=== PATIENT | male | born 2000 | race African-American/Black ===

== ENCOUNTER 2021-11-03 08:28 | Emergency (ER) | payer OTHER, SELFPAY ==
[2021-11-03 08:40] VITALS: BP 120/73; PULSE 96; RESP 17; TEMP 37.2; O2SAT 98
[2021-11-03 08:46] VITALS: RESP 17; O2SAT 98
--- NOTE | 2021-11-03 09:23 | ED.GENADULT ---
HPI - General Adult General Chief complaint: Unspecified <BITA Rockwell Last Filed: 11/03/21 19:24> Stated complaint: pill stuck in throat <BITA Rockwell Last Filed: 11/03/21 19:24> Time Seen by Provider: 11/03/21 08:56 <BITA Rockwell Last Filed: 11/03/21 19:24> Source: patient <BITA Rockwell Last Filed: 11/03/21 19:24> Mode of arrival: ambulatory <BITA Rockwell Last Filed: 11/03/21 19:24> Limitations: no limitations <BITA Rockwell Last Filed: 11/03/21 19:24> History of Present Illness HPI narrative: Patient is a 21 y/o male who presents to the ED with c/o a pill in his throat. Patient reports he woke up with a headache today and tried to take an over the counter Ibuprofen around 6 am this morning. He feels the pill stuck in his throat. Patient has history of eosinophilic esophagitis and reports narrowing of his esophagus. He states he has had 2 previous episodes of pills or food being stuck in his throat that he has had to have emergency scopes for. Patient does not currently follow with a GI doctor. Patient states he is unable to keep down any water since then. No nausea. He does report some discomfort in his esophagus, but denies chest pain or difficulty breathing. <BITA Rockwell Last Filed: 11/03/21 19:24> Related Data Allergies/adverse reactions: Allergies Allergy/AdvReac Type Severity Reaction Status Date / Time nut - unspecified Allergy Unknown HIVES Verified 11/03/21 08:45 peas Allergy Unknown HIVES Verified 11/03/21 08:45 Dairy Allergy Unknown EXAC OF Uncoded 11/03/21 08:45 CROHNS SEAFOOD Allergy Unknown HIVES Uncoded 11/03/21 08:45 <BITA Rockwell Last Filed: 11/03/21 19:24> Review of Systems Review of Systems: ENT: Reports discomfort in esophagus, pill stuck in throat. Denies sore throat. CARDIOVASCULAR: Denies chest pain. RESPIRATORY: Denies dyspnea. GASTROINTESTINAL: Reports vomiting (unable to keep down water d/t pill in throat). Denies abdominal pain, nausea, or diarrhea. MUSCULOSKELETAL: Denies back pain. <Liss Calderon PA-C - Last Filed: 11/03/21 19:24> All systems reviewed & are unremarkable except as noted in HPI and below <Liss Calderon PA-C - Last Filed: 11/03/21 19:24> [facility] Past Medical History Medical History: Medical History (Updated 11/04/21 @ 00:00 by Capri Alcantara) Asthma Crohn's disease Eosinophilic esophagitis <Liss Calderon PA-C - Last Filed: 11/03/21 19:24> Surgical History Surgical History: Surgical History (Updated 11/03/21 @ 10:18 by Liss Calderon PA-C) History of esophagogastroduodenoscopy (EGD) <Liss Calderon PA-C - Last Filed: 11/03/21 19:24> Social History Social History: Social History (Updated 11/03/21 @ 10:18 by Liss Calderon PA-C) Smoking status: Never smoker <Liss Calderon PA-C - Last Filed: 11/03/21 19:24> Exam Narrative: GENERAL: Well appearing, well-nourished, non-toxic, in no acute distress. HEAD: Normocephalic, atraumatic. THROAT: Pharynx clear, no exudate. MMs moist. No drooling. No trismus. NECK: Supple. No adenopathy, no masses. RESPIRATORY: Airway patent, respirations nonlabored. Clear to auscultation bilaterally, no rales, rhonchi, wheezing. CARDIOVASCULAR: Regular rate and rhythm without murmurs, rubs, or gallops. Radial pulses 2+ and equal bilaterally. MUSCULOSKELETAL: Moves all extremities. Strength/ROM intact without gross deformities or TTP. SKIN: Warm, dry, normal color. No rashes. NEURO: A&O X3. Speech clear. Cranial nerves II-XII grossly intact. Steady gait. No ataxic movements. PSYCHIATRIC: Appropriate mood and affect. Normal interaction. <Liss Calderon PA-C - Last Filed: 11/03/21 19:24> Course THERMOSTAT MECHANIC/PA Physician Supervision For this patient encounter, I reviewed the THERMOSTAT MECHANIC or PA documentation, treatment plan, and medical decision making <Vinod Iglesias MD - Last File
[2021-11-03 10:01] VITALS: BP 119/78; PULSE 92; RESP 16; O2SAT 98
[2021-11-03] MEDS: KETOROLAC (*BKC) 60 MG/2 ML VIAL IM (10:29)
== END 2021-11-03 10:37 | disposition home or self-care (01) ==
PROVIDERS: Emergency Provider Emergency Medicine
DX: J10.1 Influenza due to other identified influenza virus with other respiratory manifestations (principal); K20.0 Eosinophilic esophagitis; J45.909 Unspecified asthma, uncomplicated; K50.90 Crohn's disease, unspecified, without complications
CPT/HCPCS: 87804; 96372; 99283; J1885

== ENCOUNTER 2022-03-03 09:05 | Emergency (ER) | payer OTHER, SELFPAY ==
--- NOTE | ~2022-03-03 | XR_ITS ---
EXAMINATION: XR foot LT min 3V DATE: 03/03/2022 09:33 INDICATION: Left foot pain TECHNIQUE: Dorsoplantar, lateral, and 2 oblique views of the left foot were obtained. COMPARISON: None. FINDINGS: There is no fracture, dislocation, or subluxation. The bones and joint spaces are normal. T here is mild medial soft tissue swelling adjacent to the first metatarsophalangeal joint. IMPRESSION: 1. No acute osseous abnormality. Reviewed, dictated and finalized at location B.
[2022-03-03 09:07] VITALS: BP 130/82; PULSE 89; RESP 16; TEMP 36.6; O2SAT 99
[2022-03-03 10:09] VITALS: BP 127/77; PULSE 82; RESP 18; TEMP 37; O2SAT 92
--- NOTE | 2022-03-03 10:19 | PC.NURSE ---
Pt said not able to swallow big tablets and is requesting liquid form. Pharmacy made aware.
[2022-03-03 10:20] LABS: Basophils Absolute Auto 0.1 K/mm3 (0.0-0.1); Basophils Percent Auto 0.9 % (0.2-1.2); Eosinophils Absolute Auto 0.8 K/mm3 (0-0.3); Eosinophils Percent Auto 7.6 % (0-4.4); Hemoglobin 14.4 g/dL (14.0-18.0); Immature Granulocyte Absolute 0.03 K/mm3 (0.00-0.031); Immature Granulocyte Percent A 0.3 % (0-0.5); Lymphocytes Absolute Auto 2.14 K/mm3 (0.9-3.2); Lymphocytes Percent Auto 19.9 % (18.3-44.2); Mean Corpuscular HGB Conc 34.3 g/dl (32-36); Mean Corpuscular Volume 90.3 fl (80-100); Mean Platelet Volume 9.3 fl (7.4-10.4); Monocytes Absolute Auto 1.2 K/mm3 (0.1-0.6); Monocytes Percent Auto 11.4 % (2.6-8.5); Neutrophils Absolute Auto 6.4 K/mm3 (1.3-6.7); Neutrophils Percent Auto 59.9 % (45.5-73.1); Platelet Count Result 256 k/mm3 (150-375); Red Blood Count 4.65 M/mm3 (4.6-6.20); Red Cell Distribution Width 12.4 % (11.5-14.5); White Blood Count 10.8 K/mm3 (4.5-10.0)
[2022-03-03] MEDS: IBUPROFEN SUSPENSION 200 MG/10 ML UDC 600 MG PO (10:25)
[2022-03-03 10:42] LABS: Anion Gap 9 mmol/L (8-16); Blood Urea Nitrogen 18 mg/dL (9-20); Calcium 9.3 mg/dL (8.4-10.2); Carbon Dioxide 30 mmol/L (22-30); Chloride 98 mmol/L (98-107); Estimated CRCL calculation 92 ml/min; Estimated Glomerular Filt Rate > 60; Glucose 95 mg/dL (65-110); Sodium 137 mmol/L (137-145); Uric Acid 7.2 mg/dL (3.5-8.5)
--- NOTE | 2022-03-03 10:58 | ED.GENADULT ---
HPI - General Adult General Chief complaint: Extremity Injury, Lower Stated complaint: left toe injury Time Seen by Provider: 03/03/22 09:56 Source: RN notes reviewed History of Present Illness HPI narrative: Patient presents emergency room from home for left toe pain. Patient states he initially injured the toe 2 weeks ago he states he got out to a bar that evening that his back distress has been began noticed toe pain pain was at the base of the toe he denies the exact mechanism of the injury states that time he had rest of the toe and began to feel better states that secondary to go back to school that yesterday first returning he had spent some time in a bounce house and noticed increased pain following that was swelling at the base of the toe he denies any numbness or tingling the extremities or any other symptoms Related Data Allergies Allergy/AdvReac Type Severity Reaction Status Date / Time nut - unspecified Allergy Unknown HIVES Verified 11/03/21 08:45 peas Allergy Unknown HIVES Verified 11/03/21 08:45 Dairy Allergy Unknown EXAC OF Uncoded 11/03/21 08:45 CROHNS SEAFOOD Allergy Unknown HIVES Uncoded 11/03/21 08:45 Review of Systems Review of Systems: Gen.: Denies fevers or chills Musculoskeletal: See HPI Neuro: Denies numbness, tingling, weakness Skin: Denies rash Endo: Denies DM PMFSH Past Medical History Medical History Asthma Crohn's disease Eosinophilic esophagitis Surgical History Surgical History (Updated 11/03/21 @ 10:18 by Liss Pacheco PA-C) History of esophagogastroduodenoscopy (EGD) Social History Social History Smoking status: Never smoker Exam Narrative: APPEARANCE: No acute distress, nontoxic, resting in bed Eyes: EOMI HEENT: Normocephalic, atraumatic, RESPIRATORY: No respiratory distress MUSCULOSKELETAl: Left foot with tenderness and mild swelling at the base of the first toe the remainder the foot is nontender dorsalis pedis pulse 2+ neurovascular intact NEURO: Awake and alert. Following commands, speech normal, no focal deficits SKIN:: Warm, dry. Normal Color no rash or lesions Course Course Emergency Course: Discussed with patient results of workup and diagnosis. Discussed need for follow-up with primary care, proper use of medication, and reasons to return to the emergency department. Patient understands and agrees to current treatment plan Vital Signs Vital signs: Vital Signs Temperature 97.9 F 03/03/22 09:07 Pulse Rate 89 03/03/22 09:07 Respiratory Rate 16 03/03/22 09:07 Blood Pressure 130/82 03/03/22 09:07 Pulse Oximetry 99 03/03/22 09:07 Oxygen Delivery Room Air 03/03/22 09:07 Temperature 98.6 F 03/03/22 10:09 Pulse Rate 82 03/03/22 10:09 Respiratory Rate 18 03/03/22 10:09 Blood Pressure 127/77 03/03/22 10:09 Pulse Oximetry 92 03/03/22 10:09 Oxygen Delivery Room Air 03/03/22 10:09 Medical Decision Making Vital Signs Vital Signs: Vital Signs Temperature 97.9 F 03/03/22 09:07 Pulse Rate 89 03/03/22 09:07 Respiratory Rate 16 03/03/22 09:07 Blood Pressure 130/82 03/03/22 09:07 Pulse Oximetry 99 03/03/22 09:07 Oxygen Delivery Room Air 03/03/22 09:07 Temperature 98.6 F 03/03/22 10:09 Pulse Rate 82 03/03/22 10:09 Respiratory Rate 18 03/03/22 10:09 Blood Pressure 127/77 03/03/22 10:09 Pulse Oximetry 92 03/03/22 10:09 Oxygen Delivery Room Air 03/03/22 10:09 Lab Data Result diagrams: 03/03/22 10:13 03/03/22 10:13 Labs: Lab Results 03/03/22 03/03/22 Range/Units 10:13 10:13 WBC 10.8 H (4.5-10.0) K/mm3 RBC 4.65 (4.6-6.20) M/mm3 Hgb 14.4 (14.0-18.0) g/dL Hct 42.0 (42.0-52.0) % MCV 90.3 (80-100) fl MCH 31.0 (26-34) pg MCHC 34.3 (32-36) g/dl RDW 12.4 (11.5-14.5) % Plt Count 256 (150-375)
[2022-03-03 11:22] VITALS: BP 124/72; PULSE 75; RESP 18; O2SAT 100
== END 2022-03-03 11:15 | disposition home or self-care (01) ==
PROVIDERS: Emergency Provider Emergency Medicine
DX: S93.502A Unspecified sprain of left great toe, initial encounter (principal); J45.909 Unspecified asthma, uncomplicated; K50.90 Crohn's disease, unspecified, without complications; X58.XXXA Exposure to other specified factors, initial encounter
CPT/HCPCS: 36415; 73630; 80048; 84550; 85025; 99283; A9270

== ENCOUNTER 2022-05-26 10:32 | Emergency (ER) | payer OTHER, SELFPAY ==
--- NOTE | ~2022-05-26 | XR_ITS ---
XR shoulder RT min 2V DATE: 05/26/2022 11:40 INDICATION: Pain and popping sound the right shoulder. No injury. TECHNIQUE: 4 views COMPARISON: None FINDINGS: No fracture, dislocation, periosteal reaction or bone destruction or abnormal soft tissue c alcification. Normal alignment at the acromioclavicular and glenohumeral joints. IMPRESSION: Negative Reviewed, dictated and finalized at location A. R DIGGER IMPRESSION: Negative
[2022-05-26 10:53] VITALS: BP 122/60; PULSE 72; RESP 20; TEMP 37.2; O2SAT 100
--- NOTE | 2022-05-26 11:17 | ED.GENADULT ---
HPI - General Adult General Chief complaint: Extremity Injury, Upper <BITA Mello Last Filed: 05/26/22 12:51> Stated complaint: shoulder injury <BITA Mello Last Filed: 05/26/22 12:51> Time Seen by Provider: 05/26/22 11:03 <BITA Mello Last Filed: 05/26/22 12:51> History of Present Illness HPI narrative: Patient is a healthy 22-year-old [id number] male here for evaluation of right shoulder pain over the past 2 months. Patient states that he initially injured the shoulder in a fall onto outstretched hands in March. He felt a pop in his shoulder, and since then has been experiencing pain with range of motion. He also notes intermittent clicking of his shoulder. Has not attempted any medication for pain. Denies any numbness or tingling, weakness in the arm. Presents today due to continued symptoms. <BITA Mello Last Filed: 05/26/22 12:51> Related Data Allergies/adverse reactions: Allergies Allergy/AdvReac Type Severity Reaction Status Date / Time nut - unspecified Allergy Unknown HIVES Verified 11/03/21 08:45 peas Allergy Unknown HIVES Verified 11/03/21 08:45 Dairy Allergy Unknown EXAC OF Uncoded 11/03/21 08:45 CROHNS SEAFOOD Allergy Unknown HIVES Uncoded 11/03/21 08:45 <BITA Mello Last Filed: 05/26/22 12:51> Review of Systems Review of Systems: Gen.: Denies fevers or chills Eyes: Denies eye pain or visual change ENT: Denies congestion Respiratory: Denies shortness of breath or cough CV: Denies chest pain or palpitations GI: Denies abdominal pain nausea, emesis or diarrhea denies burning, urgency, frequency or hematuria Musculoskeletal: Reports right shoulder pain. Neuro: Denies numbness, tingling, weakness or focal weakness Skin: Denies rash Except as documented, all other systems reviewed and negative <BITA Mello Last Filed: 05/26/22 12:51> PMFSH Past Medical History Medical History: Medical History Asthma Crohn's disease Eosinophilic esophagitis <Nerissa Wilson PA-C - Last Filed: 05/26/22 12:51> Surgical History Surgical History: Surgical History History of esophagogastroduodenoscopy (EGD) <Nerissa Wilson PA-C - Last Filed: 05/26/22 12:51> Social History Social History: Social History Smoking status: Never smoker <Nerissa Wilson PA-C - Last Filed: 05/26/22 12:51> Exam Narrative: APPEARANCE: Well appearing, no pain in distress, well-nourished. Head: Normocephalic and atraumatic. EYES: PERRLA/EOMI, conjunctivae clear NOSE: No nasal drainage EARS: External ear normal in appearance THROAT: Oropharynx is clear. Mucous membranes are moist. NECK: Supple. No adenopathy, no masses. RESPIRATORY: Airway patent, respirations nonlabored. Clear to auscultation bilaterally, no rales, rhonchi, wheezing. CARDIOVASCULAR: Regular rate and rhythm without murmurs, rubs, or gallops. ABDOMINAL: Normoactive bowel sounds. Soft, nontender, nondistended. No rebound tenderness or guarding. MUSCULOSKELETAL: No deformity noted to right shoulder. Bony tenderness to lateral aspect of right clavicle. No bony tenderness to humeral head or olecranon. Sensation intact over axilla. Full range of motion in right shoulder, notes pain with external rotation. Arm is warm and well-perfused. NEURO: Normal speech. No focal neurologic deficits. SKIN: Skin is warm and dry. No rashes. PSYCHIATRIC: Normal affect/mood. <Nerissa Wilson PA-C - Last Filed: 05/26/22 12:51> Course BATTERY PARTS ASSEMBLER/PA Physician Supervision For this encounter, I have reviewed the PA documentation, treatment plan and medical decision making: And I have had [id number] time with the patient. M
== END 2022-05-26 12:10 | disposition home or self-care (01) ==
PROVIDERS: Emergency Provider Emergency Medicine
DX: M25.511 Pain in right shoulder (principal); J45.909 Unspecified asthma, uncomplicated; K50.90 Crohn's disease, unspecified, without complications
CPT/HCPCS: 73030; 99283

== ENCOUNTER 2023-06-03 13:26 | Emergency (ER) | payer OTHER, SELFPAY ==
[2023-06-03 13:39] VITALS: BP 133/90; PULSE 80; RESP 18; TEMP 36.5; O2SAT 100
--- NOTE | 2023-06-03 14:54 | ED.GENADULT ---
HPI - General Adult General Chief complaint: Urogenital-Male Stated complaint: sti check Time Seen by Provider: 06/03/23 14:28 History of Present Illness HPI narrative: 23-year-old male presents to the emergency department for evaluation of pain and tingling at the tip of his penis. Patient reports days ago he did have sexual activity patient did wear 2 condoms. Patient did not have high concern for getting STD but states he did have some tingling in the tip of his penis last night. Patient denies any rashes denies any pain with urination denies any testicular pain. patient states he does have a prior history of chlamydia but states this feels differently. And time the Examination patient denies any complaints. Related Data Allergies Allergy/AdvReac Type Severity Reaction Status Date / Time nut - unspecified Allergy Unknown HIVES Verified 06/03/23 14:28 peas Allergy Unknown HIVES Verified 06/03/23 14:28 Dairy Allergy Unknown EXAC OF Uncoded 11/03/21 08:45 CROHNS SEAFOOD Allergy Unknown HIVES Uncoded 11/03/21 08:45 Review of Systems Review of Systems: All systems reviewed & are unremarkable except as noted in HPI and below PMFSH Past Medical History Medical History Asthma Crohn's disease Eosinophilic esophagitis Surgical History Surgical History History of esophagogastroduodenoscopy (EGD) Social History Social History Smoking status: Never smoker Exam Narrative: APPEARANCE: Well appearing, no pain, no distress, well-nourished. HEAD: normocephalic, atraumatic. EYES: PERRLA/EOMI, conjunctivae clear. NOSE: Normal no drainage EARS:TMS clear with good light reflex. THROAT: Pharynx clear, no exudate. NECK: Supple. No adenopathy, no masses. RESPIRATORY: Airway patent, respirations nonlabored. Clear to auscultation bilaterally, no rales, rhonchi, wheezing. CARDIOVASCULAR: Regular rate and rhythm without murmurs rubs or gallops. ABDOMINAL: Soft, nontender, nondistended, normal bowel sounds genitourinary: No tenderness to the penis no rashes no erythema no drainage MUSCULOSKELETAL: Moves all extremities. Strength/ROM intact, No edema, No calf tenderness. NEURO: Alert. Cranial nerves II through XII intact. Good gait. Good coordination SKIN: Warm, dry. Normal Color Course Course Emergency Course: 23-year-old male presents to ED for evaluation of tingling at the tip of his penis. Patient was asymptomatic in the ED. urine gonorrhea chlamydia and Trichomonas was ordered. Vital Signs Vital signs: Vital Signs Temperature 97.7 F 06/03/23 13:39 Pulse Rate 80 06/03/23 13:39 Respiratory Rate 18 06/03/23 13:39 Blood Pressure 133/90 06/03/23 13:39 Pulse Oximetry 100 06/03/23 13:39 Oxygen Delivery Room Air 06/03/23 13:39 Temperature 97.7 F 06/03/23 13:39 Pulse Rate 80 06/03/23 13:39 Respiratory Rate 18 06/03/23 13:39 Blood Pressure 133/90 06/03/23 13:39 Pulse Oximetry 100 06/03/23 13:39 Oxygen Delivery Room Air 06/03/23 13:39 Medical Decision Making Vital Signs Vital Signs: Vital Signs Temperature 97.7 F 06/03/23 13:39 Pulse Rate 80 06/03/23 13:39 Respiratory Rate 18 06/03/23 13:39 Blood Pressure 133/90 06/03/23 13:39 Pulse Oximetry 100 06/03/23 13:39 Oxygen Delivery Room Air 06/03/23 13:39 Temperature 97.7 F 06/03/23 13:39 Pulse Rate 80 06/03/23 13:39 Respiratory Rate 18 06/03/23 13:39 Blood Pressure 133/90 06/03/23 13:39 Pulse Oximetry 100 06/03/23 13:39 Oxygen Delivery Room Air 06/03/23 13:39 Lab Data Labs: Lab Results 06/03/23 Range/Units 14:51 Urine Color Yellow (Yellow) Urine Appearance Clear (Clear) Urine pH 5.5 (5.0-9.0) Ur Specific [place] 1.012 (1.001-1.035) Urine Protein Negative (Negat
[2023-06-03 15:06] LABS: Appearance Urine Clear (Clear); Bacteria Urine None Seen /hpf; Bilirubin Urine Negative (Negative); Blood Urine Trace (Negative); Color Urine Yellow (Yellow); Glucose Urine UA Negative (Negative); Ketones Urine Trace mg/dL (Negative); Leukocyte Esterase Ur Negative LEU/UL (Negative); Nitrate Urine Negative (Negative); Non Pathogenic Casts 0-2; Protein Urine Negative (Negative); RBC Urine 0-2 /hpf (0-2); Specific Grav Ur 1.012 (1.001-1.035); Squamous Epithelial Cell Urine None seen /hpf (Few); Urobilinogen Urine 0.2 mg/dL (<2.0); WBC Urine 0-5 /hpf; pH Urine 5.5 (5.0-9.0)
[2023-06-03 15:10] LABS: Add Urine Microscopic? YES
[2023-06-03 16:09] LABS: Trichomonas Vag PCR NOT DETECTED (NOT DETECTE)
[2023-06-03 16:31] LABS: Chlamydia trachomatis NOT DETECTED (NOT DETECTE); Neisseria gonorrhoeae PCR NOT DETECTED (NOT DETECTE)
== END 2023-06-03 15:15 | disposition home or self-care (01) ==
PROVIDERS: Emergency Provider Emergency Medicine
DX: N48.89 Other specified disorders of penis (principal); J45.909 Unspecified asthma, uncomplicated; K50.90 Crohn's disease, unspecified, without complications; K20.0 Eosinophilic esophagitis
CPT/HCPCS: 81001; 87491; 87591; 87661; 99283

== ENCOUNTER 2024-08-08 00:03 | Emergency (ER) | payer BC, OTHER, SELFPAY ==
--- OUTSIDE RECORDS SUMMARY | 2024-08-08 00:06 | XMS_ITS | Clinical Summary ---
Author Organization [facility] Address [address] [place] [address] Care Team Providers Care Education Supervisor Name Role Phone Carlos Gillette MD Primary Care Provider [phone] Bienvenido Sargent MD Unavailable Source Comments [facility],non-owned Affiliates and Associated Physician Practices is amultiple site organization consisting of ambulatory clinics and hospital sitesin [place], [place], [place] and [place]. This disclosure is being madepursuant to the Care Everywhere program and may not contain all information available regarding this patient. Last updated 18.[facility] Allergies Active Allergy Reactions Criticality Noted Date Comments Lactase GI Discomfort 07/19/2018 Eggs Urticaria Medium 03/27/2011 Without SOB Fish Urticaria Medium 01/29/2010 Without SOB Food 01/30/2012 peas Peanut-Derived 01/29/2010 Shellfish Urticaria Medium 01/29/2010 Without SOB Tree Nuts 01/29/2010 Medications * Be aware that medications may not be up to date on this document. Alwaysverify current medications with the patient. Medication Sig Dispensed Refills Start Date End Date Status AeroChamber Plus (Aerochamber)Narcisa cations:Exercise- induced bronchospasm (HCC) Use as directed 1 Each 1 08/18/2022 Active azelastine (Astelin) 0.1 % nasal spray [place] 1 (one) spray into each nostril 2 times daily 90 mL 11 12/01/2022 Active Omeprazole-Sodium Bicarbonate 40-1680 MGIndications:Gas troesophageal Reflux Disease Take 40 mg by mouth once daily Take once a day on empty stomach 30 minutes before your first meal of the day Reasons: Gastroesophageal Reflux Disease 90 Each 06/25/2023 Active lansoprazole, disintegrating, (Prevacid Solutab) 30 MG tabletIndications :Eosinophilic Esophagitis Take 1 (one) tablet by mouth daily before breakfast Reasons: Eosinophilic Esophagitis 90 tablet 3 08/12/2023 Active albuterol HFA (Proventil; Ventolin; Proair) 108 (90 Base) MCG/ACT inhalerIndication s:Exercise-induce d bronchospasm (HCC) Inhale 2 (two) puffs by mouth every 6 hours as needed for Shortness of Breath, Wheezing or Cough (per an action plan and before running) 18 g 4 01/26/2024 Active triamcinolone acetonide (Kenalog) 0.1 % ointment Apply to affected areas on the trunk and extremities twice daily. 30 days supply. 454 g 01/26/2024 Active EPINEPHrine (Epipen) 0.3 MG/0.3ML auto-injector penIndications:Fo od allergy,Multiple food allergies Inject 0.3 mL into muscle once as needed for Anaphylaxis 2 Each 1 04/27/2024 Active Vitamin D, Ergocalciferol, 91809 units CAPSIndications:V itamin D Deficiency Take 1 (one) capsule by mouth every 7 days for 12 doses Reasons: Vitamin D Deficiency 12 capsule 05/19/2024 Active Active Problems Patient Care Coordination No te Formatting of this note migh t be different from the original. Mom's cell [phone] Misha gave permission at his appointment on 07/02/2017 that we may speak to his mother regarding his care. Problem Noted Date Diagnosed Date S/P shoulder surgery 04/27/2024 Current mild episode of garrett r depressive disorder without prior episode 09/16/2023 Mild intermittent asthma 03/18/2023 Rotator cuff arthropathy of both shoulders 03/18 Healthcare maintenance 03/18/2023 Crohn's disease 02/13/2014 Overview (12/03/2016): 01/24/14 EGD: mild to moderate esophagitis, with mild gastritis. Path: up to 6 eos/hpf, but there were granulomas found in the stomach. 02/03/14 CRP < 0.20 ESR 7 02/04/14 EKG: normal Cardiology consultation: normal exam, no SBE prophylaxis needed 02/13/14 DHR by flow cytometry: normal NADPH oxidase activity (neg for chronic granulomatous disease) 02/16/14 UGI/SBFT: normal, no evidence of ileitis 02/21/14 PPD: neg on 02/27/14 01/23/15 EGD: mild esophagitis Colonoscopy: mild colitis of desc and rectosigmoid colon; scattered aphthous ulcers in remainder of colon Path: mod eosinophilic esophagitis, with up to 60 eos/hpf Mild to mod chronic active colitis of distal colon Anxiety 01/24/2014 Eosinophilic esophagitis 04/08/2010 Overview (02/02/2018): Prior study: 40 eos/hpf 02/25/10 EGD: eosinophilic esphagitis (100 eos/hpf) 10/04/11 EGD: eosinophilic esophagitis Path: prox esoph: > 100 eos/hpf Distal esoph: > 100 eos/hpf 08/31/12 Prevacid 30 mg BID 12/09/12 EGD: severe esophagitis, possible early stricture Path: > 50 eos/hpf, no improvement from previous study. 02/2013 Food patch testing negative for milk, egg, soy, wheat, corn, rice, peanut, walnut. 01/02/14 EGD: moderate esophagitis, with tight LES (?early stricture) Path: mid esoph had > 50 eos/hpf Distal esoph had up to 35 eos/hpf Was on swallowed Flovent 220 and six food elimination diet, but was not fully eliminating wheat. 01/03/14 Ba esophagram: normal 01/24/14 EGD: mild esophagitis with no stricture, mild gastritis Path: Esophagus: mild esophagitis ( with 5 eos/HPF = controlled EoE) Stomach: non-necrotizing granulamota Was on Flovent 220mcg 2 puffs BID swallowed and 6-food elimination diet (not strictly followed) Pulmicort restarted 02/04/14 Cardiology eval: normal, no SBE precautions needed 02/16/14 UGI/SBFT: normal 01/23/15: EGD/colonoscopy with: Esophagus with up to 60 eos/HPF (= active EoE) + colitis of his descending and sigmoid colon Was strictly avoiding seafood and and nuts, while eating some dairy, wheat and soy at the time. He was not using the swallowed Flovent 01/01/17: repeat EGD and colonoscopy which showed up to 50 eos/HPF in his esophagus, as well as colitis, mild gastritis and ileitis (known Crohn's Disease). This was on an egg, peanuts, tree nuts, fish, and shellfish elimination diet, without swallowed Flovent. 07/06/17: repeat EGD with > 50 eos/HPF on two esophageal biopsies (during an endoscopic removal of impacted food). 12/30/17: repeat EGD and colonoscopy which showed: - Esophagus: > 80 eos/HPF - Stomach granuloma without eos - Mild duodenitis with increased eos. - Mild colitis with increased eos At the time he was doing swallowed Flovent 220 2x2 as well as an elimination diet for egg, all nuts, all seafood, and peas. He was eating dairy, wheat, and some soy containing foods. Allergic rhinitis 04/08/2010 Overview (07/09/2017): 2008: IgE Immunocap tests were done to inhalants and were positive to all categories of inhalants, namely house dust mite, mold spores, cockroach, cat dander, dog dander, as well as tree, grass, and ragweed pollen. 03/11/11: IgE Immunocaps positive to: all inhalants, unchanged. 10/27/16: IgE immunocaps Inhalants: + dust mites, cockroach, molds, dog, trees, grass, ragweed, and other weeds. Trace sensitivity to cat Assessment & Plan (10/12/2020 1:16 PM CDT): Will Rx fluticasone nasal spray and loratadine 10 mg daily Stop afrin Educated expectant management and when to come in/call Resolved Problems Problem Noted Date Diagnosed Date Resolved Date COVID-19 04/13/2020 03/18/2023 Multiple food allergies 03/01/2018 09/0 12/2022 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 02/17/2019 Colitis 11/26/2016 02/17/2019 Postinflammatory hyperpigmentation 09/15/2016 03/18/2023 Acne vulgaris 09/15/2016 03/18/2023 Hypertrophy of tonsils with hypertrophy of adenoids 12/05/2014 04/02/2021 Overview (04/12/2015): HELEN (obstructive sleep apnea) 10/09/2014 04/02/2021 Overview (10/09/2014): diag psg 09/24/14 SUMMARY RDI Min SaO2 13.6 91.0% AHI: 13.3 Obstructive AHI: 13.3 Chest pain, atypical 01/24/2014 023 Assessment & Plan (01/24/2014 6:39 AM CDT): Assessment: Pt has been experiencing atypical CP that has been sharp, intermittent, and spontaneously resolves within a minute. Onset is approx 4 weeks ago, and more frequent now. Etiology is anxiety vs GERD; anxiety most likely. Pt has been experiencing panic attacks in recent weeks what is suspected as response to emotional grief. His mother was recently diagnosed with breast cancer and he has experienced recent deaths of relatives in the past few months. He has been seen by a clinical psychologist in the past week. Plan: -Cardiopulmonary monitor -Monitor VS q4hr Allergic conjunctivitis 05/23/2013 09/0 12/2022 Acne 10/15/2012 04/02/2021 Overview (11/25/2013): Onset 2011; mild, comedonal face only 10/15/12 Rx tretinoin; never filled 07/15/13 complicated by single papule at the right nasal alar crease--consider scar, calcinosis cutis, fibrous papule, epidermoid cyst 11/25/13 mild comedonal; no medications used since last visit but OTC rebecca acid papules on knee 10/15/2012 03/18/2023 Overview (11/25/2013): Onset June 2012 10/15/12 verruca vulgaris; cryo x 2 cycles to R knee with resolution 07/15/12 nonspecific erosion--feature of prurigo nodule vs dermatofibroma, 11/25/13 chose to monitor lesion vs bx Closed fracture of part of fibula 05/12/2012 01/24/2014 Overview (04/12/2015): Gynecomastia, male 01/26/2012 Overview (01/26/2012): Referred to plastic service for evaluation Mild persistent asthma without complication 11/04/2011 09/16/2023 Fever 04/06/2011 11/04/2011 Tachycardia 02/25/2011 11/04/2011 Overview (04/12/2015): Adverse reaction to food, lal bsequent encounter 04/08/2010 03/18/2023 Overview (02/02/2018): History of urticaria without SOB to egg, fish and shellfish. 01/17/04 IgE-- Egg white, milk, tomato, corn, soy, brazil nut, hazelnut, walnut, shrimp 2009: Peanuts, tree nuts, finned fish, shell fish, as well as milk, soy, corn, pea, and tomato. 03/11/11 IgE immunocaps + all common EoE triggers: milk, egg, wheat, soy, peanut, tree nuts, finned fish and shellfish. Less common EoE triggers: + to all grains, beef, apple, banana, and vegetables including pea, but not to chicken and turkey. 02/24/13: Food allergy patch test negative. 10/27/16: IgE immunocaps (patient with immediate food allergy (fish, egg), EoE and crohn's disease. ?? Total peanut: 19.9 (>95% PPV) [place] h 2 (2S albumin): 0.75 [place] h 1 (7S globulin): 0.12 [place] h 3 (11S globulin): negative [place] h 9 (LTP): 3.9 [place] h 8 ND-10): 3.27 Tree nuts: Total hazelnut ([place]): 8.91 Total walnut: 5.73 Total cashew: 1.77 [place] nut: 0.37 [place]: 3.17 Total cow's milk: 0.57 (95% NPV) Casein (heat resistent): 0.16 Alpha lactalbumin (heat sensitive): 0.59 Beta lactoglobin (heat sensitive): negative Total egg white: negative Ovalbumin (heat sensitive): negative Ovomucoid (heat stable): negative Wheat: 6.11 (>90% NPV) Codfish: 1.75 (90% NPV) Tuna: 0.67 (90% NPV) Shrimp 0.40 Crab 0.38 Lobster 0.18 Assessment: Peanut: high risk of anaphylaxis Sensitivity to tree nuts with a higher risk of reaction to hazelnut and walnut. Lower risk of anaphylaxis to egg, wheat, milk, finned fish and shellfish. Encounters Date Type Department Care Team Description 08/04/2024 7:30 AM PACKING SHED SUPERVISOR - 08/04/2024 11:59 PM PACKING SHED SUPERVISOR Hospital Encounter [facility] PT [address] [place] [address] Isaias Torres MD Tado, Mike, PT Orthopedics Discharge Disposition: Home or Self Care 08/03/2024 Travel 07/28/2024 7:30 AM PACKING SHED SUPERVISOR - 07/28/2024 11:59 PM PACKING SHED SUPERVISOR Hospital Encounter [facility] [address] [place] [phone] Isaias Torres MD Herman, Laura, PT Orthopedics Discharge Disposition: Home or Self Care 07/19/2024 Orders Only [facility] - GI [address] [facility] [place] [address] Khadijah Busch MD Crohn's disease of both small and large intestine without complication (HCC) 07/14/2024 7:30 AM PACKING SHED SUPERVISOR - 07/14/2024 11:59 PM PACKING SHED SUPERVISOR Hospital Encounter [facility] PT [address] [place] [phone] Isaias Torres MD Herman, Laura, PT Orthopedics Discharge Disposition: Home or Self Care 07/13/2024 1:20 PM PACKING SHED SUPERVISOR - 07/13/2024 11:59 PM PACKING SHED SUPERVISOR Hospital Encounter [facility] MRI [address] [place] [phone] Khadijah Busch MD Discharge Disposition: Home or Self Care 07/13/2024 Travel 07/01/2024 11:00 AM PACKING SHED SUPERVISOR - 07/01/2024 11:59 PM PACKING SHED SUPERVISOR Hospital Encounter [facility] PT [address] [place] [address] Isaias Torres MD Herman, Laura, PT Discharge Disposition: Home or Self Care 06/15/2024 Orders Only [facility] - Orthopedics [address] [place] [phone] Isaias Torres MD Chronic left shoulder pain 06/14/2024 10:20 AM PACKING SHED SUPERVISOR - 06/14/2024 11:59 PM PACKING SHED SUPERVISOR Hospital Encounter [facility] - MRI [address] [place] [address] Isaias Torres MD Discharge Disposition: Home or Self Care 06/14/2024 8:58 AM PACKING SHED SUPERVISOR - 06/14/2024 10:19 AM PACKING SHED SUPERVISOR Hospital Encounter [facility] - Radiology [address] [place] [address] Isaias Torres MD Discharge Disposition: Home or Self Care 06/14/2024 Orders Only [facility] - GI [address] [place] [phone] Khadijah Busch MD 06/07/2024 4:42 PM PACKING SHED SUPERVISOR - 06/07/2024 11:59 PM PACKING SHED SUPERVISOR Hospital Encounter [facility] OP DRAW STATION [address] [place] [address] Discharge Disposition: Home or Self Care 06/07/2024 Travel 06/06/2024 2:30 PM PACKING SHED SUPERVISOR Office Visit [facility] - Dermatology [address] [place] [phone] Nerissa Rodriguez MD Dermatofibroma (Primary Dx); Rash and other nonspecific skin eruption; Nipple problem 06/06/2024 Travel 06/03/2024 Orders Only [facility] - Orthopedics [address] [place] [address] [address] [facility] [address] [place] [phone] Isaias Torres MD S/P shoulder surgery 05/27/2024 8:20 AM PACKING SHED SUPERVISOR Office Visit [facility] - Urology [address] [place] [phone] Ron Kinney PA Itching of male genitalia (Primary Dx) 05/27/2024 Travel 05/19/2024 Orders Only [facility] - GI [address] [place] [phone] Khadijah Busch MD 05/11/2024 1:15 PM CDT - 05/11/2024 11:59 PM CDT Hospital Encounter [facility] OP DRAW [facility]ATION [address] [place] [phone] Discharge Disposition: Home or Self Care 05/11/2024 Travel 05/10/2024 Orders Only [facility] - GI [address] [place] [phone] Khadijah Busch MD Crohn's disease of both small and large intestine without complication (HCC) from Last 3 Months Immunizations Name Administration Dates Next Due FlxOne primary monoval ent 12+ yr 0.3mL Purple cap 12/19/2020,11/28/2020 DTaP VACCINE IM (6wk-6yrs) 06/21/2002,,1998,09/19,1998 HEP A PEDS 2 DOSE 01/12/2002,06/10/2001 HEP B VACCINE, PED/ADOL 07/08/1999,11/14,1998,05/19 HIB VACCINE 08/29/1999, 9,1998,07/26 Human Papilloma Virus Arthur valent Vaccine 01/09/2014,10/18/2012,04/09/2012 INFLUENZA VACCINE 04/03/2011 INFLUENZA VACCINE, QUADR. (F LUZONE; FLULAVAL; FLUARIX; AFLURIA QUADRIVALENT; 6MO+), 0.5 ML (IIV4) 09/16/2023,09/14/2019 MENINGOCOCCAL CONJUGATE (MCV4P) 06/12/2014,10/22 MMR 06/21/2002,07/08/1999 POLIO IPV 06/21/2002, 0,1998,07/26 Pneumococcal Pcv13 Conj 09/14/2019 TDAP (7yrs+) 10/19/2009 VARICELLA 10/19/2009,07/08/1999 Family History Medical History Relation Name Comments Asthma Father Hypertension Father Schizophrenia Father Cancer - Prostate Maternal Grandfather Diabetes - Type 2 Maternal Grandfather Renal Disease Maternal Grandfather Hypertension Maternal Grandmother Cancer - Breast Mother diagnosed 2012 GERD - Gastroesophageal Reflux Disease Mother Hypertension Mother Migraine Mother Hypertension Paternal Grandmother Schizophrenia Paternal Grandmother Anesthesia Reaction Neg Hx CVA Neg Hx Cancer - Other Neg Hx Cancer - Skin, Melanoma Neg Hx Cancer - Skin, Non Melanoma Neg Hx Eczema Neg Hx Hemophilia Neg Hx Psoriasis Neg Hx Relation Name Status Comments Father Alive Maternal Grandfather Maternal Grandmother Alive Mother Alive Paternal Grandfather Paternal Grandmother Social History Tobacco Use Types Packs/Day Years Used Date Smoking Tobacco: Never Smokeless Tobacco: Never Tobacco Cessation:Counseling Given: No Alcohol Use Standard Drinks/Week Comments Yes 5 (1 standard drink = 0.6 oz pur e alcohol) PHQ-2 Answer Date Recorded Patient Health Questionnaire-2 Score 0 04/27/2024 Sex and Gender Information Value Date Recorded Sex Assigned at Not on file Gender Identity Not on file Sexual Orientation Not on file Last Filed Vital Signs Vital Sign Reading Time Taken Comments Blood Pressure 117/84 05/27/2024 8:19 AM PACKING SHED SUPERVISOR Pulse 84 05/27/2024 8:19 AM PACKING SHED SUPERVISOR Temperature 36.5 ??C (97.7 ??F) 05/27/2024 8:19 AM CS T Respiratory Rate 18 05/27/2024 8:19 AM PACKING SHED SUPERVISOR Oxygen Saturation 96% 05/27/2024 8:19 AM PACKING SHED SUPERVISOR Inhaled Oxygen Concentration 100% 02/2019 11:59 AM CDT Weight 66.6 kg (146 lb 12.8 oz) 05/27/2024 8:19 AM PACKING SHED SUPERVISOR Height 167.6 cm (5' 6 ) 05/27/2024 8:19 AM PACKING SHED SUPERVISOR Body Mass Index 23.69 05/27/2024 8:19 AM PACKING SHED SUPERVISOR Plan of Treatment Upcoming Encounters Date Type Department Care Team (Late st Contact Info) Description 08/08/2024 8:00 AM PACKING SHED SUPERVISOR Appointment [facility] PT [address] [place] [phone] Isaias Torres MD [address] [place] [address] [place] [address] Moustapha Lopez, PT 08/22/2024 2:00 PM PACKING SHED SUPERVISOR Office Visit [facility] - Internal Med [address] [place] [phone] Carlos Gillette MD [address] [place] [address] [place] [phone] 09/30/2024 7:55 AM CDT Hospital Encounter [facility] ENDOSCOPY [facility] [place] [address] Khadijah Busch MD [address] [place] [phone] Surgery General 09/30/2024 7:55 AM CDT - 09/30/2024 8:45 AM CDT Surgery [facility] ENDOSCOPY [address] [place] [phone] Khadijah Busch MD [address] [place] [phone] EGD + capsule w/ sean 10/24/2024 3:00 PM CDT Office Visit [facility] - GI [address] [place] [address] [place] [address] Khadijah Busch MD [address] [place] [phone] 12/21/2024 3:30 PM CDT Office Visit [facility] - Allergy [address] [place] [phone] Yonatan Allen MD [address] [place] [address] DIV OF ALLERGY/[place] [address] Scheduled Procedures Name Priority Associated Diagnoses Date/Ti me ESOPHAGOGASTRODUODENOSCOPY ( EGD) DIAGNOSTIC Crohn's disease of both small and large intestine without complication (HCC) 09/30/2024 7:55 AM CDT CAPSULE ENDOSCOPY (GASTROINT ESTINAL IMAGING) Crohn's disease of both small and large intestine without complication (HCC) 09/30/2024 7:55 AM CDT COLONOSCOPY DIAGNOSTIC Crohn's disease of both small and large intestine without complication (HCC) 09/30/2024 7:55 AM CDT Health Maintenance Due Date Last Done Comments DTAP/TDAP/TD VACCINES (7 - Td or Tdap) 10/20/2019 10/19/2009, 06/21/2002, 08/29/1999, Additional history exists PNEUMOCOCCAL VACCINE (2 of 2 - PPSV23) 11/09/2019 09/14/2019 COVID-19 VACCINE (3 season) 2024 12/19/2020, 11/28/2020 INFLUENZA VACCINE (#1) 2024 , 09/14/2019, 04/03/2011 DEPRESSION SCREENING 07/13/2024 09/16/2023, 08/18/19 23 ZOSTER VACCINE (1 of 2) 2048 HEPATITIS B VACCINE Completed 07/08/1999, 1998, 1998, Additional history exists HIB VACCINE Completed 08/29/1999, 11/1998, 1998, Additional history exists HPV VACCINE Completed 01/09/2014, 040 02/2013, 04/09/2012 MENINGOCOCCAL VACCINE Completed 06/12/2014, 010 HEPATITIS C SCREENING Discontinued 01/26/2024 HIV SCREENING Discontinued MENINGOCOCCAL (Group B) VACCINE Aged Out No longer eligible based on patient's age to complete this topic Goals Goal Patient Goal Type Associated Problems Recent Progress Patient-Stated? Author Medication Management General On track( 023 9:05 AM PACKING SHED SUPERVISOR) Monique Crawford, RN Note: Expected end date: ongoing Interventions: Take all medications as prescribed Let your doctor know right away about any changes in your medications Make sure to request a refill of your medication at least one week prior to your last dose Medical Devices Implanted Type Area Caterpillar Mechanic Device Identifier Shelf Expiration Date Model / Serial / Lot Sidell Sut Gryphon Proknot Bcrl Rapide Implanted:Qty: 1 on 11/25/2022 by Isaias Torres MD at [facility] Right: Shoulder [employer] 08/12/2025 [id number] / / [id number] Sidell Sut Gryphon Proknot Bcrl Rapide Implanted:Qty: 1 on 11/25/2022 by Isaias Torres MD at [facility] Right: Shoulder [employer] 08/12/2025 [id number] / / [id number] Sidell Sut Gryphon Proknot Bcrl Rapide - S00 Implanted:Qty: 3 on 03/05/2023 by Isaias Torres MD at [facility] Left: Shoulder [employer] 10/10/2025 [id number] / 00 / [id number] Sidell Sut Gryphon Proknot Bcrl Rapide - S00 Implanted:Qty: 1 on 03/05/2023 by Isaias Torres MD at [facility] Left: Shoulder [employer] 10/10/2025 [id number] / 00 / [id number] Procedures Procedure Name Priority Date/Time Associated Diagnosis Comments MRI ENTEROGRAPHY Routine 07/13/2024 3:20 PM PACKING SHED SUPERVISOR Crohn's disease of both small and large intestine without complication (HCC) FL INJECTION MR ARTHROGRAM Routine 06/14/2024 12:04 PM PACKING SHED SUPERVISOR S/P shoulder surgery MRI SHOULDER LEFT W CONTRAST Routine 06/14/2024 11:04 AM PACKING SHED SUPERVISOR S/P shoulder surgery CALPROTECTIN FECAL Routine 06/07/2024 4: 43 PM PACKING SHED SUPERVISOR Crohn's disease of both small and large intestine without complication (HCC) URINALYSIS AUTO - POINT OF CARE (AMB) [facility] Routine 05/27/2024 8:26 AM PACKING SHED SUPERVISOR Itching of male genitalia DIFFERENTIAL MANUAL Routine 05/11/2024 1 :46 PM CDT Crohn's disease of both small and large intestine without complication (HCC) COMPREHENSIVE METABOLIC PANEL Routine 05/11/2024 1:46 PM CDT Crohn's disease of both small and large intestine without complication (HCC) CBC W AUTO DIFFERENTIAL Routine 05/11/2024 1:46 PM CDT Crohn's disease of both small and large intestine without complication (HCC) FERRITIN Routine 05/11/2024 1:46 PM CDT Crohn's disease of both small and large intestine without complication (HCC) VITAMIN B12 Routine 05/11/2024 1:46 PM CDT Crohn's disease of both small and large intestine without complication (HCC) VITAMIN D 25-HYDROXY Routine 05/11/2024 1:46 PM CDT Crohn's disease of both small and large intestine without complication (HCC) C-REACTIVE PROTEIN Routine 05/11/2024 1: 46 PM CDT Crohn's disease of both small and large intestine without complication (HCC) IRON + TRANSFERRIN PANEL Routine 05/11/2024 1:46 PM CDT Crohn's disease of both small and large intestine without complication (HCC) HEPATITIS C AB SCREEN RFLX NAAT QUANT Routine 01/26/2024 4:00 PM CDT Rash and other nonspecific skin eruption from Last 3 Months or Most Recently Relevant to Health Maintenance Results * MRI Enterography (07/13/2024 3:20 PM PACKING SHED SUPERVISOR) Anatomical Region Laterality Modality Abdomen Magnetic Resonan ce, Magnetic Resonance 07/14/2024 9:13 AM PACKING SHED SUPERVISOR Impressions 07/18/2024 7:38 AM PACKING SHED SUPERVISOR Impression: Focal enhancement of a short segment loop decompressed proximal ileum within the left lower quadrant, suggestive of active disease. No other active disease identified. Report dictated by Donta Li MD (certified prosthetist vice president). I, Juan Kirkland MD have personally reviewed and interpreted this examination/study. > Interpreting Provider: Juan Kirkland MD on 07/18/2024 7:38 AM Narrative 07/18/2024 7:38 AM PACKING SHED SUPERVISOR PROCEDURE: ??MRI ENTEROGRAPHY, DATE/TIME OF EXAM: ??07/13/2024 3:21 PM, LOCATION ??[facility] INDICATION: K50.80: Crohn's disease of both small and large intestine without complication (HCC) ADDITIONAL CLINICAL INFORMATION: Ordering Provider Reason For Exam: ??History of Chron's disease, uncontolled COMPARISON: MRI enterography from an outside institution via [employer] dated 12/05/2016. TECHNIQUE: MRI of the abdomen and pelvis was performed prior to and following the uneventful administration of 13 mL Multihance intravenous gadolinium contrast according to an enterography protocol. The patient drank 1350 mL of Citra Select prior to the study. Findings: Lower Chest: Normal. Gastrointestinal Small bowel distention: Satisfactory with intraluminal fluid to the level of the distal bowel. Obstruction: Nondilated without evidence of obstruction. Enhancement: No enhancing lesion of the bowel. Bowel wall: Focal enhancement of a short segment loop of decompressed proximal ileum within the left lower quadrant (series 25, image 13 and series 22 image 85). Terminal ileum: Normal. Other: No bowel fistula, stricture, or abscess. Hepatobiliary system Liver: Normal size with smooth surface contour. No arterially enhancing observations. Steatosis: None. Spleen: Normal. Gallbladder and bile ducts Gallbladder: Normal. Bile ducts: Nondilated. Retroperitoneum Pancreas: Normal. Adrenals: Normal. Kidneys: Normal. Lymph nodes: No lymphadenopathy. Peritoneum: No free intraperitoneal fluid. Pelvic structures: The bladder is distended with fluid and appears normal. The prostate is normal. No free pelvic fluid is identified. Other findings: None. Procedure Note Juan Kirkland MD - 07/18/2024 PROCEDURE: MRI ENTEROGRAPHY, DATE/TIME OF EXAM: 07/13/2024 3:21 PM, LOCATION [facility] INDICATION: K50.80: Crohn's disease of both small and large intestine without complication (HCC) ADDITIONAL CLINICAL INFORMATION: Ordering Provider Reason For Exam: History of Chron's disease,uncontolled COMPARISON: MRI enterography from an outside institution via [employer] dated 12/05/2016. TECHNIQUE: MRI of the abdomen and pelvis was performed prior to and following the uneventful administration of 13 mL Multihance intravenous gadolinium contrast according to an enterography protocol. The patient drank 1350 mL of Citra Select prior to the study. Findings: Lower Chest: Normal. Gastrointestinal Small bowel distention: Satisfactory with intraluminal fluid to thelevel of the distal bowel. Obstruction: Nondilated without evidence of obstruction. Enhancement: No enhancing lesion of the bowel. Bowel wall: Focal enhancement of a short segment loop of decompressed proximal ileum within the left lower quadrant (series 25, image 13 and series 22 image 85). Terminal ileum: Normal. Other: No bowel fistula, stricture, or abscess. Hepatobiliary system Liver: Normal size with smooth surface contour. No arterially enhancing observations. Steatosis: None. Spleen: Normal. Gallbladder and bile ducts Gallbladder: Normal. Bile ducts: Nondilated. Retroperitoneum Pancreas: Normal. Adrenals: Normal. Kidneys: Normal. Lymph nodes: No lymphadenopathy. Peritoneum: No free intraperitoneal fluid. Pelvic structures: The bladder is distended with fluid and appears normal. The prostate is normal. No free pelvic fluid is identified. Other findings: None. Impression: Focal enhancement of a short segment loop decompressed proximal ileum within the left lower quadrant, suggestive of active disease. No other active disease identified. Report dictated by Donta Li MD (certified prosthetist vice president). I, Juan Kirkland MD have personally reviewed and interpreted this examination/study. > Interpreting Provider: Juan Kirkland MD on 07/18/2024 7:38 AM Khadijah Busch MD MR ORDERABLES * FL Injection Mr Arthrogram (06/14/2024 12:04 PM PACKING SHED SUPERVISOR) Anatomical Region Laterality Modality Lower Extremity, Upper Extremity Radio Fluoroscopy 06/14/2024 1:11 PM PACKING SHED SUPERVISOR Impressions 06/14/2024 1:13 PM PACKING SHED SUPERVISOR IMPRESSION: Successful fluoroscopic guided right left arthrogram pre-MRI. See separate MRI report. > Interpreting Provider: Sumit Horton MD on 06/14/2024 1:13 PM Narrative 06/14/2024 1:13 PM PACKING SHED SUPERVISOR EXAM: FLUOROSCOPIC GUIDED LEFT SHOULDER ARTHROGRAM (PRE-MRI) CLINICAL INFORMATION: Z98.890: Other specified postprocedural states. History of previous left shoulder labral repair. Recurrent pain. COMPARISON: None available FLUOROSCOPY TIME: 0.4 minutes FLUOROSCOPIC IMAGES: 0.5 mGy ESTIMATED BLOOD LOSS: None TECHNICAL INFORMATION: After informed consent was obtained, the skin of the anterior left shoulder was prepped and draped in the usual sterile manner. 1% lidocaine was used for local anesthetic. Under fluoroscopic guidance, a 22-gauge needle was advanced into the left shoulder joint with needle tip position confirmed with a small injection of iodinated contrast. A total of 15 cc of a mixture of 0.1 ??cc Dotarem, 10 cc sterile saline, and 5 ??cc iodinated contrast was injected. The needle was removed, and there were no immediate competitions. The patient then underwent MRI. Procedure Note Sumit Horton MD - 06/14/2024 EXAM: FLUOROSCOPIC GUIDED LEFT SHOULDER ARTHROGRAM (PRE-MRI) CLINICAL INFORMATION: Z98.890: Other specified postprocedural states. History of previous left shoulder labral repair. Recurrent pain. COMPARISON: None available FLUOROSCOPY TIME: 0.4 minutes FLUOROSCOPIC IMAGES: 0.5 mGy ESTIMATED BLOOD LOSS: None TECHNICAL INFORMATION: After informed consent was obtained, the skin ofthe anterior left shoulder was prepped and draped in the usual sterilemanner. 1% lidocaine was used for local anesthetic. Under fluoroscopic guidance,a 22-gauge needle was advanced into the left shoulder joint with needletip position confirmed with a small injection of iodinated contrast. A totalof 15 cc of a mixture of 0.1 cc Dotarem, 10 cc sterile saline, and 5 cc iodinated contrast was injected. The needle was removed, and there wereno immediate competitions. The patient then underwent MRI. IMPRESSION: Successful fluoroscopic guided right left arthrogrampre-MRI. See separate MRI report. > Interpreting Provider: Sumit Horton MD on 06/14/2024 1:13 PM Isaias Torres MD FLUOROSCOPY ORDERABL ES * MRI Shoulder Left W Contrast (06/14/2024 11:04 AM PACKING [employer]ED SUPERVISOR) Anatomical Region Laterality Modality Upper Extremity Magnetic Resonan ce 06/14/2024 2:08 PM PACKING SHED SUPERVISOR Impressions 06/14/2024 2:52 PM PACKING SHED SUPERVISOR IMPRESSION: Postsurgical change consistent with a previous repair of the posterior glenoid labrum is noted. There is a linear area of contrast extending into the posterior glenoid labrum repair on sequence 4 image 11 and sequence 4 image 12. This is suggestive of a recurrent tear of the posterior glenoid labral repair. Mild bone marrow edema is seen in the posterior glenoid at this location. Mild tendinosis of the distal supraspinatus tendon is seen. There is mild irregularity and fraying of the superior glenoid labrum. The biceps anchor appears intact. > Interpreting Provider: Zechariah Mark MD on 06/14/2024 2:52 PM Narrative 06/14/2024 2:52 PM PACKING [employer] SUPERVISOR PROCEDURE: ??MRI SHOULDER LEFT W CONTRAST DATE/TIME OF EXAM: ??06/14/2024 11:49 AM CLINICAL INFORMATION: None relevant/not provided if blank. Indication: Z98.890: Other specified postprocedural states Additional History: Left shoulder pain COMPARISON: None. TECHNIQUE: MRI of the left show was performed utilizing multiple pulse sequences in multiple planes with intra-articular gadolinium. CONTRAST: ?? Intra-articular contrast was utilized. FINDINGS: The subscapularis tendon is intact. The intra-articular portion of the long head of the biceps tendon is intact. The articular cartilage in the glenohumeral joint is well-preserved. Suture anchors are seen in the posterior glenoid related to a previous repair of the posterior glenoid labrum. There is a linear area of contrast extending into the posterior labrum on sequence 4 image 11 and sequence 4 image 12. This is suggestive of a recurrent tear of the posterior glenoid labral repair. Mild bone marrow edema is seen in the posterior glenoid at this location. A suture anchor is seen in the anterior inferior glenoid. The anterior inferior glenoid labral repair appears intact. The AC joint is intact. There is a type II acromium. Mild tendinosis of the distal supraspinatus tendon is seen. The infraspinatus tendon is intact. The teres minor tendon is intact. The inferior glenohumeral ligaments are intact. The biceps anchor is intact. There is a small amount of contrast extension into the superior labrum and there is degenerative signal change in the superior labrum on the coronal PD fat sat images. Procedure Note Zechariah Mark MD - 06/14/2024 PROCEDURE: MRI SHOULDER LEFT W CONTRAST DATE/TIME OF EXAM: 06/14/2024 11:49 AM CLINICAL INFORMATION: None relevant/not provided if blank. Indication: Z98.890: Other specified postprocedural states Additional History: Left shoulder pain COMPARISON: None. TECHNIQUE: MRI of the left show was performed utilizing multiple pulse sequences in multiple planes with intra-articular gadolinium. CONTRAST: Intra-articular contrast was utilized. FINDINGS: The subscapularis tendon is intact. The intra-articular portion of thelong head of the biceps tendon is intact. The articular cartilage in the glenohumeral joint is well-preserved. Suture anchors are seen in the posterior glenoid related to a previous repair of the posterior glenoid labrum. There is a linear area ofcontrast extending into the posterior labrum on sequence 4 image 11 and sequence4 image 12. This is suggestive of a recurrent tear of the posteriorglenoid labral repair. Mild bone marrow edema is seen in the posterior glenoidat this location. A suture anchor is seen in the anterior inferior glenoid. The anterior inferior glenoid labral repair appears intact. The AC joint is intact. There is a type II acromium. Mild tendinosis ofthe distal supraspinatus tendon is seen. The infraspinatus tendon is intact. The teres minor tendon is intact. The inferior glenohumeral ligamentsare intact. The biceps anchor is intact. There is a small amount of contrast extension into the superior labrum and there is degenerative signalchange in the superior labrum on the coronal PD fat sat images. IMPRESSION: Postsurgical change consistent with a previous repair of the posterior glenoid labrum is noted. There is a linear area of contrast extendinginto the posterior glenoid labrum repair on sequence 4 image 11 and sequence4 image 12. This is suggestive of a recurrent tear of the posteriorglenoid labral repair. Mild bone marrow edema is seen in the posterior glenoidat this location. Mild tendinosis of the distal supraspinatus tendon isseen. There is mild irregularity and fraying of the superior glenoid labrum.The biceps anchor appears intact. > Interpreting Provider: Zechariah Mark MD on 06/14/2024 2:52 PM Isaias Torres MD MR ORDERABLES * (ABNORMAL) CALPROTECTIN FECAL (06/07/2024 4:43 PM PACKING [employer]ED SUPERVISOR) Calprotectin Fecal 179(H) <=49 ug/g 06/10/2024 5:39 PM PACKING SHED SUPERVISOR [facility] Comment: REFERENCE INTERVAL: Calprotectin, Fecal by Immunoassay ??Less than 50 ug/g.........Normal ??50-120 ug/g...............Borderline elevated, test should be ?re-evaluated in 4-6 weeks. ??121 ug/g or greater.......Elevated Performed By: [facility] [address] [place] [address] Sports Umpire: Cullen Bower MD, PhD CLIA Number: [id number] Stool STOOL SPECIMEN / Unknown Collection / Unknown 06/07/2024 4:43 PM P[employer]ING SHED SUPERVISOR 06/07/2024 4:50 PM PACKING SHED SUPERVISOR Khadijah Busch MD LAB - BODY FLUID ORD ERABLES [facility] Fetch It [facility]) [address] [place] [address], [facility] * URINALYSIS AUTO - POINT OF CARE (AMB) [facility] (05/27/2024 8:26 AM PACKING SHED SUPERVISOR) Glucose UA neg [facility] [address] Bilirubin UA POCT neg [facility] [address] Ketones UA POCT neg [facility] [address] Specific [place] UA 1.[address] [facility] [address] Blood Urine POCT neg [facility] [address] pH UA 6.0 [facility] [address] Protein UA neg [facility] [address] Urobilinogen UA 0.2 mg [facility] [address] [facility] Nitrite UA neg [facility] [address] [facility] WBC UA neg [facility] [address] [facility] Urine URINE / Unknown 05/27/2024 8 :26 AM PACKING SHED SUPERVISOR Ron Grace LAB - POINT OF CARE ORDERABLES Performing Organization Address City/[facility]/ZIP Co de Phone Number [facility] [address] [facility] [address] [facility] [place] [address], [facility] [phone] * C-REACTIVE PROTEIN (05/11/2024 1:46 PM CDT) C-Reactive Protein <0.5 <=0.5 mg/dL 05/11/2024 2:42 PM CDT [facility] Blood BLOOD SPECIMEN / Unknown Lab Venipuncture / Unknown 05/11/2024 1:46 PM CDT 05/11/2024 2:10 PM CDT Khadijah Busch MD LAB - CHEMISTRY ORDE JOAO Performing Organization Address City/[facility]/ZIP Co de Phone Number [facility] [address] [place] [address], [facility] [phone] * (ABNORMAL) VITAMIN D 25-HYDROXY (05/11/2024 1:46 PM CDT) Vitamin D, 25 Hydroxy 11.5(L) 30.0 - 80.0 ng/mL 05/11/2024 3:06 PM CDT [facility] Comment: The recommendations for 25-Hydroxy Vitamin D clinical decision points are as follows: ? Deficient: ? <20.0 ng/mL ? Insufficient: ? 20.0 - 29.9 ng/mL ? Sufficient: ? 30.0 - 100.0 ng/mL ? Potential Toxicity: ??>100 ng/mL Reference: The Endocrine Society Clinical Practice Guidelines. 2011 If the 25-Hydroxy Vitamin D results are inconsitent with clinical evidence, it is recommended that follow-up testing using a method such as LC/MS/MS be performed to confirm the result. ? Blood BLOOD SPECIMEN / Unknown Lab Venipuncture / Unknown 05/11/2024 1:46 PM CDT 05/11/2024 2:10 PM CDT Khadijah Busch MD LAB - CHEMISTRY MONSERRATE JOAO [facility] [address] [place] [address], [facility] [phone] * (ABNORMAL) DIFFERENTIAL MANUAL (05/11/2024 1:46 PM CDT) Neutrophil % 38(L) 41 - 74 % 05/11/2024 2:42 PM CDT [facility] Lymphocyte % 28 17 - 47 % 05/11/2024 2:42 PM CDT [facility] Monocyte % 9 3 - 11 % 05/11/2024 2:42 PM T [facility] Eosinophil % 22(H) 0 - 7 % 05/11/2024 2:42 PM T [facility] Basophil % 3(H) 0 - 2 % 05/11/2024 2:42 PM CDT [facility] Neutrophil Absolute 2.74 1.60 - 7.50 x10E9/L 05/11/2024 2:42 PM CDT [facility] Lymphocyte Absolute 2.02 1.00 - 4.40 x10E9/L 05/11/2024 2:42 PM CDT [facility] Monocyte Absolute 0.65 0.15 - 1.00 x10E9/L 05/11/2024 2:42 PM CDT [facility] Eosinophil Absolute 1.58(H) 0.00 - 0.60 x10E9/L 05/11/2024 2:42 PM [facility] Basophil Absolute 0.22(H) 0.00 - 0.13 x10E9/L 05/11/2024 2:42 PM [facility] RBC Morphology NORMAL 05/11/2024 2:42 PM [facility] Platelet Morphology NORMAL 05/11/2024 2:42 PM [facility] Blood BLOOD SPECIMEN / Unknown Lab Venipuncture / Unknown 05/11/2024 1:46 PM CDT 05/11/2024 2:10 PM CDT Khadijah Busch MD LAB - HEMATOLOGY ORD ERABLES [facility] [address] [place] [address], [facility] [phone] * CBC W/ DIFFERENTIAL (05/11/2024 1:46 PM CDT) WBC 7.2 4.0 - 10.7 x10E9/L 05/11/2024 2:42 PM [facility] RBC Count 4.83 4.30 - 5.80 x10E12/L 05/11/2024 2:42 PM [facility] Hemoglobin 14.5 13.3 - 17.5 g/dL 05/11/2024 2:42 PM [facility] Hematocrit 42.0 38.7 - 51.1 % 05/11/2024 2:42 PM [facility] MCV 87.0 80.0 - 98.0 fL 05/11/2024 2:42 PM [facility] MCH 30.0 26.7 - 33.6 pg 05/11/2024 2:42 PM [facility] MCHC 34.5 31.7 - 36.3 g/dL 05/11/2024 2:42 PM [facility] RDW-CV 12.0 11.3 - 14.8 % 05/11/2024 2:42 PM [facility] Platelet Count 260 150 - 420 x10E9/L 05/11/2024 2:42 PM [facility] MPV 9.9 7.8 - 11.4 fL 05/11/2024 2:42 PM [facility] Blood BLOOD SPECIMEN / Unknown Lab Venipuncture / Unknown 05/11/2024 1:46 PM CDT 05/11/2024 2:10 PM CDT Khadijah Busch MD LAB - HEMATOLOGY ORD ERABLES [facility] [address] [place] [address], [facility] [phone] * (ABNORMAL) COMPREHENSIVE METABOLIC PANEL (05/11/2024 1:46 PM CDT) BUN 13 7 - 26 mg/dL 05/11/2024 2:40 PM [facility] Creatinine 1.01 0.71 - 1.16 mg/dL 05/11/2024 2:40 PM [facility] Sodium 139 136 - 145 mmol/L 05/11/2024 2:40 PM [facility] Potassium 4.4 3.5 - 4.5 mmol/L 05/11/2024 2:40 PM [facility] Chloride 103 98 - 107 mmol/L 05/11/2024 2:40 PM [facility] CO2 30(H) 22 - 29 mmol/L 05/11/2024 2:40 PM [facility] Glucose 91 70 - 99 mg/dL 05/11/2024 2:40 PM [facility] Calcium 9.5 8.4 - 10.2 mg/dL 05/11/2024 2:40 PM [facility] Protein Total 7.4 6.0 - 8.3 g/dL 05/11/2024 2:40 PM [facility] Albumin 4.2 3.4 - 5.0 g/dL 05/11/2024 2:40 PM [facility] Bilirubin Total 0.4 0.2 - 1.2 mg/dL 05/11/2024 2:40 PM [facility] Alkaline Phosphatase 67 40 - 150 U/L 05/11/2024 2:40 PM [facility] ALT 8 5 - 55 U/L 05/11/2024 2:40 PM CDT [facility] AST 13 5 - 34 U/L 05/11/2024 2:40 PM CDT [facility] Anion Gap 6 6 - 16 05/11/2024 2:40 PM CDT [facility] BUN/Creatinine Ratio 13 7 - 23 05/11/2024 2:40 PM CDT [facility] Osmolality Calculated 288 275 - 295 mOsm/kg 05/11/2024 2:40 PM CDT [facility] Albumin/Globulin Ratio 1.3 1.1 - 2.3 05/11/2024 2:40 PM CDT [facility] eGFR by CKD-EPI >90 >=90 mL/min/1.7 3 m2 05/11/2024 2:40 PM CDT [facility] Blood BLOOD SPECIMEN / Unknown Lab Venipuncture / Unknown 05/11/2024 1:46 PM CDT 05/11/2024 2:10 PM CDT Khadijah Busch MD LAB - CHEMISTRY MANFRED SHEPHERD [address] [address], [place] [phone] * VITAMIN B12 (05/11/2024 1:46 PM CDT) Vitamin B12 750 213 - 816 pg/mL 05/11/2024 3:06 PM CDT [facility] Blood BLOOD SPECIMEN / Unknown Lab Venipuncture / Unknown 05/11/2024 1:46 PM CDT 05/11/2024 2:10 PM CDT Khadijah Busch MD LAB - CHEMISTRY MANFRED SHEPHERD [address] [address], [place] [phone] * IRON + TRANSFERRIN PANEL (05/11/2024 1:46 PM CDT) Iron 96 50 - 175 ug/dL 05/11/2024 2:33 PM CDT [facility] Transferrin 233 174 - 382 mg/dL 05/11/2024 2:33 PM CDT [facility] Transferrin Saturation % 33 16 - 50 % 05/11/2024 2:33 PM CDT [facility] TIBC Calculated 291 240 - 450 ug/dL 05/11/2024 2:33 PM CDT [facility] Blood BLOOD SPECIMEN / Unknown Lab Venipuncture / Unknown 05/11/2024 1:46 PM CDT 05/11/2024 2:05 PM CDT Khadijah Busch MD LAB - CHEMISTRY MANFRED SHEPHERD [address] [address], [facility] [phone] * (ABNORMAL) FERRITIN (05/11/2024 1:46 PM CDT) Ferritin 331(H) 22 - 275 ng/mL 05/11/2024 2:51 PM CDT [facility] Blood BLOOD SPECIMEN / Unknown Lab Venipuncture / Unknown 05/11/2024 1:46 PM CDT 05/11/2024 2:05 PM CDT Khadijah Busch MD LAB - CHEMISTRY MANFRED SHEPHERD [address] [address], [place] [phone] * HEPATITIS C AB SCREEN RFLX NAAT QUANT (01/26/2024 4:00 PM CDT) Hepatitis C Antibody Non-react cindy Non-reac tive 01/26/2024 5:14 PM CDT [facility] Comment:Hepatitis C Antibody screen indicates no serologic evidence of past or current infection with Hepatitis C Virus. Patients with unexplained liver disease who are immunocompromised or suspected of having acute Hepatitis C infection may benefit from Nucleic Acid Test (GRAHAM) for Hepatitis C Viral RNA to confirm Hepatitis C status. Blood BLOOD SPECIMEN / Unknown Lab Venipuncture / Unknown 01/26/2024 4:00 PM CDT 01/26/2024 4:41 PM CDT Arnav Flores MD LAB - CHEMISTRY MANFRED Willard Organization Address City/State/ZIP Co de Phone Number [facility] [address] [place] [address], [facility] [phone] from Last 3 Months or Most Recently Relevant to Health Maintenance Care Teams Education Supervisor Relationship Specialty Start Date End Date Carlos Gillette MD [address] [facility] [place] [address] PCP - General Internal Medicine 09/16/23 Bienvenido Sargent MD [address] [place] [id number] Internal Medicine 09/16/23
--- OUTSIDE RECORDS SUMMARY | 2024-08-08 00:06 | XMS_ITS | Encounter Summary ---
Author Organization [facility] Address [address] [facility] [place] [address] Care Team Providers Care Painter Airbrush Name Role Phone Yossi Vega MD Primary Care Provider + [phone] Lisa Jameson FEATHER WASHER-ELECTRONIC GAME DEVELOPER Primary Care Prov ider Yossi Vega MD Primary Care Provider + [phone] Lisa Jameson FEATHER WASHER-ELECTRONIC GAME DEVELOPER Primary Care Prov ider Yossi Vega MD Primary Care Provider + [phone] Lisa Jameson FEATHER WASHER-ELECTRONIC GAME DEVELOPER Primary Care Prov ider Yossi Vega MD Primary Care Provider + [phone] Lisa Jameson FEATHER WASHER-ELECTRONIC GAME DEVELOPER Primary Care Prov ider Brionna Khan DO Primary Care Provider [phone] Rolando Schultz FEATHER WASHER-ELECTRONIC GAME DEVELOPER Primary Care Provider Hannah vailable Deepa Gilmore FEATHER WASHER-ELECTRONIC GAME DEVELOPER Primary Care Provider Nerissa Schultz FEATHER WASHER-ELECTRONIC GAME DEVELOPER Primary Care Provider +[phone] Carlos Gillette MD Primary Care Provider Bienvenido Sargent MD Unavailable Encounter Details Date Type Department Care Team (Late Contact Info) Description 02/03/2014 Telephone [facility]AND[facility] [address] [facility] [place] [address] Brittaney Lin MD [address] [place] [address] Social History Tobacco Use Types Packs/Day Years Used Date Smoking Tobacco: Never Smokeless Tobacco: Never Alcohol Use Standard Drinks/Week Comments No 0 (1 standard drink = 0.6 oz pur e alcohol) Sex and Gender Information Value Date Recorded Sex Assigned at Not on file Gender Identity Not on file Sexual Orientation Not on file documented as of this encounter Functional Status Functional Status Response Date of Assess ment Is person deaf or have serious hearing difficult y? No 01/23/2014 Is person blind or have serious difficulty seein g? No 01/23/2014 Does person have serious dif ficulty walking/climbing stairs? No 01/23/2014 Does person have difficulty dressing/bathing? No 01/23/2014 Does person have difficulty doing errands alone? No 01/23/2014 Cognitive Status Response Date of Assessm ent Does person have difficulty concentrating/remembering/making decisions? No 01/23/2014 documented as of this encounter Miscellaneous Notes * Telephone Encounter - Brittaney Lin MD - 02/03/2014 4:27 PM CDT Pt seen in the ER, and all labs normal. ESR and CRP were LOW> He was not dehydrated and could still eat soft foods and drink per report. He was sent home, but please let Dr Rodgers know on Thursday, so he can plan further, i.e. Elective admission, further w/u for granulomas in stomach etc. Brittaney documented in this encounter Plan of Treatment Upcoming Encounters Date Type Department Care Team ([facility] Contact Info) Description 08/08/2024 8:00 AM ADJUNCT PHYSICAL EDUCATION INSTRUCTOR Appointment [facility] [address] [place] [address] Isaias Torres MD [address] [place] [address] [place] [address] Moustapha Lopez, PT 08/22/2024 2:00 PM ADJUNCT PHYSICAL EDUCATION INSTRUCTOR Office Visit [facility] - Internal Med [address] [place] [phone] Carlos Gillette MD [address] [place] [address] [place] [address] 09/30/2024 7:55 AM CDT Hospital Encounter [facility] [address] [place] [phone] Khadijah Busch MD [address] [place] [phone] Surgery General 09/30/2024 7:55 AM CDT - 09/30/2024 8:45 AM CDT Surgery [facility] [address] [place] [phone] Khadijah Busch MD [address] [place] [phone] EGD + capsule w/ sean 10/24/2024 3:00 PM CDT Office Visit [facility] - GI [address] [place] [address] [place] [phone] Khadijah Busch MD [address] [place] [phone] 12/21/2024 3:30 PM CDT Office Visit [facility] - Allergy [address] [place] [phone] Yonatan Allen MD [address] [place] [address] DIV OF ALLERGY/[place] [address] Scheduled Procedures Name Priority Associated Diagnoses Date/Ti [...] without complication (HCC) 09/30/2024 7:55 AM CDT documented as of this encounter Visit Diagnoses Not on filedocumented in this encounter Care Teams Painter Airbrush Relationship Specialty Start Date End Date Yossi Vega MD [address] [place] [address] PCP - General 03/24/11 07/18/18 Lisa Jameson APRN-ELECTRONIC GAME DEVELOPER [address] [place] [address] PCP - General 07/19/18 08/07/18 Yossi Vega MD [address] [place] [address] PCP - General 08/08/18 02/17/19 Lisa Jameson APRN-ELECTRONIC GAME DEVELOPER [address] [place] [address] PCP - General 02/18/19 04/11/19 Yossi Vega MD [address] [place] [address] PCP - General 04/12/19 09/13/19 Lisa Jameson APRN-ELECTRONIC GAME DEVELOPER [address] [place] [address] PCP - General 09/14/19 12/12/19 Yossi Vega MD [address] [place] [address] PCP - General 12/13/19 02/07/20 Lisa Jameson, FEATHER WASHER-ELECTRONIC GAME DEVELOPER [address] [facility] [address] [place] [address] PCP - General 02/08/20 02/19/20 Brionna Khan DO [address] [place] [address] PCP - General 05/10/20 09/25/20 Rolando Schultz, FEATHER WASHER-ELECTRONIC GAME DEVELOPER [address] [place] [address] PCP - General 09/26/20 03/27/21 Deepa Gilmore, FEATHER WASHER-ELECTRONIC GAME DEVELOPER [address] [facility] [address] [place] [phone] PCP - General 03/28/21 11/24/22 Nerissa Schultz, FEATHER WASHER-ELECTRONIC GAME DEVELOPER [address] [facility] [address] [place] [address] PCP - General Nurse Practitioner Pediatrics 06/25/23 09/15/23 Carlos Gillette MD [address] [facility] [place] [address] PCP - General Internal Medicine 09/16/23 Bienvenido Sargent MD [address] [place] [phone] Internal Medicine 09/16/23 documented as of this encounter
--- OUTSIDE RECORDS SUMMARY | 2024-08-08 00:07 | XMS_ITS | Encounter Summary ---
Author Organization [facility] Address [address] [facility] [address] Care Team Providers Care Invas Tech Name Role Phone Rolando Schultz GENERAL ACCOUNTING MANAGER-[facility] Primary Care Provider Hannah vailable Deepa Gilmore GENERAL ACCOUNTING MANAGER-[facility] Primary Care Provider Nerissa Schultz [facility] Primary Care Provider [phone] Carlos Gillette MD Primary Care Provider Bienvenido Sargent MD Unavailable Reason for Visit * Reason Onset Date Comments Appointment 12/17/2020 Encounter Details Date Type Department Care Team (Late st Contact Info) Description 12/17/2020 Telephone [facility] [address] [place] [address] Rolando Schultz, GENERAL ACCOUNTING MANAGER-PUTTY MIXER AND APPLIER No information available Appointment Social History Tobacco Use Types Packs/Day Years Used Date Smoking Tobacco: Never Smokeless Tobacco: Never Alcohol Use Standard Drinks/Week Comments No 0 (1 standard drink = 0.6 oz pur e alcohol) rarely Sex and Gender Information Value Date Recorded Sex Assigned at Not on file Gender Identity Not on file Sexual Orientation Not on file documented as of this encounter Functional Status Functional Status Response Date of Assess ment Is person deaf or have serious hearing difficult y? No 02/17/2019 Is person blind or have serious difficulty seein g? No 02/17/2019 Does person have serious dif ficulty walking/climbing stairs? No 02/17/2019 Does person have difficulty dressing/bathing? No 02/17/2019 Does person have difficulty doing errands alone? No 02/17/2019 Cognitive Status Response Date of Assessm ent Does person have difficulty concentrating/remembering/making decisions? No 02/17/2019 documented as of this encounter Patient Instructions * Patient Instructions* Telma Sandhu - 12/17/2020 1:03 PM CDT Pt is calling about an appt that he was suppose to have today with REEMA Schultz, he states he just found out today that the appt was canceled. And that he is needing to see someone this week for this cough he has had for sometime now. He is asking if someone can give him a call or message him on mychart so he can know what was the reason for the cancled appt today and what can he do to help with thiscough. documented in this encounter Miscellaneous Notes * Telephone Encounter - Pardeep Pérez RN - 12/18/2020 9:34 AM CDT Outreach #2 Successful. Shared the provider recommendations and apologized for our scheduling error. Scheduled the pt for tele ACU 6..21 to address his cough and transferred the pt to scheduling so he could make an NDR apt with the PCP in which he did schedule for 8.21 Message from REEMA Schultz: let him know he needs to schedule in ACS and if he would like to establish with me as his PCP he needs to schedule a 40 minute appointment with me at my next available, which I believe is in March * Telephone Encounter - Lanie Nash RN - 12/17/2020 3:01 PM CDT Called pt and unable to leave a voicemail. Asking scheduling to please contact this pt and relay message from REEMA Schultz and schedule the pt if pt desires. Message from REEMA Schultz: let him know he needs to schedule in ACS and if he would like to establish with me as his PCP he needs to schedule a 40 minute appointment with me at my next available, which I believe is in March documented in this encounter Plan of Treatment Upcoming Encounters Date Type Department Care Team (Late st Contact Info) Description 08/08/2024 8:00 AM OSTEOLOGIST Appointment [facility] [address] [place] [phone] Isaias Torres MD [address] [place] [address] DIV [place] [address] Moustapha Lopez, PT 08/22/2024 2:00 PM OSTEOLOGIST Office Visit [facility] - Internal Med [address] [place] [address], [place] [address] Carlos Gillette MD [address] [place] [address] [place] [address] 09/30/2024 7:55 AM CDT Hospital Encounter [facility] ENDOSCOPY [address] [place] [phone] Khadijah Busch MD [address] [place] [phone] Surgery General 09/30/2024 7:55 AM CDT - 09/30/2024 8:45 AM CDT Surgery [facility] ENDOSCOPY [address] [place] [phone] Khadijah Busch MD [address] [place] [phone] EGD + capsule w/ sean 10/24/2024 3:00 PM CDT Office Visit [facility] - GI [address] [place] [address], [place] [address] Khadijah Busch MD [address] [place] [phone] 12/21/2024 3:30 PM CDT Office Visit [facility] - Allergy [address] [place] [address], [place] [address] Yonatan Allen MD [address] [place] [address] DIV OF ALLERGY/[place] [address] Scheduled Procedures Name Priority Associated Diagnoses Date/Ti [...] AM CDT documented as of this encounter Goals Goal Patient Goal Type Associated Problems Recent Progress Patient-Stated? Author Medication Management General On track( 023 9:05 AM OSTEOLOGIST) Monique Crawford, RN Note: Expected end date: ongoing Interventions: Take all medications as prescribed Let your doctor know right away about any changes in your medications Make sure to request a refill of your medication at least one week prior to your last dose documented as of this encounter Visit Diagnoses Not on filedocumented in this encounter Care Teams Invas Tech Relationship Specialty Start Date End Date Rolando Schultz, GENERAL ACCOUNTING MANAGER-PUTTY MIXER AND APPLIER PCP - General 09/26/20 03/27/21 Deepa Gilmore GENERAL ACCOUNTING MANAGER-PUTTY MIXER AND APPLIER [address] [place] [address] PCP - General 03/28/21 11/24/22 Nerissa Schultz, GENERAL ACCOUNTING MANAGER-PUTTY MIXER AND APPLIER [address] [place] [address] PCP - General Nurse Practitioner Pediatrics 06/25/23 09/15/23 Carlos Gillette MD [address] [facility] [place] [phone] PCP - General Internal Medicine 09/16/23 Bienvenido Sargent MD [address] [place] [phone] Internal Medicine 09/16/23 documented as of this encounter
--- OUTSIDE RECORDS SUMMARY | 2024-08-08 00:07 | XMS_ITS | Encounter Summary ---
Author Organization [facility] Address [address] [facility] [place] [address] Care Team Providers Care Building Consultant Name Role Phone Carlos Gillette MD Primary Care Provider Bienvenido Sargent MD Unavailable Reason for Visit * Reason Onset Date Comments MEDICATION REFILL 10/02/2023 Encounter Details Date Type Department Care Team (Late st Contact Info) Description 10/02/2023 Refill [facility] - Internal Med [address] [facility], [place] [phone] Carlos Gillette MD [address] [facility] [place] [phone] MEDICATION REFILL Social History Tobacco Use Types Packs/Day Years Used Date Smoking Tobacco: Never Smokeless Tobacco: Never Alcohol Use Standard Drinks/Week Comments Yes 5 (1 standard drink = 0.6 oz pur e alcohol) PHQ-2 Answer Date Recorded Patient Health Questionnaire-2 Score 4 09/16/2023 Sex and Gender Information Value Date Recorded Sex Assigned at Not on file Gender Identity Not on file Sexual Orientation Not on file documented as of this encounter Functional Status Functional Status Response Date of Assess ment Is person deaf or have serious hearing difficult y? No 08/12/2023 Is person blind or have serious difficulty seein g? No 08/12/2023 Does person have serious dif ficulty walking/climbing stairs? No 08/12/2023 Does person have difficulty dressing/bathing? No 08/12/2023 Does person have difficulty doing errands alone? No 08/12/2023 Cognitive Status Response Date of Assessm ent Does person have difficulty concentrating/remembering/making decisions? No 08/12/2023 documented as of this encounter Plan of Treatment Upcoming Encounters Date Type Department Care Team (Late st Contact Info) Description 08/08/2024 8:00 AM DIGITAL MEDIA REPRESENTATIVE Appointment [facility] PT [address] [place] [address] Isaias Torres MD [address] [place] [address] DIV OF ORTHOPEDIC [place] [address] Moustapha Lopez, PT 08/22/2024 2:00 PM DIGITAL MEDIA REPRESENTATIVE Office Visit [facility] - Internal Med [address] [place] [address], [place] [address] Carlos Gillette MD [address] [place] [address] [place] [address] 09/30/2024 7:55 AM CDT Hospital Encounter [facility] ENDOSCOPY [facility] [place] [address] Khadijah Busch MD [address] [place] [phone] Surgery General 09/30/2024 7:55 AM CDT - 09/30/2024 8:45 AM CDT Surgery [facility] ENDOSCOPY [address] [place] [phone] Khadijah Busch MD [address] [place] [phone] EGD + capsule w/ sean 10/24/2024 3:00 PM CDT Office Visit [facility] - GI [address] [place] [address], [place] [address] Khadijah Busch MD [address] [place] [address] [phone] 12/21/2024 3:30 PM CDT Office Visit [facility] - Allergy [address] [place] [address], [place] [phone] Yonatan Allen MD [facility] DIV OF ALLERGY/[place] [address] Scheduled Procedures Name Priority Associated Diagnoses Date/Ti [...] Management General On track( 023 9:05 AM DIGITAL MEDIA REPRESENTATIVE) Monique Crawford, RN Note: Expected end date: ongoing Interventions: Take all medications as prescribed Let your doctor know right away about any changes in your medications Make sure to request a refill of your medication at least one week prior to your last dose documented as of this encounter Visit Diagnoses Diagnosis Eosinophilic esophagitis Crohn's disease of both small and large intestine without complication (HCC) Regional enteritis of small intestine with large intestine documented in this encounter Care Teams Building Consultant Relationship Specialty Start Date End Date Carlos Gillette MD [address] [facility] [place] [phone] PCP - General Internal Medicine 09/16/23 Bienvenido Sargent MD [address] [place] [phone] Internal Medicine 09/16/23 documented as of this encounter
--- OUTSIDE RECORDS SUMMARY | 2024-08-08 00:07 | XMS_ITS | Referral Summary ---
Author Organization [facility] Address [address] [place] [address] Care Team Providers Care Financial Analysis Manager Name Role Phone Carlos Gillette MD Primary Care Provider [phone] Bienvenido Sargent MD Unavailable Source Comments [facility],non-owned Affiliates and Associated Physician Practices is amultiple site organization consisting of ambulatory clinics and hospital sitesin [place], [place], [place] and [place]. This disclosure is being madepursuant to the Care Everywhere program and may not contain all information available regarding this patient. Last updated 18.[facility] Encounters Date Type Department Care Team Description 08/04/2024 7:30 AM TELEPATHIST - 08/04/2024 11:59 PM TELEPATHIST Hospital Encounter [facility] PT [address] [place] [address] Isaias Torres MD Tado, Mike, PT Orthopedics Discharge Disposition: Home or Self Care 08/03/2024 Travel 07/28/2024 7:30 AM TELEPATHIST - 07/28/2024 11:59 PM [facility] Hospital Encounter [facility] PT [address] [place] [phone] Isaias Torres MD Herman, Laura, PT Orthopedics Discharge Disposition: Home or Self Care 07/19/2024 Orders Only [facility] - GI [address] [place] [phone] Khadijah Busch MD Crohn's disease of both small and large intestine without complication ([facility]) 07/14/2024 7:30 AM TELEPATHIST - 07/14/2024 11:59 PM TELEPATHIST Hospital Encounter [facility] PT [address] [place] [address] Isaias Torres MD Herman, Laura, PT Orthopedics Discharge Disposition: Home or Self Care 07/13/2024 Travel 07/13/2024 1:20 PM TELEPATHIST - 07/13/2024 11:59 PM TELEPATHIST Hospital Encounter [facility] MRI [address] [place] [address] Khadijah Busch MD Discharge Disposition: Home or Self Care 07/01/2024 11:00 AM TELEPATHIST - 07/01/2024 11:59 PM TELEPATHIST Hospital Encounter [facility] PT [address] [place] [address] Isaias Torres MD Herman, Laura, PT Discharge Disposition: Home or Self Care 06/15/2024 Orders Only [facility] - Orthopedics [address] [place] [phone] Isaias Torres MD Chronic left shoulder pain 06/14/2024 Orders Only [facility] GI [address] [place] [phone] Khadijah Busch MD 06/14/2024 10:20 AM TELEPATHIST - 06/14/2024 11:59 PM TELEPATHIST Hospital Encounter [facility] Imaging Services - MRI [address] [place] [address] Isaias Torres MD Discharge Disposition: Home or Self Care 06/14/2024 8:58 AM TELEPATHIST - 06/14/2024 10:19 AM TELEPATHIST Hospital Encounter [facility] Health Imaging Services - Radiology [address] [place] [address] Isaias Torres MD Discharge Disposition: Home or Self Care 06/07/2024 Travel 06/07/2024 4:42 PM TELEPATHIST - 06/07/2024 11:59 PM TELEPATHIST Hospital Encounter [facility] LAB OP DRAW STATION [address] [place] [phone] Discharge Disposition: Home or Self Care 06/06/2024 Travel 06/06/2024 2:30 PM TELEPATHIST Office Visit [facility] - Dermatology [address] [place] [phone] Nerissa Rodriguez MD Dermatofibroma (Primary Dx); Rash and other nonspecific skin eruption; Nipple problem 06/03/2024 Orders Only [facility] - Orthopedics [address] [place], [place] [address]wy [address] [place] [address] Isaias Torres MD S/P shoulder surgery 05/27/2024 Travel 05/27/2024 8:20 AM TELEPATHIST Office Visit [facility] - Urology [address] [place] [phone] Ron Kinney PA Itching of male genitalia (Primary Dx) 05/19/2024 Orders Only [facility] - GI [address] [place] [phone] Khadijah Busch MD 05/11/2024 Travel 05/11/2024 1:15 PM CDT - 05/11/2024 11:59 PM CDT Hospital Encounter [facility] LAB OP DRAW STATION [address] [place] [phone] Discharge Disposition: Home or Self Care 05/10/2024 Orders Only [facility] [address] [place] [phone] Khadijah Busch MD Crohn's disease of both small and large intestine without complication (HCC) from Last 3 Months Allergies Active Allergy Reactions Criticality Noted Date [...] Active azelastine (Astelin) 0.1 % nasal spray [place] 1 (one) spray into each nostril 2 [...] Each 1 04/27/2024 Active Vitamin D, Ergocalciferol, 41253 units CAPSIndications:V itamin D Deficiency Take 1 (one) capsule by mouth every 7 days for 12 doses Reasons: Vitamin D Deficiency 12 capsule 05/19/2024 Active Active Problems Patient Care Coordination No te Formatting of this note migh t be different from the original. 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 Immunizations Name Administration Dates Next Due [facility] primary monoval ent 12+ yr 0.3mL Purple [...] Conj 09/14/2019 TDAP (7yrs+) 10/19/2009 VARICELLA 10/19/2009,07/08/1999 Social History Tobacco Use Types Packs/Day Years [...] Comments Blood Pressure 117/84 05/27/2024 8:19 AM TELEPATHIST Pulse 84 05/27/2024 8:19 AM TELEPATHIST Temperature 36.5 ??C (97.7 ??F) 05/27/2024 8:19 AM CS T Respiratory Rate 18 05/27/2024 8:19 AM TELEPATHIST Oxygen Saturation 96% 05/27/2024 8:19 AM TELEPATHIST Inhaled Oxygen Concentration 100% 02/2019 11:59 AM CDT Weight 66.6 kg (146 lb 12.8 oz) 05/27/2024 8:19 AM TELEPATHIST Height 167.6 cm (5' 6 ) 05/27/2024 8:19 AM TELEPATHIST Body Mass Index 23.69 05/27/2024 8:19 AM TELEPATHIST Functional Status Functional Status Response Date of [...] person have difficulty concentrating/remembering/making decisions? No 08/12/2023 Plan of Treatment Upcoming Encounters Date Type Department Care Team (Late st Contact Info) Description 08/08/2024 8:[address] [facility] PT [address] [place] [phone] Isaias Torres MD [address] [place] [address] [place] [address] Moustapha Lopez, PT 08/22/2024 2:00 PM TELEPATHIST Office Visit [facility] - Internal Med [address] [place] [phone] Carlos Gillette MD [address] [place] [address] [place] [address] 09/30/2024 7:55 AM CDT Hospital Encounter [facility] ENDOSCOPY [address] [place] [phone] Khadijah Busch MD [address] [place] [phone] Surgery General 09/30/2024 7:55 AM CDT - 09/30/2024 8:[address] [facility] ENDOSCOPY [address] [place] [phone] Khadijah Busch MD [address] [place] [phone] EGD + capsule w/ sean 10/24/2024 3:00 PM CDT Office Visit [facility] [address] [place] [address] [place] [phone] Khadijah Busch MD [address] [place] [phone] 12/21/2024 3:30 PM CDT Office Visit [facility] - Allergy [address] [place] [phone] Yonatan Allen MD [address] [place] [address] DIV OF ALLERGY/[place] [address] Scheduled Procedures Name Priority Associated Diagnoses Date/Ti [...] without complication (HCC) 09/30/2024 7:55 AM CDT Goals Goal Patient Goal Type Associated Problems Recent Progress Patient-Stated? Author Medication Management General On track( 023 9:05 AM TELEPATHIST) Monique Crawford RN Note: Expected end date: ongoing Interventions: Take all medications as prescribed Let your doctor know right away about any changes in your medications Make sure to request a refill of your medication at least one week prior to your last dose Medical Devices Implanted Type Area Loom Stop Checker Device Identifier Shelf Expiration Date Model / Serial / Lot [place] Sut Gryphon Proknot Bcrl Rapide Implanted:Qty: 1 on 11/25/2022 by Isaias Torres MD at [facility] Right: Shoulder [employer] 08/12/2025 [id number] / / [id number] [place] S[place] Gryphon Proknot Bcrl Rapide Implanted:Qty: 1 on 11/25/2022 by Isaias Torres MD at [facility] [place] Right: Shoulder [employer] 08/12/2025 [id number] / / [id number] [place] Sut Gryphon Proknot Bcrl Rapide - S00 Implanted:Qty: 3 on 03/05/2023 by Isaias Torres MD at [facility] Left: Shoulder [employer] 10/10/2025 [id number] / 00 / [id number] [place] Sut Gryphon Proknot Bcrl Rapide - S00 Implanted:Qty: 1 on 03/05/2023 by Isaias Torres MD at [facility] Left: Shoulder [employer] 10/10/2025 [id number] / 00 / [id number] Procedures Procedure Name Priority Date/Time Associated Diagnosis Comments MRI ENTEROGRAPHY Routine 07/13/2024 3:20 PM TELEPATHIST Crohn's disease of both small and large intestine without complication (HCC) FL INJECTION MR ARTHROGRAM Routine 06/14/2024 12:04 PM TELEPATHIST S/P shoulder surgery MRI SHOULDER LEFT W CONTRAST Routine 06/14/2024 11:04 AM TELEPATHIST S/P shoulder surgery CALPROTECTIN FECAL Routine 06/07/2024 4: 43 PM TELEPATHIST Crohn's disease of both small and large intestine without complication (HCC) URINALYSIS AUTO - POINT OF CARE (AMB) [facility] Routine 05/27/2024 8:26 AM TELEPATHIST Itching of male genitalia DIFFERENTIAL MANUAL Routine [...] Results * MRI Enterography (07/13/2024 3:20 PM TELEPATHIST) Anatomical Region Laterality Modality Abdomen Magnetic Resonan ce, Magnetic Resonance 07/14/2024 9:13 AM TELEPATHIST Impressions 07/18/2024 7:38 AM TELEPATHIST Impression: Focal enhancement of a short segment loop decompressed proximal ileum within the left lower quadrant, suggestive of active disease. No other active disease identified. Report dictated by Donta Li MD (vice president of talent management). I, Juan Kirkland MD have personally reviewed and interpreted this examination/study. > Interpreting Provider: Juan Kirkland MD on 07/18/2024 7:38 AM Narrative 07/18/2024 7:38 AM TELEPATHIST PROCEDURE: ??MRI ENTEROGRAPHY, DATE/TIME OF EXAM: ??07/13/2024 3:21 PM, LOCATION ??[facility] INDICATION: K50.80: Crohn's disease of both small and large intestine without complication (HCC) ADDITIONAL CLINICAL INFORMATION: Ordering Provider Reason For Exam: ??History of Chron's disease, uncontolled COMPARISON: MRI enterography from an outside institution via [employer] dated 12/05/2016. TECHNIQUE: MRI of the abdomen [...] DATE/TIME OF EXAM: 07/13/2024 3:21 PM, LOCATION [facility] INDICATION: K50.80: Crohn's disease of both small and large intestine without complication (HCC) ADDITIONAL CLINICAL INFORMATION: Ordering Provider Reason For Exam: History of Chron's disease,uncontolled COMPARISON: MRI enterography from an outside institution via [employer] dated 12/05/2016. TECHNIQUE: MRI of the abdomen [...] identified. Report dictated by Donta Li MD (vice president of talent management). I, Juan Kirkland MD have personally reviewed and interpreted this examination/study. > Interpreting Provider: Juan Kirkland MD on 07/18/2024 7:38 AM Khadijah Busch MD MR ORDERABLES * FL Injection Mr Arthrogram (06/14/2024 12:04 PM TELEPATHIST) Anatomical Region Laterality Modality Lower Extremity, Upper Extremity Radio Fluoroscopy 06/14/2024 1:11 PM TELEPATHIST Impressions 06/14/2024 1:13 PM TELEPATHIST IMPRESSION: Successful fluoroscopic guided right left arthrogram pre-MRI. See separate MRI report. > Interpreting Provider: Sumit Horton MD on 06/14/2024 1:13 PM Narrative 06/14/2024 1:13 PM TELEPATHIST EXAM: FLUOROSCOPIC GUIDED LEFT SHOULDER ARTHROGRAM (PRE-MRI) [...] Shoulder Left W Contrast (06/14/2024 11:04 AM TELEPATHIST) Anatomical Region Laterality Modality Upper Extremity Magnetic Resonan ce 06/14/2024 2:08 PM TELEPATHIST Impressions 06/14/2024 2:52 PM TELEPATHIST IMPRESSION: Postsurgical change consistent with a previous [...] 06/14/2024 2:52 PM Narrative 06/14/2024 2:52 PM TELEPATHIST PROCEDURE: ??MRI SHOULDER LEFT W CONTRAST DATE/TIME [...] * (ABNORMAL) CALPROTECTIN FECAL (06/07/2024 4:43 PM TELEPATHIST) Calprotectin Fecal 179(H) <=49 ug/g 06/10/2024 5:39 PM TELEPATHIST [facility] ([facility]) Comment: REFERENCE INTERVAL: Calprotectin, Fecal by Immunoassay ??Less than 50 ug/g.........Normal ??50-120 ug/g...............Borderline elevated, test should be ?re-evaluated in 4-6 weeks. ??121 ug/g or greater.......Elevated Performed By: [facility] [address] [place] [id number] Gas Jockey: Cullen Bower MD, PhD CLIA Number: [id number] Stool STOOL SPECIMEN / Unknown Collection / Unknown 06/07/2024 4:43 PM TELEPATHIST 06/07/2024 4:50 PM TELEPATHIST Khadijah Busch MD LAB - BODY FLUID [facility] [address] [place] [address], [facility] * URINALYSIS AUTO - POINT OF CARE (AMB) [facility] (05/27/2024 8:26 AM TELEPATHIST) Glucose UA neg [facility] [address] Bilirubin UA POCT neg [facility] [address] Ketones UA POCT neg [facility] [address] Specific Loami UA 1.[address] [facility] [address] Blood Urine POCT neg [facility] [address] pH UA 6.0 [facility] [address] Protein UA neg [facility] [address] Urobilinogen UA 0.2 mg [facility] [address] Nitrite UA neg [facility] [address] WBC UA neg [facility] [address] Urine URINE / Unknown 05/27/2024 8 :26 AM TELEPATHIST Ron Grace LAB - POINT OF CARE ORDERABLES [facility] [address] [facility] [address] [facility] [place] [address], [facility] [phone] * C-REACTIVE PROTEIN (05/11/2024 1:46 PM CDT) C-Reactive Protein <0.5 <=0.5 mg/dL 05/11/2024 2:[address] [facility] Blood BLOOD SPECIMEN / Unknown Lab Venipuncture / Unknown 05/11/2024 1:46 PM CDT 05/11/2024 2:10 PM CDT Khadijah Busch MD LAB - CHEMISTRY ORDE RABLES [facility] [address] [place] [address], [place] [phone] * (ABNORMAL) VITAMIN D 25-HYDROXY (05/11/2024 1:46 PM CDT) Pathologist [facility] Vitamin D, 25 Hydroxy 11.5(L) 30.0 - 80.0 ng/mL 05/11/2024 3:06 PM CDT [facility] Comment: The recommendations for 25-Hydroxy Vitamin [...] Busch MD LAB - CHEMISTRY MANFRED SHEPHERD Performing Organization Address [facility]/State/[facility] Co de Phone Number [facility] [address] [place] [phone], [facility] [phone] * (ABNORMAL) DIFFERENTIAL MANUAL (05/11/2024 1:46 PM CDT) [facility] Neutrophil % 38(L) 41 - 74 % 05/11/2024 2:42 PM CDT [facility] Lymphocyte % 28 17 - 47 % 05/11/2024 2:42 PM CDT [facility] Monocyte % 9 3 - 11 % 05/11/2024 2:42 PM CDT [facility] Eosinophil % 22(H) 0 - 7 % 05/11/2024 2:42 PM CDT [facility] Basophil % 3(H) 0 - 2 % 05/11/2024 2:42 PM CDT [facility] Neutrophil Absolute 2.74 1.60 - 7.50 x10E9/L 05/11/2024 2:42 PM CDT [facility] Lymphocyte Absolute 2.02 1.00 - 4.40 x10E9/L 05/11/2024 2:42 PM CDT [facility] Monocyte Absolute 0.65 0.15 - 1.00 x10E9/L 05/11/2024 2:42 PM CDT [facility] Eosinophil Absolute 1.58(H) 0.00 - 0.60 x10E9/L 05/11/2024 2:42 PM CDT [facility] Basophil Absolute 0.22(H) 0.00 - 0.13 x10E9/L 05/11/2024 2:42 PM CDT [facility] RBC Morphology NORMAL 05/11/2024 2:42 PM T [facility] Platelet Morphology NORMAL 05/11/2024 2:42 PM [facility] Blood BLOOD SPECIMEN / Unknown Lab Venipuncture / Unknown 05/11/2024 1:46 PM CDT 05/11/2024 2:10 PM CDT Khadijah Busch MD LAB - HEMATOLOGY ORD ERABLES Performing Organization Address City/[facility] Co de Phone Number [address] [address], [facility] [phone] * CBC W/ DIFFERENTIAL (05/11/2024 1:46 PM CDT) WBC 7.2 4.0 - 10.7 x10E9/L 05/11/2024 2:42 PM CDT [facility] RBC Count 4.83 4.30 - 5.80 x10E12/L 05/11/2024 2:42 PM CDT [facility] Hemoglobin 14.5 13.3 - 17.5 g/dL 05/11/2024 2:42 PM CDT [facility] Hematocrit 42.0 38.7 - 51.1 % 05/11/2024 2:42 PM T [facility] MCV 87.0 80.0 - 98.0 fL 05/11/2024 2:42 PM CDT [facility] MCH 30.0 26.7 - 33.6 pg 05/11/2024 2:42 PM T [facility] MCHC 34.5 31.7 - 36.3 g/dL 05/11/2024 2:42 PM T [facility] RDW-CV 12.0 11.3 - 14.8 % 05/11/2024 2:42 PM [facility] Platelet Count 260 150 - 420 x10E9/L 05/11/2024 2:42 PM [facility] MPV 9.9 7.8 - 11.4 fL 05/11/2024 2:42 PM [facility] Blood BLOOD SPECIMEN / Unknown Lab Venipuncture / Unknown 05/11/2024 1:46 PM CDT 05/11/2024 2:10 PM CDT Khadijah Busch MD LAB - HEMATOLOGY ORD ERABLES [facility] [address] [place] [address], [facility] [phone] * (ABNORMAL) COMPREHENSIVE METABOLIC PANEL (05/11/2024 1:46 PM CDT) BUN 13 7 - 26 mg/dL 05/11/2024 2:40 PM [facility] Creatinine 1.01 0.71 - 1.16 mg/dL 05/11/2024 2:40 PM T [facility] Sodium 139 136 - 145 mmol/L 05/11/2024 2:40 PM [facility] Potassium 4.4 3.5 - 4.5 mmol/L 05/11/2024 2:40 PM [facility] Chloride 103 98 - 107 mmol/L 05/11/2024 2:40 PM [facility] CO2 30(H) 22 - 29 mmol/L 05/11/2024 2:40 PM [facility] Glucose 91 70 - 99 mg/dL 05/11/2024 2:40 PM [facility] Calcium 9.5 8.4 - 10.2 mg/dL 05/11/2024 2:40 PM [facility] Protein Total 7.4 6.0 - 8.3 g/dL 05/11/2024 2:40 PM [facility] Albumin 4.2 3.4 - 5.0 g/dL 05/11/2024 2:40 PM [facility] Bilirubin Total 0.4 0.2 - 1.2 mg/dL 05/11/2024 2:40 PM [facility] Alkaline Phosphatase 67 40 - 150 U/L 05/11/2024 2:40 PM [facility] ALT 8 5 - 55 U/L 05/11/2024 2:40 PM [facility] AST 13 5 - 34 U/L 05/11/2024 2:40 PM [facility] Anion Gap 6 6 - 16 05/11/2024 2:40 PM [facility] BUN/Creatinine Ratio 13 7 - 23 05/11/2024 2:40 PM [facility] Osmolality Calculated 288 275 - 295 mOsm/kg 05/11/2024 2:40 PM [facility] Albumin/Globulin Ratio 1.3 1.1 - 2.3 05/11/2024 2:40 PM [facility] eGFR by CKD-EPI >90 >=90 mL/min/1.7 3 m2 05/11/2024 2:40 PM [facility] Blood BLOOD SPECIMEN / Unknown Lab Venipuncture / Unknown 05/11/2024 1:46 PM CDT 05/11/2024 2:10 PM T Khadijah Busch MD LAB - CHEMISTRY MANFRED SHEPHERD [facility] [address] [place] [address], [facility] [phone] * VITAMIN B12 (05/11/2024 1:46 PM CDT) Vitamin B12 750 213 - 816 pg/mL 05/11/2024 3:[address] [facility] Blood BLOOD SPECIMEN / Unknown Lab Venipuncture / Unknown 05/11/2024 1:46 PM CDT 05/11/2024 2:10 PM CDT Khadijah Busch MD LAB - CHEMISTRY MANFRED SHEPHERD Performing Organization Address City/[facility]/ZIP Co de Phone Number [address] [address], [place] [phone] * IRON + TRANSFERRIN PANEL (05/11/2024 1:46 PM CDT) Iron 96 50 - 175 ug/dL 05/11/2024 2:33 PM CDT [facility] Transferrin 233 174 - 382 mg/dL 05/11/2024 2:33 PM CDT [facility] Transferrin Saturation % 33 16 - 50 % 05/11/2024 2:33 PM CDT [facility] TIBC Calculated 291 240 - 450 ug/dL 05/11/2024 2:33 PM CDT [facility] Blood BLOOD SPECIMEN / Unknown Lab Venipuncture / Unknown 05/11/2024 1:46 PM CDT 05/11/2024 2:05 PM CDT Khadijah Busch MD LAB - CHEMISTRY MANFRED SHEPHERD Performing Organization Address City/[facility]/ZIP Co de Phone Number [address] [address], [place] [phone] * (ABNORMAL) FERRITIN (05/11/2024 1:46 PM CDT) Ferritin 331(H) 22 - 275 ng/mL 05/11/2024 2:51 PM CDT [facility] Blood BLOOD SPECIMEN / Unknown Lab Venipuncture / Unknown 05/11/2024 1:46 PM CDT 05/11/2024 2:05 PM CDT Khadijah Busch MD LAB - CHEMISTRY MANFRED SHEPHERD [facility] [address] [place] [address], [facility] [phone] * HEPATITIS C AB SCREEN RFLX NAAT QUANT (01/26/2024 4:00 PM CDT) Hepatitis C Antibody Non-react cindy Non-reac tive 01/26/2024 5:14 PM CDT [facility] Comment:Hepatitis C Antibody screen indicates no [...] Arnav Flores MD LAB - CHEMISTRY MANFRED SHEPHERD [facility] [address] [place] [address], [facility] [phone] from Last 3 Months or Most Recently Relevant to Health Maintenance Care Teams Financial Analysis Manager Relationship Specialty Start Date End Date Carlos Gillette MD [address] [facility] [place] [phone] PCP - General Internal Medicine 09/16/23 Bienvenido Sargent MD [address] [place] [phone] Internal Medicine 09/16/23
--- OUTSIDE RECORDS SUMMARY | 2024-08-08 00:07 | XMS_ITS | Encounter Summary ---
Author Organization [facility] Health Address [address] [address] Care Team Providers Care Motor Vehicle Operator Road Supervisor Name Role Phone Rolando Schultz [facility] Primary Care Provider Hannah vailable Deepa Gilmore [facility] Primary Care Provider Nerissa Schultz [facility] Primary Care Provider [phone] Carlos Gillette MD Primary Care Provider Bienvenido Sargent MD Unavailable Encounter Details Date Type Department Care Team (Late st Contact Info) Description 10/11/2020 Telephone [facility] [address] [place] [address] Rolando Schultz, WEBSITE PROGRAMMER-INSURANCE SALESMAN No information available Social History Tobacco Use Types Packs/Day Years [...] No 02/17/2019 documented as of this encounter Miscellaneous Notes * Telephone Encounter - Deepa Gilmore APRN-CNP - 10/11/2020 5:10 PM CDT Needs appt.--I see he has appt tomorrow * Telephone Encounter - Fatemeh Cat - 10/11/2020 4:22 PM CDT Patient called in requesting a Med refill. Drug type: albuterol HFA (PROVENTIL;VENTOLIN;PROAIR) 108(90 Base) MCG/ACT inhaler Has been having hard time breathing, has been using more often. Is low on inhaler. Pharmacy says its too early to get refill, he needs one GIOVANNY. He needs doctor to approve since he has been using quite a bit. He will be out. Dr. Gilmore wrote refill order in system 09/26/2020 Pharmacy: [id number] [facility] [phone] Patient call back number: [phone] documented in this encounter Plan of Treatment Upcoming Encounters Date Type Department Care Team (Late st Contact Info) Description 08/08/2024 8:00 AM POWER LINEMAN TECHNICIAN Appointment [facility] PT [address] [place] [phone] Isaias Torrse MD [address] [facility] [place] [address] Moustapha Lopez, PT 08/22/2024 2:00 PM POWER LINEMAN TECHNICIAN Office Visit [facility] - Internal Med [address] [place] [address], [place] [phone] Carlos Gillette MD [address] [place] [address] [place] [address] 09/30/2024 7:55 AM CDT Hospital Encounter [facility] ENDOSCOPY [address] [place] [phone] Khadijah Busch MD [address] [place] [phone] Surgery General 09/30/2024 7:55 AM CDT - 09/30/2024 8:45 AM CDT Surgery [facility] ENDOSCOPY [address] [place] [phone] Khadijah Busch MD [address] [place] [phone] EGD + capsule w/ sean 10/24/2024 3:00 PM CDT Office Visit [facility] - GI [address] [place] [address], [place] [address] Khadijah Busch MD [address] [place] [phone] 12/21/2024 3:30 PM CDT Office Visit [facility] - Allergy [address] [place] [phone] Yonatan Allen MD [address] [place] [address] DIV OF ALLERGY/[place] [address] Scheduled Procedures Name Priority Associated Diagnoses Date/Ti mi ESOPHAGOGASTRODUODENOSCOPY ( EGD) DIAGNOSTIC Crohn's disease of [...] Management General On track( 023 9:05 AM POWER LINEMAN TECHNICIAN) Monique Crawford, RN Note: Expected end date: ongoing Interventions: Take all medications as prescribed Let your doctor know right away about any changes in your medications Make sure to request a refill of your medication at least one week prior to your last dose documented as of this encounter Visit Diagnoses Not on filedocumented in this encounter Care Teams Motor Vehicle Operator Road Supervisor Relationship Specialty Start Date End Date Rolando Schultz, WEBSITE PROGRAMMER-INSURANCE SALESMAN PCP - General 09/26/20 03/27/21 Deepa Gilmore, WEBSITE PROGRAMMER-INSURANCE SALESMAN [address] [place] [phone] PCP - General 03/28/21 11/24/22 Nerissa Schultz, WEBSITE PROGRAMMER-INSURANCE SALESMAN [address] [place] [address] PCP - General Nurse Practitioner Pediatrics 06/25/23 09/15/23 Carlos Gillette MD [address] [facility] [place] [phone] PCP - General Internal Medicine 09/16/23 Bienvenido Sargent MD [address] [place] [phone] Internal Medicine 09/16/23 documented as of this encounter
--- OUTSIDE RECORDS SUMMARY | 2024-08-08 00:07 | XMS_ITS | Patient Health Summary ---
Author Organization [facility] Address [address] [place] [address] Care Team Providers Care Alcoholism Worker Name Role Phone Carlos Gillette MD Primary Care Provider [phone] Bienvenido Sargent MD Unavailable Note from [facility],non-owned Affiliates and Associated Physician Practices is amultiple site organization consisting of ambulatory clinics and hospital sitesin [place], [place], [place] and [place]. This disclosure is being madepursuant to the Care Everywhere program and may not contain all information available regarding this patient. Last updated 18.[facility] Allergies * Lactase(GI Discomfort) * Eggs(Urticaria) -Medium Criticality * Fish(Urticaria) -Medium Criticality * Food(peas) * Peanut-Derived * Shellfish(Urticaria) -Medium Criticality * Tree Nuts * Blanchard-Related Products,Inactive * Dairy Enzyme Formula(Other) -High Criticality,Inactive * Dust Mite Extract,Inactive * Milk Protein,Inactive * Trichophyton Mentagrophytes,Inactive * Pollen Extract,Inactive * Soy,Inactive * Tomato,Inactive * Wheat,Inactive Medications * Be aware that medications may not be up to date on this document. Alwaysverify current medications with the patient. * AeroChamber Plus (Aerochamber)(Started 08/18/2022) Use as directed 1 refill by 08/18/2023 * azelastine (Astelin) 0.1 % nasal spray(Started 12/01/2022) [place] 1 (one) spray into each nostril 2 times daily 11 refills by 12/01/2023 * Omeprazole-Sodium Bicarbonate 40-1680 MG(Started 06/25/2023) Take 40 mg by mouth once daily Take once a day on empty stomach 30 minutes before your first meal of the day Reasons: Gastroesophageal Reflux Disease * lansoprazole, disintegrating, (Prevacid Solutab) 30 MG tablet(Started 08/12/2023) Take 1 (one) tablet by mouth daily before breakfast Reasons: Eosinophilic Esophagitis 3 refills by 08/11/2024 * albuterol HFA (Proventil; Ventolin; Proair) 108 (90 Base) MCG/ACT inhaler (Started 01/26/2024) Inhale 2 (two) puffs by mouth every 6 hours as needed for Shortness of Breath, Wheezing or Cough (per an action plan and before running) 4 refills by 01/25/2025 * triamcinolone acetonide (Kenalog) 0.1 % ointment(Started 01/26/2024) Apply to affected areas on the trunk and extremities twice daily. 30 days supply. * EPINEPHrine (Epipen) 0.3 MG/0.3ML auto-injector pen(Started 04/27/2024) Inject 0.3 mL into muscle once as needed for Anaphylaxis 1 refill by 04/27/2025 * Vitamin D, Ergocalciferol, 61309 units CAPS(Started 05/19/2024) Take 1 (one) capsule by mouth every 7 days for 12 doses Reasons: Vitamin D Deficiency Active Problems Problem Noted Date Diagnosed Date S/P shoulder surgery 04/27/2024 Current mild episode of garrett r depressive disorder without prior episode 09/16/2023 Mild intermittent asthma 03/18/2023 Rotator cuff arthropathy of both shoulders 03/18 Healthcare maintenance 03/18/2023 Crohn's disease 02/13/2014 Anxiety 01/24/2014 Eosinophilic esophagitis 04/08/2010 Allergic rhinitis 04/08/2010 Resolved Problems Problem Noted Date Diagnosed Date Resolved Date COVID-19 04/13/2020 03/18/2023 Multiple food allergies 03/01/201812/2022 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 02/17/2019 Colitis 11/26/2016 02/17/2019 Postinflammatory hyperpigmentation 09/15/2016 03/18/2023 Acne vulgaris 09/15/2016 03/18/2023 Hypertrophy of tonsils with hypertrophy of adenoids 12/05/2014 04/02/2021 HELEN (obstructive sleep apnea) 10/09/2014 04/02/2021 Chest pain, atypical 01/24/2014 023 Allergic conjunctivitis 05/23/2013 0912/2022 Acne 10/15/2012 04/02/2021 papules on knee 10/15/2012 03/18/2023 Closed fracture of part of fibula 05/12/2012 01/24/2014 Gynecomastia, male 01/26/2012 Mild persistent asthma without complication 11/04/2011 09/16/2023 Fever 04/06/2011 11/04/2011 Tachycardia 02/25/2011 11/04/2011 Adverse reaction to food, lal bsequent encounter 04/08/2010 03/18/2023 Immunizations * Covid Pfizer primary monovalent 12+ yr 0.3mL Purple cap(Given 12/19/2020, 11/28/2020) * DTaP VACCINE IM (6wk-6yrs)(Given 06/21/2002, 08/29/1999, 1998, 1998, 1998) * HEP A PEDS 2 DOSE(Given 01/12/2002, 06/10/2001) * HEP B VACCINE, PED/ADOL(Given 07/08/1999, 1998, 1998, 1998) * HIB VACCINE(Given 08/29/1999, 1998, 1998, 1998) * Human Papilloma Virus Quadrivalent Vaccine(Given 01/09/2014, 10/18/2012, 04/09/2012) * INFLUENZA VACCINE(Given 04/03/2011) * INFLUENZA VACCINE, QUADR. (FLUZONE; FLULAVAL; FLUARIX; AFLURIA QUADRIVALENT; 6MO+), 0.5 ML (IIV4)(Given 09/16/2023, 09/14/2019) * MENINGOCOCCAL CONJUGATE (MCV4P)(Given 06/12/2014, 10/22/2009) * MMR(Given 06/21/2002, 07/08/1999) * POLIO IPV(Given 06/21/2002, 08/29/1999, 1998, 1998) * Pneumococcal Pcv13 Conj(Given 09/14/2019) * TDAP (7yrs+)(Given 10/19/2009) * VARICELLA(Given 10/19/2009, 07/08/1999) Social History Tobacco Use Types Packs/Day Years [...] Comments Blood Pressure 117/84 05/27/2024 8:19 AM [employer]AT [employer] HELPER Pulse 84 05/27/2024 8:19 AM [employer] HELPER Temperature 36.5 ??C (97.7 ??F) 05/27/2024 8:19 AM CS T Respiratory Rate 18 05/27/2024 8:19 AM [employer] HELPER Oxygen Saturation 96% 05/27/2024 8:19 AM [employer] HELPER Inhaled Oxygen Concentration 100% 02/2019 11:59 AM CDT Weight 66.6 kg (146 lb 12.8 oz) 05/27/2024 8:19 AM [employer] HELPER Height 167.6 cm (5' 6 ) 05/27/2024 8:19 AM [employer] HELPER Body Mass Index 23.69 05/27/2024 8:19 AM [employer] HELPER Medical Devices Implanted Type Area Machining Department Supervisor Device Identifier Shelf Expiration Date Model / Serial / Lot Burtrum Sut Gryphon Proknot Bcrl Rapide Implanted:Qty: 1 on 11/25/2022 by Isaias Torres MD at [facility] Right: Shoulder [employer] 08/12/2025 [id number] / / [id number] Burtrum Sut Gryphon Proknot Bcrl Rapide Implanted:Qty: 1 on 11/25/2022 by Isaias Torres MD at [facility] Right: Shoulder [employer] 08/12/2025 [id number] / / [id number] Burtrum Sut Gryphon Proknot Bcrl Rapide - S00 Implanted:Qty: 3 on 03/05/2023 by Isaias Torres MD at [facility] Left: Shoulder [employer] 10/10/2025 [id number] / 00 / [id number] Burtrum Sut Gryphon Proknot Bcrl Rapide - S00 Implanted:Qty: 1 on 03/05/2023 by Isaias Torres MD at [facility] Left: Shoulder [employer] 10/10/2025 [id number] / 00 / [id number] Procedures * MRI ENTEROGRAPHY(Performed 07/13/2024) Performed for Crohn's disease of both small and large intestine without complication (HCC) * FL INJECTION MR ARTHROGRAM(Performed 06/14/2024) Performed for S/P shoulder surgery * MRI SHOULDER LEFT W CONTRAST(Performed 06/14/2024) Performed for S/P shoulder surgery * CALPROTECTIN FECAL(Performed 06/07/2024) Performed for Crohn's disease of both small and large intestine without complication (HCC) * URINALYSIS AUTO - POINT OF CARE (AMB) SLU(Performed 05/27/2024) Performed for Itching of male genitalia * DIFFERENTIAL MANUAL(Performed 05/11/2024) Performed for Crohn's disease of both small and large intestine without complication (HCC) * COMPREHENSIVE METABOLIC PANEL(Performed 05/11/2024) Performed for Crohn's disease of both small and large intestine without complication (HCC) * CBC W AUTO DIFFERENTIAL(Performed 05/11/2024) Performed for Crohn's disease of both small and large intestine without complication (HCC) * FERRITIN(Performed 05/11/2024) Performed for Crohn's disease of both small and large intestine without complication (HCC) * VITAMIN B12(Performed 05/11/2024) Performed for Crohn's disease of both small and large intestine without complication (HCC) * VITAMIN D 25-HYDROXY(Performed 05/11/2024) Performed for Crohn's disease of both small and large intestine without complication (HCC) * C-REACTIVE PROTEIN(Performed 05/11/2024) Performed for Crohn's disease of both small and large intestine without complication (HCC) * IRON + TRANSFERRIN PANEL(Performed 05/11/2024) Performed for Crohn's disease of both small and large intestine without complication (HCC) * IMMUNOSCORE IGE INTERP(Performed 04/27/2024) Performed for Allergic rhinitis, unspecified seasonality, unspecified trigger, Mild intermittent asthma, unspecified whether complicated (HCC) * LAB MISC TEST(Performed 04/27/2024) Performed for Allergic rhinitis, unspecified seasonality, unspecified trigger, Mild intermittent asthma, unspecified whether complicated (HCC) * LAB MISC TEST(Performed 04/27/2024) Performed for Allergic rhinitis, unspecified seasonality, unspecified trigger, Mild intermittent asthma, unspecified whether complicated (HCC) * LAB MISC TEST(Performed 04/27/2024) Performed for Allergic rhinitis, unspecified seasonality, unspecified trigger, Mild intermittent asthma, unspecified whether complicated (HCC) * ALLERGEN FOOD SEAFOOD PROFILE(Performed 04/27/2024) Performed for Food allergy * ALLERGEN RESPIRATORY PNL REGION 8 ([place])(Performed 04/27/2024) Performed for Allergic rhinitis, unspecified seasonality, unspecified trigger, Mild intermittent asthma, unspecified whether complicated (HCC) * URINALYSIS - POINT OF CARE (AMB) SLU(Performed 03/03/2024) Performed for Left flank pain * XR CHEST 2VW(Performed 01/26/2024) Performed for Rash and other nonspecific skin eruption * DIFFERENTIAL MANUAL(Performed 01/26/2024) Performed for Rash and other nonspecific skin eruption * VITAMIN D 1,25 DIHYDROXY(Performed 01/26/2024) Performed for Rash and other nonspecific skin eruption * VITAMIN C(Performed 01/26/2024) Performed for Rash and other nonspecific skin eruption * ZINC BLOOD(Performed 01/26/2024) Performed for Rash and other nonspecific skin eruption * HEPATITIS C AB SCREEN RFLX NAAT QUANT(Performed 01/26/2024) Performed for Rash and other nonspecific skin eruption * TSH(Performed 01/26/2024) Performed for Rash and other nonspecific skin eruption * PROTEIN ELECTROPHORESIS BLOOD(Performed 01/26/2024) Performed for Rash and other nonspecific skin eruption * HEPATITIS B SURFACE ANTIGEN W RFLX CONFIRMATION(Performed 01/26/2024) Performed for Rash and other nonspecific skin eruption * HEPATITIS B SURFACE ANTIBODY(Performed 01/26/2024) Performed for Rash and other nonspecific skin eruption * HEPATITIS B CORE ANTIBODY TOTAL(Performed 01/26/2024) Performed for Rash and other nonspecific skin eruption * COMPREHENSIVE METABOLIC PANEL(Performed 01/26/2024) Performed for Rash and other nonspecific skin eruption * CBC W AUTO DIFFERENTIAL(Performed 01/26/2024) Performed for Rash and other nonspecific skin eruption * ENDOSCOPY, COLON, DIAGNOSTIC(Performed 08/12/2023) * PATHOLOGY TISSUE(Performed 08/12/2023) Performed for Crohn's disease of both small and large intestine without complication (HCC) * ND COLONOSCOPY, DIAGNOSTIC(Performed 08/12/2023) Performed for Crohn's disease of both small and large intestine without complication (HCC) * ND ED EGD FLEX TRANSORAL DX(Performed 08/12/2023) Performed for Crohn's disease of both small and large intestine without complication (HCC) * EGD(Performed 08/12/2023) * DIFFERENTIAL MANUAL(Performed 06/25/2023) Performed for Crohn's disease of both small and large intestine without complication (HCC) * LIPID PROFILE(Performed 06/25/2023) Performed for Crohn's disease of both small and large intestine without complication (HCC) * FERRITIN(Performed 06/25/2023) Performed for Crohn's disease of both small and large intestine without complication (HCC) * IRON + TRANSFERRIN PANEL(Performed 06/25/2023) Performed for Crohn's disease of both small and large intestine without complication (HCC) * HEPATITIS B SURFACE ANTIGEN W RFLX CONFIRMATION(Performed 06/25/2023) Performed for Crohn's disease of both small and large intestine without complication (HCC) * HEPATITIS B SURFACE ANTIBODY(Performed 06/25/2023) Performed for Crohn's disease of both small and large intestine without complication (HCC) * QUANTIFERON-TB GOLD PLUS 4-TUBE(Performed 06/25/2023) Performed for Crohn's disease of both small and large intestine without complication (HCC) * C-REACTIVE PROTEIN(Performed 06/25/2023) Performed for Crohn's disease of both small and large intestine without complication (HCC) * VITAMIN B12(Performed 06/25/2023) Performed for Crohn's disease of both small and large intestine without complication (HCC) * VITAMIN D 25-HYDROXY(Performed 06/25/2023) Performed for Crohn's disease of both small and large intestine without complication (HCC) * COMPREHENSIVE METABOLIC PANEL(Performed 06/25/2023) Performed for Crohn's disease of both small and large intestine without complication (HCC) * CBC W AUTO DIFFERENTIAL(Performed 06/25/2023) Performed for Crohn's disease of both small and large intestine without complication (HCC) * ND SHOULDER ARTHROSCOPY(Performed 03/05/2023) Performed for Degenerative superior labral [id number] (SLAP) tear of left shoulder * ENDOTRACHEAL TUBE NOTE(Performed 03/05/2023) * PERIPHERAL BLOCK(Performed 03/05/2023) * MRI SHOULDER LEFT W CONTRAST(Performed 02/24/2023) Performed for Chronic left shoulder pain * FL SHOULDER LEFT ARTHROGRAM(Performed 02/24/2023) Performed for Chronic left shoulder pain * AUDIOLOGY/TYMPANOMETRY ORDER(Performed 12/01/2022) * IMAGING/RADIOLOGY/XRAY RESULTS ORDER(Performed 11/26/2022) * CARDIAC RHYTHM STRIP ORDER(Performed 11/26/2022) * ND SHOULDER ARTHROSCOPY(Performed 11/25/2022) * PERIPHERAL BLOCK(Performed 11/25/2022) * MRI SHOULDER RIGHT W CONTRAST(Performed 11/13/2022) Performed for Instability of right shoulder joint * FL SHOULDER RIGHT ARTHROGRAM(Performed 11/13/2022) Performed for Instability of right shoulder joint * XR SHOULDER RIGHT 2VW OR MORE(Performed 10/07/2022) Performed for Acute pain of right shoulder * QUANTIFERON-TB GOLD PLUS 4-TUBE(Performed 09/14/2019) Performed for Ulcerative colitis with complication, unspecified location (HCC) * HEPATITIS B SURFACE ANTIGEN W RFLX CONFIRMATION(Performed 09/14/2019) Performed for Colitis * C-REACTIVE PROTEIN(Performed 09/14/2019) Performed for Colitis * COMPREHENSIVE METABOLIC PANEL(Performed 09/14/2019) Performed for Colitis * CBC W AUTO DIFFERENTIAL(Performed 09/14/2019) Performed for Colitis * URINALYSIS AUTO - POINT OF CARE (AMB) SLU(Performed 06/30/2019) Performed for Left flank pain * ENDOSCOPY, COLON, DIAGNOSTIC(Performed 02/17/2019) Performed for Inflammatory bowel disease * EGD(Performed 02/17/2019) Performed for Inflammatory bowel disease * HELICOBACTER PYLORI UREASE (STL)(Performed 02/17/2019) Performed for Inflammatory bowel disease * PATHOLOGY TISSUE EXAM (STL)(Performed 02/17/2019) Performed for Eosinophilic esophagitis, Crohn's disease of both small and large intestine without complication (HCC) * ESOPHAGOGASTRODUODENOSCOPY (EGD) BIOPSY(Performed 02/17/2019) * COLONOSCOPY BIOPSY (ANY METHOD)(Performed 02/17/2019) * US ABDOMEN LIMITED(Performed 10/08/2018) Performed for Abscess of abdominal wall * URINALYSIS W/MICROSCOPIC NO CULTURE(Performed 09/03/2018) Performed for Penile pain * CHLAMYDIA + GC AMPLIFIED PROBE(Performed 09/03/2018) Performed for Penile pain * CULTURE MYCOPLASMA HOMINIS+UREAPLASMA CULTURE(Performed 09/03/2018) Performed for Penile pain * URINALYSIS AUTO - POINT OF CARE (AMB) SLU(Performed 09/03/2018) Performed for Penile pain * ERYTHROCYTE SEDIMENTATION RATE(Performed 08/26/2018) Performed for Colitis, Crohn's disease without complication, unspecified gastrointestinal tract location (HCC) * C-REACTIVE PROTEIN(Performed 08/26/2018) Performed for Colitis, Crohn's disease without complication, unspecified gastrointestinal tract location (HCC) * COMPREHENSIVE METABOLIC PANEL(Performed 08/26/2018) Performed for Colitis, Crohn's disease without complication, unspecified gastrointestinal tract location (HCC) * CBC W AUTO DIFFERENTIAL(Performed 08/26/2018) Performed for Colitis, Crohn's disease without complication, unspecified gastrointestinal tract location (HCC) * ADALIMUMAB AND ANTI ADALIMUMAB ANTIBODY(Performed 08/26/2018) Performed for Colitis, Crohn's disease without complication, unspecified gastrointestinal tract location (HCC) * QUANTIFERON TB-GOLD (CLIENT INCUBATED)(Performed 03/26/2018) Performed for Crohn's disease with fistula, unspecified gastrointestinal tract location (HCC) * VITAMIN D 25-HYDROXY(Performed 03/06/2018) Performed for Crohn's disease with fistula, unspecified gastrointestinal tract location (HCC) * MRI PELVIS WWO CONTRAST(Performed 02/24/2018) Performed for Crohn's disease without complication, unspecified gastrointestinal tract location (HCC) * ENDOSCOPY, COLON, DIAGNOSTIC(Performed 01/07/2018) Performed for Eosinophilic esophagitis, Crohn's disease without complication, unspecified gastrointestinal tract location (HCC) * EGD(Performed 01/07/2018) Performed for Eosinophilic esophagitis, Crohn's disease without complication, unspecified gastrointestinal tract location (HCC) * PATHOLOGY TISSUE EXAM (STL)(Performed 01/07/2018) Performed for Pain, abdominal, generalized * ESOPHAGOGASTRODUODENOSCOPY (EGD) BIOPSY(Performed 01/07/2018) Performed for Pain, abdominal, generalized * COLONOSCOPY BIOPSY (ANY METHOD)(Performed 01/07/2018) Performed for Pain, abdominal, generalized * ERYTHROCYTE SEDIMENTATION RATE(Performed 11/22/2017) * CBC W AUTO DIFFERENTIAL(Performed 11/22/2017) * C-REACTIVE PROTEIN(Performed 11/22/2017) * COMPREHENSIVE METABOLIC PANEL(Performed 11/22/2017) * OCCULT BLOOD FECES(Performed 11/10/2017) * CBC W AUTO DIFFERENTIAL(Performed 11/10/2017) * C-REACTIVE PROTEIN(Performed 11/10/2017) * ERYTHROCYTE SEDIMENTATION RATE(Performed 11/10/2017) * XR ABD OBSTRUCTION SERIES 2VW(Performed 09/20/2017) Performed for Constipation, unspecified constipation type * ERYTHROCYTE SEDIMENTATION RATE(Performed 08/13/2017) Performed for Eosinophilic esophagitis, Crohn's disease with other complication, unspecified gastrointestinal tract location (HCC) * C-REACTIVE PROTEIN(Performed 08/13/2017) Performed for Eosinophilic esophagitis, Crohn's disease with other complication, unspecified gastrointestinal tract location (HCC) * COMPREHENSIVE METABOLIC PANEL(Performed 08/13/2017) Performed for Eosinophilic esophagitis, Crohn's disease with other complication, unspecified gastrointestinal tract location (HCC) * CBC W AUTO DIFFERENTIAL(Performed 08/13/2017) Performed for Eosinophilic esophagitis, Crohn's disease with other complication, unspecified gastrointestinal tract location (HCC) * XR ABD OBSTRUCTION SERIES 2VW(Performed 08/05/2017) Performed for Slow transit constipation * PATHOLOGY TISSUE EXAM (STL)(Performed 07/06/2017) Performed for Foreign body in esophagus, initial encounter * ENDOSCOPY GI UPPER DIAGNOSTIC(Performed 07/06/2017) Performed for Foreign body in esophagus, initial encounter * TYPE + SCREEN PANEL(Performed 07/05/2017) * PT PTT PANEL(Performed 07/05/2017) * BASIC METABOLIC PANEL (CALCIUM TOTAL)(Performed 07/05/2017) * CBC W AUTO DIFFERENTIAL(Performed 07/05/2017) * VITAMIN D 25-HYDROXY(Performed 07/02/2017) Performed for Crohn's disease of both small and large intestine without complication (HCC) * ERYTHROCYTE SEDIMENTATION RATE(Performed 07/02/2017) Performed for Crohn's disease of both small and large intestine without complication (HCC) * GGT(Performed 07/02/2017) Performed for Crohn's disease of both small and large intestine without complication (HCC) * C-REACTIVE PROTEIN(Performed 07/02/2017) Performed for Crohn's disease of both small and large intestine without complication (HCC) * COMPREHENSIVE METABOLIC PANEL(Performed 07/02/2017) Performed for Crohn's disease of both small and large intestine without complication (HCC) * CBC W AUTO DIFFERENTIAL(Performed 07/02/2017) Performed for Crohn's disease of both small and large intestine without complication (HCC) * HEPATIC FUNCTION PANEL(Performed 03/14/2017) Performed for Crohn's disease of both small and large intestine without complication (HCC) * CBC W AUTO DIFFERENTIAL(Performed 03/14/2017) Performed for Crohn's disease of both small and large intestine without complication (HCC) * PATHOLOGY TISSUE EXAM (STL)(Performed 01/01/2017) Performed for Pain, abdominal, generalized * EGD(Performed 01/01/2017) Performed for IBD (inflammatory bowel disease) * ENDOSCOPY, COLON, DIAGNOSTIC(Performed 01/01/2017) Performed for IBD (inflammatory bowel disease) * ESOPHAGOGASTRODUODENOSCOPY (EGD) BIOPSY(Performed 01/01/2017) Performed for Pain, abdominal, generalized * COLONOSCOPY BIOPSY (ANY METHOD)(Performed 01/01/2017) Performed for Pain, abdominal, generalized * MRI ENTEROGRAPHY(Performed 12/05/2016) Performed for Crohn's disease with other complication * VITAMIN D 25-HYDROXY(Performed 11/28/2016) Performed for Crohn's disease with other complication * ERYTHROCYTE SEDIMENTATION RATE(Performed 11/28/2016) Performed for Crohn's disease with other complication * C-REACTIVE PROTEIN(Performed 11/28/2016) Performed for Crohn's disease with other complication * COMPREHENSIVE METABOLIC PANEL(Performed 11/28/2016) Performed for Crohn's disease with other complication * CBC W AUTO DIFFERENTIAL(Performed 11/28/2016) Performed for Crohn's disease with other complication * QUANTIFERON TB-GOLD (CLIENT INCUBATED)(Performed 11/28/2016) Performed for Crohn's disease with other complication * XR LUMBAR SPINE 2 OR 3VW(Performed 11/12/2016) Performed for Back pain at L4-L5 level * IMMUNOSCORE IGE INTERP(Performed 10/27/2016) Performed for Food allergy * ALLERGEN [place] IGE(Performed 10/27/2016) Performed for Food allergy * ALLERGEN HAZELNUT IGE(Performed 10/27/2016) Performed for Food allergy * ALLERGEN CASHEW IGE(Performed 10/27/2016) Performed for Food allergy * ALLERGEN BRAZIL NUT IGE(Performed 10/27/2016) Performed for Food allergy * ALLERGEN ALMOND IGE(Performed 10/27/2016) Performed for Food allergy * ALLERGEN RESPIRATORY PNL REGION 8 ([place])(Performed 10/27/2016) Performed for Food allergy * ALLERGEN WHEAT IGE(Performed 10/27/2016) Performed for Food allergy * ALLERGEN FOOD SEAFOOD PROFILE(Performed 10/27/2016) Performed for Food allergy * ALLERGEN PEANUT COMPONENT PANEL(Performed 10/27/2016) Performed for Food allergy * ALLERGEN EGG IGE COMPONENT PROFILE(Performed 10/27/2016) Performed for Food allergy * ALLERGEN MILK COMPONENTS IGE PROFILE(Performed 10/27/2016) Performed for Food allergy * C DIFFICILE GDH AG + TOXIN A+B(Performed 08/09/2015) Performed for Occult blood in stools * CULTURE STOOL+ E COLI SHIGA-LIKE TOXIN(Performed 08/09/2015) Performed for Crohn's disease without complication, unspecified gastrointestinal tract location (HCC) * THIOPURINE METHYLTRANSFERASE(Performed 04/24/2015) Performed for Crohn's disease, unspecified complication * ERYTHROCYTE SEDIMENTATION RATE(Performed 04/24/2015) Performed for Crohn's disease, unspecified complication * C-REACTIVE PROTEIN(Performed 04/24/2015) Performed for Crohn's disease, unspecified complication * CBC W/O DIFFERENTIAL(Performed 04/24/2015) Performed for Crohn's disease, unspecified complication * COMPREHENSIVE METABOLIC PANEL(Performed 04/24/2015) Performed for Crohn's disease, without complications * C DIFFICILE GDH AG + TOXIN A+B(Performed 01/25/2015) Performed for Blood in stool [578.1] * ESOPHAGOGASTRODUODENOSCOPY (EGD) BIOPSY(Performed 01/23/2015) Performed for EE (eosinophilic esophagitis), Blood in stool * COLONOSCOPY BIOPSY (ANY METHOD)(Performed 01/23/2015) Performed for EE (eosinophilic esophagitis), Blood in stool * C DIFFICILE GDH AG + TOXIN A+B(Performed 01/23/2015) Performed for Rectal bleeding * HELICOBACTER PYLORI UREASE (STL)(Performed 01/23/2015) Performed for Rectal bleeding, EE (eosinophilic esophagitis) * PATHOLOGY TISSUE EXAM (STL)(Performed 01/23/2015) Performed for EE (eosinophilic esophagitis) [530.13], Blood in stool [578.1] * EGD(Performed 01/23/2015) Performed for Rectal bleeding, EE (eosinophilic esophagitis) * ENDOSCOPY, COLON, DIAGNOSTIC(Performed 01/23/2015) Performed for Rectal bleeding, EE (eosinophilic esophagitis) * PT PTT PANEL(Performed 12/13/2014) * BASIC METABOLIC PANEL (CALCIUM TOTAL)(Performed 12/13/2014) * CBC W AUTO DIFFERENTIAL(Performed 12/13/2014) * TONSILLECTOMY AND ADENOIDECTOMY(Performed 12/05/2014) Performed for Hypertrophy of tonsil with adenoids, Sleep apnea, obstructive * GROSS EXAM PATHOLOGY (STL)(Performed 12/05/2014) Performed for Hypertrophy of tonsil with adenoids [474.10], Sleep apnea, obstructive [327.23] * US SCROTUM W DOPPLER(Performed 11/07/2014) Performed for Testicular pain * PT PTT PANEL(Performed 10/11/2014) Performed for Granulomatous gastritis * ERYTHROCYTE SEDIMENTATION RATE(Performed 10/11/2014) Performed for Granulomatous gastritis * C-REACTIVE PROTEIN(Performed 10/11/2014) Performed for Granulomatous gastritis * COMPREHENSIVE METABOLIC PANEL(Performed 10/11/2014) Performed for Granulomatous gastritis * CBC W AUTO DIFFERENTIAL(Performed 10/11/2014) Performed for Granulomatous gastritis * PEDIATRIC DIAGNOSTIC POLYSOMNOGRAM(Performed 09/24/2014) Performed for Unspecified sleep apnea * CULTURE STREP GROUP A(Performed 05/23/2014) * STREP A SCREEN DIRECT W RFLX STREP A CULTURE(Performed 05/23/2014) * FL UGI AND SMALL BOWEL SERIES(Performed 02/16/2014) Performed for Granuloma, intestine * NEUTROPHIL OXIDASE BURST ASSAY(Performed 02/13/2014) Performed for Granulomatous gastritis * COMPREHENSIVE METABOLIC PANEL(Performed 02/13/2014) Performed for Granuloma, intestine * C-REACTIVE PROTEIN(Performed 02/03/2014) * ERYTHROCYTE SEDIMENTATION RATE(Performed 02/03/2014) * CBC W AUTO DIFFERENTIAL(Performed 02/03/2014) * CARDIAC RHYTHM STRIP ORDER(Performed 01/26/2014) * ESOPHAGOGASTRODUODENOSCOPY (EGD) BIOPSY(Performed 01/24/2014) Performed for Eosinophilic esophagitis * HELICOBACTER PYLORI UREASE (STL)(Performed 01/24/2014) Performed for Eosinophilic esophagitis * PATHOLOGY TISSUE EXAM (STL)(Performed 01/24/2014) * EGD(Performed 01/24/2014) Performed for Eosinophilic esophagitis * CBC W AUTO DIFFERENTIAL(Performed 01/23/2014) * ENDOSCOPY, COLON, DIAGNOSTIC(Performed 01/23/2014) * EKG 12-LEAD(Performed 01/20/2014) * EKG 15-LEAD(Performed 01/19/2014) Performed for Palpitation * PATHOLOGY TISSUE EXAM (STL)(Performed 01/04/2014) Performed for Eosinophilic esophagitis * FL ESOPHAGRAM(Performed 01/03/2014) Performed for Intra-abdominal free air of unknown etiology * XR CHEST 2VW(Performed 01/03/2014) Performed for Intra-abdominal free air of unknown etiology * ESOPHAGOGASTRODUODENOSCOPY (EGD) BIOPSY(Performed 01/02/2014) Performed for EE (eosinophilic esophagitis) * EGD(Performed 01/02/2014) Performed for Eosinophilic esophagitis * HELICOBACTER PYLORI UREASE (STL)(Performed 01/02/2014) Performed for Eosinophilic esophagitis * PATHOLOGY TISSUE EXAM (STL)(Performed 01/02/2014) * PATHOLOGY/CYTOLOGY REPORT ORDER(Performed 12/14/2012) * ESOPHAGOGASTRODUODENOSCOPY (EGD) BIOPSY(Performed 12/09/2012) Performed for EE (eosinophilic esophagitis) * PATHOLOGY TISSUE EXAM (STL)(Performed 12/09/2012) Performed for Eosinophilic esophagitis * HELICOBACTER PYLORI UREASE(Performed 12/09/2012) Performed for Eosinophilic esophagitis * EGD(Performed 12/08/2012) Performed for Eosinophilic esophagitis * XR ANKLE RIGHT 3VW OR MORE(Performed 06/09/2012) Performed for Closed fracture of unspecified part of fibula * XR ANKLE RIGHT 3VW OR MORE(Performed 05/04/2012) Performed for Ankle sprain * PATHOLOGY/CYTOLOGY REPORT ORDER(Performed 10/07/2011) * EGD(Performed 10/04/2011) * GROSS + MICRO EXAM(Performed 10/04/2011) * DIFFERENTIAL MANUAL(Performed 10/03/2011) * COMPREHENSIVE METABOLIC PANEL(Performed 10/03/2011) * CBC W MANUAL DIFFERENTIAL(Performed 10/03/2011) * XR CHEST 2VW(Performed 10/03/2011) Performed for Dysphagia * DIFFERENTIAL MANUAL(Performed 04/09/2011) * CBC W AUTO DIFFERENTIAL(Performed 04/09/2011) * COMPREHENSIVE METABOLIC PANEL(Performed 04/09/2011) * TSH(Performed 04/09/2011) * T4 TOTAL(Performed 04/09/2011) * CT HEAD WO CONTRAST(Performed 04/09/2011) Performed for Headache * XR CHEST 2VW(Performed 04/06/2011) * XR CHEST 2VW(Performed 04/02/2011) Performed for Cough * ALLERGEN TURKEY IGE(Performed 03/11/2011) Performed for Eosinophilic esophagitis, Food allergy * ALLERGEN CHICKEN MEAT IGE(Performed 03/11/2011) Performed for Eosinophilic esophagitis, Food allergy * ALLERGEN BEEF IGE(Performed 03/11/2011) Performed for Eosinophilic esophagitis, Food allergy * ALLERGEN BANANA IGE(Performed 03/11/2011) Performed for Eosinophilic esophagitis, Food allergy * ALLERGEN APPLE IGE(Performed 03/11/2011) Performed for Eosinophilic esophagitis, Food allergy * ALLERGEN INHALANT COMPREHENSIVE PROFILE(Performed 03/11/2011) Performed for Allergic rhinitis * ALLERGEN PEDIATRIC FOOD PROFILE(Performed 03/11/2011) Performed for Eosinophilic esophagitis, Food allergy * ALLERGEN FOOD VEGETABLE PROFILE(Performed 03/11/2011) Performed for Eosinophilic esophagitis, Food allergy * ALLERGEN FOOD SALAD PROFILE(Performed 03/11/2011) Performed for Eosinophilic esophagitis, Food allergy * ALLERGEN FOOD SEAFOOD PROFILE(Performed 03/11/2011) Performed for Eosinophilic esophagitis, Food allergy * ALLERGEN FOOD NUT MIX PROFILE(Performed 03/11/2011) Performed for Eosinophilic esophagitis, Food allergy * ALLERGEN FOOD CEREAL PROFILE(Performed 03/11/2011) Performed for Eosinophilic esophagitis, Food allergy * CARDIAC EKG ORDER(Performed 03/06/2011) * EKG 15-LEAD(Performed 02/26/2011) Performed for Unspecified tachycardia * XR CHEST 2VW(Performed 02/25/2011) Performed for Unspecified tachycardia * HOLTER MONITOR(Performed 02/25/2011) Performed for Unspecified tachycardia * COMPREHENSIVE METABOLIC PANEL(Performed 07/17/2010) * CBC W AUTO DIFFERENTIAL(Performed 07/17/2010) * GROSS + MICRO EXAM(Performed 02/25/2010) * HELICOBACTER PYLORI UREASE(Performed 02/25/2010) * GROSS + MICRO EXAM(Performed 04/10/2009) Results * MRI Enterography (07/13/2024 3:20 PM [employer] HEL[employer]) Only the most recent of2 resultswithin the time period is included. Anatomical Region Laterality Modality Abdomen Magnetic Resonan ce, Magnetic Resonance 07/14/2024 9:13 AM [employer] Impressions 07/18/2024 7:38 AM [employer] HEL[employer] Impression: Focal enhancement of a short segment loop decompressed proximal ileum within the left lower quadrant, suggestive of active disease. No other active disease identified. Report dictated by Donta Li MD (vice president payer). I, Juan Kirkland MD have personally reviewed and interpreted this examination/study. > Interpreting Provider: Juan Kirkland MD on 07/18/2024 7:38 AM Narrative 07/18/2024 7:38 AM [employer] HELPER PROCEDURE: ??MRI ENTEROGRAPHY, DATE/TIME OF EXAM: ??07/13/2024 3:21 PM, LOCATION ??[facility] INDICATION: K50.80: Crohn's disease of both small and large intestine without complication (HCC) ADDITIONAL CLINICAL INFORMATION: Ordering Provider Reason For Exam: ??History of Chron's disease, uncontolled COMPARISON: MRI enterography from an outside institution [facility] dated 12/05/2016. TECHNIQUE: MRI of the abdomen [...] DATE/TIME OF EXAM: 07/13/2024 3:21 PM, LOCATION [facility] INDICATION: K50.80: Crohn's disease of both small and large intestine without complication (HCC) ADDITIONAL CLINICAL INFORMATION: Ordering Provider Reason For Exam: History of Chron's disease,uncontolled COMPARISON: MRI enterography from an outside institution [facility] dated 12/05/2016. TECHNIQUE: MRI of the abdomen [...] dictated by Donta Li MD (vice president payer). IJuan MD have personally reviewed and interpreted this examination/study. > Interpreting Provider: Juan Kirkland MD on 07/18/2024 7:38 AM Khadijah Busch MD MR ORDERABLES * FL Injection Mr Arthrogram (06/14/2024 12:04 PM [employer] HELPER) Anatomical Region Laterality Modality Lower Extremity, Upper Extremity Radio Fluoroscopy 06/14/2024 1:11 PM [employer] HELPER Impressions 06/14/2024 1:13 PM [employer] HELPER IMPRESSION: Successful fluoroscopic guided right left arthrogram pre-MRI. See separate MRI report. > Interpreting Provider: Sumit Horton MD on 06/14/2024 1:13 PM Narrative 06/14/2024 1:13 PM [employer] HELPER EXAM: FLUOROSCOPIC GUIDED LEFT SHOULDER ARTHROGRAM (PRE-MRI) [...] Shoulder Left W Contrast (06/14/2024 11:04 AM [employer] HELPER) Only the most recent of2 resultswithin the time period is included. Anatomical Region Laterality Modality Upper Extremity Magnetic Resonan ce 06/14/2024 2:08 PM [employer] HELPER Impressions 06/14/2024 2:52 PM [employer] HELPER IMPRESSION: Postsurgical change consistent with a previous [...] 06/14/2024 2:52 PM Narrative 06/14/2024 2:52 PM [employer] HELPER PROCEDURE: ??MRI SHOULDER LEFT W CONTRAST DATE/TIME [...] * (ABNORMAL) CALPROTECTIN FECAL (06/07/2024 4:43 PM [employer] HELPER) Calprotectin Fecal 179(H) <=49 ug/g 06/10/2024 5:39 PM [employer] HELPER [facility] [employer] ([facility]) Comment: REFERENCE INTERVAL: Calprotectin, Fecal by Immunoassay ??Less than 50 ug/g.........Normal ??50-120 ug/g...............Borderline elevated, test should be ?re-evaluated in 4-6 weeks. ??121 ug/g or greater.......Elevated Performed By: [facility] [address] [place] [address] Applications Manager: Cullen Bower MD, PhD CLIA Number: [id number] Stool STOOL SPECIMEN / Unknown Collection / Unknown 06/07/2024 4:43 PM [employer] HELPER 06/07/2024 4:50 PM [employer] HELPER Khadijah Busch MD LAB - BODY FLUID ORD ERABLES [email or web address]) [address] [place] [address], [place] * URINALYSIS AUTO - POINT OF CARE (AMB) [facility] (05/27/2024 8:26 AM [employer] HELPER) Only the most recent of3 resultswithin the time period is included. Pathologist [facility] Glucose UA neg [facility] [address] Bilirubin UA POCT neg [facility] [address] Ketones UA POCT neg [facility] [address] Specific [place] UA 1.[address] [facility] [address] Blood [...] URINE / Unknown 05/27/2024 8 :26 AM [employer] HELPER Ron Grace LAB - POINT OF CARE ORDERABLES [facility] [address] [facility] [address] [facility] [place] [address], [place] [phone] * C-REACTIVE PROTEIN (05/11/2024 1:46 PM CDT) Only the most recent of12 resultswithin the time period is included. [facility] C-Reactive Protein <0.5 <=0.5 mg/dL 05/11/2024 2:42 PM CDT [facility] Blood BLOOD SPECIMEN / Unknown Lab Venipuncture / Unknown 05/11/2024 1:46 PM CDT 05/11/2024 2:10 PM CDT Khadijah Busch MD LAB - CHEMISTRY MANFRED SHEPHERD [facility] [address] [place] [address], [place] [phone] * (ABNORMAL) VITAMIN D 25-HYDROXY (05/11/2024 1:46 PM CDT) Only the most recent of5 resultswithin the time period is included. Pathologist [facility] Vitamin D, 25 Hydroxy 11.5(L) 30.0 - 80.0 ng/mL 05/11/2024 3:06 PM CDT [facility] Comment: The recommendations for 25-Hydroxy Vitamin [...] Busch MD LAB - CHEMISTRY MANFRED SHEPHERD [facility] Organization Address [facility] de Phone Number [facility] [address] [place] [address], [place] [phone] * (ABNORMAL) DIFFERENTIAL MANUAL (05/11/2024 1:46 PM CDT) Only the most recent of5 resultswithin the time period is included. [facility] Neutrophil % 38(L) 41 - 74 % 05/11/2024 2:42 PM CDT [facility] Lymphocyte % 28 17 - 47 % 05/11/2024 2:42 PM CDT [facility] Monocyte % 9 3 - 11 % 05/11/2024 2:42 PM CDT [facility] Eosinophil % 22(H) 0 - 7 % 05/11/2024 2:42 PM CDT [facility] Basophil % 3(H) 0 - 2 % 05/11/2024 2:42 PM CDT [facility] Neutrophil Absolute 2.74 1.60 - 7.50 x10E9/L 05/11/2024 2:42 PM CDT [facility] Lymphocyte Absolute 2.02 1.00 - 4.40 x10E9/L 05/11/2024 2:42 PM T [facility] Monocyte Absolute 0.65 0.15 - 1.00 x10E9/L 05/11/2024 2:42 PM T [facility] Eosinophil Absolute 1.58(H) 0.00 - 0.60 x10E9/L 05/11/2024 2:42 PM CDT [facility] Basophil Absolute 0.22(H) 0.00 - 0.13 x10E9/L 05/11/2024 2:42 PM T [facility] RBC Morphology NORMAL 05/11/2024 2:42 PM T [facility] Platelet Morphology NORMAL 05/11/2024 2:42 PM [facility] Blood BLOOD SPECIMEN / Unknown Lab Venipuncture / Unknown 05/11/2024 1:46 PM CDT 05/11/2024 2:10 PM CDT Khadijah Busch MD LAB - HEMATOLOGY ORD ERABLES [address] [address], [place] [phone] * CBC W/ DIFFERENTIAL (05/11/2024 1:46 PM CDT) Only the most recent of18 resultswithin the time period is included. WBC 7.2 4.0 - 10.7 x10E9/L 05/11/2024 2:42 PM CDT [facility] RBC Count 4.83 4.30 - 5.80 x10E12/L 05/11/2024 2:42 PM CDT [facility] Hemoglobin 14.5 13.3 - 17.5 g/dL 05/11/2024 2:42 PM [facility] Hematocrit 42.0 38.7 - 51.1 % 05/11/2024 2:42 PM [facility] MCV 87.0 80.0 - 98.0 fL 05/11/2024 2:42 PM [facility] MCH 30.0 26.7 - 33.6 pg 05/11/2024 2:42 PM [facility] MCHC 34.5 31.7 - 36.3 g/dL 05/11/2024 2:42 PM [facility] RDW-CV 12.0 11.3 - 14.8 % 05/11/2024 2:42 PM [facility] Platelet Count 260 150 - 420 x10E9/L 05/11/2024 2:42 PM [facility] MPV 9.9 7.8 - 11.4 fL 05/11/2024 2:42 PM [facility] Blood BLOOD SPECIMEN / Unknown Lab Venipuncture / Unknown 05/11/2024 1:46 PM CDT 05/11/2024 2:10 PM CDT Khadijah Busch MD LAB - HEMATOLOGY ORD ERABLES [facility] [address] [place] [address], [place] [phone] * (ABNORMAL) COMPREHENSIVE METABOLIC PANEL (05/11/2024 1:46 PM CDT) Only the most recent of15 resultswithin the time period is included. BUN 13 7 - 26 mg/dL 05/11/2024 2:40 PM [facility] Creatinine 1.01 0.71 - 1.16 mg/dL 05/11/2024 2:40 PM [facility] Sodium 139 136 - 145 mmol/L 05/11/2024 2:40 PM [facility] Potassium 4.4 3.5 - 4.5 mmol/L 05/11/2024 2:40 PM [facility] Chloride 103 98 - 107 mmol/L 05/11/2024 2:40 PM [facility] CO2 30(H) 22 - 29 mmol/L 05/11/2024 2:40 PM [facility] Glucose 91 70 - 99 mg/dL 05/11/2024 2:40 PM [facility] Calcium 9.5 8.4 - 10.2 mg/dL 05/11/2024 2:40 PM [facility] Protein Total 7.4 6.0 - 8.3 g/dL 05/11/2024 2:40 PM [facility] Albumin 4.2 3.4 - 5.0 g/dL 05/11/2024 2:40 PM [facility] Bilirubin Total 0.4 0.2 - 1.2 mg/dL 05/11/2024 2:40 PM [facility] Alkaline Phosphatase 67 40 - 150 U/L 05/11/2024 2:40 PM [facility] ALT 8 5 - 55 U/L 05/11/2024 2:40 PM [facility] AST 13 5 - 34 U/L 05/11/2024 2:40 PM [facility] Anion Gap 6 6 - 16 05/11/2024 2:40 PM [facility] BUN/Creatinine Ratio 13 7 - 23 05/11/2024 2:40 PM [facility] Osmolality Calculated 288 275 - 295 mOsm/kg 05/11/2024 2:40 PM [facility] Albumin/Globulin Ratio 1.3 1.1 - 2.3 05/11/2024 2:40 PM [facility] eGFR by CKD-EPI >90 >=90 mL/min/1.7 3 m2 05/11/2024 2:40 PM [facility] Blood BLOOD SPECIMEN / Unknown Lab Venipuncture / Unknown 05/11/2024 1:46 PM CDT 05/11/2024 2:10 PM CDT Khadijah Busch MD LAB - CHEMISTRY ORDE JOAO [facility] Organization Address City/State/ZIP Co de Phone Number [facility] [address] [place] [address], [place] [phone] * VITAMIN B12 (05/11/2024 1:46 PM CDT) Only the most recent of2 resultswithin the time period is included. Vitamin B12 750 213 - 816 pg/mL 05/11/2024 3:06 PM CDT [facility] Blood BLOOD SPECIMEN / Unknown Lab Venipuncture / Unknown 05/11/2024 1:46 PM CDT 05/11/2024 2:10 PM CDT Khadijah Busch MD LAB - CHEMISTRY ORDMundo SHEPHERD [facility] [address] [place] [address], [place] [phone] * IRON + TRANSFERRIN PANEL (05/11/2024 1:46 PM CDT) Only the most recent of2 resultswithin the time period is included. Iron 96 50 - 175 ug/dL 05/11/2024 2:33 PM CDT [facility] Transferrin 233 174 - 382 mg/dL 05/11/2024 2:33 PM CDT [facility] Transferrin Saturation % 33 16 - 50 % 05/11/2024 2:33 PM CDT [facility] TIBC Calculated 291 240 - 450 ug/dL 05/11/2024 2:33 PM CDT [facility] Blood BLOOD SPECIMEN / Unknown Lab Venipuncture / Unknown 05/11/2024 1:46 PM CDT 05/11/2024 2:05 PM CDT Khadijah Busch MD LAB - CHEMISTRY MANFRED SHEPHERD [facility] [address] [place] [address], [place] [phone] * (ABNORMAL) FERRITIN (05/11/2024 1:46 PM CDT) Only the most recent of2 resultswithin the time period is included. Ferritin 331(H) 22 - 275 ng/mL 05/11/2024 2:51 PM CDT [facility] Blood BLOOD SPECIMEN / Unknown Lab Venipuncture / Unknown 05/11/2024 1:46 PM CDT 05/11/2024 2:05 PM CDT Khadijah Busch MD LAB - CHEMISTRY MANFRED [place] Organization Address City/State/ZIP Co de Phone Number [facility] [address] [place] [address], [place] [phone] * IMMUNOSCORE IGE INTERP (04/27/2024 3:32 PM CDT) Only the most recent of2 resultswithin the time period is included. [facility] Signature Immunocap Score See Note 10:20 AM CDT [employer] ([facility]) Comment: REFERENCE INTERVAL: Allergen, Interpretation Less than 0.10 kU/L......Class 0.....No significant level detected 0.10-0.34 kU/L...........Class 0/1...Clinical relevance undetermined 0.35-0.70 kU/L...........Class 1.....Low 0.71-3.50 kU/L...........Class 2.....Moderate 3.51-17.50 kU/L..........Class 3.....High 17.51-50.00 kU/L.........Class 4.....Very High 50.01-100.00 kU/L........Class 5.....Very High Greater than 100.00kU/L..Class 6.....Very High Allergen results of 0.10-0.34 kU/L are intended for specialist use as the clinical relevance is undetermined. Even though increasing ranges are reflective of increasing concentrations of allergen-specific IgE, these concentrations may not correlate with the degree of clinical response or skin testing results when challenged with a specific allergen. The correlation of allergy laboratory results with clinical history and in vivo reactivity to specific allergens is essential. A negative test may not rule out clinical allergy or even anaphylaxis. Performed By: [facility] [address] [place] [address] Applications Manager: Cullen Bower MD, PhD CLIA Number: [id number] Blood BLOOD SPECIMEN / Unknown Lab Venipuncture / Unknown 04/27/2024 3:32 PM CDT 04/27/2024 3:58 PM CDT Yonatan Allen MD LAB - SEROLOGY ORDER DAVID Performing Organization Address [facility] de Phone Number [facility]) [address] [place] [address] * LAB MISC TEST (04/27/2024 3:32 PM CDT) Only the most recent of3 resultswithin the time period is included. Test Name ALLERGEN BIRCH IGE 05/06/2024 12:31 PM CDT [facility] Test Result See Scanned Report 05/06/2024 12:31 PM CDT [facility] Blood BLOOD SPECIMEN / Unknown Lab Venipuncture / Unknown 04/27/2024 3:32 PM CDT 04/27/2024 3:58 PM CDT Yonatan Aleln MD LAB SEND OUT Performing Organization Address [facility] [place] [address] * (ABNORMAL) ALLERGEN FOOD SEAFOOD PROFILE (04/27/2024 3:32 PM CDT) Only the most recent of3 resultswithin the time period is included. Allergen Lobster <0.10 <=0.34 kU/L 04/29/2024 10:13 AM CDT [facility] ([facility]) Allergen Codfish 1.56(H) <=0.34 kU/L 04/29/2024 10:13 AM CDT [facility] ([facility]) Allergen Crab 0.11 <=0.34 kU/L 04/29/2024 10:13 AM CDT [facility] ([facility]) Allergen Shrimp 0.33 <=0.34 kU/L 04/29/2024 10:13 AM CDT [facility] ([facility]) Allergen Tuna 0.70(H) <=0.34 kU/L 04/29/2024 10:13 AM CDT [facility] ([facility]) Immunocap Score See Note 10:13 AM CDT [facility] ([facility]) Comment: REFERENCE INTERVAL: Allergen, Interpretation Less than 0.10 kU/L......Class 0.....No significant level detected 0.10-0.34 kU/L...........Class 0/1...Clinical relevance undetermined 0.35-0.70 kU/L...........Class 1.....Low 0.71-3.50 kU/L...........Class 2.....Moderate 3.51-17.50 kU/L..........Class 3.....High 17.51-50.00 kU/L.........Class 4.....Very High 50.01-100.00 kU/L........Class 5.....Very High Greater than 100.00kU/L..Class 6.....Very High Allergen results of 0.10-0.34 kU/L are intended for specialist use as the clinical relevance is undetermined. Even though increasing ranges are reflective of increasing concentrations of allergen-specific IgE, these concentrations may not correlate with the degree of clinical response or skin testing results when challenged with a specific allergen. The correlation of allergy laboratory results with clinical history and in vivo reactivity to specific allergens is essential. A negative test may not rule out clinical allergy or even anaphylaxis. Performed By: [facility] [address] [place] [address] Applications Manager: Cullen Bower MD, PhD CLIA Number: [id number] Blood BLOOD SPECIMEN / Unknown Lab Venipuncture / Unknown 04/27/2024 3:32 PM CDT 04/27/2024 3:58 PM CDT Yonatan Allen MD LAB - CHEMISTRY MANFRED SHEPHERD [facility] Organization Address City/State/ZIP Co de Phone Number [facility] [employer] ([facility]) [address] [place] [address], [place] * (ABNORMAL) ALLERGEN RESPIRATORY [facility] [address] ([place]) (04/27/2024 3:32 PM CDT) Only the most recent of2 resultswithin the time period is included. IgE Total 278(H) <=214 kU/L 04/29/2024 10:16 AM CDT [facility] ([facility]) Comment: REFERENCE INTERVAL: Immunoglobulin E, Serum Access complete set of age- and/or gender-specific reference intervals for this test in the [facility] Test Directory ([email or web address]). Allergen Eller Elder 5.53(H) <=0.34 kU/L 04/29/2024 10:16 AM CDT [facility] ([facility]) Allergen Alternaria alternata 0.98(H) <=0.34 kU/L 04/29/2024 10:16 AM CDT [facility] ([facility]) Allergen Bogue Chitto Maple 19.80(H) <=0.34 kU/L 04/29/2024 10:16 AM CDT [facility] ([facility]) Allergen Cat Dander 1.18(H) <=0.34 kU/L 04/29/2024 10:16 AM CDT [facility] ([facility]) Allergen Mountain Mclaughlin 7.01(H) <=0.34 kU/L 04/29/2024 10:16 AM CDT [facility] ([facility]) Allergen Bay Tree 14.00(H) <=0.34 kU/L 04/29/2024 10:16 AM CDT [facility] ([facility]) Allergen Rough Pigweed 15.50(H) <=0.34 kU/L 04/29/2024 10:16 AM CDT [facility] ([facility]) Allergen Cook Island[place] Thistle 9.89(H) <=0.34 kU/L 04/29/2024 10:16 AM CDT [facility] ([facility]) Allergen Chago Grass 18.00(H) <=0.34 kU/L 04/29/2024 10:16 AM CDT [facility] ([facility]) Allergen Hormodendrum 1.04(H) <=0.34 kU/L 04/29/2024 10:16 AM CDT [facility]) Allergen Elm 21.00(H) <=0.34 kU/L 04/29/2024 10:16 AM CDT [facility]) Allergen [place] 16.90(H) <=0.34 kU/L 04/29/2024 10:16 AM CDT [facility] ([facility]) Allergen A fumigatus IgE 0.58(H) <=0.34 kU/L 04/29/2024 10:16 AM CDT [facility] ([facility]) Allergen Dermatophagoides pteronyssinus 0.36(H) <=0.34 kU/L 04/29/2024 10:16 AM CDT [facility] ([facility]) Allergen Dermatophagoides farinae 0.45(H) <=0.34 kU/L 04/29/2024 10:16 AM CDT [facility]) Allergen Bermuda Grass 21.70(H) <=0.34 kU/L 04/29/2024 10:16 AM CDT [facility]) Allergen White Noel 28.20(H) <=0.34 kU/L 04/29/2024 10:16 AM CDT [facility]) Allergen P. Notatum 0.57(H) <=0.34 kU/L 04/29/2024 10:16 AM CDT [facility]) Allergen Common Ragweed 14.50(H) <=0.34 kU/L 04/29/2024 10:16 AM CDT [facility]) Allergen Cockroach Amharic 0.22 <=0.34 kU/L 04/29/2024 10:16 AM CDT [facility]) Allergen Mccarley Tree 13.80(H) <=0.34 kU/L 04/29/2024 10:16 AM CDT [facility]) Allergen Guernsey Tree 23.40(H) <=0.34 kU/L 04/29/2024 10:16 AM CDT [facility]) Allergen Pecan Tree 18.80(H) <=0.34 kU/L 04/29/2024 10:16 AM CDT [facility] ([facility]) Allergen Mouse Epithelium IgE <0.10 <=0.34 kU/L 04/29/2024 10:16 AM CDT [facility]) Allergen Mucor racemosus 1.01(H) <=0.34 kU/L 04/29/2024 10:16 AM CDT [facility]) Allergen White [place] Tree IgE 3.60(H) <=0.34 kU/L 04/29/2024 10:16 AM CDT [facility]) Allergen Dog Dander 1.71(H) <=0.34 kU/L 04/29/2024 10:16 AM CDT [facility]) Comment: Performed By: [place] [address] Applications Manager: Cullen Bower MD, PhD CLIA Number: [id number] Blood BLOOD SPECIMEN / Unknown Lab Venipuncture / Unknown 04/27/2024 3:32 PM CDT 04/27/2024 3:58 PM CDT Yonatan Allen MD LAB - CHEMISTRY MANFRED SHEPHERD [facility] Organization Address City/State/ZIP Co de Phone Number [facility]) [address] [place] [address], [place] * URINALYSIS - POINT OF CARE (AMB) [facility] (03/03/2024 9:23 AM CDT) Specific [place] UA 1.[address] [facility] [address] pH UA 6.0 [facility] [address] WBC UA neg [facility] [address] Nitrite UA neg [facility] [address] Protein UA neg [facility] [address] Glucose UA neg [facility] [address] Ketones UA POCT neg [facility] [address] Urobilinogen UA 0.2 [facility] [address] Bilirubin UA POCT neg [facility] [address] Blood Urine POCT neg [facility] [address] Urine URINE / Unknown 03/03/2024 9 :23 AM CDT Pardeep Gutierrez MD LAB - POINT OF CARE ORDERABLES [facility] [place] [address] [facility], [place] [address], [place] [phone] * XR CHEST 2VW (01/26/2024 4:11 PM CDT) Only the most recent of6 resultswithin the time period is included. Anatomical Region Laterality Modality Chest Radiographic Jermain ging 01/27/2024 10:4 4 AM CDT Impressions 01/27/2024 3:02 PM CDT IMPRESSION: No acute pulmonary process. Report dictated by Keo Justin MD (vice president payer). Naresh Diana MD have personally reviewed and interpreted this examination/study. > Interpreting Provider: Naresh Jean MD on 01/27/2024 3:02 PM Narrative 01/27/2024 3:02 PM CDT PROCEDURE: ??XR CHEST 2VW, DATE/TIME OF EXAM: ??01/26/2024 4:11 PM, LOCATION [facility] INDICATION: R21: Rash and other nonspecific skin eruption COMPARISON: None. TECHNIQUE: Frontal and lateral radiographs of the chest. FINDINGS: There is no focal consolidation, pleural effusion, or pneumothorax. The cardiomediastinal silhouette is normal. The visible bony thorax is intact. Procedure Note Naresh Jean MD - 01/27/2024 PROCEDURE: XR CHEST 2VW, DATE/TIME OF EXAM: 01/26/2024 4:11 PM, LOCATION [facility] INDICATION: R21: Rash and other nonspecific skin eruption COMPARISON: None. TECHNIQUE: Frontal and lateral radiographs of the chest. FINDINGS: There is no focal consolidation, pleural effusion, or pneumothorax. The cardiomediastinal silhouette is normal. The visible bony thorax is intact. IMPRESSION: No acute pulmonary process. Report dictated by Keo Justin MD (vice president payer). Naresh Diana MD have personally reviewed and interpreted this examination/study. > Interpreting Provider: Naresh Jean MD on 01/27/2024 3:02 PM Arnav Flores MD DIAGNOSTIC IMAGING O RDERABLES * HEPATITIS C AB SCREEN RFLX NAAT QUANT (01/26/2024 4:00 PM CDT) Hepatitis C Antibody Non-react cindy Non-reac tive 01/26/2024 5:14 PM CDT [facility] Comment:Hepatitis C Antibody screen indicates no [...] Flores MD LAB - CHEMISTRY MANFRED SHEPHERD [facility] Organization Address City/State/[facility] Co de Phone Number [facility] [address] [place] [address], [place] [phone] * ZINC BLOOD (01/26/2024 4:00 PM CDT) Pathologist [facility] Zinc 80.9 60.0 - 120.0 ug/dL 01/28/2024 3:28 PM CDT [facility] ([facility]) Comment: INTERPRETIVE INFORMATION: Zinc, Serum or Plasma Elevated results may be due to skin or collection-related contamination, including the use of a noncertified metal-free collection/transport tube. If contamination concerns exist due to elevated levels of serum/plasma zinc, confirmation with a second specimen collected in a certified metal-free tube is recommended. Circulating zinc concentrations are dependent on albumin status and are depressed with malnutrition. ??Zinc may also be lowered with infection, inflammation, stress, oral contraceptives, and . ??Zinc may be elevated with zinc supplementation or fasting. ??Elevated zinc concentrations may interfere with copper absorption. This test was developed and its performance characteristics determined by [facility]. It has not been cleared or approved by the US Food and Drug Administration. This test was performed in a CLIA certified laboratory and is intended for clinical purposes. Performed By: [email or web address] [address] [place] [address] Applications Manager: Cullen Bower MD, PhD CLIA Number: [id number] Blood BLOOD SPECIMEN / Unknown Lab Venipuncture / Unknown 01/26/2024 4:00 PM CDT 01/26/2024 4:40 PM CDT Arnav Flores MD LAB - CHEMISTRY ORDMundo SHEPHERD Performing Organization Address [facility] Co de Phone Number [facility]) [address] [place] [address] * VITAMIN C (01/26/2024 4:00 PM CDT) [facility] Vitamin C 40 23 - 114 umol/L 01/30/2024 11:41 AM CDT [facility] ([facility]) Comment: Vitamin C concentrations lower than 11 umol/L indicate deficiency. Concentrations between 11 and 23 umol/L are consistent with a moderate risk of deficiency due to inadequate tissue stores. Vitamin C concentration is reported as micromoles per liter (umol/L). To convert concentration to milligrams per deciliter (mg/dL), multiply the result by 0.0176. This test was developed and its performance characteristics determined by [facility]. It has not been cleared or approved by the US Food and Drug Administration. This test was performed in a CLIA certified laboratory and is intended for clinical purposes. Performed By: [facility] [address] [place] [address] Applications Manager: Cullen Bower MD, PhD CLIA Number: [id number] Blood BLOOD SPECIMEN / Unknown Lab Venipuncture / Unknown 01/26/2024 4:00 PM CDT 01/26/2024 4:22 PM CDT Arnav Flores MD LAB - CHEMISTRY MANFRED SHEPHERD Performing Organization Address [facility] Co de Phone Number [facility]) [address] [place] [address] * VITAMIN D 1,25 DIHYDROXY (01/26/2024 4:00 PM CDT) [facility] Vitamin D, 1,25 Dihydroxy 40.4 19.9 - 79.3 pg/mL 01/29/2024 3:51 AM CDT [facility] ([facility]) Comment: INTERPRETIVE INFORMATION: Vitamin D, 1,25-Dihydroxy This test is primarily indicated during patient evaluation for hypercalcemia and renal failure. A normal result does not rule out Vitamin D deficiency. The recommended test for diagnosing Vitamin D deficiency is Vitamin D 25-hydroxy. Performed By: [facility] [address] [place] [address] Applications Manager: Cullen Bower MD, PhD CLIA Number: [id number] Blood BLOOD SPECIMEN / Unknown Lab Venipuncture / Unknown 01/26/2024 4:00 PM CDT 01/26/2024 4:41 PM CDT Arnav Flores MD LAB - CHEMISTRY MANFRED SHEPHERD [facility]) [address] [place] [address], [place] * (ABNORMAL) HEPATITIS B SURFACE ANTIBODY (01/26/2024 4:00 PM CDT) Only the most recent of2 resultswithin the time period is included. [facility] Hepatitis B Virus Surface Antibody Reactive( A) Non-react cindy 01/26/2024 5:14 PM CDT [facility] Comment: > 12 mIU/mL Hepatitis B surface Antibody (HBsAb). Reactive for HBsAb - individual is considered immune to Hepatitis B Virus infection. Hepatitis B Surface Antibody Quantitative 18.9(H) <8.0 mIU/mL 01/26/2024 5:14 PM CDT [facility] Comment: Hepatitis B Surface Antibody Numeric Result Interpretation: ? Nonreactive: ?<8.0 mIU/mL ? Indeterminate: ??8.0 - 12.0 mIU/mL ? Reactive: ?>12.0 mIU/mL ? Blood BLOOD SPECIMEN / Unknown Lab Venipuncture / Unknown 01/26/2024 4:00 PM CDT 01/26/2024 4:41 PM CDT Arnav Flores MD LAB - CHEMISTRY MANFRED SHEPHERD Performing Organization Address City/[facility]/ZIP Co de Phone Number [address] [address], [place] [phone] * HEPATITIS B CORE ANTIBODY TOTAL (01/26/2024 4:00 PM CDT) [facility] HBc Antibody Total Non-reacti ve Non-reacti ve 01/26/2024 5:14 PM CDT [facility] Blood BLOOD SPECIMEN / Unknown Lab Venipuncture / Unknown 01/26/2024 4:00 PM CDT 01/26/2024 4:41 PM CDT Arnav Flores MD LAB - CHEMISTRY MANFRED SHEPHERD Performing Organization Address [facility]/ZIP Co de Phone Number [address] [address], [place] [phone] * HEPATITIS B SURFACE ANTIGEN W RFLX CONFIRMATION (01/26/2024 4:00 PM CDT) Only the most recent of3 resultswithin the time period is included. [facility] Hepatitis B Virus Surface Antigen Non-reacti ve Non-reacti ve 01/26/2024 5:14 PM CDT [facility] Blood BLOOD SPECIMEN / Unknown Lab Venipuncture / Unknown 01/26/2024 4:00 PM CDT 01/26/2024 4:41 PM CDT Arnav Flores MD LAB - CHEMISTRY MANFRED SHEPHERD Performing Organization Address City/[facility]/ZIP Co de Phone Number [address] [address], [place] [phone] * TSH (01/26/2024 4:00 PM CDT) Only the most recent of2 resultswithin the time period is included. TSH 0.548 0.350 - 4.940 uIU/mL 01/26/2024 5:13 PM CDT [facility] Blood BLOOD SPECIMEN / Unknown Lab Venipuncture / Unknown 01/26/2024 4:00 PM CDT 01/26/2024 4:24 PM CDT Arnav Flores MD LAB - CHEMISTRY MANFRED SHEPHERD [facility] Organization Address City/State/ZIP Co de Phone Number [address] [address], [place] [phone] * PROTEIN ELECTROPHORESIS BLOOD (01/26/2024 4:00 PM CDT) Interpretation Serum PE Normal Pattern Normal Pattern 01/27/2024 4:09 PM T [facility] Comment: Serum capillary electrophoresis shows characteristic bands corresponding to albumin, alpha and beta globulins and polyclonal immunoglobulins. No monoclonal immunoglobulin detected. Non-secretory myeloma (NSM) and light chain only myeloma cannot be excluded based on this result. ??Recommend serum free light chain measurements for complete evaluation of plasma cell disorders. ?? Kalpana Gilmore PhD, [facility] Clinical Technology Officer sewage reticulation drafting officer Marisel Jensen MD Attending Physician Department of Pathology Transfusion Medicine *The electrophoresis pattern and the interpretation have been reviewed and verified by the teaching physician. Protein Total 7.7 6.0 - 8.3 g/dL 01/27/2024 4:09 PM [facility] Albumin 4.5 3.3 - 5.6 g/dL 01/27/2024 4:09 PM [facility] Alpha-1 Globulins 0.3 0.2 - 0.4 g/dL 01/27/2024 4:09 PM T [facility] Alpha-2 Globulins 0.6 0.5 - 1.0 g/dL 01/27/2024 4:09 PM [facility] Beta Globulins 1.0 0.6 - 1.1 g/dL 01/27/2024 4:09 PM [facility] Gamma Globulins 1.3 0.6 - 1.6 g/dL 01/27/2024 4:09 PM T [facility] Blood BLOOD SPECIMEN / Unknown Lab Venipuncture / Unknown 01/26/2024 4:00 PM CDT 01/26/2024 4:41 PM CDT Arnav Flores MD LAB - CHEMISTRY MANFRED SHEPHERD [address] [address], [place] [phone] * ENDOSCOPY, COLON, DIAGNOSTIC (08/12/2023 2:02 PM [employer]) Report Endoscopy POC Endoscopy Department Report _ Patient Name: Misha Valiente ?Procedure Date: 08/12/2023 2:02 PM ? Date of : 2000 Classification: Outpatient ?Gender: Male Ethnicity: Not or ? Race: Black or _ Providers: ?Gloria Lawrence MD (Labundy), Jorge Fitzpatrick ?(Fellow) Referring MD: ? Procedure: ?Colonoscopy Indications: ?Follow-up of Crohn's disease of the colon. ?Currently not on Crohn's medication. Medications: ?Monitored Anesthesia Care Description of Procedure: Pre-Anesthesia Assessment: ?- Prior to the procedure, a History and Physical ?was performed, and patient medications and ?allergies were reviewed. The patient's tolerance of ?previous anesthesia was also reviewed. The risks ?and benefits of the procedure and the sedation ?options and risks were discussed with the patient. ?All questions were answered, and informed consent ?was obtained. Prior Anticoagulants: The patient has ?taken no anticoagulant or antiplatelet agents. ASA ?Grade Assessment: II - A patient with mild systemic ?disease. After reviewing the risks and benefits, ?the patient was deemed in satisfactory condition to ?undergo the procedure. ?After I obtained informed consent, the scope was ?passed under direct vision. Throughout the ?procedure, the patient's blood pressure, pulse, and ?oxygen saturations were monitored continuously. The ?[id number] was introduced through the anus and ?advanced to the terminal ileum. The colonoscopy was ?somewhat difficult due to a tortuous colon. The ?patient tolerated the procedure well. The quality ?of the bowel preparation was evaluated using the ?BBPS (Chama Bowel Preparation Scale) with scores ?of: Right Colon = 3 (entire mucosa seen well with ?no residual staining, small fragments of stool or ?opaque liquid), Transverse Colon = 3 (entire mucosa ?seen well with no residual staining, small ?fragments of stool or opaque liquid) and Left Colon ?= 3 (entire mucosa seen well with no residual ?staining, small fragments of stool or opaque ?liquid). The total BBPS score equals 9. The ?terminal ileum, ileocecal valve, appendiceal ?orifice, and rectum were photographed. ? Findings: ? The perianal and digital rectal examinations were normal. ? The terminal ileum contained a aphthous ulcers. No bleeding was present. ? Biopsies were taken with a cold forceps for histology. ? There is no endoscopic evidence of erythema, inflammation, mass, ? stricture or ulcerations in the sigmoid colon, in the descending colon, ? in the transverse colon and in the ascending colon. ? A patchy area of mildly erythematous mucosa was found in the rectum. ? The Simple Endoscopic Score for Crohn's Disease was determined based on ? the endoscopic appearance of the mucosa in the following segments: ? - Ileum: Findings include aphthous ulcers less than 0.5 cm in size, less ? than 10% ulcerated surfaces, less than 50% of surfaces affected and no ? narrowings. Segment score: 3. ? - Right Colon: Findings include no ulcers present, no ulcerated ? surfaces, no affected surfaces and no narrowings. Segment score: 0. ? - Transverse Colon: Findings include no ulcers present, no ulcerated ? surfaces, no affected surfaces and no narrowings. Segment score: 0. ? - Left Colon: Findings include no ulcers present, no ulcerated surfaces, ? no affected surfaces and no narrowings. Segment score: 0. ? - Rectum: Findings include no ulcers present, no ulcerated surfaces, no ? affected surfaces and no narrowings. Segment score: 0. ? - Total SES-CD aggregate score: 3. Biopsies were taken with a cold ? forceps for histology. ? The retroflexed view of the distal rectum and anal verge was normal and ? showed no anal or rectal abnormalities. ? Estimated Blood Loss: ? Estimated blood loss was minimal. Complications: ?No immediate complications. Impression: ? - A few aphthous ulcers in the terminal ileum. ?Biopsied. ?- Erythematous mucosa in the rectum. ?- Simple Endoscopic Score for Crohn's Disease: 3, ?mucosal inflammatory changes. Biopsied. ?- The distal rectum and anal verge are normal on ?retroflexion view. Recommendation: ? - Discharge patient to home. ?- Resume previous diet. ?- Continue present medications. ?- Await pathology results. ?- Repeat colonoscopy date to be determined after ?pending pathology results are reviewed to assess ?disease activity. ?- Return to referring physician as previously ?scheduled. ? Attending Participation: ??I was present and participated during the entire ?procedure, including non-esquivel portions. ? Procedure Code(s): ? --- Professional --- ? 53565, Colonoscopy, flexible; with biopsy, single or multiple Diagnosis Code(s): ?--- Professional --- ?K63.3, Ulcer of intestine ?K62.89, Other specified diseases of anus and rectum ?K50.10, Crohn's disease of large intestine without ?complications CPT copyright 2021 [employer]. All rights reserved. The codes documented in this report are preliminary and upon programmer business review may be revised to meet current compliance requirements. Gloria Lawrence MD ([facility]) 08/12/2023 2:52:19 PM Note Initiated On: 08/12/2023 2:02 PM Number of Addenda: 0 ? [facility] ? [address] [place], [place] [id number] [place] [address] PROVATION 08/12/2023 2:02 PM [employer] Gloria Lawrence MD GI PROCEDURE MANFRED SHEPHERD [facility] * PATHOLOGY TISSUE (08/12/2023 1:52 PM [employer]) Case Report Surgical Pathology Report ? Case: [id number] ? Authorizing Provider: ??Gloria Lawrence MD ?? Collected: ? 08/12/2023 01:52 PM ? Ordering Location: ? [facility] ?Received: ?08/12/2023 03:06 PM ? Pathologist: ? Naomy Hollis MD ? Specimens: ?? A) - Esophagus, distal esophagus r/o EOE ? B) - Esophagus, mid esophagus r/o EOE ? C) - Small Bowel, terminal ileum biopsies ? D) - Large Intestine, Right/Ascending Colon, right colon biopsies ? E) - Large Intestine, Left/Descending Colon, left colon biopsies ? 08/13/2023 4:18 PM [facility] Final Diagnosis Esophagus, distal, biopsy (A): - Moderate esophagitis with increased intraepithelial eosinophils (55/hpf) and focal eosinophilic microabscess - Separate fragment of gastric oxyntic type mucosa with mild chronic inflammation Esophagus, mid, biopsy (B): - Moderate-severe esophagitis with markedly increased intraepithelial eosinophils (70/hpf) and eosinophilic microabscesses Small intestine, terminal ileum, biopsy (C): - No histopathologic abnormality - No granulomas or dysplasia Large intestine, right colon, biopsy (D): - No histopathologic abnormality - No granulomas or dysplasia Large intestine, left colon, biopsy (E): - Mild active colitis - No granulomas or dysplasia - Negative for CMV 08/13/2023 4:18 PM [facility] Microscopic Description and Comment Microscopic examination substantiates the final diagnosis. An immunostain for CMV was performed (block E1; appropriately staining controls) and is negative 08/13/2023 4:18 PM [facility] Clinical History The patient is a 23-year-old man who presented for follow-up of eosinophilic esophagitis and Crohn's disease. Operative procedure/findings: EGD-esophageal mucosal changes secondary to eosinophilic esophagitis with stenosis at GE junction, biopsy. Colonoscopy-a few aphthous ulcers in the terminal ileum, biopsied. Erythematous mucosa in the rectum, biopsied. Right colon, transverse colon, left colon including rectum, segment score 0 08/13/2023 4:18 PM [facility] Gross Description The requisition and specimen(s) are identified with the patient's name, Misha Valiente. Received in formalin, specimen A , are three pink biopsies, 0.3 to 0.5 cm, in aggregate 0.5 x 0.4 x 0.3 cm, submitted in toto in cassette A1. Received in formalin, specimen B are three pale torres biopsies, 0.3 to 0.5 cm, in aggregate 0.6 x 0.5 x 0.3 cm, submitted in toto in cassette B1. Received in formalin, specimen C are four small pale pink biopsies, 0.1 to 0.5 cm, in aggregate 0.5 x 0.4 x 0.2 cm, submitted in toto in cassette C1. Received in formalin, specimen D are four sevilla biopsies, 0.2 to 0.3 cm, in aggregate 0.4 x 0.3 x 0.2 cm, submitted in toto in cassette D1. Received in formalin, specimen E are six pink-sevilla biopsies, 0.2 to 0.4 cm, in aggregate 0.6 x 0.4 x 0.2 cm, submitted in toto in cassette E1. GW 08/13/2023 4:18 PM [facility] Pathologist Location at [facility] 08/13/2023 4:18 PM [facility] Disclaimer The performance characteristics of all immunohistochemical and indirect immunofluorescence stains (if any) cited in this report were determined by the Histopathology Laboratory of [facility]. Some of these tests were developed by our own laboratory and have not been cleared or approved by the US Food and Drug Administration. The FDA does not require this test to go through premarket FDA review. These tests are used for clinical purposes. They should not be regarded as investigational or for research. This laboratory is certified under the Clinical Laboratory Improvement Amendments (CLIA) as qualified to perform high complexity clinical laboratory testing. This case has been personally reviewed and interpreted by the attending (teaching) pathologist. 08/13/2023 4:18 PM [facility] Embedded Images 08/13/2023 4:18 PM [facility] Biopsy, NOS REGION OF ESOPHAGUS / Unknown 08/12/2023 1:52 PM [employer] 08/12/2023 3:06 PM [employer] Biopsy, NOS REGION OF ESOPHAGUS / Unknown 08/12/2023 1:54 PM [employer] 08/12/2023 3:06 PM [employer] Biopsy, NOS SMALL BOWEL RESECTION SPECIMEN / Unknown 08/12/2023 2:27 PM [employer] 08/12/2023 3:06 PM [employer] Biopsy, NOS (Large Intestine, Right/Ascending Colon) 08/12/2023 2:30 PM [employer] 08/12/2023 3:06 PM [employer] Biopsy, NOS (Large Intestine, Left/Descending Colon) 08/12/2023 2:34 PM [employer] 08/12/2023 3:06 PM [employer] Gloria Lawrence MD LAB - PATHOLOGY/C YTOLOGY ORDERABLES [facility] [address] [place] [address], [place] [phone] * EGD (08/12/2023 1:17 PM [employer]) Report Endoscopy POC Endoscopy Department Report __ _ Patient Name: Misha Valiente ?Procedure Date: 08/12/2023 1:17 PM ? Date of : 2000 Classification: Outpatient ?Gender: Male Ethnicity: Not or ? Race: Black or __ _ Providers: ?Gloria Lawrence MD, Umer Farooq (Labundy) ?(Fellow) Referring : ? Procedure: ?Upper GI endoscopy Indications: ?Follow-up of eosinophilic esophagitis. Current ?medication is Prevacid Solutab 30 mg daily. Medications: ?Monitored Anesthesia Care Description of Procedure: Pre-Anesthesia Assessment: ?- Prior to the procedure, a History and Physical ?was performed, and patient medications and ?allergies were reviewed. The patient's tolerance of ?previous anesthesia was also reviewed. The risks ?and benefits of the procedure and the sedation ?options and risks were discussed with the patient. ?All questions were answered, and informed consent ?was obtained. Prior Anticoagulants: The patient has ?taken no anticoagulant or antiplatelet agents. ASA ?Grade Assessment: II - A patient with mild systemic ?disease. After reviewing the risks and benefits, ?the patient was deemed in satisfactory condition to ?undergo the procedure. ?After obtaining informed consent, the endoscope was ?passed under direct vision. Throughout the ?procedure, the patient's blood pressure, pulse, and ?oxygen saturations were monitored continuously. The ?Endoscope was introduced through the mouth, and ?advanced to the third part of duodenum. The upper ?GI endoscopy was accomplished without difficulty. ?The patient tolerated the procedure well. ? Findings: ? Esophagogastric landmarks were identified: the Z-line was found at 38 ? cm, the gastroesophageal junction was found at 38 cm and the site of ? hiatal narrowing was found at 38 cm from the incisors. ? Mucosal changes including ringed esophagus, longitudinal furrows and ? stenosis were found in the entire esophagus. Esophageal findings were ? graded using the Eosinophilic Esophagitis Endoscopic Reference Score ? (EoE-EREFS) as: Edema Grade 0 Normal (distinct vascular markings), Rings ? Grade 1 Mild (subtle circumferential ridges seen on esophageal ? distension), Exudates Grade 0 None (no white lesions seen), Furrows ? Grade 1 Mild (vertical lines without visible depth) and Stricture ? present. The diagnostic upper endoscope was unable to pass through the ? mild stricture located at the GE junction. A TTS dilator was passed ? through the scope. Dilation with a 10-11-12 mm balloon dilator was ? performed to 10 mm. The dilation site was examined and showed moderate ? mucosal disruption. Estimated blood loss: none. The endoscope was then ? able to pass into the stomach. After completion of the exam described ? below, biopsies were obtained from the mid and distal esophagus with ? cold forceps for histology of suspected eosinophilic esophagitis. ? The stomach was normal. ? The cardia and gastric fundus were normal on retroflexion. ? The examined duodenum was normal. ? Estimated Blood Loss: ? Estimated blood loss: none. Complications: ?No immediate complications. Impression: ? - Esophagogastric landmarks identified. ?- Esophageal mucosal changes secondary to ?eosinophilic esophagitis with stenosis at GE ?junction, unable to be traversed before dilation. ?Dilated to 10 mm with TTS balloon. ?- Normal stomach. ?- Normal examined duodenum. ?- Biopsies were taken with a cold forceps for ?evaluation of eosinophilic esophagitis. Recommendation: ? - Continue present medications. ?- Await pathology results. ?- Perform a colonoscopy today. ? Attending Participation: ??I was present and participated during the entire ?procedure, including non-esquivel portions. ? Procedure Code(s): ? --- Professional --- ? 26769, Esophagogastroduode noscopy, flexible, transoral; with ? transendoscopic balloon dilation of esophagus (less than 30 mm diameter) Diagnosis Code(s): ?--- Professional --- ?K20.0, Eosinophilic esophagitis CPT copyright 2021 [employer]. All rights reserved. The codes documented in this report are preliminary and upon programmer business review may be revised to meet current compliance requirements. Gloria Lawrence MD ([place]) 08/12/2023 2:06:12 PM Note Initiated On: 08/12/2023 1:17 PM Number of Addenda: 0 ? [facility] ? [address] [place], [place] [id number] [place] [address] PROVATION 08/12/2023 1:17 PM SLAT BASKET MAKER HELPER Gloria Lawrence MD GI PROCEDURE [facility] PROVATION * QUANTIFERON-TB GOLD PLUS 4-TUBE (06/25/2023 10:44 AM SLAT BASKET MAKER HELPER) Only the most recent of2 resultswithin the time period is included. [facility] Signature QuantiFERON NIL 0.01 IU/mL 5:56 AM SLAT BASKET MAKER HELPER [employer] ([facility]) Comment: Performed By: [facility] [address] [place] [id number] Applications Manager: Cullen Bower MD, PhD CLIA Number: [id number] QuantiFERON TB Gold Plus Negative Negative 06/28/2023 5:56 AM SLAT BASKET MAKER HEL[employer] ([facility]) Comment: Interpretive Data: Quantiferon TB Gold Plus Interferon gamma release is measured for specimens from each of the four collection tubes. A qualitative result (Negative, Positive, or Indeterminate) is based on interpretation of the four values, NIL, MITOGEN minus NIL (MITOGEN-NIL), TB1 minus NIL (TB1-NIL), and TB2 minus NIL (TB2-NIL). The NIL value represents nonspecific reactivity produced by the patient specimen. The MITOGEN-NIL value serves as the positive control for the patient specimen, demonstrating successful lymphocyte activity. The TB1-NIL tube specifically detects CD4+ lymphocyte reactivity, specifically stimulated by the TB1 antigens. The TB2-NIL tube detects both CD4+ and CD8+ lymphocyte reactivity, stimulated by TB2 antigens. An overall Negative result does not completely rule out TB infection. A false-positive result in the absence of other clinical evidence of TB infection is not uncommon. Refer to: Updated Guidelines for Using Interferon Gamma Release Assays to Detect Mycobacterium tuberculosis Infection --- [place], 2010 (http://www.cdc.gov/mmwr/preview/mmwrhtml/hv6698p7.htm), for more information concerning test performance in low-prevalence populations and use in occupational screening. QuantiFERON Plus TB1 Minus NIL 0.00 0.00 - 0.34 IU/mL 06/28/2023 5:56 AM [facility] ([facility]) QuantiFERON Plus TB2 Minus NIL 0.00 0.00 - 0.34 IU/mL 06/28/2023 5:56 AM [facility]) QuantiFERON Mitogen Minus NIL >10.00 IU/mL 06/28/2023 5:56 AM [facility]) Blood BLOOD SPECIMEN / Unknown Lab Venipuncture / Unknown 06/25/2023 10:44 AM [facility] 06/25/2023 11:17 AM [facility] Gloria Lawrence MD LAB - CHEMISTRY O RDERABLES [facility]) [address] * LIPID PROFILE (06/25/2023 10:44 AM [facility]) Cholesterol Total 189 <200 mg/dL 06/25/2023 11:58 AM [facility] HDL 80 >40 mg/dL 06/25/2023 11:58 AM [facility] Comment: ATP III Classification of HDL Cholesterol: ? <40 mg/dL: ??Considered a major risk factor. ? >60 mg/dL: ??Considered a negative risk factor. ? LDL Calculated 99 <100 mg/dL 06/25/2023 11:58 AM [facility] Comment: ATP III Classification of LDL Cholesterol: ?<100 mg/dL: ??Optimal ? 100 - 129 mg/dL: ??Near Optimal/Above Optimal ? 130 - 159 mg/dL: ??Borderline High ? 160 - 189 mg/dL: ??High ?>190 mg/dL: ??Very High ? ATP III Classification of LDL Cholesterol: ?<100 mg/dL: ??Optimal ? 100 - 129 mg/dL: ??Near Optimal/Above Optimal ? 130 - 159 mg/dL: ??Borderline High ? 160 - 189 mg/dL: ??High ?>190 mg/dL: ??Very High ? 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 150 - 199 mg/dL: ??Borderline High ? 200 - 400 mg/dL: ??High ?>500 mg/dL: ??Very High Blood BLOOD SPECIMEN / Unknown Lab Venipuncture / Unknown 06/25/2023 10:44 AM [employer] 06/25/2023 11:23 AM [employer] Gloria Lawrence MD LAB - CHEMISTRY O RDERABLES Performing Organization Address [facility]/State/[facility] Phone Number [facility] [address] [place] [address], [place] [phone] * ETT LINE PERFORMABLE (03/05/2023 12:53 PM CDT) Narrative Luis Felipe Celaya Anes Asst - 03/05/2023 12:53 PM CDT Luis Felipe Celaya Anes Asst ? 03/05/2023 12:53 PM Endotracheal Tube Placement: ? Patient Location: OR. Intubation Event Date/Time: ??03/05/2023 12:39 PM Procedure: intubation (72126). Procedure Section: ?? Sedation: under general anesthesia. Indications for Airway Management: ??anesthesia Induction: standard IV Patient Position: ??supine Mask Ventilation: easy. Blade Type: Hector Blade Size: 3 Laryngoscopy View: grade 1 (full cords) Intubation Adjuncts: stylet Tube: endotracheal tube Placement: oral Tube Size (MM): 7 Depth of Insertion (CM): 22 Measured From: lips Cuff volume (mL): ??6 Cuff Inflated With: air Number of Attempts: 1. Placement Verified By: direct visualization, bilateral breath sounds, chest auscultation and CO2 monitor Tube secured with: ??adhesive tape. Dentition unchanged? ??Yes Difficult Airway? ??No. Procedure Start Time: 03/05/2023 12:39 PM. Staff Section ? Anesthesia Provider: Lusi Felipe Celaya Anes Asst, Performed the procedure Isaias Pantoja MD GENERAL ANESTHESIA O RDERABLES * Peripheral Nerve Block (03/05/2023 11:47 AM CDT) Narrative Isaias Pantoja MD - 03/05/2023 11:47 AM CDT Isaias Pantoja MD ? 03/05/2023 11:49 AM Peripheral ??Nerve Block ?? Procedure: Peripheral Nerve Block Patient Location: ??Pre-op Preprocedure Section: ?? Indications: at surgeon's request and postop pain management. Pre-anesthetic Checklist: Patient identified, IV Checked, Site examined and clear, Risks and benefits discussed, Surgical consent verified, Monitors and equipment, Time-out performed, Informed consent obtained, Pre-op evaluation done, Questions answered/anesthesia questions answered, Allergies reviewed and Removal hand/wrist jewelry Monitors: BP, Pulse Ox and EKG. Patient Condition: ??sedated, meaningful contact maintained throughout procedure Patient Position: sitting Patient Sedated? ??Yes ? Sedation Type: ??moderate ? Sedation Agents: ??fentaNYL (PF) (SUBLIMAZE) injection - Intravenous 50 mcg - 03/05/2023 11:39:00 AM midazolam (VERSED) injection - Intravenous 2 mg - 03/05/2023 11:39:00 AM Procedure Section ?? Laterality: left Block Performed: ??interscalene Prep: ??Chloraprep Strerile Field: gloves, mask, hat/cap and patient draped Skin localized with: lidocaine (XYLOCAINE) 1 % injection - Infiltration 1 mL - 03/05/2023 11:40:00 AM Needle Type: ??nerve stimulator Needle Gauge: ??21 Needle Length: ??90 mm Needle Depth: ??5 cm Ultrasound Guided? ?? Yes ? Technique: ??in plane ? Visualization: ??Preliminary scan performed, Important anatomical structures identified, Needle tip visualized throughout the procedure, Target identified, No intraneural or intravascular puncture occurred, Ultrasound image in chart, Local visualized surrounding nerve on ultrasound and Hydrodissection utilized Injection was made incrementally with constant monitoring and aspirations every 5 mL's Injection Assessment: ?? Slow fractionated injection Block Agents or Additives used? Yes Block agents used: bupivacaine PF (MARCAINE PF) 0.5 % injection - Infiltration 10 mL - 03/05/2023 11:41:00 AM bupivacaine liposome (EXPAREL) 1.3 % injection - Infiltration 10 mL - 03/05/2023 11:41:00 AM Procedure Tolerance: tolerated well, performed while the patient was sedated and no immediate complications Assessment: completed Procedure Start Time: 03/05/2023 11:39 AM. Procedure End Time: 03/05/2023 11:43 AM. Procedure Total Time: 4 ??minutes. Staff Section ? Anesthesia Provider: Isaias Pantoja MD, Performed the procedure ? Provider #1: Yonatan Yun MD. Additional Comments: I was present for the nerve block and assisted the resident in placing the block. ??Block performed at surgeon's request for post op pain. ?? . Isaias Pantoja MD GENERAL ANESTHESIA O RDERABLES * FL SHOULDER LEFT ARTHROGRAM (02/24/2023 10:40 AM CDT) Anatomical Region Laterality Modality Upper Extremity Radiographic Jermain ging 02/24/2023 11:2 1 AM CDT Impressions 02/24/2023 11:23 AM CDT Impression: Left shoulder arthrogram was performed with contrast injection in preparation for MR arthrography. > Interpreting Provider: Eren Lyman MD on 02/24/2023 11:23 AM Narrative 02/24/2023 11:23 AM CDT PROCEDURE: ??FL SHOULDER LEFT ARTHROGRAM DATE/TIME OF EXAM: ??02/24/2023 10:43 AM CLINICAL INFORMATION: None relevant/not provided if blank. Indication: M25.512: Chronic left shoulder pain G89.29: Chronic left shoulder pain Additional History: COMPARISON: None. FLUOROSCOPY DOSE: ??0.44 mGy Reference air kerma (ka,r). Resident Physician: ??Junaid Paul M.D. Attending Physician: ??Eren Lyman M.D. Technique and Findings: The risks and benefits of the arthrogram were discussed with the patient including, but not limited to, infection, bleeding, allergic reaction, and irritation or damage to the joint and surrounding structures such as vessels and nerves. ??After alternatives were discussed and the opportunity to ask questions was provided, the patient acknowledged understanding, gave verbal and written consent, and wished to proceed. ??The patient was positioned supine on the fluoroscopy table with the left upper extremity adducted and in external rotation. A timeout was performed including confirmation of the correct patient, procedure, and laterality. ??Under fluoroscopy, the intended access site was marked. The skin was prepped and draped in sterile fashion. Local anesthesia was obtained using 3.5 mL of 1% lidocaine. Next, a 3.5 inch 22-gauge needle was advanced into the glenohumeral joint under fluoroscopic guidance. ??0.5 mL of lidocaine was injected into the joint without resistance. Next, 13 mL of a contrast mixture (containing 10 mL normal saline, 12 mL Isovue 300, and 0.15 mL Dotarem per 22.15 mL total volume) was injected into the glenohumeral joint under fluoroscopic observation. The needle was withdrawn and the patient was sent to MRI for further imaging. The patient tolerated the procedure well. I was personally present for the entire procedure. Procedure Note Eren Lyman MD - 02/24/2023 PROCEDURE: FL SHOULDER LEFT ARTHROGRAM DATE/TIME OF EXAM: 02/24/2023 10:43 AM CLINICAL INFORMATION: None relevant/not provided if blank. Indication: M25.512: Chronic left shoulder pain G89.29: Chronic left shoulder pain Additional History: COMPARISON: None. FLUOROSCOPY DOSE: 0.44 mGy Reference air kerma (ka,r). Resident Physician: Junaid Paul M.D. Attending Physician: Eren Lyman M.D. Technique and Findings: The risks and benefits of the arthrogram were discussed with the patient including, but not limited to, infection, bleeding, allergic reaction,and irritation or damage to the joint and surrounding structures such as vessels and nerves. After alternatives were discussed and theopportunity to ask questions was provided, the patient acknowledged understanding,gave verbal and written consent, and wished to proceed. The patient was positioned supine on the fluoroscopy table with the left upper extremity adducted and in external rotation. A timeout was performed including confirmation of the correct patient, procedure, and laterality. Under fluoroscopy, the intended access site was marked. The skin was preppedand draped in sterile fashion. Local anesthesia was obtained using 3.5 mL of1% lidocaine. Next, a 3.5 inch 22-gauge needle was advanced into the glenohumeral joint under fluoroscopic guidance. 0.5 mL of lidocaine was injected into the joint without resistance. Next, 13 mL of a contrast mixture (containing 10 mL normal saline, 12 mL Isovue 300, and 0.15 mL Dotarem per 22.15 mL total volume) was injected into the glenohumeraljoint under fluoroscopic observation. The needle was withdrawn and the patient was sent to MRI for further imaging. The patient tolerated the procedure well. I was personally present for the entire procedure. Impression: Left shoulder arthrogram was performed with contrastinjection in preparation for MR arthrography. > Interpreting Provider: Eren Lyman MD on 02/24/2023 11:23 AM Isaias Torres MD FLUOROSCOPY ORDERABL ES * AUDIOLOGY/TYMPANOMETRY ORDER (12/01/2022 8:25 AM CDT) Narrative Keerthi Reyes AuD - 12/01/2022 8:44 AM CDT History: Misha Valiente arrived for a hearing evaluation. Patient reports issues with a clogged feeling in the left ear, muffled hearing, and some pressure in that ear. He has tinnitus AU. He reports a history of ear infections as a child. He denies dizziness and otalgia. There is not a history of noise exposure. There is not a family history of hearing loss. There is not a history of surgery on either ear(s). Results: Puretone air/bone conduction testing revealed normal hearing in both ears with excellent speech understanding. Immittance measures revealed a Type C tympanogram in the right ear, indicating abnormal middle ear function. Results for the left ear revealed a Type A tympanogram, indicating normal middle ear function in that ear; however excessive negative pressure (-140) was noted. These results were discussed in detail with the patient and all pertinent questions were answered. Recommendations: 1) ENT consult. 2) Re check per medical recommendation or if a change in hearing is suspected. Zoran Friedman. [facility]-A Clinical Lead Assembler [facility]-Department of Otolaryngology/Audiology [facility] for [facility] [address] [place] [address] ([facility]) [place] [address] Keerthi Meehan AUDIOLOGY SERVICES O RDERABLES * IMAGING RADIOLOGY XRAY RESULTS ORDER (11/26/2022 11:29 PM CDT) Anatomical Region Laterality Modality Other Narrative 11/26/2022 11:29 PM CDT Ordered by an unspecified provider. Scanned Document IMAGING * CARDIAC RHYTHM STRIP ORDER (11/26/2022 9:53 PM CDT) Only the most recent of2 resultswithin the time period is included. Narrative 11/26/2022 9:53 PM CDT Ordered by an unspecified provider. Scanned Document CARDIAC SERVICES ORD ERABLES * Peripheral Nerve Block (11/25/2022 12:48 PM CDT) Narrative Donovan Rehman MD - 11/25/2022 12:48 PM CDT Donovan Rehman MD ? 11/25/2022 12:49 PM Peripheral ??Nerve Block ?? Procedure: Peripheral Nerve Block Patient Location: ??Pre-op Preprocedure Section: ?? Indications: at surgeon's request and postop pain management. Pre-anesthetic Checklist: Patient identified, IV Checked, Site examined and clear, Risks and benefits discussed, Surgical consent verified, Monitors and equipment, Time-out performed, Informed consent obtained, Pre-op evaluation done, Questions answered/anesthesia questions answered, Allergies reviewed and Removal hand/wrist jewelry Monitors: Pulse Ox. Patient Condition: ??awake Patient Position: sitting Patient Sedated? ??Yes ? Sedation Type: ??mild ? Sedation Agents: ??fentaNYL (PF) (SUBLIMAZE) injection, 100 mcg midazolam (VERSED) injection, 2 mg Procedure Section ?? Laterality: right Block Performed: ??interscalene Prep: ??alcohol Strerile Field: gloves, hat/cap and mask Skin localized with: lidocaine (XYLOCAINE) 1 % injection, 1 mL Needle Length: ??40 mm Ultrasound Guided? ?? Yes ? Technique: ??in plane ? Visualization: ??Preliminary scan performed, Important anatomical structures identified, Needle tip visualized throughout the procedure, Target identified, No intraneural or intravascular puncture occurred, Ultrasound image in chart, Local visualized surrounding nerve on ultrasound and Hydrodissection utilized Injection was made incrementally with constant monitoring and aspirations every 5 mL's Block Agents or Additives used? Yes Block agents used: bupivacaine PF (MARCAINE PF) 0.5 % injection, 15 mL bupivacaine liposome (EXPAREL) 1.3 % injection, 10 mL Procedure Tolerance: tolerated well Assessment: completed Procedure Start Time: 11/25/2022 12:34 PM. Procedure End Time: 11/25/2022 12:41 PM. Procedure Total Time: 7 ??minutes. Staff Section ? Anesthesia Provider: Donovan Rehman MD, Performed the procedure Donovan Rehman MD GENERAL ANESTHESIA O RDERABLES * MRI SHOULDER RIGHT W CONTRAST (11/13/2022 10:49 AM CDT) Anatomical Region Laterality Modality Upper Extremity Magnetic Resonan ce 11/13/2022 10:3 1 AM CDT Impressions 11/13/2022 1:12 PM CDT IMPRESSION: 1.A focal osteochondral defect noted from the posterior humeral head and there is an associated loose body within the posterior axillary pouch measuring 5 x 5 x 3 mm, likely detached osteochondral fragment. 2.Focal signal changes noted in the overlying infraspinatus muscle tendon, likely from chronic contusion injury. > Dictated by Danny Marie DO, MD (vice president payer). I, Carolyn Villasenor MD have personally reviewed and interpreted this examination/study. 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 TECHNIQUE: MRI of the right shoulder was performed using multiple pulse sequences in multiple planes with intra-articular contrast. FINDINGS: There is a small osteochondral defect in the posterior aspect of the humeral head measuring approximately 5 x 4 mm in axial dimensions (series 5, image 13). Within the posterior axillary pouch, there is a low signal loose body measuring 5 x 5 x 3 mm (series 5, image 21 and series 6, image 21). The acromioclavicular joint is intact. There is no appreciable acromioclavicular joint osteoarthritis. ?? Glenohumeral alignment is normal. The glenoid labrum is normal. The glenohumeral articular cartilage is intact. ?? There is mild irregularity with increased signal intensity involving the infraspinatus tendon which is adjacent to the above-mentioned small osteochondral defect. The supraspinatus, subscapularis, and teres minor are normal, without tendinosis or tear. ?? The long head of the biceps anchor is intact, and the tendon is normal without tendinosis or tear. ?? There is no fluid in the subacromial-subdeltoid bursa. ?? Marrow signal intensity is normal. Muscle bulk is normal. ?? 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 TECHNIQUE: MRI of the right shoulder was performed using multiple pulse sequences in multiple planes with intra-articular contrast. FINDINGS: There is a small osteochondral defect in the posterior aspect of the humeral head measuring approximately 5 x 4 mm in axial dimensions(series 5, image 13). Within the posterior axillary pouch, there is a low signal loose body measuring 5 x 5 x 3 mm (series 5, image 21 and series 6,image 21). The acromioclavicular joint is intact. There is no appreciable acromioclavicular joint osteoarthritis. Glenohumeral alignment is normal. The glenoid labrum is normal. The glenohumeral articular cartilage is intact. There is mild irregularity with increased signal intensity involving the infraspinatus tendon which is adjacent to the above-mentioned small osteochondral defect. The supraspinatus, subscapularis, and teres minorare normal, without tendinosis or tear. The long head of the biceps anchor is intact, and the tendon is normal without tendinosis or tear. There is no fluid in the subacromial-subdeltoid bursa. Marrow signal intensity is normal. Muscle bulk is normal. IMPRESSION: 1.A focal osteochondral defect noted from the posterior humeral head and there is an associated loose body within the posterior axillary pouch measuring 5 x 5 x 3 mm, likely detached osteochondral fragment. 2.Focal signal changes noted in the overlying infraspinatus muscletendon, likely from chronic contusion injury. > Dictated by Danny Marie DO, MD (vice president payer). I, Carolyn Villasenor MD have personally reviewed and interpreted this examination/study. > Interpreting Provider: Carolyn Villasenor MD on 11/13/2022 1:12PM Isaias Torres MD MR ORDERABLES * FL SHOULDER RIGHT ARTHROGRAM (11/13/2022 9:49 AM CDT) Anatomical Region Laterality Modality Upper Extremity Radiographic Jermain ging 11/13/2022 9:38 AM CDT Impressions 11/13/2022 10:29 AM CDT Impression: Right shoulder arthrogram was performed with contrast injection in preparation for MR arthrography. Dr. Byrd was present for the procedure. ?? Report dictated by Danny Marie DO (vice president payer). I, Carolyn Villasenor MD have personally reviewed and interpreted this examination/study. 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 Marie, Attending Physician: Dr. Byrd Technique and Findings: The risks and benefits of the arthrogram were discussed with the patient including, but not limited to, infection, bleeding, allergic reaction, and irritation or damage to the joint and surrounding structures such as vessels and nerves. After alternatives were discussed and the opportunity to ask questions was provided, the patient acknowledged understanding, gave verbal and written consent, and wished to proceed. The patient was positioned supine on the fluoroscopy table with the right upper extremity adducted and in external rotation. A timeout was performed including confirmation of the correct patient, procedure, and laterality. Under fluoroscopy, the intended access site was marked. The skin was prepped and draped in sterile fashion. Local anesthesia was obtained using 3 mL of 1% lidocaine. Next, a 22-gauge 3.5-inch needle was advanced into the glenohumeral joint under fluoroscopic guidance. 2 mL of lidocaine was injected into the joint without resistance. Next, 15 mL of a contrast mixture (containing 10 mL normal saline, 10 mL Isovue-300, and 0.1 mL Dotarem per 20.1 mL total volume) was injected into the glenohumeral joint under fluoroscopic observation. The needle was withdrawn and the patient was sent to MRI for further imaging. The patient tolerated the procedure well. 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 Marie, Attending Physician: Dr. Byrd Technique and Findings: The risks and benefits of the arthrogram were discussed with the patient including, but not limited to, infection, bleeding, allergic reaction,and irritation or damage to the joint and surrounding structures such as vessels and nerves. After alternatives were discussed and theopportunity to ask questions was provided, the patient acknowledged understanding,gave verbal and written consent, and wished to proceed. The patient was positioned supine on the fluoroscopy table with the right upperextremity adducted and in external rotation. A timeout was performed including confirmation of the correct patient, procedure, and laterality. Under fluoroscopy, the intended access site was marked. The skin was preppedand draped in sterile fashion. Local anesthesia was obtained using 3 mL of1% lidocaine. Next, a 22-gauge 3.5-inch needle was advanced into the glenohumeral joint under fluoroscopic guidance. 2 mL of lidocaine was injected into the joint without resistance. Next, 15 mL of a contrast mixture (containing 10 mL normal saline, 10 mL Isovue-300, and 0.1 mL Dotarem per 20.1 mL total volume) was injected into the glenohumeraljoint under fluoroscopic observation. The needle was withdrawn and the patient was sent to MRI for further imaging. The patient tolerated the procedure well. Impression: Right shoulder arthrogram was performed with contrastinjection in preparation for MR arthrography. Dr. Byrd was present for the procedure. Report dictated by Danny Marie DO (vice president payer). I, Carolyn Villasenor MD have personally reviewed and interpreted this examination/study. > Interpreting Provider: Carolyn Villasenor MD on 0:29 AM Isaias Torres MD FLUOROSCOPY ORDERABL ES * XR SHOULDER RIGHT 2VW OR MORE (10/07/2022 4:12 PM CDT) Anatomical Region Laterality Modality Upper Extremity Radiographic Jermain ging 10/08/2022 7:30 AM CDT Impressions 10/08/2022 7:31 AM CDT IMPRESSION: Normal. > Interpreting Provider: Eren Lyman MD on 10/08/2022 7:31 AM Narrative 10/08/2022 7:31 AM CDT PROCEDURE: ??XR SHOULDER RIGHT 2VW OR MORE, DATE/TIME OF EXAM: ??10/07/2022 4:12 PM, LOCATION ??[facility] INDICATION: M25.511: Acute pain of right shoulder ADDITIONAL CLINICAL INFORMATION: Ordering Provider Reason For Exam: Technologist Note: Additional: COMPARISON: None. FINDINGS: No fracture or dislocation is present. The joint spaces are normal. No erosions are seen. ??Bone density is normal. ??The soft tissues are normal. ?? Procedure Note Eren Lyman MD - 10/08/2022 PROCEDURE: XR SHOULDER RIGHT 2VW OR MORE, DATE/TIME OF EXAM: 10/07/2022 4:12 PM, LOCATION [facility] INDICATION: M25.511: Acute pain of right shoulder ADDITIONAL CLINICAL INFORMATION: Ordering Provider Reason For Exam: Technologist Note: Additional: COMPARISON: None. FINDINGS: No fracture or dislocation is present. The joint spaces are normal. No erosions are seen. Bone density is normal. The soft tissues are normal. IMPRESSION: Normal. > Interpreting Provider: Eren Lyman MD on 10/08/2022 7:31 AM Bienvenido Sargent MD DIAGNOSTIC IMAGING O RDERABLES * ENDOSCOPY, COLON, DIAGNOSTIC (02/17/2019 2:51 PM CDT) Report Endoscopy POC _ Patient Name: Misha Valiente ? Date of : 2000 ?Admit Type: Outpatient Age: 18 ? Gender: Male Race: Black or ? Attending MD: Luli Merida MD Order #: [id number] ? _ Procedure: ? Colonoscopy Indications: ? Follow-up of Crohn's disease of the small bowel and colon, ? on Humira every other week, asymptomatic Providers: ? Luli Merida MD Referring MD: ?Yossi Vega MD Medicines: ? General Anesthesia Complications: ? No immediate complications. _ Procedure: ? After I obtained informed consent, the scope was passed ? under direct vision. Throughout the procedure, the ? patient's blood pressure, pulse, and oxygen saturations ? were monitored continuously. The Colonoscope was ? introduced through the anus and advanced to the terminal ? ileum. Findings: ? The perianal and digital rectal examinations were normal. No evidence of ? fistula ? The colon (entire examined portion) appeared normal. Biopsies were taken ? with a cold forceps for histology. ? The terminal ileum appeared normal. Biopsies were taken with a cold ? forceps for histology. Impression: ?- The entire examined colon is normal. Biopsied. ? - The examined portion of the ileum was normal. Biopsied. Recommendation: ?- Discharge patient to home (with escort). ? - Await pathology results. ? - Crohn's in mucosal remission on Humira, follow up ? biopsies. ? Procedure Code(s): ? --- Professional --- ? 66338, Colonoscopy, flexible; with biopsy, single or multiple ? --- Technical --- ? 75515, Colonoscopy, flexible; with biopsy, single or multiple Diagnosis Code(s): ? --- Professional --- ? K50.80, Crohn's disease of both small and large intestine without ? complications ? --- Technical --- ? K50.80, Crohn's disease of both small and large intestine without ? complications CPT copyright 2017 [employer]. All rights reserved. The codes documented in this report are preliminary and upon programmer business review may be revised to meet current compliance requirements. Dr. Luli Merida MD ____ Luli Merida MD 02/17/2019 11:34:56 AM Number of Addenda: 0 Note Initiated On: 02/14/2019 2:51 PM Procedure Date: ? 02/17/2019 2:51:00 PM ? This report has been signed electronically. [facility] 02/17/2019 2:51 PM CDT Luli Merida MD GI PROCEDURE ORDERAB LES [facility] [address] [place] [address] * EGD (02/17/2019 2:51 PM CDT) Report Endoscopy POC _ Patient Name: Misha Valiente ? Date of : 2000 ?Admit Type: Outpatient Age: 18 ? Gender: Male Race: Black or ? Attending MD: Luli Merida MD Order #: [id number] ? _ Procedure: ? Upper GI endoscopy Indications: ? Crohn's disease, Follow-up of eosinophilic esophagitis ? (has been off of PPI, missed doses of Pulmicort for ? several weeks), recent dysphagia Providers: ? Luli Merida MD Referring MD: ?Yossi Vega MD Medicines: ? General Anesthesia Complications: ? No immediate complications. _ Procedure: ? After obtaining informed consent, the endoscope was passed ? under direct vision. Throughout the procedure, the ? patient's blood pressure, pulse, and oxygen saturations ? were monitored continuously. The Endoscope was introduced ? through the mouth, and advanced to the third part of ? duodenum. The upper GI endoscopy was accomplished without ? difficulty. The patient tolerated the procedure well. Findings: ? Mucosal changes including ringed esophagus and congestion (edema) were ? found in the mid esophagus. Biopsies were obtained from the mid and ? distal esophagus with cold forceps for histology of suspected ? eosinophilic esophagitis. ? A few localized erosions and erythema were found in the gastric antrum. ? Biopsies were taken with a cold forceps for histology. Biopsies were ? taken with a cold forceps for Helicobacter pylori testing using a rapid ? urease test. ? A few erosions were found in the duodenal bulb. Biopsies were taken with ? a cold forceps for histology (2 from bulb, 2 from 3rd portion). Impression: ?- Esophageal mucosal changes suggestive of eosinophilic ? esophagitis. Biopsied. ? - Gastric erosions. Biopsied. ? - Duodenal erosions. Biopsied. Recommendation: ?- Await pathology results. ? - Discharge patient to home (with parent). ? - Restart PPI 20mg BID. ? Procedure Code(s): ? --- Professional --- ? 70671, Esophagogastroduo denoscopy, flexible, transoral; with biopsy, ? single or multiple ? --- Technical --- ? 34503, Esophagogastroduo denoscopy, flexible, transoral; with biopsy, ? single or multiple Diagnosis Code(s): ? --- Professional --- ? K50.90, Crohn's disease, unspecified, without complications ? K20.0, Eosinophilic esophagitis ? --- Technical --- ? K50.90, Crohn's disease, unspecified, without complications ? K20.0, Eosinophilic esophagitis CPT copyright 2017 [employer]. All rights reserved. The codes documented in this report are preliminary and upon programmer business review may be revised to meet current compliance requirements. Dr. Luli Merida MD ____ Luli Merida MD 02/17/2019 11:30:24 AM Number of Addenda: 0 Note Initiated On: 02/14/2019 2:51 PM Procedure Date: ? 02/17/2019 2:51:00 PM ? This report has been signed electronically. [facility] 02/17/2019 2:51 PM CDT Luli Merida MD GI PROCEDURE ORDERAB LES Performing Organization Address [facility] de Phone Number [facility] [address] [place] [address] * HELICOBACTER PYLORI UREASE (STL) (02/17/2019 10:42 AM CDT) Only the most recent of4 resultswithin the time period is included. Helicobacter pylori Urease Initial Negative Negative 02/18/2019 11:17 AM CDT [facility] Helicobacter pylori Urease Final Negative Negative 02/18/2019 11:17 AM CDT [facility] Comment:This is an appended report. These results have been appended to a previously preliminary verified report. Microbiology GASTRIC BIOPSY SPECIMEN / Unknown Collection / Unknown 02/17/2019 10:42 AM CDT 02/17/2019 10:50 AM CDT Luli Merida MD LAB - MICROBIOLOGY O RDERABLES Performing Organization Address [facility] Co de Phone Number [facility] [address] [place] [address] * GROSS + MICRO EXAM (STL) (02/17/2019 10:35 AM CDT) Only the most recent of9 resultswithin the time period is included. Case Report Surgical Pathology Report ? Case: [id number] ? Authorizing Provider: ??Luli Merida MD ?Collected: ? 02/17/2019 10:35 AM ? Ordering Location: ? [facility] ?Received: ?02/17/2019 12:00 PM ? Pathologist: ? Naomy Hollis MD ? Specimens: ?? A) - Esophageal Biopsy, distal ? B) - Esophageal Biopsy, mid ? C) - Duodenal Biopsy ? D) - Stomach Biopsy ? E) - Ileum Terminal, terminal, biopsies ? F) - Colon Biopsy ? G) - Rectosigmoid Biopsy ? 02/18/2019 5:06 PM [facility] Final Diagnosis Esophagus, distal, biopsy (A): - Mild-moderate esophagitis with increased intraepithelial eosinophils (up to 30/hpf) ? Esophagus, mid, biopsy (B): - Mild-moderate esophagitis with increased intraepithelial eosinophils (up to 25/hpf) ?? Small intestine, duodenum, biopsy (C): - Focal duodenitis with prominent eosinophils - See comment ? Stomach, biopsy (D): - Mild chronic gastritis - No active inflammation or H. pylori organisms (H&E examination) Small intestine, terminal ileum, biopsy (E): - No histopathologic abnormality - No granulomas or dysplasia Large intestine, colon, biopsy (F): - No histopathologic abnormality - No granulomas or dysplasia Large intestine, rectosigmoid, biopsy (G): - Mild active colitis - No granulomas or dysplasia - See comment 02/18/2019 5:06 PM [facility] Clinical History The patient is a 18-year-old man with eosinophilic esophagitis and Crohn's disease who underwent upper endoscopy and colonoscopy. The findings were esophageal edema and furrows, mild duodenal erythema and moderate gastric erythema. 02/18/2019 5:06 PM [facility] Gross Description The specimens are received fixed in formalin in seven containers for gross and microscopic examination. All containers are labeled with the patient's name, Misha Valiente. Specimen A, distal esophageal biopsy, consists of three soft, torres-white tissue fragments, 1 mm to 2 mm in greatest dimension. The specimen is submitted in toto as A1. Specimen B, mid esophageal biopsy, consists of two 2 mm soft, torres-white tissue fragments submitted in toto as B1. Specimen C, duodenal biopsy, consists of three soft, yellow-sevilla tissue fragments, 2 mm to 4 mm in greatest dimension. The specimen is submitted in toto as C1. Specimen D, stomach biopsy, consists of two soft, yellow-sevilla tissue fragments, 4 mm and 6 mm in greatest dimension. The specimen is submitted in toto as D1. Specimen E, terminal ileum biopsies, consists of four soft, yellow-sevilla tissue fragments, 2 mm to 4 mm in greatest dimension. The specimen is submitted in toto as E1. Specimen F, colon biopsy, consists of six soft, yellow-sevilla tissue fragments, 2 mm to 4 mm in greatest dimension. The specimen is submitted in toto as F1. Specimen G, rectosigmoid biopsy, consists of four soft, yellow-sevilla tissue fragments, 2 mm to 4 mm in greatest dimension. The specimen is submitted in toto as G1. (CT/me) 02/18/2019 5:06 PM [facility] Microscopic Description 21 H&E slides examined. The duodenal biopsy (part A) has one fragment with slightly increased lamina propria inflammation including prominent eosinophils. Active infiltration of the epithelium or significant crypt damage is not evident and the findings overall are quite mild and not entirely specific. The rectosigmoid biopsy (part G) has multifocal areas of mild cryptitis, especially adjacent to lymphoid aggregates. A dense lymphoplasmacytic lamina propria infiltrate is not present, nor is there altered architecture as typically seen in chronic mucosal injury. Without features of sustained/chronic inflammatory mucosal injury, such findings are suggestive of a mild acute self-limited process (e.g. infection, medication). However, in a patient with known Crohn's disease, the active inflammation is worrisome for mildly active IBD. 02/18/2019 5:06 PM [facility] Disclaimer The performance characteristics of all immunohistochemical and indirect immunofluorescence stains (if any) cited in this report were determined by the [facility] in compliance with Clinical Laboratory Improvement Amendments of 1988 (CLIA'88) regulations. Some of these tests rely on the use of analyte-specific reagents and are subject to specific labeling requirements by the U.S. Food and Drug Administration (FDA). Such tests were developed by the [facility] and have not been cleared or approved by the FDA. The FDA has determined that such clearance or approval is not necessary. These tests are used for clinical purposes and should not be regarded as investigational or for research. This case has been personally reviewed and interpreted by the attending (teaching) pathologist. The interpretation of this case is performed by [facility] at [facility], [address], [place] [address]. 02/18/2019 5:06 PM CDT [facility] Embedded Images 02/18/2019 5:06 PM CDT [facility] Pathology/Cytology ESOPHAGEAL BIOPSY SPECIMEN / Unknown 02/17/2019 10:35 AM CDT 02/17/2019 12:00 PM CDT Miscellaneous samples (specimen) ESOPHAGEAL BIOPSY SPECIMEN / Unknown 02/17/2019 10:35 AM CDT 02/17/2019 12:00 PM CDT Miscellaneous samples (specimen) BIOPSY OF STOMACH / Unknown 02/17/2019 10:35 AM CDT 02/17/2019 12:00 PM CDT Miscellaneous samples (specimen) DUODENAL BIOPSY SPECIMEN / Unknown 02/17/2019 10:35 AM CDT 02/17/2019 12:00 PM CDT Miscellaneous samples (specimen) TERMINAL ILEUM RESECTION SPECIMEN / Unknown 02/17/2019 11:15 AM CDT 02/17/2019 12:00 PM CDT Miscellaneous samples (specimen) COLONIC BIOPSY SPECIMEN / Unknown 02/17/2019 11:16 AM CDT 02/17/2019 12:00 PM CDT Miscellaneous samples (specimen) RECTOSIGMOID STRUCTURE / Unknown 02/17/2019 11:16 AM CDT 02/17/2019 12:00 PM CDT Luli Merida MD LAB - PATHOLOGY/CYTO LOGY ORDERABLES [facility] [address] [place] [id number] * US ABDOMEN LIMITED (10/08/2018 5:29 PM CDT) Anatomical Region Laterality Modality Abdomen Ultrasound 10/08/2018 5:33 PM CDT Impressions 10/08/2018 5:35 PM CDT Cellulitis without abscess. Reading Radiologist: Ronald Rehman MD on 10/08/2018 at 5:35 PM Narrative 10/08/2018 5:35 PM CDT INDICATION: Cutaneous abscess of abdominal wall EXAMINATION: Targeted sonographic evaluation of the inflamed area of interest on the anterior abdominal wall COMPARISON: None FINDINGS: There is edema in the skin and subcutaneous tissues at the site of purulent drainage. This measures 3.5 cm transverse by 2.3 cm craniocaudal x 1.1 cm anteroposterior. There is a smaller adjacent hypoechoic focus in the subcutaneous fat measuring 6 mm in diameter. The area of edema respects the fat-muscle fascial plane. There is no discrete fluid collection to suggest drainable abscess. Procedure Note Ronald Rehman MD - 10/08/2018 INDICATION: Cutaneous abscess of abdominal wall EXAMINATION: Targeted sonographic evaluation of the inflamed area of interest on the anterior abdominal wall COMPARISON: None FINDINGS: There is edema in the skin and subcutaneous tissues at the site of purulent drainage. This measures 3.5 cm transverse by 2.3 cm craniocaudal x 1.1 cm anteroposterior. There is a smaller adjacent hypoechoic focus in the subcutaneous fat measuring 6 mm in diameter. The area of edema respects the fat-muscle fascial plane. There is no discrete fluid collection to suggest drainable abscess. IMPRESSION Cellulitis without abscess. Reading Radiologist: Ronald Rehman MD on 10/08/2018 at 5:35 PM Marcos Chavez MD ORDERABLES * CULTURE MYCOPLASMA HOMINIS+UREAPLASMA CULTURE (09/03/2018 11:23 AM SLAT BASKET MAKER HELPER) Source URINE [facility] Status FINAL [facility] Mycoplasma hominis NOT ISOLATED [facility] Ureaplasma Species NOT ISOLATED [facility] Comment: REFERENCE RANGE: NOT ISOLATED Test Performed at: [facility] [address] [place] [address] ??[id number] Claudia ALONSO Microbiology URINE / Unknown 09/03/2018 1 1:23 AM SLAT BASKET MAKER HELPER 09/04/2018 5:10 AM SLAT BASKET MAKER HELPER Olena Neal [facility] - MICROBIOLO GY ORDERABLES Performing Organization Address [facility] de Phone Number [facility] [address] [place] [address] * URINALYSIS W/MICROSCOPIC NO CULTURE (09/03/2018 11:23 AM SLAT BASKET MAKER HELPER) Color UA YELLOW YELLOW [facility] Appearance CLEAR CLEAR [facility] Specific [place] UA 1.020 1.001 - 1.035 [facility] pH UA 7.0 5.0 - 8.0 [facility] Glucose UA NEGATIVE NEGATIVE [facility] Bilirubin UA NEGATIVE NEGATIVE [facility] Ketone UA NEGATIVE NEGATIVE [facility] Blood UA NEGATIVE NEGATIVE [facility] Protein UA NEGATIVE NEGATIVE [facility] Nitrite UA NEGATIVE NEGATIVE [facility] Leukocyte UA NEGATIVE NEGATIVE [facility] WBC UA NONE SEEN < OR = 5 /HPF [facility] RBC UA 0-2 < OR = 2 /HPF [facility] Epithelial Cell UA NONE SEEN < OR = 5 /HPF [facility] Bacteria UA NONE SEEN NONE SEEN /HPF [facility] Hyaline Casts NONE SEEN NONE SEEN /LPF [facility] Comment: Test Performed at: [facility] [facility] [place] ??[id number] RONALD VALDEZ DO,MPH Urine URINE SPECIMEN OBTAINED BY CLEAN CATCH PROCEDURE / Unknown 09/03/2018 11:23 AM SLAT BASKET MAKER HELPER 09/04/2018 5:10 AM SLAT BASKET MAKER HELPER Olena Neal [facility] - URINALYSIS ORDERABLES Performing Organization Address [facility] de Phone Number [facility] [address] [place] [address] * CHLAMYDIA + GC AMPLIFIED PROBE (09/03/2018 11:23 AM SLAT BASKET MAKER HELPER) Chlamydia trachomatis RNA NOT DETECTED NOT DETECTED [facility] GC RNA NOT DETECTED NOT DETECTED [facility] Please Note [facility] Comment: This test was performed using the APTIMA COMBO2 Assay ([employer] The analytical performance characteristics of this assay, when used to test SurePath specimens have been determined by [employer]. ?? Test Performed at: [facility] [place], [place] ??[phone] RONALD VALDEZ DO,MPH Microbiology URINE / Unknown 09/03/2018 1 1:23 AM SLAT BASKET MAKER HELPER 09/04/2018 5:10 AM SLAT BASKET MAKER HELPER Olena Neal [employer]CH[employer] - MICROBIOLO GY ORDERABLES [facility] [address] [place] [address] * ADALIMUMAB CONCENTRATION AND ANTIBODY (08/26/2018 12:51 PM SLAT BASKET MAKER HELPER) Adalimumab Level 11 ug/mL 09/02/19 19 11:06 PM SLAT BASKET MAKER HELPER [facility] Comment: In the presence of serum anti-adalimumab antibodies, the adalimumab drug level reflects the antibody-unbound (free) fraction of adalimumab in serum. Quantitation Limit: <0.6 ug/mL Results of 0.6 or higher indicate detection of adalimumab. COMMENTS: - The optimal drug concentration depends upon patient- ??specific factors including the disease and desired ??therapeutic endpoint. - Target trough concentrations > 4.9 and > 5.9 ug/mL have ??been studied in inflammatory bowel disease ??(1,2). - A trough level > 8.14 ug/mL has been proposed for mucosal ??healing in CD (3). - In rheumatoid arthritis, trough levels of 5 to 8 ug/mL ??are associated with clinical response (EULAR)(4). Anti-Adalimumab Antibody <25 ng/mL 09/02/2018 11:06 PM SLAT BASKET MAKER HELPER [facility] Comment: Interpretation: Anti-adalimumab antibodies are UNDETECTED. Quantitation Limit: <25 ng/mL. Results of 25 or higher indicate detection of anti- adalimumab antibodies. 25 - 100 ng/mL: LOW antibody titer, little/no apparent ?reduction in free drug level 101 - 300 ng/mL: INTERMEDIATE antibody titer, variable ?reduction in free drug level 301 or greater ng/mL: HIGH antibody titer, notably ?diminished or absent free drug level Comments: - Anti-drug antibodies may develop at any time during the ??course of biological therapy. - Low titer anti-drug antibodies may have little or no ??effect on drug levels or efficacy. ??Antibodies in low ??titers may be transient and disappear overtime (5,6) or ??they may progress to higher titers (6). - High titers are likely to be more consequential, leading ??to loss of drug efficacy by preventing drug binding to ??TNF and/or increasing drug clearance (6,7). - This anti-adalimumab antibody assay is not impeded by the ??presence of adalimumab in serum and all positive antibody ??results are verified by a confirmatory test. References: 1. Vidal X, et al. Clin Gastroenterol Hepatol 2014;12:80- ?? 84. 2. Daniel Y, et al. Aliment Pharmacol Ther 2014;40:620-628. 3. Jaqueline Flower, et al. J Crohns Col 2016;10(5):510-515. 4. Pouw MF, et al. Akila Rheum Dis 2015;74:513-518. 5. Sin Mcdaniel, et al. Inflamm Bowel Dis 2012;18(12):2209- ?? 2217. 6. Vande Casteele N, et al. Am J Gastroenterol 2013;108:962- ?? 971. 7. Jairo H, et al. Clin Gastroenterol Hepatol 2015;13(3): ?? 522-530. These tests were developed and their performance characteristics determined by [facility]. ??They have not been cleared or approved by the Food and Drug Administration. However, both drug and anti-drug antibody assays have been developed and validated in accordance with FDA Guidance for Industry documents: Bioanalytical Method Validation (2013) and Assay Development and Validation for Immunogenicity Testing of Therapeutic Protein Products (2016). Blood BLOOD SPECIMEN / Unknown Lab Venipuncture / Unknown 08/26/2018 12:51 PM SLAT BASKET MAKER HELPER 08/26/2018 1:23 PM SLAT BASKET MAKER HELPER Narrative [facility] ([facility]) - 09/02/2018 11:06 PM SLAT BASKET MAKER HELPER Performed at: ??01 - [employer] [address] [place] [address] ??[id number] Cooler Worker: Tee Stafford MD, Phone: ??[phone] Luli Merida MD LAB - CHEMISTRY MANFRED [place]FFRE[place] [facility] ([facility]) [address] [place] [address] * ERYTHROCYTE SEDIMENTATION RATE (08/26/2018 12:51 PM SLAT BASKET MAKER HELPER) Only the most recent of9 resultswithin the time period is included. [facility] Erythrocyte Sedimentation Rate Automated 9 0 - 15 MM/HR 08/26/2018 1:41 PM SLAT BASKET MAKER HELPER [facility] Blood BLOOD SPECIMEN / Unknown Lab Venipuncture / Unknown 08/26/2018 12:51 PM SLAT BASKET MAKER HELPER 08/26/2018 1:23 PM SLAT BASKET MAKER HELPER Luli Merida MD LAB - HEMATOLOGY [place] SOTO [facility] [address] [place] [address] * QUANTIFERON TB-GOLD INC (03/26/2018 3:44 PM CDT) Only the most recent of2 resultswithin the time period is included. [facility] QuantiFERON TB Gold Negative Negative 04/01/2018 4:09 AM CDT [facility] ([facility]) Comment: The specimen received for QuantiFERON testing was incubated by the ordering institution. ??Specific procedures outlined in our Directory of Services and in the package insert for the QuantiFERON Gold (In Tube) test must be followed to enable for proper stimulation of cells for the production of interferon gamma. QuantiFERON Criteria Comment 04/01/2018 4:09 AM CDT [facility] ([facility]) Comment: To be considered positive a specimen should have a TB Ag minus Nil value greater than or equal to 0.35 IU/mL and in addition the TB Ag minus Nil value must be greater than or equal to 25% of the Nil value. There may be insufficient information in these values to differentiate between some negative and some indeterminate test values. QuantiFERON TB Ag Value 0.02 IU/mL 04/01/2018 4:09 AM CDT [facility] ([facility]) QuantiFERON Nil Value 0.01 IU/mL 04/01/2018 4:09 AM CDT [facility] ([facility]) QuantiFERON Mitogen Value >10.00 IU/mL 04/01/2018 4:09 AM CDT [facility] ([facility]) QFT TB Ag Minus Nil Value IU/mL 0.01 IU/mL 04/01/2018 4:09 AM CDT [facility] ([facility]) Interpretation Comment 04/01/2018 4:09 AM CDT [facility] ([facility]) Comment: The QuantiFERON TB Gold (in Tube) assay is intended for use as an aid in the diagnosis of TB infection. Negative results suggest that there is no TB infection. In patients with high suspicion of exposure, a negative test should be repeated. A positive test indicates infection with Mycobacterium tuberculosis. Among individuals without tuberculosis infection, a positive test may be due to exposure to M. kansasii, M. szulgai or M. marinum. On the Internet, go to cdc.gov/tb for further details. Effective fall, [employer] number [id number] QuantiFERON Client ??Incubated with three tube collection kit will be made non-orderable ??following depletion of collection and testing kits. *[employer] offers [id number] QuantiFERON-TB Plus (Client Incubated)* ??with four tube collection kit. Blood BLOOD SPECIMEN / Unknown Lab Venipuncture / Unknown 03/26/2018 3:44 PM CDT 03/26/2018 4:12 PM CDT Narrative [facility] ([facility]) - 04/01/2018 4:09 AM CDT Performed at: ??01 - [address] ??[id number] Cooler Worker: Gold Naranjo PhD, Phone: ??[phone] Luli Merida MD LAB - SEROLOGY ORDER [facility] ([facility]) [address] [place] [address] * MRI PELVIS WWO CONTRAST (02/24/2018 8:05 AM CDT) Anatomical Region Laterality Modality Pelvis Magnetic Resonan ce 02/24/2018 8:51 AM CDT Impressions 02/24/2018 9:15 AM CDT 1. 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 2. Ill-defined signal abnormality and enhancement along the anterior perineum, likely another perianal fistula arising from the 12:00 position. Reading Radiologist: Vicky Perez MD on 02/24/2018 at 9:15 AM Narrative 02/24/2018 9:15 AM CDT EXAMINATION: MRI pelvis without and with contrast HISTORY: 17-year-old with Crohn's disease. COMPARISON: None. TECHNIQUE: Multiplanar, multisequence MRI of the pelvis is performed prior to and after the uneventful intravenous administration of 7 mL Gadavist according to perirectal protocol. FINDINGS: For the purposes of this report, the 12:00 position corresponds to the anterior midline perineum and the 6:00 position corresponds to the posterior midline perineum with 3:00 on the left and 9:00 on the right. An intersphincteric fistula arises from the 6:00 position and extends to the skin. There is no associated abscess. Ill-defined T2 hyperintense and T1 isointense signal with enhancement measuring approximately 5 x 10 mm seen along the anterior perineum to the right of midline (series 6, image 34). Although no definite connection is seen to the anal canal, this finding likely represents another perianal fistula at the 12:00 position. The urinary bladder is minimally distended. No lymphadenopathy is seen in the pelvis. There is no hip joint effusion. Procedure Note Vicky Perez MD - 02/24/2018 EXAMINATION: MRI pelvis without and with contrast HISTORY: 17-year-old with Crohn's disease. COMPARISON: None. TECHNIQUE: Multiplanar, multisequence MRI of the pelvis is performed prior to and after the uneventful intravenous administration of 7 mL Gadavist according to perirectal protocol. FINDINGS: For the purposes of this report, the 12:00 position corresponds to the anterior midline perineum and the 6:00 position corresponds to the posterior midline perineum with 3:00 on the left and 9:00 on the right. An intersphincteric fistula arises from the 6:00 position and extends to the skin. There is no associated abscess. Ill-defined T2 hyperintense and T1 isointense signal with enhancement measuring approximately 5 x 10 mm seen along the anterior perineum to the right of midline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 ALLERGEN CASHEW IGE (10/27/2016 11:53 AM CDT) Allergen Cashew 1.77(H) <=0.34 kU/L 10/31/2016 5:32 PM CDT [facility] ([facility]) Comment: Performed by [facility], [address] [place] [address] www[email or web address], Jose Turk MD, Lab. Director Blood BLOOD SPECIMEN / Unknown Lab Venipuncture / Unknown 10/27/2016 11:53 AM CDT 10/27/2016 12:17 PM CDT Elliott Valdez MD LAB - SEROLOGY ORDER DAVID Performing Organization Address City/[facility]/ZIP Co de Phone Number [facility] ([facility]) [address] [place] [address] * (ABNORMAL) ALLERGEN HAZELNUT IGE (10/27/2016 11:53 AM CDT) Allergen Hazelnut 8.91(H) <=0.34 kU/L 10/31/2016 5:38 PM CDT [facility] ([facility]) Comment: Performed by [facility], [address] [place] [address] www.[employer], Jose Turk MD, Lab. Director Blood BLOOD SPECIMEN / Unknown Lab Venipuncture / Unknown 10/27/2016 11:53 AM CDT 10/27/2016 12:17 PM CDT Elliott Valdez MD LAB - SEROLOGY ORDER DAVID [facility] ([facility]) [address] [place] [address] * (ABNORMAL) ALLERGEN BRAZIL NUT IGE (10/27/2016 11:53 AM CDT) Allergen [place]field Nut 0.37(H) <=0.34 kU/L 10/31/2016 5:32 PM CDT [facility] ([facility]) Comment: Performed by [facility], [address] [place] [address] www.[employer], Jose Turk MD, Lab. Director Blood BLOOD SPECIMEN / Unknown Lab Venipuncture / Unknown 10/27/2016 11:53 AM CDT 10/27/2016 12:16 PM CDT Elliott Valdez MD LAB - SEROLOGY ORDER DAVID Performing Organization Address [facility] de Phone Number [facility] ([facility]) [address] [place] [address] * (ABNORMAL) ALLERGEN WHEAT IGE (10/27/2016 11:53 AM CDT) Allergen Wheat 6.11(H) <=0.34 kU/L 10/31/2016 5:32 PM CDT [facility] ([facility]) Comment: Performed by [facility], [address] [place] [address] www.[employer], Jose Turk MD, Lab. Director Blood BLOOD SPECIMEN / Unknown Lab Venipuncture / Unknown 10/27/2016 11:53 AM CDT 10/27/2016 12:17 PM CDT Elliott Valdez MD LAB - SEROLOGY ORDER DAVID Performing Organization Address [facility] Phone Number [employer] ([facility]) [address] [place] [address] * CULTURE STOOL+ E COLI SHIGA-LIKE TOXIN (08/09/2015 6:24 PM [employer]AT BASKET [employer] HEL[employer]) Culture No growth Salmonella, Shigella, Campylobacter , E. coli 0157:h7 or Yersinia CIRA 08/12/2015 7:30 AM [employer] [facility] Culture Negative E. coli Shiga-like toxin (NM) CIRA 08/12/2015 7:30 AM SL[employer]ASKET [employer] HEL[employer] [facility] Stool STOOL SPECIMEN / Unknown Collection / Unknown 08/09/2015 6:24 PM [employer]AT [employer]ASKET MAKER HELPER 08/09/2015 7:13 PM SLAT BASKET [employer]KER HELPER Pardeep Rodgers MD LAB - MICROBIOLOGY O RDERABLES Performing Organization Address City/[facility]/ZIP Co de Phone Number [facility] [address] [place] [address], [place] [phone] * CLOSTRIDIUM DIFFICILE GDH AG + TOXIN A+B (08/09/2015 6:24 PM SLAT BASKET MAKER HELPER) Only the most recent of3 resultswithin the time period is included. GDH Antigen Negative Negative, Invalid 08/10/2015 5:49 AM [facility] C difficile Toxin A + B Negative Negative, Invalid 08/10/2015 5:[address] [facility] Interpretation C difficile Negative for toxigenic C. difficile Negative for toxigenic C. difficile 08/10/2015 5:49 AM [facility] Stool STOOL SPECIMEN / Unknown Collection / Unknown 08/09/2015 6:24 PM SLAT [employer]ASKET [employer] HELPER 08/09/2015 7:14 PM SL[employer]ASKET [employer] HELPER Pardeep Rodgers MD LAB - MICROBIOLOGY O RDERABLES Performing Organization Address [facility] de Phone Number [facility] [address] [place] [address], [place] [phone] * THIOPURINE METH TRANSFERASE (04/24/2015 3:32 PM CDT) Pathologist [facility] Thiopurine Methyltransferase 24.8 U/mL 04/28/2015 12:47 PM CDT [facility] ([facility]) Comment: INTERPRETIVE INFORMATION: Thiopurine Methyltransferase, RBC Normal TPMT activity: 25-65 U/mL............Individuals are predicted to be at ?low risk of bone marrow toxicity as ?a consequence of standard thiopurine ?therapy; no dose adjustment is ?recommended. Abnormal TPMT activity: less than 25 U/mL ....Individuals are predicted to be at ?high risk of bone marrow toxicity ?as a consequence of standard ?thiopurine dosing; a dose reduction ?and therapeutic monitoring ??is ?recommended. greater than 65 U/mL..Individuals are not predicted to be ?at risk for bone marrow toxicity ?as a consequence of standard ?thiopurine dosing but may be at risk ?for therapeutic failure due to ?excessive inactivation of thiopurine ?drugs. Individuals may require higher ?than the standard dose: therapeutic ?monitoring is recommended. The TPMT, RBC assay is used as a screen to detect individuals with low (abnormal) TPMT activity who may be at risk for excessive myelosuppression when exposed to standard doses of thiopurines, including azathioprine (Imuran) and 6-mercaptopurine (Purinethol). TPMT is the primary metabolic route for inactivation of thiopurine drugs in the bone marrow. When TPMT activity is low, it is predicted that proportionately more 6-mercaptopurine can be converted into the cytotoxic 6-thioguanine nucleotides that accumulate in the bone marrow causing excessive toxicity. The activity of TPMT is measured by the nanomoles of 6-methylmercaptopurine (inactive metabolite) produced per 1 mL of packed red blood cells, (U/mL). TPMT phenotype testing does not replace the need for clinical monitoring of patients treated with thiopurine drugs. Genotype for TPMT cannot be inferred from TPMT activity (phenotype). Phenotype testing should not be requested for patients currently treated with thiopurine drugs, as results will be falsely low. Current TPMT phenotype may not reflect future TPMT phenotype, particularly in patients who received blood transfusion within 30-60 days of testing. ??TPMT enzyme activity can be inhibited by several drugs such as: naproxen (Aleve), ibuprofen (Advil, Motrin), ketoprofen (Orudis), furosemide (Lasix), sulfasalazine (Azulfidine), mesalamine (Asacol), olsalazine (Dipentum), mefenamic acid (Ponstel), thiazide diuretics, and benzoic acid inhibitors. TPMT inhibitors may contribute to falsely low results; patients should abstain from these drugs for at least 48 hours prior to TPMT testing. Falsely low results may also occur as a result of inappropriate specimen handling. Test developed and characteristics determined by [facility]. See Compliance Statement B: [email or web address] Blood specimen (specimen) BLOOD SPECIMEN / Unknown Lab Venipuncture / Unknown 04/24/2015 3:32 PM CDT 04/24/2015 4:55 PM CDT Pardeep Rodgers MD LAB - CHEMISTRY MANFRED SHEPHERD [facility] Organization Address City/State/ZIP Co de Phone Number [facility] ([facility]) [address] * (ABNORMAL) CBC NO DIFFERENTIAL (04/24/2015 3:32 PM CDT) [facility] WBC 7.1 4.5 - 14.5 x10^9/L 04/24/2015 5:02 PM CDT [facility] RBC 4.82 4.50 - 5.30 x10^12/L 04/24/2015 5:02 PM CDT [facility] Hemoglobin 14.5 13.0 - 16.0 gm/dL 04/24/2015 5:02 PM CDT [facility] Hematocrit 41.4 37.0 - 49.0 % 04/24/2015 5:02 PM CDT [facility] MCV 85.9 78.0 - 98.0 fl 04/24/2015 5:02 PM CDT [facility] MCH 30.1 25.0 - 35.0 pg 04/24/2015 5:02 PM CDT [facility] MCHC 35.0 31.0 - 37.0 gm/dL 04/24/2015 5:02 PM CDT [facility] Platelet Count 306 100 - 400 x10^9/L 04/24/2015 5:02 PM CDT [facility] RDW-CV 12.7 11.5 - 14.0 % 04/24/2015 5:02 PM CDT [facility] MPV 9.6(H) 6.0 - 9.5 fl 04/24/2015 5:02 PM CDT [facility] Blood BLOOD SPECIMEN / Unknown Lab Venipuncture / Unknown 04/24/2015 3:32 PM CDT 04/24/2015 4:45 PM CDT Pardeep Rodgers MD LAB - HEMATOLOGY ORD ERABLES [facility] [place] [address] * EGD (01/23/2015 5:35 AM CDT) Report Endoscopy POC _ Patient Name: Misha Valiente ?Gender: Male ?Date of : 2000 Age: 14 ? Admit Type: Outpatient Attending MD: Pardeep Rodgers MD ?Order #: [id number] _ Procedure: ? Upper GI endoscopy Indications: ? Hematochezia Providers: ? Pardeep Rodgers MD Referring MD: ?Yossi Vega MD Medicines: ? General Anesthesia Complications: ? No immediate complications. _ Procedure: ? After obtaining informed consent, the endoscope was passed ? under direct vision. Throughout the procedure, the ? patient's blood pressure, pulse, and oxygen saturations ? were monitored continuously. The Endoscope was introduced ? through the mouth, and advanced to the second part of ? duodenum. The upper GI endoscopy was accomplished without ? difficulty. The patient tolerated the procedure well. Findings: ? The examined duodenum was normal. Biopsies were taken with a cold ? forceps for histology. ? The entire examined stomach was normal. Biopsies were taken with a cold ? forceps for histology. Biopsies were taken with a cold forceps for ? Helicobacter pylori testing using CLOtest. ? LA Grade A (one or more mucosal breaks less than 5 mm, not extending ? between tops of 2 mucosal folds) esophagitis with no bleeding was found. ? Linear furrows were seen with white exudate in the distal esophagus. ? Biopsies were taken with a cold forceps for histology. Impression: ?- Normal examined duodenum. Biopsied. ? - Normal stomach. Biopsied. ? - LA Grade A non-reflux esophagitis. Biopsied. Recommendation: ?- Await pathology results. ? - Discharge patient to home (with parent). ? Procedure Code(s): ? --- Professional --- ? 92177, Esophagogastrodu odenoscopy, flexible, transoral; with biopsy, ? single or multiple ? --- Technical --- ? 38100, Esophagogastrodu odenoscopy, flexible, transoral; with biopsy, ? single or multiple Diagnosis Code(s): ? --- Professional --- ? 530.19, Other esophagitis ? 578.1, Blood in stool ? --- Technical --- ? 530.19, Other esophagitis ? 578.1, Blood in stool CPT copyright 2013 [employer]. All rights reserved. The codes documented in this report are preliminary and upon programmer business review may be revised to meet current compliance requirements. Dr. Pardeep Rodgers Pardeep Rodgers MD 01/23/2015 11:18 AM This report has been signed electronically. Number of Addenda: 0 Note Initiated On: 01/23/2015 5:35 AM Procedure Date: ? 01/23/2015 5:35:00 AM ? This report has been signed electronically. [facility] 01/23/2015 5:35 AM CDT Pardeep Rodgers MD GI PROCEDURE ORDERAB LES [facility] [address] [facility] [place] [address] * ENDOSCOPY, COLON, DIAGNOSTIC (01/23/2015 5:33 AM CDT) Report Endoscopy POC _ Patient Name: Misha Valiente ?Gender: Male ?Date of : 2000 Age: 14 ? Admit Type: Outpatient Attending MD: Pardeep Rodgers MD ?Order #: [id number] _ Procedure: ? Colonoscopy Indications: ? Hematochezia Providers: ? Pardeep Rodgers MD Referring MD: ?Yossi Vega MD Medicines: ? General Anesthesia Complications: ? No immediate complications. _ Procedure: ? After I obtained informed consent, the scope was passed ? under direct vision. Throughout the procedure, the ? patient's blood pressure, pulse, and oxygen saturations ? were monitored continuously. The Colonoscope was ? introduced through the anus and advanced to the cecum, ? identified by the appendiceal orifice. The colonoscopy was ? performed without difficulty. The patient tolerated the ? procedure well. The quality of the bowel preparation was ? excellent. Findings: ? An area of moderately congested mucosa was found in the recto-sigmoid ? and descending colon. There were scattered aphthous ulcers throughout ? the remainder of the colon. Biopsies were taken with a cold forceps for ? histology. Impression: ?- Congested mucosa in the recto-sigmoid colon. Biopsied. Recommendation: ?- Await pathology results. ? - Discharge patient to home (with parent). ? - Await pathology results. ? - Discharge patient to home (with parent). ? Procedure Code(s): ? --- Professional --- ? 35638, Colonoscopy, flexible, proximal to splenic flexure; with biopsy, ? single or multiple ? --- Technical --- ? 94712, Colonoscopy, flexible, proximal to splenic flexure; with biopsy, ? single or multiple Diagnosis Code(s): ? --- Professional --- ? 569.89, Other specified disorders of intestine ? 578.1, Blood in stool ? --- Technical --- ? 569.89, Other specified disorders of intestine ? 578.1, Blood in stool CPT copyright 2013 [employer]. All rights reserved. The codes documented in this report are preliminary and upon programmer business review may be revised to meet current compliance requirements. Dr. Pardeep Rodgers Pardeep Rodgers MD 01/23/2015 11:24 AM This report has been signed electronically. Number of Addenda: 0 Note Initiated On: 01/23/2015 5:33 AM Procedure Date: ? 01/23/2015 5:33:50 AM ? This report has been signed electronically. [facility] 01/23/2015 5:33 AM CDT Pardeep Rodgers MD GI PROCEDURE ORDERAB LES Performing Organization Address City/State/[facility] Co de Phone Number [facility] [address] [facility] [place] [address] * GROSS EXAM PATHOLOGY (STL) (12/05/2014 1:54 PM CDT) Case Report Surgical Pathology Report ? Case: [id number] ? Authorizing Provider: ??Estrella Corbin MD ? Collected: ? 12/05/2014 01:54 PM ? Ordering Location: ? [facility] ? Received: ?12/05/2014 02:15 PM ? Pathologist: ? Gely Moreira MD ? Specimen: ?Tonsil(s) ? 12/06/2014 7:32 AM T [facility] Final Diagnosis A. TONSILS, TONSILLECTOMY: ?? - PALATINE TONSILS (GROSS EXAMINATION ONLY) 12/06/2014 7:32 AM [facility] Clinical History Patient is a 16-1/2-year-old boy with adenotonsillar hypertrophy and obstructive sleep apnea who underwent tonsillectomy and adenoidectomy. 12/06/2014 7:32 AM T [facility] Gross Description Received fresh in 1 container for gross examination only labeled with the patient's name, Misha Valiente, and bilateral tonsils, are 2 egg-shaped, pink-sevilla palatine tonsils measuring 2.5 x 1.8 x 1.4 cm and 2.5 x 2 x 1.5 cm and weighing 8 grams combined. On cut surface, the tonsils have a cerebriform, yellow-sevilla appearance and occasional sulfur granules populating the crypts. No sections are taken. (SS/arm) 12/06/2014 7:32 AM CDT [facility] Disclaimer This case has been personally reviewed and interpreted by the attending (teaching) pathologist. 12/06/2014 7:32 AM CDT [facility] Pathology/Cytolo gy SPECIMEN FROM TONSIL / Unknown 12/05/2014 1:54 PM CDT 12/05/2014 2:15 PM CDT Estrella Corbin MD LAB - PATHOLOGY/CYTO LOGY ORDERABLES Performing Organization Address City/[facility] Phone Number [facility] [address] [place] [address] * US SCROTUM WITH DOPPLER (11/07/2014 4:39 PM CDT) Anatomical Region Laterality Modality Pelvis Ultrasound 11/07/2014 4:43 PM CDT Impressions 11/07/2014 4:45 PM CDT Normal scrotal sonogram. Normal scrotal Doppler. Narrative 11/07/2014 4:45 PM CDT Scrotal sonogram History: Left scrotal pain Right testis: 4.2 x 1.8 x 2.5 cm Left testis: 3.5 x 1.6 x 2.1 cm The left testis is slightly smaller than the right. The parenchymal echotexture is normal bilaterally. No mass is identified. Color Doppler and spectral analysis were performed and show arterial flow in both testes. There is no varicocele with a Valsalva maneuver. Procedure Note Fatemeh Osuna MD - 11/07/2014 Scrotal sonogram History: Left scrotal pain Right testis: 4.2 x 1.8 x 2.5 cm Left testis: 3.5 x 1.6 x 2.1 cm The left testis is slightly smaller than the right. The parenchymal echotexture is normal bilaterally. No mass is identified. Color Doppler and spectral analysis were performed and show arterial flow in both testes. There is no varicocele with a Valsalva maneuver. IMPRESSION Normal scrotal sonogram. Normal scrotal Doppler. Yossi Vega MD US ORDERABLES * PEDIATRIC DIAGNOSTIC POLYSOMNOGRAM (09/24/2014) Yossi Vega MD [facility] ORDER DAVID * STREP A SCREEN DIRECT W RFLX STREP A CULTURE (05/23/2014 11:26 AM SLAT [employer] HEL[employer]) Strep A Rapid Negative Negative 05/23/2014 11:45 AM [employer] HELPER [facility] Microbiology ENTIRE THROAT (SURFACE REGION OF NECK) / Unknown 05/23/2014 11:26 AM [employer] B[employer] MAK[employer] HELPER 05/23/2014 11:35 AM [employer] B[employer]ET MAK[employer] HELPER Narrative [facility] - 05/23/2014 11:45 AM [employer] B[employer] HELPER Test has reflexed to a Strep A culture. Abrahan Hyed MD LAB - MICROBIOLO GY ORDERABLES Performing Organization Address City/[facility]/ZIP Co de Phone Number [facility] [address] [place] [address] * CULTURE STREP GROUP A (05/23/2014 11:26 AM SLAT BASKET MAKER HELPER) Culture Negative for Beta Hemolytic Streptococcus Group A CIRA 05/25/2014 9:04 AM [employer] B[employer] HELPER [facility] MICROBIOLOGY Microbiology ENTIRE THROAT (SURFACE REGION OF NECK) / Unknown 05/23/2014 11:26 AM [employer] B[employer] MAK[employer] HELPER 05/23/2014 11:35 AM [employer] B[employer]KER HELPER Abrahan Hyde MD LAB - MICROBIOLO GY ORDERABLES [facility] MICROBIOLOGY [address] [place] [address], [place] * FL UGI AND SMALL BOWEL SERIES (02/16/2014 11:35 AM CDT) Anatomical Region Laterality Modality Abdomen Radio Fluoroscop y 02/16/2014 2:00 PM CDT Impressions 02/16/2014 2:08 PM CDT Normal upper gastrointestinal study and small bowel follow-through. 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 Comparison: Esophagram dated 01/03/2014. Fluoroscopy Time: 5.3 minutes Findings: Scalp fluoroscopic images of the abdomen demonstrate normal bowel gas pattern. The patient drank barium contrast without difficulty. The esophagus is normal in size, caliber, and position without evidence of any fistula or extrinsic impression. The gastric contour is normal. The gastric emptying appears normal with a normal gastric outlet. The duodenal bulb appears normal without evidence of any irregularity. The duodenal sweep is normal with normally positioned duodenal-jejunal junction. Reflux was not observed during the course of the examination. The small bowel transit time is 60 minutes, which is within normal limits. There is no evidence of any fixed loop of bowel or intra-abdominal mass-effect. Spot images of the terminal ileum demonstrate normal motility with no evidence of any stricture or irregularity. No other imaging abnormalities are appreciated. 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 Comparison: Esophagram dated 01/03/2014. Fluoroscopy Time: 5.3 minutes Findings: Scalp fluoroscopic images of the abdomen demonstrate normal bowel gas pattern. The patient drank barium contrast without difficulty. The esophagus is normal in size, caliber, and position without evidence of any fistula or extrinsic impression. The gastric contour is normal. The gastric emptying appears normal with a normal gastric outlet. The duodenal bulb appears normal without evidence of any irregularity. The duodenal sweep is normal with normally positioned duodenal-jejunal junction. Reflux was not observed during the course of the examination. The small bowel transit time is 60 minutes, which is within normal limits. There is no evidence of any fixed loop of bowel or intra-abdominal mass-effect. Spot images of the terminal ileum demonstrate normal motility with no evidence of any stricture or irregularity. No other imaging abnormalities are appreciated. IMPRESSION Normal upper gastrointestinal study and small bowel follow-through. Pardeep Rodgers MD FLUOROSCOPY ORDERABL ES * NEUTROPHIL OXIDASE BURST ASSAY (02/13/2014 3:50 PM CDT) [facility] Signature Neutrophil Oxidative Burst See Note 02/16/2014 2:56 PM CDT [employer] ([facility]) Comment: ?DHR by Flow Cytometry ?Patient ? Client Control Date Drawn: ??02/13/2014 ? 02/13/2014 Assay Date: ??02/14/2014 ?02/14/2014 ?Fluorescence ?Fluorescence ?Geometric Mean ?S.I. ?Geometric Mean ?S.I. Unstimulated ?? 6 ?6 ?134 ? 154 Stimulated ? 804 ? 921 Interpretation: Normal granulocyte dihydrorhodamine fluorescence suggesting normal NADPH oxidase activity. Liya Goncalves PhD 02/16/2014 INTERPRETIVE INFORMATION: Neutrophil Oxidative Burst Assay White blood cells are incubated with dihydrorhodamine 123 (DHR) and catalase then stimulated with Phorbol 12-Myristate 13-Acetate (PMA). Dihydrorhodamine oxidation to rhodamine by the respiratory burst of the cell is measured by flow cytometry. Results are reported as the ratio of the mean channel fluorescence of stimulated cells versus unstimulated cells, which yields a stimulation index (SI). Test developed and characteristics determined by [employer]. See Compliance Statement B: [employer]/ EER Neutrophil Oxidative Burst See Note 02/16/2014 2:56 PM CDT [employer] ([facility]) Comment: To download an enhanced report for this test go to: [email or web address] [email or web address] [email or web address] Blood specimen (specimen) BLOOD SPECIMEN / Unknown Lab Venipuncture / Unknown 02/13/2014 3:50 PM CDT 02/13/2014 4:42 PM CDT Thelma Portillo MD LAB - CHEMISTRY OR DERABLES [employer] [facility]) [address] * EGD (01/24/2014 9:39 AM CDT) Report Endoscopy POC _ Patient Name: Misha Valiente ?Gender: Male ?Date of : 2000 Age: 13 ? Admit Type: Inpatient Attending MD: Donovan Russell MD ?? Order #: [id number] _ Procedure: ? Upper GI endoscopy Indications: ? Dysphagia, Eosinophilic esophagitis, Follow-up of ? eosinophilic esophagitis, Chest pain (non cardiac) Providers: ? Donovan Russell MD Medicines: ? General Anesthesia Complications: ? No immediate complications. _ Procedure: ? After obtaining informed consent, the endoscope was passed ? under direct vision. Throughout the procedure, the ? patient's blood pressure, pulse, and oxygen saturations ? were monitored continuously. The Endoscope was introduced ? through the mouth, and advanced to the second part of ? duodenum. The upper GI endoscopy was accomplished without ? difficulty. The patient tolerated the procedure well. Findings: ? The examined duodenum was normal. Biopsies were taken with a cold ? forceps for histology. ? Localized minimal inflammation characterized by erosions and erythema ? was found in the gastric body. Biopsies were taken with a cold forceps ? for histology. ? Pediatric Grade 3 (circumferential erosive or exudative lesions) ? esophagitis with no bleeding was found in the entire esophagus. Biopsies ? were taken with a cold forceps for histology. Impression: ?Persistent mild to moderate EE with mild gastritis ? - Normal examined duodenum. Biopsied. ? - Gastritis. Biopsied. ? - Pediatric Grade 3 (circumferential erosive or exudative ? lesions) esophagitis. Biopsied. Recommendation: ?- [facility]. ? - Await pathology results. ? - Continue allergy restricted diet, continue PPI and ? swallowed steroid, continue therapy for anxiety. ? Procedure Code(s): ? --- Professional --- ? 21434, Esophagogastroduo denoscopy, flexible, transoral; with biopsy, ? single or multiple ? --- Technical --- ? 78792, Esophagogastroduo denoscopy, flexible, transoral; with biopsy, ? single or multiple Diagnosis Code(s): ? --- Professional --- ? 535.50, Unspecified gastritis and gastroduodenitis, without mention of ? hemorrhage ? 787.20, Dysphagia, unspecified ? 530.13, Eosinophilic esophagitis ? 786.59, Other chest pain ? --- Technical --- ? 535.50, Unspecified gastritis and gastroduodenitis, without mention of ? hemorrhage ? 787.20, Dysphagia, unspecified ? 530.13, Eosinophilic esophagitis ? 786.59, Other chest pain CPT copyright 2013 [employer]. All rights reserved. The codes documented in this report are preliminary and upon programmer business review may be revised to meet current compliance requirements. Dr. Donovan Russell ____ Donovan Russell MD 01/24/2014 10:17 AM This report has been signed electronically. Number of Addenda: 0 Note Initiated On: 01/24/2014 9:39 AM Procedure Date: ? 01/24/2014 9:39:40 AM ? This report has been signed electronically. [facility] 01/24/2014 9:39 AM CDT Donovan Russell MD GI PROCEDURE ORDERA PORTILLO Performing Organization Address City/State/[facility] Co de Phone Number [facility] [address] [facility] [place] [address] * EKG 12-LEAD (01/20/2014 1:51 AM CDT) Narrative CG MUSE - 01/20/2014 1:51 AM CDT Grabiel Mooney MD ? 01/20/2014 ??1:51 AM Provider contact with the patient: 01/19/2014 ?21:45 Misha Valiente [id number] [facility] EMERGENCY DEPARTMENT History Chief Complaint Patient presents with ? ? Chest Pain ??For a couple of weeks, pt reports that he feels like my heart stopped or skipped a beat . ??Tonight pt ate a piece of chicken and then stood up and my heart stopped . ??Pts mother said pt saw a counselor yesterday and pt voiced concerns that he feels like he is going to . ??Pt denies SI/HI. ??Lungs clear, belly soft/nontender, BS active. ??Pt anxious in triage about VS. 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 ??Unless appended by me below, I agree with findings as documented. HPI Misha Valiente is a 13 y.o. male with complaint of feels like heart stopped . ?? Patient has had palpitations, fast heart beat periods. ??Has chest pain now but not reproducible. ?? Stated to RN that he felt like he was going to . ?? Not like reflux symptoms which he has had. ?? Patient has GERD and eosinophilic esophagitis and has had GI endoscopy. ?? No fever, no cough, no vomiting. PMHx. Active Ambulatory Problems ??Diagnosis Date Noted ? ? Eosinophilic esophagitis 04/08/2010 ? ? Allergic rhinitis 04/08/2010 ? ? Food allergy 04/08/2010 ? ? 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 ? Dysphagia 10/03/2011 ? ? Reactive airway disease 11/04/2011 ? ? Gynecomastia, male 01/26/2012 ? ? Closed fracture of unspecified part of fibula 05/12/2012 ? ? Acne 10/15/2012 ? ? papules on knee 10/15/2012 ? ? Allergic conjunctivitis 05/23/2013 Resolved Ambulatory Problems ??Diagnosis Date Noted ? ? Tachycardia, unspecified 02/25/2011 ? ? Fever 04/06/2011 Past Medical History Diagnosis Date ? ? Esophagitis ? GERD (gastroesophageal reflux disease) ? Asthma ? Food allergy ? Warts ? Review of Systems Review of Systems Constitutional: Negative for fever and appetite change. HENT: Negative for trouble swallowing. ?? Respiratory: Negative for cough, choking and shortness of breath. Cardiovascular: Positive for chest pain and palpitations. Gastrointestinal: Negative for nausea, vomiting and abdominal pain. Musculoskeletal: Negative for back pain. Skin: Negative for rash. Psychiatric/Behavioral: Negative for agitation. BP 129/76 Pulse 75 Temp(Src) 96.6 ??F Resp 19 Wt 57.7 kg (127 lb 3.3 oz) SpO2 100% Physical Exam I have reviewed the resident/ASSISTANT LOAN PROCESSOR physical exam. Unless appended by me below, I agree with the PE as documented. Physical Exam Constitutional: He appears well-developed and well-nourished. No distress. HENT: Head: Normocephalic. Mouth/Throat: Oropharynx is clear and moist. Eyes: Conjunctivae and EOM are normal. Pupils are equal, round, and reactive to light. Right eye exhibits discharge. Left eye exhibits no discharge. No scleral icterus. Neck: Normal range of motion. Neck supple. No thyromegaly present. Cardiovascular: Normal rate, regular rhythm and intact distal pulses. ??Exam reveals no gallop and no friction rub. ?? No murmur heard. Pulmonary/Chest: Effort normal and breath sounds normal. No respiratory distress. He has no wheezes. He has no rales. He exhibits no tenderness. Abdominal: Soft. Bowel sounds are normal. He exhibits no distension and no mass. There is no tenderness. There is no rebound and no guarding. No hernia. Musculoskeletal: Normal range of motion. He exhibits no tenderness. Neurological: He exhibits normal muscle tone. Skin: Skin is warm. No rash noted. He is not diaphoretic. No erythema. No pallor. Psychiatric: He has a normal mood and affect. Thought content normal. Appears somewhat anxious but coherent and communicates well. ?? No evidence of intoxication or drug effect. Procedures ECG 12 Lead Date/Time: 01/19/2014 10:05 PM Performed by: GRABIEL MOONEY Authorized by: GRABIEL MOONEY Interpreted by ED physician Comparison: not compared with previous ECG Previous ECG: no previous ECG available Rhythm: sinus rhythm Rhythm comments: mild sinus arrhythmia Conduction: conduction normal ST Segments: ST segments normal T Waves: T waves normal Other: no other findings Clinical impression: normal ECG Progress Notes ED Course Medical Decision Making I have reviewed the: Nursing Notes and Vitals. I have interpreted the following results: Oxygen Saturation. I have discussed the case with Cardiology and Family/Caregiver. Plan ECG and consult Cardiology The total time providing critical care (excluding time spent for procedures) was: 0 minutes. I have personally seen and examined this patient. I have fully participated in the care of this patient. I have reviewed all pertinent clinical information available to me during this encounter, including history, physical exam and plan. I have reviewed nursing notes, available labs and radiographic studies. ?? Clinical Impression Final diagnoses: Palpitation Grabiel Mooney MD ECG ORDERABLES CG MUSE * EKG 15-LEAD (01/19/2014 9:23 PM CDT) Only the most recent of2 resultswithin the time period is included. Ventricular Rate 73 BPM CG MUSE Atrial Rate 73 BPM CG MUSE P-R Interval 148 ms CG MUSE QRS Duration ms 102 ms CG MUSE Q-T Interval ms 350 ms CG MUSE QTC Calculation (Bezet) 385 ms CG MUSE Calculated P [place] -9 degrees CG MUSE Calculated R [place] 24 degrees CG MUSE Calculated T [place] 41 degrees CG MUSE Interpretation EKG * Pediatric ECG Analysis * Sinus bradycardia Incomplete right bundle branch block No previous ECGs available Confirmed by LEOPOLDO PANG ([id number]) on 01/25/2014 10:02:02 AM CG MUSE 01/19/2014 9:23 PM CDT 01/25/2014 10:02 AM CDT Delbert Gillette MD ECG ORDERABLES CG MUSE * FL ESOPHAGRAM (01/03/2014 3:07 PM CDT) Anatomical Region Laterality Modality Chest Radio Fluoroscop y 01/03/2014 4:26 PM CDT Impressions 01/03/2014 4:29 PM CDT Normal Narrative 01/03/2014 4:29 PM CDT Water-soluble esophagram 01/03/2014 150 cc of Omnipaque 240 was drunk by the patient. There is no extravasation of contrast from the esophagus. The esophagus is without obstruction, stricture, or abnormal dilatation. There is no aspiration. Swallowing mechanism was normal. Procedure Note Waldo West MD - 01/03/2014 Water-soluble esophagram 01/03/2014 150 cc of Omnipaque 240 was drunk by the patient. There is no extravasation of contrast from the esophagus. The esophagus is without obstruction, stricture, or abnormal dilatation. There is no aspiration. Swallowing mechanism was normal. IMPRESSION Normal Pardeep Rodgers MD FLUOROSCOPY ORDERABL ES * EGD (01/02/2014 2:38 PM CDT) Report Endoscopy POC _ Patient Name: Misha Valiente ?Gender: Male ?Date of : 2000 Age: 13 ? Admit Type: Outpatient Attending MD: Pardeep Rodgers MD ?Order #: [id number] _ Procedure: ? Upper GI endoscopy Indications: ? Esophageal reflux Providers: ? Pardeep Rodgers MD Referring MD: ?Yossi Vega MD Medicines: ? General Anesthesia Complications: ? No immediate complications. _ Procedure: ? After obtaining informed consent, the endoscope was passed ? under direct vision. Throughout the procedure, the ? patient's blood pressure, pulse, and oxygen saturations ? were monitored continuously. The Endoscope was introduced ? through the mouth, and advanced to the second part of ? duodenum. The upper GI endoscopy was accomplished without ? difficulty. The patient tolerated the procedure well. Findings: ? The examined duodenum was normal. Biopsies were taken with a cold ? forceps for histology. ? The entire examined stomach was normal. Biopsies were taken with a cold ? forceps for histology. Biopsies were taken with a cold forceps for ? Helicobacter pylori testing using CLOtest. ? Non-severe esophagitis with no bleeding was found. There was edema of ? the entire esophagus, mild. No exudate or fissures. The LES was slightly ? tight but the endoscope passed without difficulty. ? Biopsies were taken with a cold forceps for histology from 39 cm and 35 ? cm from the lip. Impression: ?- Normal examined duodenum. Biopsied. ? - Normal stomach. Biopsied. ? - Non-severe non-reflux esophagitis. Biopsied. Recommendation: ?- Await pathology results. ? - Discharge patient to home (with parent). ? Procedure Code(s): ? --- Professional --- ? 65261, Esophagogastrodu odenoscopy, flexible, transoral; with biopsy, ? single or multiple ? --- Technical --- ? 62979, Esophagogastrodu odenoscopy, flexible, transoral; with biopsy, ? single or multiple Diagnosis Code(s): ? --- Professional --- ? 530.19, Other esophagitis ? 530.81, Esophageal reflux ? --- Technical --- ? 530.19, Other esophagitis ? 530.81, Esophageal reflux CPT copyright 2013 [employer]. All rights reserved. The codes documented in this report are preliminary and upon programmer business review may be revised to meet current compliance requirements. Dr. Pardeep Rodgers Pardeep Rodgers MD 01/02/2014 7:57 AM This report has been signed electronically. Number of Addenda: 0 Note Initiated On: 12/28/2013 2:38 PM Procedure Date: ? 01/02/2014 2:38:00 PM ? This report has been signed electronically. [facility] 01/02/2014 2:38 PM CDT Pardeep Rodgers MD GI PROCEDURE ORDERAB LES Performing Organization Address City/State/[facility] Co de Phone Number [facility] [address] [id number] * PATHOLOGY/CYTOLOGY REPORT ORDER (12/14/2012 7:44 AM CDT) Only the most recent of2 resultswithin the time period is included. Narrative 12/14/2012 7:44 AM CDT Procedure Note Document, Scanned - 12/14/2012 7:44 AM CDT Scanned Document LAB - PATHOLOGY/CYTO LOGY ORDERABLES * HELICOBACTER PYLORI UREASE (12/09/2012 8:45 AM CDT) Only the most recent of2 resultswithin the time period is included. Helicobacter pylori Urease Initial Negative 12/10/2012 10:39 AM CDT [facility] Comment:This is a corrected result. Previous result was Negative on 12/09/2012 at 1034 Helicobacter pylori Urease Final Negative Negative 12/10/2012 10:39 AM CDT [facility] Comment:This is an appended report. These results have been appended to a previously preliminary verified report. Miscellaneous samples (specimen) GASTRIC ANTRAL BIOPSY SPECIMEN / Unknown Collection / Unknown 12/09/2012 8:45 AM CDT 12/09/2012 9:16 AM CDT Pardeep Rodgers MD LAB - MICROBIOLOGY O RDERABLES [facility] [address] [facility] [place] [address] * EGD (12/08/2012 3:23 PM CDT) Report Endoscopy POC __ _ Patient Name: Misha Valiente ?Gender: Male ?Date of : 2000 Age: 12 ? Admit Type: Outpatient Attending MD: Pardeep Rodgers MD ?Order #: [id number] __ _ Procedure: ? Upper GI endoscopy Indications: ? Dysphagia Providers: ? Pardeep Rodgers MD Referring MD: ?Yossi Vega MD Medicines: ? General Anesthesia Complications: ? No immediate complications. __ _ Procedure: ? After obtaining informed consent, the endoscope was passed ? under direct vision. Throughout the procedure, the ? patient's blood pressure, pulse, and oxygen saturations ? were monitored continuously. The Endoscope was introduced ? through the mouth, and advanced to the second part of ? duodenum. The upper GI endoscopy was accomplished without ? difficulty. The patient tolerated the procedure well. Findings: ? The examined duodenum was normal. Biopsies were taken with a cold ? forceps for histology. The entire examined stomach was normal. Biopsies ? were taken with a cold forceps for histology. Biopsies were taken with a ? cold forceps for Helicobacter pylori testing using CLOtest. Mildly ? severe esophagitis with no bleeding was found. Biopsies were taken with ? a cold forceps for histology. There was mild resistance at the LES ? suggesting possible early stricture, and mild bleeding on entering the ? stomach, which resolved. Impression: ?- Normal examined duodenum. This was biopsied. ? - Normal stomach. This was biopsied. ? - Mildly severe non-reflux esophagitis. This was biopsied. Recommendation: ?- Await pathology results. ? - Observe patient in same day observation unit for ? possible discharge same day. ? Procedure Code(s): ? --- Professional --- ? 87151, Upper gastrointestinal endoscopy including esophagus, stomach, ? and either the duodenum and/or jejunum as appropriate; with biopsy, ? single or multiple ? --- Technical --- ? 31278, Upper gastrointestinal endoscopy including esophagus, stomach, ? and either the duodenum and/or jejunum as appropriate; with biopsy, ? single or multiple Diagnosis Code(s): ? --- Professional --- ? 530.19, Other esophagitis ? 787.20, Dysphagia, unspecified ? --- Technical --- ? 530.19, Other esophagitis ? 787.20, Dysphagia, unspecified CPT (R) 2012 [employer]. All Rights Reserved. The codes documented in this report are preliminary and upon programmer business review may be revised to meet current compliance requirements. Dr. Pardeep Rodgers Pardeep Rodgers MD 12/09/2012 9:08 AM This report has been signed electronically. Number of Addenda: 0 Note Initiated On: 12/08/2012 3:23 PM Procedure Date: ? 12/08/2012 3:23:05 PM ? This report has been signed electronically. [facility] 12/08/2012 3:23 PM CDT Narrative [facility] - 12/09/2012 9:09 AM CDT Procedure Note Pardeep Rodgers MD - 12/09/2012 9:09 AM CDT Pardeep Rodgers MD GI PROCEDURE ORDERAB LES Performing Organization Address City/[facility]/ZIP Co de Phone Number [facility] [address] [place] [address] * XR ANKLE 3+ VW RIGHT (06/09/2012 9:07 AM [employer]AT BASKET MAKER HELPER) Only the most recent of2 resultswithin the time period is included. Anatomical Region Laterality Modality Lower Extremity Radiographic Jermain ging 06/09/2012 9:30 AM [employer] BASKET MAKER HELPER Impressions 06/09/2012 3:56 PM SLAT BASKET MAKER HELPER Casted ankle. Fibular avulsion is not visible. Dictated by David Hernández MD Narrative 06/09/2012 3:56 PM SLAT BASKET [employer] Exam: Right ankle, 3 views Comparison: May 04, 2012 Findings: A cast is in place since the prior examination steering images. A small avulsion fracture fragment of the distal fibula is not seen through the cast material. No other osseous normalities are seen. The joint spaces are maintained. The joint effusion has decreased. Procedure Note Waldo West MD - 06/09/2012 Exam: Right ankle, 3 views Comparison: May 04, 2012 Findings: A cast is in place since the prior examination steering images. A small avulsion fracture fragment of the distal fibula is not seen through the cast material. No other osseous normalities are seen. The joint spaces are maintained. The joint effusion has decreased. IMPRESSION Casted ankle. Fibular avulsion is not visible. Dictated by David Hernández MD Ron Morales MD DIAGNOSTIC IMAGING O RDERABLES * EGD (10/04/2011 8:45 AM CDT) Narrative Transcriptions Otto Campbell MD - 10/04/2011 8:44 AM CDT Otto Campbell MD GI PROCEDURE ORDERAB LES Performing Organization Address City/[facility]/ZIP Co de Phone Number [facility] [address] [place] [address] * GROSS + MICRO EXAM (10/04/2011 8:30 AM CDT) Only the most recent of3 resultswithin the time period is included. [facility] Clinical History [facility] Comment: The patient is a 11-year-old boy who underwent upper endoscopy with foreign body removal and biopsy. Gross Description [facility] Comment: The specimens are received fixed in formalin in five containers for gross and microscopic examination. ??All containers are labeled with the patient's name, Misha Valiente. Specimen A, duodenum, consists of two soft, yellow-sevilla tissue fragments, 3 mm and 5 mm in greatest dimension. ??The specimen is submitted in toto as A1. Specimen B, stomach, consists of two 3 mm soft, yellow-sevilla tissue fragments submitted in toto as B1. Specimen C, proximal esophagus, consists of two 3 mm soft, torres-white tissue fragments submitted in toto as C1. Specimen D, distal esophagus, consists of two 3 mm soft, torres-white tissue fragments submitted in toto as D1. Specimen E, unknown foreign body, consists of three irregularly shaped, soft, pale sevilla tissue fragments with an aggregate measurement of 1.5 x 0.5 x 0.3 cm. ??The specimen is submitted in toto as E1. (CT/mal) Microscopic Examination [facility] Comment: A) 3 H+E, B) 3 H+E, C) 3 H+E, D) 3 H+E, E) 3 H+E. A. ? Sections of the duodenum show two fragments of duodenal mucosa and submucosa with short, sometimes fused villi. B. ? Sections of stomach show two fragments of body and antral type gastric mucosa with a lymphoid aggregate showing destruction of glands by lymphocytes. H. Pylori like organisms are not identified. C. ? Sections of proximal esophagus show multiple fragments of squamous mucosa with marked basal cell hyperplasia, elongation of fibrovascular papillae, and spongiosis. There is increase in eosinophils to more than 100 per high power field. D. ? Sections of distal esophagus show multiple fragments of squamous mucosa showing similar morphology to that described for the proximal esophagus (specimen C), but with worse basal cell hyperplasia and more eosinophilia. E. ? Sections of unknown foreign body show fragments of skeletal muscle, with clusters of bacterial colonies. (SH/na) Diagnosis [facility] Comment: DIAGNOSIS: A. ? DUODENUM, BIOPSY: ? NONSPECIFIC CHANGES (SEE MICROSCOPIC DESCRIPTION). B. ? STOMACH, BIOPSY: ? GASTRITIS, FOCAL, MILD (SEE COMMENT). C. ? PROXIMAL ESOPHAGUS, BIOPSY: ? EOSINOPHILIC ESOPHAGITIS, SEVERE (GREATER THAN 100 EOSINOPHILS/ HPF; SEE COMMENT). D. ? DISTAL ESOPHAGUS, BIOPSY: ? EOSINOPHILIC ESOPHAGITIS, SEVERE (GREATER THAN 100 EOSINOPHILS/ HPF), WORSE THAN IN THE PROXIMAL ESOPHAGUS (SEE COMMENT). E. ? SOFT TISSUE, UNKNOWN FOREIGN BODY, REMOVAL: ? SKELETAL MUSCLE. ? BACTERIAL COLONIES. COMMENT: The previous biopsy, [id number] was reviewed in conjunction with the current case. The degree of inflammation in the stomach is less than in the previous biopsy; inflammation in the proximal esophagus is same as in the previous biopsy but the eosinophils are less; inflammation and eosinophils are worse in the distal esophagus in the current case than in the previous biopsy. This case has been personally reviewed and interpreted by the attending (teaching) pathologist. General Dentist/Owner WILLIAM WYMAN, [facility] Pathologist Melly Elliott M.D.,Ph.D. [facility] Electronically Signed By MELLY ELLIOTT, [facility] PART OF DUODENUM / Unknown 10/04/2011 8:30 AM CDT 10/06/2011 6:38 AM CDT Pardeep Rodgers MD LAB - PATHOLOGY/CYTO LOGY ORDERABLES Performing Organization Address City/State/[facility] Co de Phone Number [facility] [address] [place] [address] * (ABNORMAL) CBC W MANUAL DIFFERENTIAL (10/03/2011 11:40 PM CDT) WBC 7.56 4.5 - 14.5 K/cumm [facility] RBC 4.59 4.50 - 5.30 mill/cumm [facility] Hemoglobin 13.4 13.0 - 16.0 gm/dl [facility] Hematocrit 38.5 37.0 - 49.0 % [facility] MCV 83.9 78.0 - 98.0 cu microns [facility] MCH 29.2 25.0 - 35.0 uug [facility] MCHC 34.8 31.0 - 37.0 % [facility] RDW 12.5 % [facility] MPV 9.6 fl [facility] Platelet Count 291 100 - 400 K/cumm [facility] Comment Manual Diff Done [facility] Neutrophils % Manual 29 24 - 66 % [facility] Lymphocytes % Manual 46 22 - 61 % [facility] Monocytes % Manual 14 3 - 15 % [facility] Eosinophils % Manual 11(H) 0 - 10 % [facility] RBC Morphology Slight Anisocytosis, Slight Poikylocytosis [facility] BLOOD SPECIMEN / Unknown 10/03/2011 11:40 PM CDT 10/03/2011 11:50 PM CDT Andrew Padilla MD LAB - HEMATOLOGY ORD ERABLES Performing Organization Address [facility] Co de Phone Number [facility] [address] [place] [address] * T4 TOTAL (04/09/2011 8:35 AM CDT) T4 Total 9.6 5.6 - 11.7 mcg/dl [facility] BLOOD SPECIMEN / Unknown 04/09/2011 8:35 AM CDT 04/09/2011 8:50 AM CDT Elliott Valdez MD LAB - CHEMISTRY ORDE JOAO Performing Organization Address [facility] de Phone Number [facility] [address] [place] [address] * CT HEAD NON CONTRAST (04/09/2011 8:31 AM CDT) Anatomical Region Laterality Modality Head Computed Tomogra phy 04/09/2011 8:46 AM CDT Narrative 04/09/2011 8:[address] brain Technique: Multislice sequential. The midline structures are central. The ventricles are neither dilated nor displaced. The brain attenuation with its torres-white matter interface is normal. The bony calvaria is intact. The visible paranasal sinuses and mastoid air cells are clear. Diagnosis: Normal CT brain. Procedure Note Fatemeh Osuna MD - 04/09/2011 CT brain Technique: Multislice sequential. The midline structures are central. The ventricles are neither dilated nor displaced. The brain attenuation with its torres-white matter interface is normal. The bony calvaria is intact. The visible paranasal sinuses and mastoid air cells are clear. Diagnosis: Normal CT brain. Yossi Vega MD CT ORDERABLES * (ABNORMAL) ALLERGEN INHALANT COMPREHENSIVE PROFILE (03/11/2011 5:50 PM CDT) Allergen Alternaria alternata 2.28(H) <=0.34 KU/L [facility] Allergen Hormodendrum 1.97(H) <=0.34 KU/L [facility] Allergen Aspergillus Fumigatus 2.59(H) <=0.34 KU/L [facility] Allergen P. Notatum 1.55(H) <=0.34 KU/L [facility] Alelrgen Cat Dander 0.25 <=0.34 KU/L [facility] Allergen Dog Dander 2.53(H) <=0.34 KU/L [facility] Allergen Dermatophagoides pteronyssinus 0.63(H) <=0.34 KU/L [facility] Allergen Dermatophagoides farinae 0.65(H) <=0.34 KU/L [facility] Allergen Razia Grass 52.70(H) <=0.34 KU/L [facility] Allergen Chago Grass 47.30(H) <=0.34 KU/L [facility] Allergen Common Ragweed 44.00(H) <=0.34 KU/L [facility] Allergen [place] 37.20(H) <=0.34 KU/L [facility] Allergen Elm 34.80(H) <=0.34 KU/L [facility] Allergen [place] Tree 15.30(H) <=0.34 KU/L [facility] Allergen Wall Tree 28.40(H) <=0.34 KU/L [facility] Allergen Bay Tree 29.40(H) <=0.34 KU/L [facility] Allergen Mountain Mclaughlin 20.40(H) <=0.34 KU/L [facility] Allergen Cow Dander 0.72(H) <=0.34 KU/L [facility] Allergen Horse Dander 0.17 <=0.34 KU/L [facility] Allergen House Dust Matamor[place] 0.75(H) <=0.34 KU/L [facility] Allergen Cervantes's Quarters 32.60(H) <=0.34 KU/L [facility] Allergen Bermuda Grass 78.50(H) <=0.34 KU/L [facility] Allergen Venezuelan Plantain 34.30(H) <=0.34 KU/L [facility] Allergen Riccardo Grass 23.80(H) <=0.34 KU/L [facility] Allergen Perennial [place] Grass 50.20(H) <=0.34 KU/L [facility] Allergen Cook Islander Thistle 32.40(H) <=0.34 KU/L [facility] Allergen Mugwort 19.10(H) <=0.34 KU/L [facility] IgE Total 412(H) 0 - 120 IU/ml [facility] Immunocap Score KU/L [facility] Comment: REFERENCE INTERVAL: Allergen, Interpretation Less than 0.10 kU/L......No significant level detected 0.10-0.34 kU/L...........Clinical relevance undetermined 0.35-0.70 kU/L...........Low 0.71-3.50 kU/L...........Moderate 3.51-17.50 kU/L..........High 17.51 kU/L or Greater....Very High Allergen results of 0.10-0.34 kU/L are intended for specialist use as the clinical relevance is undetermined. Although increasing ranges are reflective of increasing concentrations of allergen-specific IgE, this may not correlate with the degree of clinical response or skin testing when challenged with a specific allergen. The correlation of allergy laboratory results with clinical history and in vivo reactivity to specific allergens is essential. A negative test may not rule out clinical allergy or even anaphylaxis. Comment Ref Lab [facility] Comment: TEST INFORMATION: Immunoglobulin E To convert to ng/mL, multiply IU/mL by 2.4. BLOOD SPECIMEN / Unknown 03/11/2011 5:50 PM CDT 03/11/2011 5:57 PM CDT Narrative [facility] - 03/15/2011 2:39 AM CDT 1 Resulting Agency Comment Performed By [facility] ? [address] ? [place], [place] [address] Elliott Valdez MD LAB - SEROLOGY ORDER DAVID [facility] [address] [facility] [place] [address] * (ABNORMAL) ALLERGEN FOOD CEREAL PROFILE (03/11/2011 5:50 PM CDT) Allergen Barley 10.10(H) <=0.34 KU/L [facility] Allergen Gluten 7.98(H) <=0.34 KU/L [facility] Allergen Rice 10.80(H) <=0.34 KU/L [facility] Allergen [place] 11.30(H) <=0.34 KU/L [facility] Allergen Wheat 13.50(H) <=0.34 KU/L [facility] Immunocap Score KU/L [facility] Comment: REFERENCE INTERVAL: Allergen, Interpretation Less than 0.10 kU/L......No significant level detected 0.10-0.34 kU/L...........Clinical relevance undetermined 0.35-0.70 kU/L...........Low 0.71-3.50 kU/L...........Moderate 3.51-17.50 kU/L..........High 17.51 kU/L or Greater....Very High Allergen results of 0.10-0.34 kU/L are intended for specialist use as the clinical relevance is undetermined. Although increasing ranges are reflective of increasing concentrations of allergen-specific IgE, this may not correlate with the degree of clinical response or skin testing when challenged with a specific allergen. The correlation of allergy laboratory results with clinical history and in vivo reactivity to specific allergens is essential. A negative test may not rule out clinical allergy or even anaphylaxis. BLOOD SPECIMEN / Unknown 03/11/2011 5:50 PM CDT 03/11/2011 5:57 PM CDT Narrative [facility] - 03/14/2011 4:26 PM CDT 1 Resulting Agency Comment Performed By [facility] ? [address] ? [place], [place] [address] lEliott Valdez MD LAB - SEROLOGY ORDER DAVID [facility] [address] [facility] [place] [address] * (ABNORMAL) ALLERGEN FOOD NUT MIX PROFILE (03/11/2011 5:50 PM CDT) Pathologist [facility] Allergen [place] 6.67(H) <=0.34 KU/L [facility] Allergen Coconut 9.60(H) <=0.34 KU/L [facility] Allergen Peanut 35.10(H) <=0.34 KU/L [facility] Allergen Pecan Nut 5.38(H) <=0.34 KU/L [facility] Allergen Sesame Seed 17.60(H) <=0.34 KU/L [facility] Immunocap Score KU/L [facility] Comment: REFERENCE INTERVAL: Allergen, Interpretation Less than 0.10 kU/L......No significant level detected 0.10-0.34 kU/L...........Clinical relevance undetermined 0.35-0.70 kU/L...........Low 0.71-3.50 kU/L...........Moderate 3.51-17.50 kU/L..........High 17.51 kU/L or Greater....Very High Allergen results of 0.10-0.34 kU/L are intended for specialist use as the clinical relevance is undetermined. Although increasing ranges are reflective of increasing concentrations of allergen-specific IgE, this may not correlate with the degree of clinical response or skin testing when challenged with a specific allergen. The correlation of allergy laboratory results with clinical history and in vivo reactivity to specific allergens is essential. A negative test may not rule out clinical allergy or even anaphylaxis. BLOOD SPECIMEN / Unknown 03/11/2011 5:50 PM CDT 03/11/2011 5:57 PM CDT Narrative [facility] - 03/14/2011 4:25 PM CDT 1 Resulting Agency Comment Performed By [facility] ? [address] ? [place], [place] [address] Elliott Valdez MD LAB - CHEMISTRY MANFRED SHEPHERD [facility] [address] [facility] [place] [address] * ALLERGEN CHICKEN MEAT IGE (03/11/2011 5:50 PM CDT) Allergen Chicken Meat 0.20 <=0.34 KU/L [facility] Immunocap Score KU/L [facility] Comment: REFERENCE INTERVAL: Allergen, Interpretation ??Less than 0.10 kU/L........No Significant level detected ??0.10-0.34 kU/L.............Clinical relevance undetermined ??0.35-0.70 kU/L.............Low ??0.71-3.50 kU/L.............Moderate ??3.51-17.50 kU/L............High ??17.51 kU/L or Greater......Very High Allergen results of 0.10-0.34 kU/L are intended for specialist use as the clinical relevance is undetermined. ??Although increasing ranges are reflective of increasing concentrations of allergen-specific IgE, this may not correlate with the degree of clinical response or skin testing when challenged with a specific allergen. The correlation of allergy laboratory results with clinical history and in vivo reactivity to specific allergens is essential. A negative test may not rule out clinical allergy or even anaphylaxis. BLOOD SPECIMEN / Unknown 03/11/2011 5:50 PM CDT 03/11/2011 5:56 PM CDT Narrative [facility] - 03/14/2011 4:26 PM CDT 1 Resulting Agency Comment Performed By [facility] ? [address] ? [place], [place] [address] Elliott Valdez MD LAB - CHEMISTRY MANFRED SHEPHERD [facility] [address] [place] [address] * (ABNORMAL) ALLERGEN BANANA IGE (03/11/2011 5:50 PM CDT) Allergen Banana 18.30(H) <=0.34 KU/L [facility] Immunocap Score KU/L [facility] Comment: REFERENCE INTERVAL: Allergen, Interpretation ??Less than 0.10 kU/L........No Significant level detected ??0.10-0.34 kU/L.............Clinical relevance undetermined ??0.35-0.70 kU/L.............Low ??0.71-3.50 kU/L.............Moderate ??3.51-17.50 kU/L............High ??17.51 kU/L or Greater......Very High Allergen results of 0.10-0.34 kU/L are intended for specialist use as the clinical relevance is undetermined. ??Although increasing ranges are reflective of increasing concentrations of allergen-specific IgE, this may not correlate with the degree of clinical response or skin testing when challenged with a specific allergen. The correlation of allergy laboratory results with clinical history and in vivo reactivity to specific allergens is essential. A negative test may not rule out clinical allergy or even anaphylaxis. BLOOD SPECIMEN / Unknown 03/11/2011 5:50 PM CDT 03/11/2011 5:56 PM CDT Narrative [facility] - 03/14/2011 4:25 PM CDT 1 Resulting Agency Comment Performed By [facility] ? [address] ? [place], [place] [address] Elliott Valdez MD LAB - CHEMISTRY ORDMundo SHEPHERD [facility] [place] [address] * ALLERGEN TURKEY IGE (03/11/2011 5:50 PM CDT) Allergen [place]el[place] 0.17 <=0.34 KU/L [facility] Immunocap Score KU/L [facility] Comment: REFERENCE INTERVAL: Allergen, Interpretation ??Less than 0.10 kU/L........No Significant level detected ??0.10-0.34 kU/L.............Clinical relevance undetermined ??0.35-0.70 kU/L.............Low ??0.71-3.50 kU/L.............Moderate ??3.51-17.50 kU/L............High ??17.51 kU/L or Greater......Very High Allergen results of 0.10-0.34 kU/L are intended for specialist use as the clinical relevance is undetermined. ??Although increasing ranges are reflective of increasing concentrations of allergen-specific IgE, this may not correlate with the degree of clinical response or skin testing when challenged with a specific allergen. The correlation of allergy laboratory results with clinical history and in vivo reactivity to specific allergens is essential. A negative test may not rule out clinical allergy or even anaphylaxis. BLOOD SPECIMEN / Unknown 03/11/2011 5:50 PM CDT 03/11/2011 5:56 PM CDT Narrative [facility] - 03/14/2011 4:24 PM CDT 1 Resulting Agency Comment Performed By [facility] ? [address] ? [place], [place] [address] Elliott Valdez MD LAB - SEROLOGY ORDER DAVID Performing Organization Address City/[facility]/ZIP Co de Phone Number [facility] [address] [place] [address] * (ABNORMAL) ALLERGEN APPLE IGE (03/11/2011 5:50 PM CDT) Allergen Apple 12.90(H) <=0.34 KU/L [facility] Immunocap Score KU/L [facility] Comment: REFERENCE INTERVAL: Allergen, Interpretation ??Less than 0.10 kU/L........No Significant level detected ??0.10-0.34 kU/L.............Clinical relevance undetermined ??0.35-0.70 kU/L.............Low ??0.71-3.50 kU/L.............Moderate ??3.51-17.50 kU/L............High ??17.51 kU/L or Greater......Very High Allergen results of 0.10-0.34 kU/L are intended for specialist use as the clinical relevance is undetermined. ??Although increasing ranges are reflective of increasing concentrations of allergen-specific IgE, this may not correlate with the degree of clinical response or skin testing when challenged with a specific allergen. The correlation of allergy laboratory results with clinical history and in vivo reactivity to specific allergens is essential. A negative test may not rule out clinical allergy or even anaphylaxis. BLOOD SPECIMEN / Unknown 03/11/2011 5:50 PM CDT 03/11/2011 5:56 PM CDT Narrative [facility] - 03/14/2011 4:24 PM CDT 1 Resulting Agency Comment Performed By [facility] ? [address] ? [place], [place] [address] Elliott Valdez MD LAB - SEROLOGY ORDER DAVID [facility] [address] [place] [address] * (ABNORMAL) ALLERGEN BEEF IGE (03/11/2011 5:50 PM CDT) Allergen Beef 0.85(H) <=0.34 KU/L [facility] Immunocap Score KU/L [facility] Comment: REFERENCE INTERVAL: Allergen, Interpretation ??Less than 0.10 kU/L........No Significant level detected ??0.10-0.34 kU/L.............Clinical relevance undetermined ??0.35-0.70 kU/L.............Low ??0.71-3.50 kU/L.............Moderate ??3.51-17.50 kU/L............High ??17.51 kU/L or Greater......Very High Allergen results of 0.10-0.34 kU/L are intended for specialist use as the clinical relevance is undetermined. ??Although increasing ranges are reflective of increasing concentrations of allergen-specific IgE, this may not correlate with the degree of clinical response or skin testing when challenged with a specific allergen. The correlation of allergy laboratory results with clinical history and in vivo reactivity to specific allergens is essential. A negative test may not rule out clinical allergy or even anaphylaxis. BLOOD SPECIMEN / Unknown 03/11/2011 5:50 PM CDT 03/11/2011 5:56 PM CDT Narrative [facility] - 03/14/2011 4:24 PM CDT 1 Resulting Agency Comment Performed By [facility] ? [address] ? [place], [place] [address] Elliott Valdez MD LAB - CHEMISTRY MANFRED SHEPHERD [facility] [address] [facility] [place] [address] * (ABNORMAL) ALLERGEN FOOD SALAD PROFILE (03/11/2011 5:50 PM CDT) Allergen Celery 6.68(H) <=0.34 KU/L [facility] Allergen Lettuce 3.65(H) <=0.34 KU/L [facility] Allergen [place] 16.90(H) <=0.34 KU/L [facility] Allergen Parsley 2.56(H) <=0.34 KU/L [facility] Allergen Tomato 25.30(H) <=0.34 KU/L [facility] Immunocap Score KU/L [facility] Comment: REFERENCE INTERVAL: Allergen, Interpretation Less than 0.10 kU/L......No significant level detected 0.10-0.34 kU/L...........Clinical relevance undetermined 0.35-0.70 kU/L...........Low 0.71-3.50 kU/L...........Moderate 3.51-17.50 kU/L..........High 17.51 kU/L or Greater....Very High Allergen results of 0.10-0.34 kU/L are intended for specialist use as the clinical relevance is undetermined. Although increasing ranges are reflective of increasing concentrations of allergen-specific IgE, this may not correlate with the degree of clinical response or skin testing when challenged with a specific allergen. The correlation of allergy laboratory results with clinical history and in vivo reactivity to specific allergens is essential. A negative test may not rule out clinical allergy or even anaphylaxis. BLOOD SPECIMEN / Unknown 03/11/2011 5:50 PM CDT 03/11/2011 5:57 PM CDT Narrative [facility] - 03/14/2011 4:25 PM CDT 1 Resulting Agency Comment Performed By [facility] ? [address] ? [place], [place] [address] Elliott Valdez MD LAB - CHEMISTRY MANFRED SHEPHERD [facility] [address] [facility] [place] [address] * (ABNORMAL) ALLERGEN PEDIATRIC FOOD I PROFILE (03/11/2011 5:50 PM CDT) Allergen Egg White 0.11 <=0.34 KU/L [facility] Allergen Milk 1.46(H) <=0.34 KU/L [facility] Allergen Wheat 13.40(H) <=0.34 KU/L [facility] Allergen Oat 10.80(H) <=0.34 KU/L [facility] Allergen Soybean 9.15(H) <=0.34 KU/L [facility] Immunocap Score KU/L [facility] Comment: REFERENCE INTERVAL: Allergen, Interpretation Less than 0.10 kU/L......No significant level detected 0.10-0.34 kU/L...........Clinical relevance undetermined 0.35-0.70 kU/L...........Low 0.71-3.50 kU/L...........Moderate 3.51-17.50 kU/L..........High 17.51 kU/L or Greater....Very High Allergen results of 0.10-0.34 kU/L are intended for specialist use as the clinical relevance is undetermined. Although increasing ranges are reflective of increasing concentrations of allergen-specific IgE, this may not correlate with the degree of clinical response or skin testing when challenged with a specific allergen. The correlation of allergy laboratory results with clinical history and in vivo reactivity to specific allergens is essential. A negative test may not rule out clinical allergy or even anaphylaxis. BLOOD SPECIMEN / Unknown 03/11/2011 5:50 PM CDT 03/11/2011 5:57 PM CDT Narrative [facility] - 03/14/2011 4:25 PM CDT 1 Resulting Agency Comment Performed By [facility] ? [address] ? [place], [place] [address] Elliott Valdez MD LAB - CHEMISTRY MANFRED SHEPHERD [facility] [address] [facility] [place] [address] * (ABNORMAL) ALLERGEN FOOD VEGETABLE PROFILE (03/11/2011 5:50 PM CDT) Allergen Blanchard 13.00(H) <=0.34 KU/L [facility] Allergen Pea 10.80(H) <=0.34 KU/L [facility] Allergen White Baum 28.80(H) <=0.34 KU/L [facility] Allergen Carrot 20.40(H) <=0.34 KU/L [facility] Allergen Potato 15.50(H) <=0.34 KU/L [facility] Immunocap Score KU/L [facility] Comment: REFERENCE INTERVAL: Allergen, Interpretation Less than 0.10 kU/L......No significant level detected 0.10-0.34 kU/L...........Clinical relevance undetermined 0.35-0.70 kU/L...........Low 0.71-3.50 kU/L...........Moderate 3.51-17.50 kU/L..........High 17.51 kU/L or Greater....Very High Allergen results of 0.10-0.34 kU/L are intended for specialist use as the clinical relevance is undetermined. Although increasing ranges are reflective of increasing concentrations of allergen-specific IgE, this may not correlate with the degree of clinical response or skin testing when challenged with a specific allergen. The correlation of allergy laboratory results with clinical history and in vivo reactivity to specific allergens is essential. A negative test may not rule out clinical allergy or even anaphylaxis. BLOOD SPECIMEN / Unknown 03/11/2011 5:50 PM CDT 03/11/2011 5:57 PM CDT Narrative [facility] - 03/14/2011 4:25 PM CDT 1 Resulting Agency Comment Performed By [facility] ? [address] ? [place], [place] [address] Elliott Valdez MD LAB - CHEMISTRY MANFRED Willard Organization Address City/State/ZIP Co de Phone Number [facility] [address] [facility] [place] [address] * CARDIAC EKG ORDER (03/06/2011 6:34 AM CDT) Narrative Transcriptions Document, Scanned - 03/06/2011 6:34 AM CDT Scanned Document CARDIAC SERVICES ORD ERABLES * HOLTER MONITOR (02/25/2011) Smiley Alberto MD CARDIAC SERVICES ORD ERABLES Care Teams Alcoholism Worker Relationship Specialty Start Date End Date Carlos Gillette MD [address] [facility] [place] [phone] PCP - General Internal Medicine 09/16/23 Bienvenido Sargent MD [address] [place] [address] Internal Medicine 09/16/23
[2024-08-08 00:08] VITALS: BP 115/87; PULSE 65; RESP 20; TEMP 36.2; O2SAT 99
[2024-08-08 03:36] LABS: Basophils Absolute Auto 0.1 K/mm3 (0.0-0.1); Basophils Percent Auto 1.3 % (0.2-1.2); Eosinophils Absolute Auto 1.6 K/mm3 (0-0.3); Eosinophils Percent Auto 20.2 % (0-4.4); Hematocrit 39.1 % (42.0-52.0); Hemoglobin 13.6 g/dL (14.0-18.0); Immature Granulocyte Absolute 0.01 K/mm3 (0.00-0.031); Immature Granulocyte Percent A 0.1 % (0-0.5); Lymphocytes Absolute Auto 3.23 K/mm3 (0.9-3.2); Lymphocytes Percent Auto 40.8 % (18.3-44.2); Mean Corpuscular HGB Conc 34.8 g/dl (32-36); Mean Corpuscular Volume 89.1 fl (80-100); Mean Platelet Volume 9.8 fl (7.4-10.4); Monocytes Absolute Auto 0.7 K/mm3 (0.1-0.6); Neutrophils Absolute Auto 2.3 K/mm3 (1.3-6.7); Neutrophils Percent Auto 28.6 % (45.5-73.1); Platelet Count Result 233 k/mm3 (150-375); Red Blood Count 4.39 M/mm3 (4.6-6.20); Red Cell Distribution Width 12.3 % (11.5-14.5); White Blood Count 7.9 K/mm3 (4.5-10.0)
[2024-08-08 03:45] LABS: Anion Gap 9 mmol/L (4-12); Blood Urea Nitrogen 24 mg/dL (9-20); Carbon Dioxide 28 mmol/L (22-30); Chloride 100 mmol/L (98-107); Estimated CRCL calculation 84 ml/min; Estimated Glomerular Filt Rate > 60; Glucose 102 mg/dL (65-110); Potassium 4.2 mmol/L (3.4-5.0); Sodium 137 mmol/L (137-145)
[2024-08-08 04:00] LABS: Hemoglobin A1C 5.5 % (<5.7)
[2024-08-08 04:05] VITALS: BP 113/89; PULSE 67; RESP 20; O2SAT 100
[2024-08-08] MEDS: hydrOXYzine HCL 25 MG TABLET PO (06:00)
--- OUTSIDE RECORDS SUMMARY | 2024-08-08 06:01 | XMS_ITS | Encounter Summary ---
Author Organization [facility] Health Address [address] [facility] [place] [address] Care Team Providers Care Dietist Name Role Phone Rolando Schultz VOLUNTEER [facility] Primary Care Provider Hannah vailable Deepa Gilmore VOLUNTEER RECRUITER[facility] Primary Care Provider Nerissa Schultz [facility] Primary Care Provider [phone] Carlos Gillette MD Primary Care Provider Bienvenido Sargent MD Unavailable Reason for Visit * Reason Onset Date Comments Appointment 12/17/2020 Encounter Details Date Type Department Care Team (Late st Contact Info) Description 12/17/2020 Telephone [facility] [address] [place] [address] Rolando Schultz, VOLUNTEER RECRUITER-SPORTS PHYSICAL THERAPIST No information available Appointment Social History Tobacco [...] st Contact Info) Description 08/08/2024 8:00 AM STRUCTURES MECHANIC [place]oint[place] [facility] [place] [address] [place] [phone] Isaias Torres MD [address] [place] [address] DIV [place] [address] Moustapha Lopez, PT 08/22/2024 2:00 PM STRUCTURES MECHANIC Office Visit [facility] - Internal Med [address] [place] [address], [place] [address] Carlos Gillette MD [address] [place] [address] [place] [address] 09/30/2024 7:55 AM CDT Hospital Encounter [facility] ENDOSCOPY [address] [place] [phone] Khadijah Busch MD [address] [place] [phone] Surgery General 09/30/2024 7:55 AM CDT - 09/30/2024 8:45 AM CDT Surgery [facility] ENDOSCOPY [address] [place] [phone] Khadijah Busch MD [address] [place] [phone] EGD + capsule w/ sean 10/24/2024 3:00 PM CDT Office Visit [facility] - GI [address] [place] [address], [place] [address] Khadijah Busch MD [address] [place] [phone] 12/21/2024 3:30 PM CDT Office Visit [facility] - Allergy [address] [place] [address], [place] [address] Yonatan Allen MD [address] [place] [address] DIV OF ALLERGY/[place] [address] Scheduled Procedures Name Priority Associated Diagnoses Date/Ti [...] Management General On track( 023 9:05 AM STRUCTURES MECHANIC) Monique Crawford, RN Note: Expected end date: ongoing Interventions: Take all medications as prescribed Let your doctor know right away about any changes in your medications Make sure to request a refill of your medication at least one week prior to your last dose documented as of this encounter Visit Diagnoses Not on filedocumented in this encounter Care Teams Dietist Relationship Specialty Start Date End Date Rolando Schultz, VOLUNTEER RECRUITER-SPORTS PHYSICAL THERAPIST PCP - General 09/26/20 03/27/21 Deepa Gilmore VOLUNTEER RECRUITER-SPORTS PHYSICAL THERAPIST [address] [place] [address] PCP - General 03/28/21 11/24/22 Nerissa Schultz, VOLUNTEER RECRUITER-SPORTS PHYSICAL THERAPIST [address] [place] [address] PCP - General Nurse Practitioner Pediatrics 06/25/23 09/15/23 Carlos Gillette MD [address] [facility] [place] [phone] PCP - General Internal Medicine 09/16/23 Bienvenido Sargent MD [address] [place] [phone] Internal Medicine 09/16/23 documented as of this encounter
--- OUTSIDE RECORDS SUMMARY | 2024-08-08 06:01 | XMS_ITS | Encounter Summary ---
Author Organization [facility] Health Address [address] [facility] [place] [address] Care Team Providers Care Manufacturing Project Manager Name Role Phone Yossi Vega MD Primary Care Provider + [phone] Lisa Jameson RESOURCE PROGRAM TEACHER-MOBILE PHLEBOTOMIST Primary Care Prov ider Yossi Vega MD Primary Care Provider + [phone] Lisa Jameson RESOURCE PROGRAM TEACHER-MOBILE PHLEBOTOMIST Primary Care Prov ider Yossi Vega MD Primary Care Provider + [phone] Lisa Jameson RESOURCE PROGRAM TEACHER-MOBILE PHLEBOTOMIST Primary Care Prov ider Yossi Vega MD Primary Care Provider + [phone] Lisa Jameson RESOURCE PROGRAM TEACHER-MOBILE PHLEBOTOMIST Primary Care Prov ider Brionna Khan DO Primary Care Provider [phone] Rolando Schultz RESOURCE PROGRAM TEACHER-MOBILE PHLEBOTOMIST Primary Care Provider Hannah vailable Deepa Gilmore RESOURCE PROGRAM TEACHER-MOBILE PHLEBOTOMIST Primary Care Provider Nerissa Schultz RESOURCE PROGRAM TEACHER-MOBILE PHLEBOTOMIST Primary Care Provider [phone] Carlos Gillette MD Primary Care Provider Bienvenido Sargent MD Unavailable Encounter Details Date Type Department Care Team (Late Contact Info) Description 02/03/2014 Telephone [facility] [address] [facility] [place] [address] Brittaney Lin MD [address] [place] [address] Social History Tobacco Use Types Packs/Day Years [...] Upcoming Encounters Date Type Department Care Team ([facility] Contact Info) Description 08/08/2024 8:00 AM FACILITIES TECHNICIAN Appointment [facility] PT [address] [place] [address] Isaias Torres MD [address] [place] [address] DIV OF ORTHOPEDIC [place] [address] Moustapha Lopez, PT 08/22/2024 2:00 PM FACILITIES TECHNICIAN Office Visit [facility] - Internal Med [address] [place] [phone] Carlos Gillette MD [address] [place] [address] [place] [address] 09/30/2024 7:55 AM CDT Hospital Encounter [facility] ENDOSCOPY [address] [place] [phone] Khadijah Busch MD [address] [place] [phone] Surgery General 09/30/2024 7:55 AM CDT - 09/30/2024 8:45 AM CDT Surgery [facility] ENDOSCOPY [address] [place] [phone] Khadijah Busch MD [address] [place] [phone] EGD + capsule w/ sean 10/24/2024 3:00 PM CDT Office Visit [facility] - GI [address] [place] [address] [place] [phone] Khadijah Busch MD [address] [place] [phone] 12/21/2024 3:30 PM CDT Office Visit [facility] - Allergy [address] [place] [phone] Yonatan Allen MD [address] [place] [address] DIV OF ALLERGY/[place] [address] Scheduled Procedures Name Priority Associated Diagnoses Date/Ti [...] on filedocumented in this encounter Care Teams Manufacturing Project Manager Relationship Specialty Start Date End Date Yossi Vega MD [address] [place] [address] PCP - General 03/24/11 07/18/18 Lisa Jameson APRN-MOBILE PHLEBOTOMIST [address] [place] [address] PCP - General 07/19/18 08/07/18 Yossi Vega MD [address] [place] [address] PCP - General 08/08/18 02/17/19 Lisa Jameson APRN-MOBILE PHLEBOTOMIST [address] [place] [address] PCP - General 02/18/19 04/11/19 Yossi Vega MD [address] [place] [address] PCP - General 04/12/19 09/13/19 Lisa Jameson APRN-MOBILE PHLEBOTOMIST [address] [place] [address] PCP - General 09/14/19 12/12/19 Yossi Vega MD [address] [place] [address] PCP - General 12/13/19 02/07/20 Lisa Jameson, RESOURCE PROGRAM TEACHER-MOBILE PHLEBOTOMIST [address] [facility] [address] [place] [address] PCP - General 02/08/20 02/19/20 Brionna Khan DO [address] [place] [address] PCP - General 05/10/20 09/25/20 Rolando Schultz, RESOURCE PROGRAM TEACHER-MOBILE PHLEBOTOMIST [address] [place] [address] PCP - General 09/26/20 03/27/21 Deepa Gilmore, RESOURCE PROGRAM TEACHER-MOBILE PHLEBOTOMIST [address] [facility] [address] [place] [phone] PCP - General 03/28/21 11/24/22 Nerissa Schultz, RESOURCE PROGRAM TEACHER-MOBILE PHLEBOTOMIST [address] [facility] [address] [place] [address] PCP - General Nurse Practitioner Pediatrics 06/25/23 09/15/23 Carlos Gillette MD [address] [facility] [place] [address] PCP - General Internal Medicine 09/16/23 Bienvenido Sargent MD [address] [place] [phone] Internal Medicine 09/16/23 documented as of this encounter
--- OUTSIDE RECORDS SUMMARY | 2024-08-08 06:01 | XMS_ITS | Encounter Summary ---
Author Organization [facility] Health Address [address] [facility] [place] [address] Care Team Providers Care Head Butler Name Role Phone Rolando Schultz [facility] Primary Care Provider Hannah vailable Deepa Gilmore [facility] Primary Care Provider Nerissa Schultz MA[facility]GER [facility] Primary Care Provider [phone] Carlos Glilette MD Primary Care Provider Bienvenido Sargent MD Unavailable Encounter Details Date Type Department Care Team (Late st Contact Info) Description 10/11/2020 Telephone [facility] [address] [place] [address] Rolando Schultz, MANAGER E LEARNING-TECHNICAL ACCOUNT REPRESENTATIVE No information available Social History Tobacco Use [...] wrote refill order in system 09/26/2020 Pharmacy: [id number] [facility] [phone] Patient call back number: [phone] documented in this encounter Plan of Treatment Upcoming Encounters Date Type Department Care Team (Late st Contact Info) Description 08/08/2024 8:00 AM CANDY MIXER Appointment [facility] PT [address] [place] [phone] Isaias Torres MD [address] [facility] [place] [address] Moustapha Lopez, PT 08/22/2024 2:00 PM CANDY MIXER Office Visit [facility] - Internal Med [address] [place] [address], [place] [phone] Carlos Gillette MD [address] [place] [address] [place] [address] 09/30/2024 7:55 AM CDT Hospital Encounter [facility] ENDOSCOPY [address] [place] [phone] Khadijah Busch MD [address] [place] [phone] Surgery General 09/30/2024 7:55 AM CDT - 09/30/2024 8:45 AM CDT Surgery [facility] ENDOSCOPY [address] [place] [phone] Khadijah Busch MD [address] [place] [phone] EGD + capsule w/ sean 10/24/2024 3:00 PM CDT Office Visit [facility] - GI [address] [place] [address], [place] [address] Khadijah Busch MD [address] [place] [phone] 12/21/2024 3:30 PM CDT Office Visit [facility] - Allergy [address] [place] [phone] Yonatan Allen MD [address] [place] [address] DIV OF ALLERGY/[place] [address] Scheduled Procedures Name Priority Associated Diagnoses Date/Ti mt ESOPHAGOGASTRODUODENOSCOPY ( EGD) DIAGNOSTIC Crohn's disease of [...] Management General On track( 023 9:05 AM CANDY MIXER) Monique Crawford, RN Note: Expected end date: ongoing Interventions: Take all medications as prescribed Let your doctor know right away about any changes in your medications Make sure to request a refill of your medication at least one week prior to your last dose documented as of this encounter Visit Diagnoses Not on filedocumented in this encounter Care Teams Head Butler Relationship Specialty Start Date End Date Rolando Schultz, MANAGER E LEARNING-TECHNICAL ACCOUNT REPRESENTATIVE PCP - General 09/26/20 03/27/21 Deepa Gilmore, MANAGER E LEARNING-TECHNICAL ACCOUNT REPRESENTATIVE [address] [place] [phone] PCP - General 03/28/21 11/24/22 Nerissa Schultz, MANAGER E LEARNING-TECHNICAL ACCOUNT REPRESENTATIVE [address] [place] [address] PCP - General Nurse Practitioner Pediatrics 06/25/23 09/15/23 Carlos Gillette MD [address] [facility] [place] [phone] PCP - General Internal Medicine 09/16/23 Bienvenido Sargent MD [address] [place] [phone] Internal Medicine 09/16/23 documented as of this encounter
--- OUTSIDE RECORDS SUMMARY | 2024-08-08 06:01 | XMS_ITS | Encounter Summary ---
Author Organization [facility] Health Address [address] [facility] [place] [address] Care Team Providers Care Practice Nurse Name Role Phone Carlos Gillette MD Primary Care Provider [phone] Bienvenido Sargent MD Unavailable Reason for Visit * Reason Onset Date Comments MEDICATION REFILL 10/02/2023 Encounter Details Date Type Department Care Team (Late st Contact Info) Description 10/02/2023 Refill [facility] - Internal Med [address] [facility], [place] [phone] Carlos Gillette MD [address] [facility] [place] [phone] MEDICATION REFILL Social History Tobacco Use Types [...] st Contact Info) Description 08/08/2024 8:00 AM PROMOTIONS OFFICER Appointment [facility] PT [address] [place] [address] Isaias Torres MD [address] [place] [address] [place] [address] Moustapha Lopez, PT 08/22/2024 2:00 PM PROMOTIONS OFFICER Office Visit [facility] - Internal Med [address] [place] [address], [place] [address] Carlos Gillette MD [address] [place] [address] [place] [address] 09/30/2024 7:55 AM CDT Hospital Encounter [facility] ENDOSCOPY [facility] [place] [address] Khadijah Busch MD [address] [place] [phone] Surgery General 09/30/2024 7:55 AM CDT - 09/30/2024 8:45 AM CDT Surgery [facility] ENDOSCOPY [address] [place] [phone] Khadijah Busch MD [address] [place] [phone] EGD + capsule w/ sean 10/24/2024 3:00 PM CDT Office Visit [facility] - GI [address] [place] [address], [place] [address] Khadijha Busch MD [address] [place] [phone] 12/21/2024 3:30 PM CDT Office Visit [facility] - Allergy [address] [place] [address], [place] [phone] Yonatan Allen MD [facility] DIV OF ALLERGY/[place] [address] Scheduled Procedures Name Priority Associated Diagnoses Date/Ti [...] Management General On track( 023 9:05 AM PROMOTIONS OFFICER) Monique Crawford, RN Note: Expected end date: [...] intestine documented in this encounter Care Teams Practice Nurse Relationship Specialty Start Date End Date Carlos Gillette MD [address] [facility] [place] [phone] PCP - General Internal Medicine 09/16/23 Bienvenido Sargent MD [address] [place] [phone] Internal Medicine 09/16/23 documented as of this encounter
--- OUTSIDE RECORDS SUMMARY | 2024-08-08 06:01 | XMS_ITS | Clinical Summary ---
Author Organization [facility] Address [address] [place] [address] Care Team Providers Care Motorcyles Final Inspector Name Role Phone Carlos Gillette MD Primary Care Provider [phone] Bienvenido Sargent MD Unavailable Source Comments [facility],non-owned Affiliates and Associated Physician Practices is amultiple site organization consisting of ambulatory clinics and hospital sitesin [place], [place] and [place]. This disclosure is being madepursuant to the Care Everywhere program and may not contain all information available regarding this patient. Last updated 18.[facility] Allergies Active Allergy Reactions Criticality Noted [...] Active azelastine (Astelin) 0.1 % nasal spray Portis 1 (one) spray into each nostril 2 [...] Each 1 04/27/2024 Active Vitamin D, Ergocalciferol, 82404 units CAPSIndications:V itamin D Deficiency Take 1 (one) capsule by mouth every 7 days for 12 doses Reasons: Vitamin D Deficiency 12 capsule 05/19/2024 Active Active Problems Patient Care Coordination No te Formatting of this note migh t be different from the original. Mom's cell [phone] Misha gave permission at his appointment on [...] h 9 (LTP): 3.9 Marietta h 8 RI-10): 3.27 Tree nuts: Total hazelnut (Filbert): 8.91 Total walnut: 5.73 Total cashew: 1.77 Blackwell nut: 0.37 [place]: 3.17 Total cow's milk: 0.57 (95% NPV) [...] Department Care Team Description 08/04/2024 7:30 AM INSERT MOLDING OPERATOR - 08/04/2024 11:59 PM INSERT MOLDING OPERATOR Hospital Encounter [facility] [address] [place] [address] Isaias Torres MD Tado, Mike, PT Orthopedics Discharge Disposition: Home or Self Care 08/03/2024 Travel 07/28/2024 7:30 AM INSERT MOLDING OPERATOR - 07/28/2024 11:59 PM INSERT MOLDING OPERATOR Hospital Encounter [facility] [address] [place] [phone] Isaias Torres MD Herman, Laura, PT Orthopedics Discharge Disposition: Home or Self Care 07/19/2024 Orders Only [facility] - GI [address] [facility], [place] [address] Khadijah Busch MD Crohn's disease of both small and large intestine without complication (HCC) 07/14/2024 7:30 AM INSERT MOLDING OPERATOR - 07/14/2024 11:59 PM INSERT MOLDING OPERATOR Hospital Encounter [facility] [address] [place] [phone] Isaias Torres MD Herman, Laura, PT Orthopedics Discharge Disposition: Home or Self Care 07/13/2024 1:20 PM INSERT MOLDING OPERATOR - 07/13/2024 11:59 PM INSERT MOLDING OPERATOR Hospital Encounter [facility] MRI [address] [place] [phone] Khadijah Busch MD Discharge Disposition: Home or Self Care 07/13/2024 Travel 07/01/2024 11:00 AM INSERT MOLDING OPERATOR - 07/01/2024 11:59 PM INSERT MOLDING OPERATOR Hospital Encounter [facility] [address] [place] [address] Isaias Torres MD Herman, Laura, PT Discharge Disposition: Home or Self Care 06/15/2024 Orders Only [facility] - Orthopedics [address] [place] [phone] Isaias Torres MD Chronic left shoulder pain 06/14/2024 10:20 AM INSERT MOLDING OPERATOR - 06/14/2024 11:59 PM INSERT MOLDING OPERATOR Hospital Encounter [facility] Imaging Services - MRI [address] [place] [address] Isaias Torres MD Discharge Disposition: Home or Self Care 06/14/2024 8:58 AM INSERT MOLDING OPERATOR - 06/14/2024 10:19 AM INSERT MOLDING OPERATOR Hospital Encounter [facility] Imaging Services - Radiology [address] [place] [address] Isaias Torres MD Discharge Disposition: Home or Self Care 06/14/2024 Orders Only [facility] - GI [address] [place] [phone] Khadijah Busch MD 06/07/2024 4:42 PM INSERT MOLDING OPERATOR - 06/07/2024 11:59 PM INSERT MOLDING OPERATOR Hospital Encounter [facility] OP DRAW STATION [address] [place] [address] Discharge Disposition: Home or Self Care 06/07/2024 Travel 06/06/2024 2:30 PM INSERT MOLDING OPERATOR Office Visit [facility] - Dermatology [address] [place] [phone] Nerissa Rodriguez MD Dermatofibroma (Primary Dx); Rash and other nonspecific skin eruption; Nipple problem 06/06/2024 Travel 06/03/2024 Orders Only [facility] - Orthopedics [address] [place] [address] [facility] [address] [place] [phone] Isaias Torres MD S/P shoulder surgery 05/27/2024 8:20 AM INSERT MOLDING OPERATOR Office Visit [facility] - Urology [address] [place] [phone] Ron Kinney PA Itching of male genitalia (Primary Dx) 05/27/2024 Travel 05/19/2024 Orders Only [facility] - GI [address] [place] [phone] Khadijah Busch MD 05/11/2024 1:15 PM CDT - 05/11/2024 11:59 PM CDT Hospital Encounter [facility] [address] [place] [phone] Discharge Disposition: Home or Self Care 05/11/2024 Travel 05/10/2024 Orders Only [facility] - GI [address] [place] [phone] Khadijah Busch MD Crohn's disease of both small and large intestine without complication (HCC) from Last 3 Months Immunizations Name Administration Dates Next Due [employer] primary monoval ent 12+ yr 0.3mL [...] Comments Blood Pressure 117/84 05/27/2024 8:19 AM INSERT MOLDING OPERATOR Pulse 84 05/27/2024 8:19 AM INSERT MOLDING OPERATOR Temperature 36.5 ??C (97.7 ??F) 05/27/2024 8:19 AM CS T Respiratory Rate 18 05/27/2024 8:19 AM INSERT MOLDING OPERATOR Oxygen Saturation 96% 05/27/2024 8:19 AM INSERT MOLDING OPERATOR Inhaled Oxygen Concentration 100% 02/2019 11:59 AM CDT Weight 66.6 kg (146 lb 12.8 oz) 05/27/2024 8:19 AM INSERT MOLDING OPERATOR Height 167.6 cm (5' 6 ) 05/27/2024 8:19 AM INSERT MOLDING OPERATOR Body Mass Index 23.69 05/27/2024 8:19 AM INSERT MOLDING OPERATOR Plan of Treatment Upcoming Encounters Date Type Department Care Team (Late st Contact Info) Description 08/08/2024 8:00 AM INSERT MOLDING OPERATOR Appointment [facility] [address] [place] [phone] Isaias Torres MD [address] [place] [address] DIV [place] OR[place]IC [place] [address] Moustapha Lopez, PT 08/22/2024 2:00 PM INSERT MOLDING OPERATOR Office Visit [facility] - Internal Med [address] [place] [phone] Carlos Gillette MD [address] [place] [address] [place] [phone] 09/30/2024 7:55 AM CDT Hospital Encounter [facility] [place] [address] Khadijah Busch MD [address] [place] [phone] Surgery General 09/30/2024 7:55 AM CDT - 09/30/2024 8:45 AM CDT Surgery [facility] [address] [place] [phone] Khadijah Busch MD [address] [place] [phone] EGD + capsule w/ sean 10/24/2024 3:00 PM CDT Office Visit [facility] - GI [address] [place] [address] [place] [address] Khadijah Busch MD [address] [place] [phone] 12/21/2024 3:30 PM CDT Office Visit [facility] - Allergy [address] [place] [phone] Yonatan Allen MD [address] [place] [address] DIV OF ALLERGY/[place] [address] Scheduled Procedures Name Priority Associated Diagnoses Date/Ti [...] Management General On track( 023 9:05 AM INSERT MOLDING OPERATOR) Monique Crawford, RN Note: Expected end date: ongoing Interventions: Take all medications as prescribed Let your doctor know right away about any changes in your medications Make sure to request a refill of your medication at least one week prior to your last dose Medical Devices Implanted Type Area Backup Administrative Coordinator Device Identifier Shelf Expiration Date Model / Serial / Lot Manson Sut Gryphon Proknot Bcrl Rapide Implanted:Qty: 1 on 11/25/2022 by Isaias Torres MD at [facility] Right: Shoulder [employer] 08/12/2025 [id number] / / [id number] Manson Sut Gryphon Proknot Bcrl Rapide Implanted:Qty: 1 on 11/25/2022 by Isaias Torres MD at [facility] Right: Shoulder [employer] 08/12/2025 [id number] / / [id number] Manson Sut Gryphon Proknot Bcrl Rapide - S00 Implanted:Qty: 3 on 03/05/2023 by Isaias Torres MD at [facility] Left: Shoulder [employer] 10/10/2025 [id number] / 00 / [id number] Manson Sut Gryphon Proknot Bcrl Rapide - S00 Implanted:Qty: 1 on 03/05/2023 by Isaias Torres MD at [facility] Left: Shoulder [employer] 10/10/2025 [id number] / 00 / [id number] Procedures Procedure Name Priority Date/Time Associated Diagnosis Comments MRI ENTEROGRAPHY Routine 07/13/2024 3:20 PM INSERT MOLDING OPERATOR Crohn's disease of both small and large intestine without complication (HCC) FL INJECTION MR ARTHROGRAM Routine 06/14/2024 12:04 PM INSERT MOLDING OPERATOR S/P shoulder surgery MRI SHOULDER LEFT W CONTRAST Routine 06/14/2024 11:04 AM INSERT MOLDING OPERATOR S/P shoulder surgery CALPROTECTIN FECAL Routine 06/07/2024 4: 43 PM INSERT MOLDING OPERATOR Crohn's disease of both small and large intestine without complication (HCC) URINALYSIS AUTO - POINT OF CARE (AMB) [facility] Routine 05/27/2024 8:26 AM INSERT MOLDING OPERATOR Itching of male genitalia DIFFERENTIAL MANUAL Routine [...] Results * MRI Enterography (07/13/2024 3:20 PM INSERT MOLDING OPERATOR) Anatomical Region Laterality Modality Abdomen Magnetic Resonan ce, Magnetic Resonance 07/14/2024 9:13 AM INSERT MOLDING OPERATOR Impressions 07/18/2024 7:38 AM INSERT MOLDING OPERATOR Impression: Focal enhancement of a short segment loop decompressed proximal ileum within the left lower quadrant, suggestive of active disease. No other active disease identified. Report dictated by Donta Li MD (cath lab radiology technician). I, Juan Kirkland MD have personally reviewed and interpreted this examination/study. > Interpreting Provider: Juan Kirkland MD on 07/18/2024 7:38 AM Narrative 07/18/2024 7:38 AM INSERT MOLDING OPERATOR PROCEDURE: ??MRI ENTEROGRAPHY, DATE/TIME OF EXAM: ??07/13/2024 3:21 PM, LOCATION ??[facility] INDICATION: K50.80: Crohn's disease of both small and large intestine without complication (HCC) ADDITIONAL CLINICAL INFORMATION: Ordering Provider Reason For Exam: ??History of Chron's disease, uncontolled COMPARISON: MRI enterography from an outside institution via [employer]city dated 12/05/2016. TECHNIQUE: MRI of the abdomen [...] DATE/TIME OF EXAM: 07/13/2024 3:21 PM, LOCATION [facility] INDICATION: K50.80: Crohn's disease of both small and large intestine without complication (HCC) ADDITIONAL CLINICAL INFORMATION: Ordering Provider Reason For Exam: History of Chron's disease,uncontolled COMPARISON: MRI enterography from an outside institution via [employer]city dated 12/05/2016. TECHNIQUE: MRI of the abdomen [...] identified. Report dictated by Donta Li MD (cath lab radiology technician). I, Juan Kirkland MD have personally reviewed and interpreted this examination/study. > Interpreting Provider: Juan Kirkland MD on 07/18/2024 7:38 AM Khadijah Busch MD MR ORDERABLES * FL Injection Mr Arthrogram (06/14/2024 12:04 PM INSERT MOLDING OPERATOR) Anatomical Region Laterality Modality Lower Extremity, Upper Extremity Radio Fluoroscopy 06/14/2024 1:11 PM INSERT MOLDING OPERATOR Impressions 06/14/2024 1:13 PM INSERT MOLDING OPERATOR IMPRESSION: Successful fluoroscopic guided right left arthrogram pre-MRI. See separate MRI report. > Interpreting Provider: Sumit Horton MD on 06/14/2024 1:13 PM Narrative 06/14/2024 1:13 PM INSERT MOLDING OPERATOR EXAM: FLUOROSCOPIC GUIDED LEFT SHOULDER ARTHROGRAM (PRE-MRI) [...] Shoulder Left W Contrast (06/14/2024 11:04 AM INSERT MOLDING OPERATOR) Anatomical Region Laterality Modality Upper Extremity Magnetic Resonan ce 06/14/2024 2:08 PM INSERT MOLDING OPERATOR Impressions 06/14/2024 2:52 PM INSERT MOLDING OPERATOR IMPRESSION: Postsurgical change consistent with a previous [...] 06/14/2024 2:52 PM Narrative 06/14/2024 2:52 PM INSERT MOLDING OPERATOR PROCEDURE: ??MRI SHOULDER LEFT W CONTRAST DATE/TIME [...] * (ABNORMAL) CALPROTECTIN FECAL (06/07/2024 4:43 PM INSERT MOLDING OPERATOR) Calprotectin Fecal 179(H) <=49 ug/g 06/10/2024 5:39 PM INSERT MOLDING OPERATOR [facility] Comment: REFERENCE INTERVAL: Calprotectin, Fecal by Immunoassay ??Less than 50 ug/g.........Normal ??50-120 ug/g...............Borderline elevated, test should be ?re-evaluated in 4-6 weeks. ??121 ug/g or greater.......Elevated Performed By: [employer] [address] [place] [address] Matrix Repairer: Cullen Bower MD, PhD CLIA Number: [id number] Stool STOOL SPECIMEN / Unknown Collection / Unknown 06/07/2024 4:43 PM INSERT MOLDING OPERATOR 06/07/2024 4:50 PM INSERT MOLDING OPERATOR Khadijah Busch MD LAB - BODY FLUID ORD ERABLES [facility] [employer] [facility]) [address] [place] [address], [facility] * URINALYSIS AUTO - POINT OF CARE (AMB) [facility] (05/27/2024 8:26 AM INSERT MOLDING OPERATOR) Glucose UA neg [facility] [address] Bilirubin UA POCT neg [facility] [address] Ketones UA POCT neg [facility] [address] Specific [place] UA 1.[address] [facility] [address] Blood Urine POCT neg [facility] [address] pH UA 6.0 [facility] [address] Protein UA neg [facility] [address] Urobilinogen UA 0.2 mg [facility] [address] [facility] Nitrite UA neg [facility] [address] [facility] WBC UA neg [facility] [address] [facility] Urine URINE / Unknown 05/27/2024 8 :26 AM INSERT MOLDING OPERATOR Ron Grace LAB - POINT OF CARE ORDERABLES Performing Organization Address City/[facility]/ZIP Co de Phone Number [facility] [address] [facility] [address] [facility] [place] [address], [facility] [phone] * C-REACTIVE PROTEIN (05/11/2024 1:46 PM CDT) C-Reactive Protein <0.5 <=0.5 mg/dL 05/11/2024 2:42 PM CDT [facility] Blood BLOOD SPECIMEN / Unknown Lab Venipuncture / Unknown 05/11/2024 1:46 PM CDT 05/11/2024 2:10 PM CDT Khadijah Busch MD LAB - CHEMISTRY ORDE JOAO Performing Organization Address City/[facility]/ZIP Co de Phone Number [facility] [address] [place] [address], [facility] [phone] * (ABNORMAL) VITAMIN D 25-HYDROXY (05/11/2024 1:46 PM CDT) Vitamin D, 25 Hydroxy 11.5(L) 30.0 - 80.0 ng/mL 05/11/2024 3:06 PM CDT [facility] Comment: The recommendations for 25-Hydroxy Vitamin D [...] Busch MD LAB - CHEMISTRY MONSERRATE JOAO [facility] [address] [place] [address], [facility] [phone] * (ABNORMAL) DIFFERENTIAL MANUAL (05/11/2024 1:46 PM CDT) Neutrophil % 38(L) 41 - 74 % 05/11/2024 2:42 PM CDT [facility] Lymphocyte % 28 17 - 47 % 05/11/2024 2:42 PM CDT [facility] Monocyte % 9 3 - 11 % 05/11/2024 2:42 PM T [facility] Eosinophil % 22(H) 0 - 7 % 05/11/2024 2:42 PM T [facility] Basophil % 3(H) 0 - 2 % 05/11/2024 2:42 PM CDT [facility] Neutrophil Absolute 2.74 1.60 - 7.50 x10E9/L 05/11/2024 2:42 PM CDT [facility] Lymphocyte Absolute 2.02 1.00 - 4.40 x10E9/L 05/11/2024 2:42 PM CDT [facility] Monocyte Absolute 0.65 0.15 - 1.00 x10E9/L 05/11/2024 2:42 PM CDT [facility] Eosinophil Absolute 1.58(H) 0.00 - 0.60 x10E9/L 05/11/2024 2:42 PM [facility] Basophil Absolute 0.22(H) 0.00 - 0.13 x10E9/L 05/11/2024 2:42 PM [facility] RBC Morphology NORMAL 05/11/2024 2:42 PM [facility] Platelet Morphology NORMAL 05/11/2024 2:42 PM [facility] Blood BLOOD SPECIMEN / Unknown Lab Venipuncture / Unknown 05/11/2024 1:46 PM CDT 05/11/2024 2:10 PM CDT Khadijah Busch MD LAB - HEMATOLOGY ORD ERABLES [facility] [address] [place] [address], [facility] [phone] * CBC W/ DIFFERENTIAL (05/11/2024 1:46 PM CDT) WBC 7.2 4.0 - 10.7 x10E9/L 05/11/2024 2:42 PM [facility] RBC Count 4.83 4.30 - 5.80 x10E12/L 05/11/2024 2:42 PM [facility] Hemoglobin 14.5 13.3 - 17.5 g/dL 05/11/2024 2:42 PM [facility] Hematocrit 42.0 38.7 - 51.1 % 05/11/2024 2:42 PM [facility] MCV 87.0 80.0 - 98.0 fL 05/11/2024 2:42 PM [facility] MCH 30.0 26.7 - 33.6 pg 05/11/2024 2:42 PM [facility] MCHC 34.5 31.7 - 36.3 g/dL 05/11/2024 2:42 PM [facility] RDW-CV 12.0 11.3 - 14.8 % 05/11/2024 2:42 PM [facility] Platelet Count 260 150 - 420 x10E9/L 05/11/2024 2:42 PM [facility] MPV 9.9 7.8 - 11.4 fL 05/11/2024 2:42 PM [facility] Blood BLOOD SPECIMEN / Unknown Lab Venipuncture / Unknown 05/11/2024 1:46 PM CDT 05/11/2024 2:10 PM CDT Khadijah Busch MD LAB - HEMATOLOGY ORD ERABLES [facility] [address] [place] [address], [facility] [phone] * (ABNORMAL) COMPREHENSIVE METABOLIC PANEL (05/11/2024 1:46 PM CDT) BUN 13 7 - 26 mg/dL 05/11/2024 2:40 PM [facility] Creatinine 1.01 0.71 - 1.16 mg/dL 05/11/2024 2:40 PM [facility] Sodium 139 136 - 145 mmol/L 05/11/2024 2:40 PM [facility] Potassium 4.4 3.5 - 4.5 mmol/L 05/11/2024 2:40 PM [facility] Chloride 103 98 - 107 mmol/L 05/11/2024 2:40 PM [facility] CO2 30(H) 22 - 29 mmol/L 05/11/2024 2:40 PM [facility] Glucose 91 70 - 99 mg/dL 05/11/2024 2:40 PM [facility] Calcium 9.5 8.4 - 10.2 mg/dL 05/11/2024 2:40 PM [facility] Protein Total 7.4 6.0 - 8.3 g/dL 05/11/2024 2:40 PM [facility] Albumin 4.2 3.4 - 5.0 g/dL 05/11/2024 2:40 PM [facility] Bilirubin Total 0.4 0.2 - 1.2 mg/dL 05/11/2024 2:40 PM [facility] Alkaline Phosphatase 67 40 - 150 U/L 05/11/2024 2:40 PM [facility] ALT 8 5 - 55 U/L 05/11/2024 2:40 PM CDT [facility] AST 13 5 - 34 U/L 05/11/2024 2:40 PM CDT [facility] Anion Gap 6 6 - 16 05/11/2024 2:40 PM CDT [facility] BUN/Creatinine Ratio 13 7 - 23 05/11/2024 2:40 PM CDT [facility] Osmolality Calculated 288 275 - 295 mOsm/kg 05/11/2024 2:40 PM CDT [facility] Albumin/Globulin Ratio 1.3 1.1 - 2.3 05/11/2024 2:40 PM CDT [facility] eGFR by CKD-EPI >90 >=90 mL/min/1.7 3 m2 05/11/2024 2:40 PM CDT [facility] Blood BLOOD SPECIMEN / Unknown Lab Venipuncture / Unknown 05/11/2024 1:46 PM CDT 05/11/2024 2:10 PM CDT Khadijah Busch MD LAB - CHEMISTRY MANFRED SHEPHERD [address] [address], [place] [phone] * VITAMIN B12 (05/11/2024 1:46 PM CDT) Vitamin B12 750 213 - 816 pg/mL 05/11/2024 3:06 PM CDT [facility] Blood BLOOD SPECIMEN / Unknown Lab Venipuncture / Unknown 05/11/2024 1:46 PM CDT 05/11/2024 2:10 PM CDT Khadijah Busch MD LAB - CHEMISTRY MANFRED SHEPHERD [address] [address], [place] [phone] * IRON + TRANSFERRIN PANEL (05/11/2024 1:46 PM CDT) Iron 96 50 - 175 ug/dL 05/11/2024 2:33 PM CDT [facility] Transferrin 233 174 - 382 mg/dL 05/11/2024 2:33 PM CDT [facility] Transferrin Saturation % 33 16 - 50 % 05/11/2024 2:33 PM CDT [facility] TIBC Calculated 291 240 - 450 ug/dL 05/11/2024 2:33 PM CDT [facility] Blood BLOOD SPECIMEN / Unknown Lab Venipuncture / Unknown 05/11/2024 1:46 PM CDT 05/11/2024 2:05 PM CDT Khadijah Busch MD LAB - CHEMISTRY MANFRED SHEPHERD [address] [address], [facility] [phone] * (ABNORMAL) FERRITIN (05/11/2024 1:46 PM CDT) Ferritin 331(H) 22 - 275 ng/mL 05/11/2024 2:51 PM CDT [facility] Blood BLOOD SPECIMEN / Unknown Lab Venipuncture / Unknown 05/11/2024 1:46 PM CDT 05/11/2024 2:05 PM CDT Khadijah Busch MD LAB - CHEMISTRY MANFRED SHEPHERD [address] [address], [place] [phone] * HEPATITIS C AB SCREEN RFLX NAAT QUANT (01/26/2024 4:00 PM CDT) Hepatitis C Antibody Non-react cindy Non-reac tive 01/26/2024 5:14 PM CDT [facility] Comment:Hepatitis C Antibody screen indicates no serologic [...] Organization Address City/State/ZIP Co de Phone Number [facility] [address] [place] [address], [facility] [phone] from Last 3 Months or Most Recently Relevant to Health Maintenance Care Teams Motorcyles Final Inspector Relationship Specialty Start Date End Date Carlos Gillette MD [address] [facility] [place] [address] PCP - General Internal Medicine 09/16/23 Bienvenido Sargent MD [address] [place] [id number] Internal Medicine 09/16/23
--- OUTSIDE RECORDS SUMMARY | 2024-08-08 06:01 | XMS_ITS | Patient Health Summary ---
Author Organization [facility] Address [address] [place] [address] Care Team Providers Care Slot Floor Person Name Role Phone Carlos Gillette MD Primary Care Provider [phone] Bienvenido Sargent MD Unavailable Note from [facility],non-owned Affiliates and Associated Physician Practices is amultiple site organization consisting of ambulatory clinics and hospital sitesin [place], [place], [place] and [place]. This disclosure is being madepursuant to the Care Everywhere program and may not contain all information available regarding this patient. Last updated 18.[facility] Allergies * Lactase(GI Discomfort) * Eggs(Urticaria) -Medium Criticality * Fish(Urticaria) -Medium Criticality * Food(peas) * Peanut-Derived * Shellfish(Urticaria) -Medium Criticality * Tree Nuts * [place]-Related Products,Inactive * Dairy Enzyme Formula(Other) -High Criticality,Inactive [...] azelastine (Astelin) 0.1 % nasal spray(Started 12/01/2022) [place] 1 (one) spray into each nostril 2 [...] refill by 04/27/2025 * Vitamin D, Ergocalciferol, 18269 units CAPS(Started 05/19/2024) Take 1 (one) capsule [...] Comments Blood Pressure 117/84 05/27/2024 8:19 AM [facility] Pulse 84 05/27/2024 8:19 AM [facility] Temperature 36.5 ??C (97.7 ??F) 05/27/2024 8:19 AM CS T Respiratory Rate 18 05/27/2024 8:19 AM [facility] Oxygen Saturation 96% 05/27/2024 8:19 AM [facility] Inhaled Oxygen Concentration 100% 02/2019 11:59 AM CDT Weight 66.6 kg (146 lb 12.8 oz) 05/27/2024 8:19 AM [facility] Height 167.6 cm (5' 6 ) 05/27/2024 8:19 AM [facility] Body Mass Index 23.69 05/27/2024 8:19 AM [facility] Medical Devices Implanted Type Area Certified Welding Inspector Device Identifier Shelf Expiration Date Model / Serial / Lot Makaweli Sut Gryphon Proknot Bcrl Rapide Implanted:Qty: 1 on 11/25/2022 by Isaias Torres MD at [facility] Right: Shoulder [employer] 08/12/2025 [id number] / / [id number] Makaweli Sut Gryphon Proknot Bcrl Rapide Implanted:Qty: 1 on 11/25/2022 by Isaias Torres MD at [facility] Right: Shoulder [employer] 08/12/2025 [id number] / / [id number] Makaweli Sut Gryphon Proknot Bcrl Rapide - S00 Implanted:Qty: 3 on 03/05/2023 by Isaias Torres MD at [facility] Left: Shoulder [employer] 10/10/2025 [id number] / 00 / [id number] Makaweli Sut Gryphon Proknot Bcrl Rapide - S00 Implanted:Qty: 1 on 03/05/2023 by Isaias Torres MD at [facility] Left: Shoulder [employer] 10/10/2025 [id number] / 00 / [id number] Procedures * MRI ENTEROGRAPHY(Performed 07/13/2024) Performed for [...] and large intestine without complication (HCC) * [place] COLONOSCOPY, DIAGNOSTIC(Performed 08/12/2023) Performed for Crohn's disease of both small and large intestine without complication (HCC) * [place] ED EGD FLEX TRANSORAL DX(Performed 08/12/2023) Performed [...] and large intestine without complication (HCC) * [place] SHOULDER ARTHROSCOPY(Performed 03/05/2023) Performed for Degenerative superior labral pstwcpbm-oa-qtvptpmrm (SLAP) tear of left shoulder * ENDOTRACHEAL TUBE NOTE(Performed 03/05/2023) * PERIPHERAL BLOCK(Performed 03/05/2023) * MRI SHOULDER LEFT W CONTRAST(Performed 02/24/2023) Performed for Chronic left shoulder pain * [place] SHOULDER LEFT ARTHROGRAM(Performed 02/24/2023) Performed for Chronic left shoulder pain * AUDIOLOGY/TYMPANOMETRY ORDER(Performed 12/01/2022) * IMAGING/RADIOLOGY/XRAY RESULTS ORDER(Performed 11/26/2022) * CARDIAC RHYTHM STRIP ORDER(Performed 11/26/2022) * [place] SHOULDER ARTHROSCOPY(Performed 11/25/2022) * PERIPHERAL BLOCK(Performed 11/25/2022) [...] Results * MRI Enterography (07/13/2024 3:20 PM [facility]) Only the most recent of2 resultswithin the time period is included. Anatomical Region Laterality Modality Abdomen Magnetic Resonan ce, Magnetic Resonance 07/14/2024 9:13 AM [facility] Impressions 07/18/2024 7:38 AM [facility] Impression: Focal enhancement of a short segment loop decompressed proximal ileum within the left lower quadrant, suggestive of active disease. No other active disease identified. Report dictated by Donta Li MD (interventional radiology technologist). I, Juan Kirkland MD have personally reviewed and interpreted this examination/study. > Interpreting Provider: Juan Kirkland MD on 07/18/2024 7:38 AM Narrative 07/18/2024 7:38 AM [facility] PROCEDURE: ??MRI ENTEROGRAPHY, DATE/TIME OF EXAM: ??07/13/2024 3:21 PM, LOCATION ??[facility] INDICATION: K50.80: Crohn's disease of both small and large intestine without complication (HCC) ADDITIONAL CLINICAL INFORMATION: Ordering Provider Reason For Exam: ??History of Chron's disease, uncontolled COMPARISON: MRI enterography from an outside institution via [employer] [place] [employer] dated 12/05/2016. TECHNIQUE: MRI of the abdomen [...] DATE/TIME OF EXAM: 07/13/2024 3:21 PM, LOCATION [facility] INDICATION: K50.80: Crohn's disease of both small and large intestine without complication (HCC) ADDITIONAL CLINICAL INFORMATION: Ordering Provider Reason For Exam: History of Chron's disease,uncontolled COMPARISON: MRI enterography from an outside institution via [employer] dated 12/05/2016. TECHNIQUE: MRI of the abdomen [...] identified. Report dictated by Donta Li MD (interventional radiology technologist). IJuan MD have personally reviewed and interpreted this examination/study. > Interpreting Provider: Juan Kirkland MD on 07/18/2024 7:38 AM Khadijah Busch MD MR ORDERABLES * FL Injection Mr Arthrogram (06/14/2024 12:04 PM [facility]) Anatomical Region Laterality Modality Lower Extremity, Upper Extremity Radio Fluoroscopy 06/14/2024 1:11 PM [facility] Impressions 06/14/2024 1:13 PM [facility] IMPRESSION: Successful fluoroscopic guided right left arthrogram pre-MRI. See separate MRI report. > Interpreting Provider: Sumit Horton MD on 06/14/2024 1:13 PM Narrative 06/14/2024 1:13 PM [facility] EXAM: FLUOROSCOPIC GUIDED LEFT SHOULDER ARTHROGRAM (PRE-MRI) [...] Shoulder Left W Contrast (06/14/2024 11:04 AM [facility]) Only the most recent of2 resultswithin the time period is included. Anatomical Region Laterality Modality Upper Extremity Magnetic Resonan ce 06/14/2024 2:08 PM [facility] Impressions 06/14/2024 2:52 PM [facility] IMPRESSION: Postsurgical change consistent with a previous [...] 06/14/2024 2:52 PM Narrative 06/14/2024 2:52 PM [facility] PROCEDURE: ??MRI SHOULDER LEFT W CONTRAST DATE/TIME [...] * (ABNORMAL) CALPROTECTIN FECAL (06/07/2024 4:43 PM [facility]) Calprotectin Fecal 179(H) <=49 ug/g 06/10/2024 5:39 PM [facility] ([facility]) Comment: REFERENCE INTERVAL: Calprotectin, Fecal by Immunoassay ??Less than 50 ug/g.........Normal ??50-120 ug/g...............Borderline elevated, test should be ?re-evaluated in 4-6 weeks. ??121 ug/g or greater.......Elevated Performed By: [facility] [employer] [address] [place] [address] Analysis Lead: Cullen Bower MD, PhD CLIA Number: [id number] Stool STOOL SPECIMEN / Unknown Collection / Unknown 06/07/2024 4:43 PM [facility] 06/07/2024 4:50 PM [facility] Khadijah Busch MD LAB - BODY FLUID ORD ERABLES [facility]) [address] [place] [address], [facility] * URINALYSIS AUTO - POINT OF CARE (AMB) [facility] (05/27/2024 8:26 AM [facility]) Only the most recent of3 resultswithin the time period is included. Pathologist [facility] Glucose UA neg [facility] [address] Bilirubin UA POCT neg [facility] [address] Ketones UA POCT neg [facility] [address] Specific [place] UA 1.[address] [facility] [address] Blood [...] URINE / Unknown 05/27/2024 8 :26 AM [facility] Ron Grace LAB - POINT OF CARE ORDERABLES [facility] [address] [facility] [address] [facility] [place] [address], [facility] [phone] * C-REACTIVE PROTEIN (05/11/2024 1:46 PM CDT) Only the most recent of12 resultswithin the time period is included. [facility] C-Reactive Protein <0.5 <=0.5 mg/dL 05/11/2024 2:42 PM CDT [facility] Blood BLOOD SPECIMEN / Unknown Lab Venipuncture / Unknown 05/11/2024 1:46 PM CDT 05/11/2024 2:10 PM CDT Khadijah Busch MD LAB - CHEMISTRY MANFRED SHEPHERD [facility] [address] [place] [address], [facility] [phone] * (ABNORMAL) VITAMIN D 25-HYDROXY (05/11/2024 1:46 PM CDT) Only the most recent of5 resultswithin the time period is included. Pathologist [facility] Vitamin D, 25 Hydroxy 11.5(L) 30.0 - 80.0 ng/mL 05/11/2024 3:06 PM CDT [facility] Comment: The recommendations for 25-Hydroxy [...] Busch MD LAB - CHEMISTRY MANFRED SHEPHERD [facility] Organization Address [facility] de Phone Number [facility] [address] [place] [phone], [facility] [phone] * (ABNORMAL) DIFFERENTIAL MANUAL (05/11/2024 1:46 PM CDT) Only the most recent of5 resultswithin the time period is included. [facility] Neutrophil % 38(L) 41 - 74 % 05/11/2024 2:42 PM CDT [facility] Lymphocyte % 28 17 - 47 % 05/11/2024 2:42 PM CDT [facility] Monocyte % 9 3 - 11 % 05/11/2024 2:42 PM CDT [facility] Eosinophil % 22(H) 0 - 7 % 05/11/2024 2:42 PM CDT [facility] Basophil % 3(H) 0 - 2 % 05/11/2024 2:42 PM CDT [facility] Neutrophil Absolute 2.74 1.60 - 7.50 x10E9/L 05/11/2024 2:42 PM CDT [facility] Lymphocyte Absolute 2.02 1.00 - 4.40 x10E9/L 05/11/2024 2:42 PM T [facility] Monocyte Absolute 0.65 0.15 - 1.00 x10E9/L 05/11/2024 2:42 PM T [facility] Eosinophil Absolute 1.58(H) 0.00 - 0.60 x10E9/L 05/11/2024 2:42 PM CDT [facility] Basophil Absolute 0.22(H) 0.00 - 0.13 x10E9/L 05/11/2024 2:42 PM T [facility] RBC Morphology NORMAL 05/11/2024 2:42 PM T [facility] Platelet Morphology NORMAL 05/11/2024 2:42 PM [facility] Blood BLOOD SPECIMEN / Unknown Lab Venipuncture / Unknown 05/11/2024 1:46 PM CDT 05/11/2024 2:10 PM CDT Khadijah Busch MD LAB - HEMATOLOGY ORD ERABLES [address] [address], [facility] [phone] * CBC W/ DIFFERENTIAL (05/11/2024 1:46 PM CDT) Only the most recent of18 resultswithin the time period is included. WBC 7.2 4.0 - 10.7 x10E9/L 05/11/2024 2:42 PM CDT [facility] RBC Count 4.83 4.30 - 5.80 x10E12/L 05/11/2024 2:42 PM CDT [facility] Hemoglobin 14.5 13.3 - 17.5 g/dL 05/11/2024 2:42 PM [facility] Hematocrit 42.0 38.7 - 51.1 % 05/11/2024 2:42 PM [facility] MCV 87.0 80.0 - 98.0 fL 05/11/2024 2:42 PM [facility] MCH 30.0 26.7 - 33.6 pg 05/11/2024 2:42 PM [facility] MCHC 34.5 31.7 - 36.3 g/dL 05/11/2024 2:42 PM [facility] RDW-CV 12.0 11.3 - 14.8 % 05/11/2024 2:42 PM [facility] Platelet Count 260 150 - 420 x10E9/L 05/11/2024 2:42 PM [facility] MPV 9.9 7.8 - 11.4 fL 05/11/2024 2:42 PM [facility] Blood BLOOD SPECIMEN / Unknown Lab Venipuncture / Unknown 05/11/2024 1:46 PM CDT 05/11/2024 2:10 PM CDT Khadijah Busch MD LAB - HEMATOLOGY ORD ERABLES [facility] [address] [place] [phone], [facility] [phone] * (ABNORMAL) COMPREHENSIVE METABOLIC PANEL (05/11/2024 1:46 PM CDT) Only the most recent of15 resultswithin the time period is included. BUN 13 7 - 26 mg/dL 05/11/2024 2:40 PM [facility] Creatinine 1.01 0.71 - 1.16 mg/dL 05/11/2024 2:40 PM [facility] Sodium 139 136 - 145 mmol/L 05/11/2024 2:40 PM [facility] Potassium 4.4 3.5 - 4.5 mmol/L 05/11/2024 2:40 PM [facility] Chloride 103 98 - 107 mmol/L 05/11/2024 2:40 PM [facility] CO2 30(H) 22 - 29 mmol/L 05/11/2024 2:40 PM [facility] Glucose 91 70 - 99 mg/dL 05/11/2024 2:40 PM [facility] Calcium 9.5 8.4 - 10.2 mg/dL 05/11/2024 2:40 PM [facility] Protein Total 7.4 6.0 - 8.3 g/dL 05/11/2024 2:40 PM [facility] Albumin 4.2 3.4 - 5.0 g/dL 05/11/2024 2:40 PM [facility] Bilirubin Total 0.4 0.2 - 1.2 mg/dL 05/11/2024 2:40 PM [facility] Alkaline Phosphatase 67 40 - 150 U/L 05/11/2024 2:40 PM [facility] ALT 8 5 - 55 U/L 05/11/2024 2:40 PM [facility] AST 13 5 - 34 U/L 05/11/2024 2:40 PM [facility] Anion Gap 6 6 - 16 05/11/2024 2:40 PM [facility] BUN/Creatinine Ratio 13 7 - 23 05/11/2024 2:40 PM [facility] Osmolality Calculated 288 275 - 295 mOsm/kg 05/11/2024 2:40 PM [facility] Albumin/Globulin Ratio 1.3 1.1 - 2.3 05/11/2024 2:40 PM [facility] eGFR by CKD-EPI >90 >=90 mL/min/1.7 3 m2 05/11/2024 2:40 PM [facility] Blood BLOOD SPECIMEN / Unknown Lab Venipuncture / Unknown 05/11/2024 1:46 PM CDT 05/11/2024 2:10 PM CDT Khadijah Busch MD LAB - CHEMISTRY ORDE JOAO [facility] Organization Address City/State/ZIP Co de Phone Number [facility] [address] [place] [address], [facility] [phone] * VITAMIN B12 (05/11/2024 1:46 PM CDT) Only the most recent of2 resultswithin the time period is included. Vitamin B12 750 213 - 816 pg/mL 05/11/2024 3:06 PM CDT [facility] Blood BLOOD SPECIMEN / Unknown Lab Venipuncture / Unknown 05/11/2024 1:46 PM CDT 05/11/2024 2:10 PM CDT Khadijah Busch MD LAB - CHEMISTRY ORDMundo SHEPHERD [facility] [address] [place] [address], [place] [phone] * IRON + TRANSFERRIN PANEL (05/11/2024 1:46 PM CDT) Only the most recent of2 resultswithin the time period is included. Iron 96 50 - 175 ug/dL 05/11/2024 2:33 PM CDT [facility] Transferrin 233 174 - 382 mg/dL 05/11/2024 2:33 PM CDT [facility] Transferrin Saturation % 33 16 - 50 % 05/11/2024 2:33 PM CDT [facility] TIBC Calculated 291 240 - 450 ug/dL 05/11/2024 2:33 PM CDT [facility] Blood BLOOD SPECIMEN / Unknown Lab Venipuncture / Unknown 05/11/2024 1:46 PM CDT 05/11/2024 2:05 PM CDT Khadijah Busch MD LAB - CHEMISTRY MANFRED SHEPHERD [facility] [address] [place] [address], [place] [phone] * (ABNORMAL) FERRITIN (05/11/2024 1:46 PM CDT) Only the most recent of2 resultswithin the time period is included. Ferritin 331(H) 22 - 275 ng/mL 05/11/2024 2:51 PM CDT [facility] Blood BLOOD SPECIMEN / Unknown Lab Venipuncture / Unknown 05/11/2024 1:46 PM CDT 05/11/2024 2:05 PM CDT Khadijah Busch MD LAB - CHEMISTRY MANFRED Willard Organization Address City/State/ZIP Co de Phone Number [facility] [address] [place] [address], [facility] [phone] * IMMUNOSCORE IGE INTERP (04/27/2024 3:32 PM CDT) Only the most recent of2 resultswithin the time period is included. [facility] Signature Immunocap Score See Note 10:20 AM CDT [facility] ([facility]) Comment: REFERENCE INTERVAL: Allergen, Interpretation Less than [...] clinical allergy or even anaphylaxis. Performed By: [facility] [employer] [address] [place] [address] Analysis Lead: Cullen Bower MD, PhD CLIA Number: [id number] Blood BLOOD SPECIMEN / Unknown Lab Venipuncture / Unknown 04/27/2024 3:32 PM CDT 04/27/2024 3:58 PM CDT Yonatan Allen MD LAB - SEROLOGY ORDER DAVID Performing Organization Address [facility] de Phone Number [facility]) [address] [place] [address] * LAB MISC TEST (04/27/2024 3:32 PM CDT) Only the most recent of3 resultswithin the time period is included. Test Name ALLERGEN BIRCH IGE 05/06/2024 12:31 PM CDT [facility] Test Result See Scanned Report 05/06/2024 12:31 PM CDT [facility] Blood BLOOD SPECIMEN / Unknown Lab Venipuncture / Unknown 04/27/2024 3:32 PM CDT 04/27/2024 3:58 PM CDT Yonatan Allen MD LAB SEND OUT Performing Organization Address [facility] [place] [address] * (ABNORMAL) ALLERGEN FOOD SEAFOOD PROFILE (04/27/2024 3:32 PM CDT) Only the most recent of3 resultswithin the time period is included. Allergen Lobster <0.10 <=0.34 kU/L 04/29/2024 10:13 AM CDT [facility] ([facility]) Allergen Codfish 1.56(H) <=0.34 kU/L 04/29/2024 10:13 AM CDT [facility] ([facility]) Allergen Crab 0.11 <=0.34 kU/L 04/29/2024 10:13 AM CDT [facility] ([facility]) Allergen Shrimp 0.33 <=0.34 kU/L 04/29/2024 10:13 AM CDT [facility] ([facility]) Allergen Tuna 0.70(H) <=0.34 kU/L 04/29/2024 10:13 AM CDT [facility] ([facility]) Immunocap Score See Note 10:13 AM CDT [facility] ([facility]) Comment: REFERENCE INTERVAL: Allergen, Interpretation Less than [...] clinical allergy or even anaphylaxis. Performed By: [employer] [address] [place] [id number] Analysis Lead: Cullen Bower MD, PhD CLIA Number: [id number] Blood BLOOD SPECIMEN / Unknown Lab Venipuncture / Unknown 04/27/2024 3:32 PM CDT 04/27/2024 3:58 PM CDT Yonatan Allen MD LAB - CHEMISTRY MANFRED SHEPHERD [facility] Organization Address City/State/ZIP Co de Phone Number [facility] ([facility]) [address] [place] [address], [facility] * (ABNORMAL) ALLERGEN RESPIRATORY P[place] REGION 8 ([place]) (04/27/2024 3:32 PM CDT) Only the most recent of2 resultswithin the time period is included. IgE Total 278(H) <=214 kU/L 04/29/2024 10:16 AM CDT [facility] ([facility]) Comment: REFERENCE INTERVAL: Immunoglobulin E, Serum Access complete set of age- and/or gender-specific reference intervals for this test in the [facility] Laboratory Test Directory ([employer]). Allergen Eller Elder 5.53(H) <=0.34 kU/L 04/29/2024 10:16 AM CDT [facility] ([facility]) Allergen Alternaria alternata 0.98(H) <=0.34 kU/L 04/29/2024 10:16 AM CDT [facility] ([facility]) Allergen [place] Maple 19.80(H) <=0.34 kU/L 04/29/2024 10:16 AM CDT [facility] ([facility]) Allergen Cat Dander 1.18(H) <=0.34 kU/L 04/29/2024 10:16 AM CDT [facility] ([facility]) Allergen Mountain Gardner 7.01(H) <=0.34 kU/L 04/29/2024 10:16 AM CDT [facility] ([facility]) Allergen Hood Tree 14.00(H) <=0.34 kU/L 04/29/2024 10:16 AM CDT [facility] ([facility]) Allergen Rough Pigweed 15.50(H) <=0.34 kU/L 04/29/2024 10:16 AM CDT [facility] ([facility]) Allergen Nigerien Thistle 9.89(H) <=0.34 kU/L 04/29/2024 10:16 AM CDT [facility] ([facility]) Allergen Chago Grass 18.00(H) <=0.34 kU/L 04/29/2024 10:16 AM CDT [facility] ([facility]) Allergen Hormodendrum 1.04(H) <=0.34 kU/L 04/29/2024 10:16 AM CDT [facility]) Allergen Elm 21.00(H) <=0.34 kU/L 04/29/2024 10:16 AM CDT [facility]) Allergen Deltaville 16.90(H) <=0.34 kU/L 04/29/2024 10:16 AM CDT [facility] ([facility]) Allergen A fumigatus IgE 0.58(H) <=0.34 kU/L 04/29/2024 10:16 AM CDT [facility] ([facility]) Allergen Dermatophagoides pteronyssinus 0.36(H) <=0.34 kU/L 04/29/2024 10:16 AM CDT [facility] ([facility]) Allergen Dermatophagoides farinae 0.45(H) <=0.34 kU/L 04/29/2024 10:16 AM CDT [facility]) Allergen Bermuda Grass 21.70(H) <=0.34 kU/L 04/29/2024 10:16 AM CDT [facility]) Allergen White Noel 28.20(H) <=0.34 kU/L 04/29/2024 10:16 AM CDT [facility]) Allergen P. Notatum 0.57(H) <=0.34 kU/L 04/29/2024 10:16 AM CDT [facility]) Allergen Common Ragweed 14.50(H) <=0.34 kU/L 04/29/2024 10:16 AM CDT [facility]) Allergen Cockroach Lao 0.22 <=0.34 kU/L 04/29/2024 10:16 AM CDT [facility] ([facility]) Allergen Medimont Tree 13.80(H) <=0.34 kU/L 04/29/2024 10:16 AM CDT [facility]) Allergen Bland Tree 23.40(H) <=0.34 kU/L 04/29/2024 10:16 AM CDT [facility] ([facility]) Allergen Pecan Tree 18.80(H) <=0.34 kU/L 04/29/2024 10:16 AM CDT [facility] ([facility]) Allergen Mouse Epithelium IgE <0.10 <=0.34 kU/L 04/29/2024 10:16 AM CDT [facility] ([facility]) Allergen Mucor racemosus 1.01(H) <=0.34 kU/L 04/29/2024 10:16 AM CDT [facility] ([facility]) Allergen White Point Baker Tree IgE 3.60(H) <=0.34 kU/L 04/29/2024 10:16 AM CDT [facility] ([facility]) Allergen Dog Dander 1.71(H) <=0.34 kU/L 04/29/2024 10:16 AM CDT [facility] ([facility]) Comment: Performed By: [place] [address] Analysis Lead: Cullen Bower MD, PhD CLIA Number: [id number] Blood BLOOD SPECIMEN / Unknown Lab Venipuncture / Unknown 04/27/2024 3:32 PM CDT 04/27/2024 3:58 PM CDT Yonatan Allen MD LAB - CHEMISTRY MANFRED SHEPHERD [facility] Organization Address City/State/ZIP Co de Phone Number [facility]) [address] [place] [address], [facility] * URINALYSIS - POINT OF CARE (AMB) [facility] (03/03/2024 9:23 AM CDT) Specific [place] UA 1.[address] [facility] [address] pH [...] MD LAB - POINT OF CARE ORDERABLES [facility] [place] [id number] [facility] [place] [address], [facility] [phone] * XR CHEST 2VW (01/26/2024 4:11 PM CDT) Only the most recent of6 resultswithin the time period is included. Anatomical Region Laterality Modality Chest Radiographic Jermain ging 01/27/2024 10:4 4 AM CDT Impressions 01/27/2024 3:02 PM CDT IMPRESSION: No acute pulmonary process. Report dictated by Keo Justin MD (interventional radiology technologist). Naresh Diana MD have personally reviewed and interpreted this examination/study. > Interpreting Provider: Naresh Jean MD on 01/27/2024 3:02 PM Narrative 01/27/2024 3:02 PM CDT PROCEDURE: ??XR CHEST 2VW, DATE/TIME OF EXAM: ??01/26/2024 4:11 PM, LOCATION [facility] INDICATION: R21: Rash and other nonspecific skin eruption COMPARISON: None. TECHNIQUE: Frontal and lateral radiographs of the chest. FINDINGS: There is no focal consolidation, pleural effusion, or pneumothorax. The cardiomediastinal silhouette is normal. The visible bony thorax is intact. Procedure Note Naresh Jean MD - 01/27/2024 PROCEDURE: XR CHEST 2VW, DATE/TIME OF EXAM: 01/26/2024 4:11 PM, LOCATION [facility] INDICATION: R21: Rash and other nonspecific skin eruption COMPARISON: None. TECHNIQUE: Frontal and lateral radiographs of the chest. FINDINGS: There is no focal consolidation, pleural effusion, or pneumothorax. The cardiomediastinal silhouette is normal. The visible bony thorax is intact. IMPRESSION: No acute pulmonary process. Report dictated by Keo Justin MD (interventional radiology technologist). Naresh Diana MD have personally reviewed and interpreted this examination/study. > Interpreting Provider: Naresh Jean MD on 01/27/2024 3:02 PM Arnav Flores MD DIAGNOSTIC IMAGING O RDERABLES * HEPATITIS C AB SCREEN RFLX NAAT QUANT (01/26/2024 4:00 PM CDT) Hepatitis C Antibody Non-react cindy Non-reac tive 01/26/2024 5:14 PM CDT [facility] [facility] Comment:Hepatitis C Antibody screen indicates [...] Flores MD LAB - CHEMISTRY MANFRED SHEPHERD [facility] Organization Address City/State/[facility] Co de Phone Number [facility] [address] [place] [address], [facility] [phone] * ZINC BLOOD (01/26/2024 4:00 PM CDT) Pathologist [facility] Zinc 80.9 60.0 - 120.0 ug/dL 01/28/2024 3:28 PM CDT [facility] ([facility]) Comment: INTERPRETIVE INFORMATION: Zinc, Serum or Plasma [...] developed and its performance characteristics determined by [employer]. It has not been cleared or approved by the US Food and Drug Administration. This test was performed in a CLIA certified laboratory and is intended for clinical purposes. Performed By: [email or web address] [address] [place] [address] Analysis Lead: Cullen Bower MD, PhD CLIA Number: [id number] Blood BLOOD SPECIMEN / Unknown Lab Venipuncture / Unknown 01/26/2024 4:00 PM CDT 01/26/2024 4:40 PM CDT Arnav Flores MD LAB - CHEMISTRY ORDMundo SHEPHERD Performing Organization Address [facility] Co de Phone Number [facility]) [address] [place] [address] * VITAMIN C (01/26/2024 4:00 PM CDT) [facility] Vitamin C 40 23 - 114 umol/L 01/30/2024 11:41 AM CDT [facility] ([facility]) Comment: Vitamin C concentrations lower than 11 umol/L indicate deficiency. Concentrations between 11 and 23 umol/L are consistent with a moderate risk of deficiency due to inadequate tissue stores. Vitamin C concentration is reported as micromoles per liter (umol/L). To convert concentration to milligrams per deciliter (mg/dL), multiply the result by 0.0176. This test was developed and its performance characteristics determined by [employer]. It has not been cleared or approved by the US Food and Drug Administration. This test was performed in a CLIA certified laboratory and is intended for clinical purposes. Performed By: [employer] [address] [place] [address] Analysis Lead: Cullen Bower MD, PhD CLIA Number: [id number] Blood BLOOD SPECIMEN / Unknown Lab Venipuncture / Unknown 01/26/2024 4:00 PM CDT 01/26/2024 4:22 PM CDT Arnav Flores MD LAB - CHEMISTRY MANFRED SHEPHERD Performing Organization Address [facility] Co de Phone Number [facility]) [address] [place] [address] * VITAMIN D 1,25 DIHYDROXY (01/26/2024 4:00 PM CDT) [facility] Vitamin D, 1,25 Dihydroxy 40.4 19.9 - 79.3 pg/mL 01/29/2024 3:51 AM CDT [facility] ([facility]) Comment: INTERPRETIVE INFORMATION: Vitamin D, 1,25-Dihydroxy This test is primarily indicated during patient evaluation for hypercalcemia and renal failure. A normal result does not rule out Vitamin D deficiency. The recommended test for diagnosing Vitamin D deficiency is Vitamin D 25-hydroxy. Performed By: [employer] [address] [place] [address] Analysis Lead: Cullen Bower MD, PhD CLIA Number: [id number] Blood BLOOD SPECIMEN / Unknown Lab Venipuncture / Unknown 01/26/2024 4:00 PM CDT 01/26/2024 4:41 PM CDT Arnav Flores MD LAB - CHEMISTRY MANFRED SHEPHERD [facility]) [address] [place] [address], [facility] * (ABNORMAL) HEPATITIS B SURFACE ANTIBODY (01/26/2024 4:00 PM CDT) Only the most recent of2 resultswithin the time period is included. [facility] Hepatitis B Virus Surface Antibody Reactive( A) Non-react cindy 01/26/2024 5:14 PM CDT [facility] Comment: > 12 mIU/mL Hepatitis B surface Antibody (HBsAb). Reactive for HBsAb - individual is considered immune to Hepatitis B Virus infection. Hepatitis B Surface Antibody Quantitative 18.9(H) <8.0 mIU/mL 01/26/2024 5:14 PM CDT [facility] Comment: Hepatitis B Surface Antibody Numeric Result Interpretation: ? Nonreactive: ?<8.0 mIU/mL ? Indeterminate: ??8.0 - 12.0 mIU/mL ? Reactive: ?>12.0 mIU/mL ? Blood BLOOD SPECIMEN / Unknown Lab Venipuncture / Unknown 01/26/2024 4:00 PM CDT 01/26/2024 4:41 PM CDT Arnav Flores MD LAB - CHEMISTRY MANFRED SHEPHERD Performing Organization Address City/[facility]/ZIP Co de Phone Number [address] [address], [facility] [phone] * HEPATITIS B CORE ANTIBODY TOTAL (01/26/2024 4:00 PM CDT) [facility] HBc Antibody Total Non-reacti ve Non-reacti ve 01/26/2024 5:14 PM CDT [facility] Blood BLOOD SPECIMEN / Unknown Lab Venipuncture / Unknown 01/26/2024 4:00 PM CDT 01/26/2024 4:41 PM CDT Arnav Flores MD LAB - CHEMISTRY MANFRED SHEPHERD Performing Organization Address [facility]/ZIP Co de Phone Number [address] [address], [place] [phone] * HEPATITIS B SURFACE ANTIGEN W RFLX CONFIRMATION (01/26/2024 4:00 PM CDT) Only the most recent of3 resultswithin the time period is included. [facility] Hepatitis B Virus Surface Antigen Non-reacti ve Non-reacti ve 01/26/2024 5:14 PM CDT [facility] Blood BLOOD SPECIMEN / Unknown Lab Venipuncture / Unknown 01/26/2024 4:00 PM CDT 01/26/2024 4:41 PM CDT Arnav Flores MD LAB - CHEMISTRY MANFRED SHEPHERD Performing Organization Address City/[facility]/ZIP Co de Phone Number [address] [address], [place] [phone] * TSH (01/26/2024 4:00 PM CDT) Only the most recent of2 resultswithin the time period is included. TSH 0.548 0.350 - 4.940 uIU/mL 01/26/2024 5:13 PM CDT [facility] Blood BLOOD SPECIMEN / Unknown Lab Venipuncture / Unknown 01/26/2024 4:00 PM CDT 01/26/2024 4:24 PM CDT Arnav Flores MD LAB - CHEMISTRY MANFRED SHEPHERD [facility] Organization Address City/State/ZIP Co de Phone Number [address] [address], [facility] [phone] * PROTEIN ELECTROPHORESIS BLOOD (01/26/2024 4:00 PM CDT) Interpretation Serum PE Normal Pattern Normal Pattern 01/27/2024 4:09 PM T [facility] Comment: Serum capillary electrophoresis shows characteristic bands corresponding to albumin, alpha and beta globulins and polyclonal immunoglobulins. No monoclonal immunoglobulin detected. Non-secretory myeloma (NSM) and light chain only myeloma cannot be excluded based on this result. ??Recommend serum free light chain measurements for complete evaluation of plasma cell disorders. ?? Kalpana Gilmore PhD, [facility] Clinical Software Engineer delivery truck driver Marisel Jensen MD Attending Physician Department of Pathology Transfusion Medicine *The electrophoresis pattern and the interpretation have been reviewed and verified by the teaching physician. Protein Total 7.7 6.0 - 8.3 g/dL 01/27/2024 4:09 PM [facility] Albumin 4.5 3.3 - 5.6 g/dL 01/27/2024 4:09 PM [facility] Alpha-1 Globulins 0.3 0.2 - 0.4 g/dL 01/27/2024 4:09 PM T [facility] Alpha-2 Globulins 0.6 0.5 - 1.0 g/dL 01/27/2024 4:09 PM [facility] Beta Globulins 1.0 0.6 - 1.1 g/dL 01/27/2024 4:09 PM [facility] Gamma Globulins 1.3 0.6 - 1.6 g/dL 01/27/2024 4:09 PM T [facility] Blood BLOOD SPECIMEN / Unknown Lab Venipuncture / Unknown 01/26/2024 4:00 PM CDT 01/26/2024 4:41 PM CDT Arnav Flores MD LAB - CHEMISTRY MANFRED SHEPHERD [address] [address], [facility] [phone] * ENDOSCOPY, COLON, DIAGNOSTIC (08/12/2023 2:02 PM [facility]) Report Endoscopy POC Endoscopy Department Report _ [...] and ?oxygen saturations were monitored continuously. The ?[id number] was introduced through the anus and ?advanced to the terminal ileum. The colonoscopy was ?somewhat difficult due to a tortuous colon. The ?patient tolerated the procedure well. The quality ?of the bowel preparation was evaluated using the ?BBPS ([place] Bowel Preparation Scale) with scores ?of: Right [...] Procedure Code(s): ? --- Professional --- ? 00180, Colonoscopy, flexible; with biopsy, single or multiple Diagnosis Code(s): ?--- Professional --- ?K63.3, Ulcer of intestine ?K62.89, Other specified diseases of anus and rectum ?K50.10, Crohn's disease of large intestine without ?complications CPT copyright 2021 [employer]. All rights reserved. The codes documented in this report are preliminary and upon securities lending trader review may be revised to meet current compliance requirements. Gloria Lawrence MD ([facility]) 08/12/2023 2:52:19 PM Note Initiated On: 08/12/2023 2:02 PM Number of Addenda: 0 ? [facility] ? [address] [place], [place] [id number] [place] [address] PROVATION 08/12/2023 2:02 PM [facility] Gloria Lawrence MD GI PROCEDURE MANFRED SHEPHERD [facility] PROVATION * PATHOLOGY TISSUE (08/12/2023 1:52 PM [facility]) Case Report Surgical Pathology Report ? Case: [id number] ? Authorizing Provider: ??Gloria Lawrence MD ?? [...] left colon biopsies ? 08/13/2023 4:18 PM [facility] PATHOLOGY LAB Final Diagnosis Esophagus, distal, biopsy [...] - Negative for CMV 08/13/2023 4:18 PM [facility] PATHOLOGY LAB Microscopic Description and Comment Microscopic examination substantiates the final diagnosis. An immunostain for CMV was performed (block E1; appropriately staining controls) and is negative 08/13/2023 4:18 PM [facility] PATHOLOGY LAB Clinical History The patient is [...] rectum, segment score 0 08/13/2023 4:18 PM [facility] PATHOLOGY LAB Gross Description The requisition and [...] in cassette E1. GW 08/13/2023 4:18 PM [facility] PATHOLOGY LAB Pathologist Location [facility] 08/13/2023 4:18 PM [facility] PATHOLOGY LAB Disclaimer The performance characteristics of all immunohistochemical and indirect immunofluorescence stains (if any) cited in this report were determined by the Histopathology Laboratory of [facility]. Some of these tests were developed by [...] the attending (teaching) pathologist. 08/13/2023 4:18 PM [facility] PATHOLOGY LAB Embedded Images 08/13/2023 4:18 PM [facility] PATHOLOGY LAB Biopsy, NOS REGION OF ESOPHAGUS / Unknown 08/12/2023 1:52 PM [facility] 08/12/2023 3:06 PM [facility] Biopsy, NOS REGION OF ESOPHAGUS / Unknown 08/12/2023 1:54 PM [facility] 08/12/2023 3:06 PM [facility] Biopsy, NOS SMALL BOWEL RESECTION SPECIMEN / Unknown 08/12/2023 2:27 PM [facility] 08/12/2023 3:06 PM [facility] Biopsy, NOS (Large Intestine, Right/Ascending Colon) 08/12/2023 2:30 PM [facility] 08/12/2023 3:06 PM [facility] Biopsy, NOS (Large Intestine, Left/Descending Colon) 08/12/2023 2:34 PM [facility] 08/12/2023 3:06 PM [facility] Gloria Lawrence MD LAB - PATHOLOGY/C YTOLOGY ORDERABLES [facility] [address] [place] [address], [facility] [phone] * EGD (08/12/2023 1:17 PM [facility]) Report Endoscopy POC Endoscopy Department Report __ [...] Procedure Code(s): ? --- Professional --- ? 11072, Esophagogastroduode noscopy, flexible, transoral; with ? transendoscopic balloon dilation of esophagus (less than 30 mm diameter) Diagnosis Code(s): ?--- Professional --- ?K20.0, Eosinophilic esophagitis CPT copyright 2021 [employer]. All rights reserved. The codes documented in this report are preliminary and upon securities lending trader review may be revised to meet current compliance requirements. Gloria Lawrence MD ([facility]) 08/12/2023 2:06:12 PM Note Initiated On: 08/12/2023 1:17 PM Number of Addenda: 0 ? [facility] ? [address] [place], [place] [phone] [place] [address] PROVATION 08/12/2023 1:17 PM [facility] Gloria Lawrence MD GI PROCEDURE MANFRED SHEPHERD [facility] [employer] * QUANTIFERON-TB GOLD PLUS 4-TUBE (06/25/2023 10:44 AM [facility]) Only the most recent of2 resultswithin the time period is included. [facility] Signature QuantiFERON NIL 0.01 IU/mL 5:56 AM [facility] ([facility]) Comment: Performed By: [employer] [address] [place] [id number] Analysis Lead: Cullen Bower MD, PhD CLIA Number: [id number] QuantiFERON TB Gold Plus Negative Negative 06/28/2023 5:56 AM [facility] ([facility]) Comment: Interpretive Data: Quantiferon TB Gold Plus [...] Mycobacterium tuberculosis Infection --- [place], 2010 (http://www.cdc.gov/mmwr/preview/mmwrhtml/kn7602i3.htm), for more information concerning test performance in low-prevalence populations and use in occupational screening. QuantiFERON Plus TB1 Minus NIL 0.00 0.00 - 0.34 IU/mL 06/28/2023 5:[address] [facility] ([facility]) QuantiFERON Plus TB2 Minus NIL 0.00 0.00 - 0.34 IU/mL 06/28/2023 5:56 AM [facility]) QuantiFERON Mitogen Minus NIL >10.00 IU/mL 06/28/2023 5:56 AM [facility]) Blood BLOOD SPECIMEN / Unknown Lab Venipuncture / Unknown 06/25/2023 10:44 AM [facility] 06/25/2023 11:17 AM [facility] Gloria Lawrence MD LAB - CHEMISTRY O RDERABLES [facility]) [address] * LIPID PROFILE (06/25/2023 10:44 AM [facility]) Cholesterol Total 189 <200 mg/dL 06/25/2023 11:58 AM [facility] HDL 80 >40 mg/dL 06/25/2023 11:58 AM [facility] Comment: ATP III Classification of HDL Cholesterol: ? <40 mg/dL: ??Considered a major risk factor. ? >60 mg/dL: ??Considered a negative risk factor. ? LDL Calculated 99 <100 mg/dL 06/25/2023 11:58 AM [facility] Comment: ATP III Classification of LDL [...] Triglycerides 50 <150 mg/dL 06/25/2023 11:58 AM [facility] Comment: ATP III Classification of Triglycerides: ?<150 mg/dL: ??Normal ? 150 - 199 mg/dL: ??Borderline High ? 200 - 400 mg/dL: ??High ?>500 mg/dL: ??Very High Blood BLOOD SPECIMEN / Unknown Lab Venipuncture / Unknown 06/25/2023 10:44 AM [facility] 06/25/2023 11:23 AM [facility] Gloria Lawrecne MD LAB - CHEMISTRY O RDERABLES Performing Organization Address [facility]/State/[facility] Phone Number [facility] [address] [place] [address], [facility] [phone] * ETT LINE PERFORMABLE (03/05/2023 12:53 PM CDT) Narrative Luis Felipe Celaya Anes Asst - 03/05/2023 12:53 PM CDT Luis Felipe Celaya Anes Asst ? 03/05/2023 12:53 PM Endotracheal Tube Placement: ? Patient Location: OR. Intubation Event Date/Time: ??03/05/2023 12:39 PM Procedure: intubation (70431). Procedure Section: ?? Sedation: under general anesthesia. [...] 12:39 PM. Staff Section ? Anesthesia Provider: Luis Felipe Celaya Anes Asst, Performed the procedure [...] change in hearing is suspected. Zoran Friedman. [facility] Clinical Reception Centre Manager [facility]-Department of Otolaryngology/Audiology Center for [facility] Medicine/[facility] [address] [place] [address] ([facility] [place]) [place] [address] Keerthi Meehan AUDIOLOGY SERVICES O RDERABLES * [...] > Dictated by Danny Marie DO, MD (interventional radiology technologist). I, Carolyn Villasenor MD have personally reviewed and interpreted this examination/study. 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 I, Carolyn Villasenor MD have personally reviewed [...] ?? Report dictated by Danny Marie DO (interventional radiology technologist). I, Carolyn Villasenor MD have personally reviewed [...] procedure. Report dictated by Danny Marie DO (interventional radiology technologist). I, Carolyn Villasenor MD have personally reviewed [...] DATE/TIME OF EXAM: ??10/07/2022 4:12 PM, LOCATION ??[facility] INDICATION: M25.511: Acute pain of right [...] DATE/TIME OF EXAM: 10/07/2022 4:12 PM, LOCATION [facility] INDICATION: M25.511: Acute pain of right [...] Attending MD: Luli Merida MD Order #: [id number] ? _ Procedure: ? Colonoscopy Indications: ? [...] Procedure Code(s): ? --- Professional --- ? 01847, Colonoscopy, flexible; with biopsy, single or multiple ? --- Technical --- ? 21785, Colonoscopy, flexible; with biopsy, single or multiple Diagnosis Code(s): ? --- Professional --- ? K50.80, Crohn's disease of both small and large intestine without ? complications ? --- Technical --- ? K50.80, Crohn's disease of both small and large intestine without ? complications CPT copyright 2017 [employer]. All rights reserved. The codes documented in this report are preliminary and upon securities lending trader review may be revised to meet current compliance requirements. Dr. Luli Merida MD ____ Luli Merida MD 02/17/2019 11:34:56 AM Number of Addenda: 0 Note Initiated On: 02/14/2019 2:51 PM Procedure Date: ? 02/17/2019 2:51:00 PM ? This report has been signed electronically. [facility] 02/17/2019 2:51 PM CDT Luli Merida MD GI PROCEDURE ORDERAB LES [facility] [address] [facility] [place] [address] * EGD (02/17/2019 2:51 PM CDT) Report Endoscopy POC _ Patient Name: Misha Valiente ? Date of : 2000 ?Admit Type: Outpatient Age: 18 ? Gender: Male Race: Black or ? Attending MD: Luli Merida MD Order #: [id number] ? _ Procedure: ? Upper GI endoscopy [...] Procedure Code(s): ? --- Professional --- ? 31380, Esophagogastroduo denoscopy, flexible, transoral; with biopsy, ? single or multiple ? --- Technical --- ? 27703, Esophagogastroduo denoscopy, flexible, transoral; with biopsy, ? single or multiple Diagnosis Code(s): ? --- Professional --- ? K50.90, Crohn's disease, unspecified, without complications ? K20.0, Eosinophilic esophagitis ? --- Technical --- ? K50.90, Crohn's disease, unspecified, without complications ? K20.0, Eosinophilic esophagitis CPT copyright 2017 [employer]. All rights reserved. The codes documented in this report are preliminary and upon securities lending trader review may be revised to meet current compliance requirements. Dr. Luli Merida MD ____ Luli Merida MD 02/17/2019 11:30:24 AM Number of Addenda: 0 Note Initiated On: 02/14/2019 2:51 PM Procedure Date: ? 02/17/2019 2:51:00 PM ? This report has been signed electronically. [facility] 02/17/2019 2:51 PM CDT Luli Merida MD GI PROCEDURE ORDERAB LES Performing Organization Address [facility] de Phone Number [facility] [address] [place] [address] * HELICOBACTER PYLORI UREASE (STL) (02/17/2019 10:42 AM CDT) Only the most recent of4 resultswithin the time period is included. Helicobacter pylori Urease Initial Negative Negative 02/18/2019 11:17 AM CDT [facility] Helicobacter pylori Urease Final Negative Negative 02/18/2019 11:17 AM CDT [facility] Comment:This is an appended report. These results have been appended to a previously preliminary verified report. Microbiology GASTRIC BIOPSY SPECIMEN / Unknown Collection / Unknown 02/17/2019 10:42 AM CDT 02/17/2019 10:50 AM CDT Luli Merida MD LAB - MICROBIOLOGY O RDERABLES Performing Organization Address [facility] Co de Phone Number [facility] [address] [place] [address] * GROSS + MICRO EXAM (STL) (02/17/2019 10:35 AM CDT) Only the most recent of9 resultswithin the time period is included. Case Report Surgical Pathology Report ? Case: [id number] ? Authorizing Provider: ??Luli Merida MD ?Collected: [...] - Rectosigmoid Biopsy ? 02/18/2019 5:06 PM [facility] Final Diagnosis Esophagus, distal, biopsy (A): [...] dysplasia - See comment 02/18/2019 5:06 PM [facility] Clinical History The patient is a 18-year-old man with eosinophilic esophagitis and Crohn's disease who underwent upper endoscopy and colonoscopy. The findings were esophageal edema and furrows, mild duodenal erythema and moderate gastric erythema. 02/18/2019 5:06 PM [facility] Gross Description The specimens are received [...] toto as G1. (CT/me) 02/18/2019 5:06 PM [facility] Microscopic Description 21 H&E slides examined. [...] for mildly active IBD. 02/18/2019 5:06 PM [facility] Disclaimer The performance characteristics of all immunohistochemical and indirect immunofluorescence stains (if any) cited in this report were determined by the Histopathology Laboratory of [facility] in compliance with Clinical Laboratory Improvement Amendments of 1988 (CLIA'88) regulations. Some of these tests rely on the use of analyte-specific reagents and are subject to specific labeling requirements by the U.S. Food and Drug Administration (FDA). Such tests were developed by the Histopathology Laboratory of [facility] and have not been cleared or approved by the FDA. The FDA has determined that such clearance or approval is not necessary. These tests are used for clinical purposes and should not be regarded as investigational or for research. This case has been personally reviewed and interpreted by the attending (teaching) pathologist. The interpretation of this case is performed by [facility] Pathology at [facility], [address] [facility], [place] [address]. 02/18/2019 5:06 PM CDT [facility] Embedded Images 02/18/2019 5:06 PM CDT [facility] Pathology/Cytology ESOPHAGEAL BIOPSY SPECIMEN / [...] Merida MD LAB - PATHOLOGY/CYTO LOGY ORDERABLES [facility] [address] [place] [address] * US ABDOMEN LIMITED (10/08/2018 5:29 PM [...] CULTURE MYCOPLASMA HOMINIS+UREAPLASMA CULTURE (09/03/2018 11:23 AM [facility]) Source URINE [facility] Status FINAL [facility] Mycoplasma hominis NOT ISOLATED [facility] Ureaplasma Species NOT ISOLATED [facility] Comment: REFERENCE RANGE: NOT ISOLATED Test Performed at: [facility] [address] [place] [address] ??[phone] Claudia ALONSO Microbiology URINE / Unknown 09/03/2018 1 1:23 AM [facility] 09/04/2018 5:10 AM [facility] Olena Neal [facility] LAB - MICROBIOLO GY ORDERABLES Performing Organization Address [facility] de Phone Number [facility] [address] [place] [address] * URINALYSIS W/MICROSCOPIC NO CULTURE (09/03/2018 11:23 AM [facility]) Color UA YELLOW YELLOW [facility] Appearance CLEAR CLEAR [facility] Specific [place] UA 1.020 1.001 - 1.035 [facility] pH [...] SEEN /LPF [facility] Comment: Test Performed at: [facility] [place], [place] ??[phone] RONALD VALDEZ DO,MPH Urine URINE SPECIMEN OBTAINED BY CLEAN CATCH PROCEDURE / Unknown 09/03/2018 11:23 AM [facility] 09/04/2018 5:10 AM [facility] Olena Neal [facility] - URINALYSIS ORDERABLES Performing Organization Address [facility] de Phone Number [facility] [address] [place] [address] * CHLAMYDIA + GC AMPLIFIED PROBE (09/03/2018 11:23 AM [facility]) Chlamydia trachomatis RNA NOT DETECTED NOT DETECTED [facility] GC RNA NOT DETECTED NOT DETECTED [facility] Please Note [facility] Comment: This test was performed using the APTIMA COMBO2 Assay ([employer] The analytical performance characteristics of this assay, when used to test SurePath specimens have been determined by [employer]. ?? Test Performed at: [facility] [place], [place] ??[id number] RONALD VALDEZ DO,MPH Microbiology URINE / Unknown 09/03/2018 1 1:23 AM [facility] 09/04/2018 5:10 AM [facility] Olena Neal PUTTY PATCHER-MANUFACTURING QUALITY INSPECTOR LAB - MICROBIOLO GY ORDERABLES [facility] [address] [place] [address] * ADALIMUMAB CONCENTRATION AND ANTIBODY (08/26/2018 12:51 PM [facility]LE [facility]ER) Adalimumab Level 11 ug/mL 09/02/19 19 11:06 PM [facility] ([facility]) Comment: In the presence of serum [...] Anti-Adalimumab Antibody <25 ng/mL 09/02/2018 11:06 PM [facility] ([facility]) Comment: Interpretation: Anti-adalimumab antibodies are UNDETECTED. [...] Lab Venipuncture / Unknown 08/26/2018 12:51 PM [facility] 08/26/2018 1:23 PM [facility] Narrative [facility] ([facility]) - 09/02/2018 11:06 PM [facility] Performed at: ??01 - [facility] [address] [place] [address] ??[id number] Residential Program Manager: Tee Stafford MD, Phone: ??[phone] Luli Merida MD LAB - CHEMISTRY MANFRED JEFFREYFALLON [facility] ([facility]) [address] [place] [address] * ERYTHROCYTE SEDIMENTATION RATE (08/26/2018 12:51 PM [facility]ER) Only the most recent of9 resultswithin the time period is included. [facility] Erythrocyte Sedimentation Rate Automated 9 0 - 15 MM/HR 08/26/2018 1:41 PM [facility] Blood BLOOD SPECIMEN / Unknown Lab Venipuncture / Unknown 08/26/2018 12:51 PM [facility] 08/26/2018 1:23 PM [facility] Luli Merida MD LAB - HEMATOLOGY MONSERRAT SOTO [facility] [address] [place] [address] * QUANTIFERON TB-GOLD INC (03/26/2018 3:44 PM CDT) Only the most recent of2 resultswithin the time period is included. [facility] QuantiFERON TB Gold Negative Negative 04/01/2018 4:09 AM CDT [facility] ([facility]) Comment: The specimen received for QuantiFERON testing was incubated by the ordering institution. ??Specific procedures outlined in our Directory of Services and in the package insert for the QuantiFERON Gold (In Tube) test must be followed to enable for proper stimulation of cells for the production of interferon gamma. QuantiFERON Criteria Comment 04/01/2018 4:09 AM CDT [facility] ([facility]) Comment: To be considered positive a [...] 0.02 IU/mL 04/01/2018 4:09 AM CDT [facility] ([facility]) QuantiFERON Nil Value 0.01 IU/mL 04/01/2018 4:09 AM CDT [facility] ([facility]) QuantiFERON Mitogen Value >10.00 IU/mL 04/01/2018 4:09 AM CDT [facility] ([facility]) QFT TB Ag Minus Nil Value IU/mL 0.01 IU/mL 04/01/2018 4:09 AM CDT [facility] ([facility]) Interpretation Comment 04/01/2018 4:09 AM CDT [facility] ([facility]) Comment: The QuantiFERON TB Gold (in [...] to cdc.gov/tb for further details. Effective fall, LabDECA number [id number] QuantiFERON Client ??Incubated with three tube collection kit will be made non-orderable ??following depletion of collection and testing kits. *[employer] offers [id number] QuantiFERON-TB Plus (Client Incubated)* ??with four tube collection kit. Blood BLOOD SPECIMEN / Unknown Lab Venipuncture / Unknown 03/26/2018 3:44 PM CDT 03/26/2018 4:12 PM CDT Narrative [facility] ([facility]) - 04/01/2018 4:09 AM CDT Performed at: ??01 - [address] ??[id number] Residential Program Manager: Gold Naranjo PhD, Phone: ??[phone] Luli Merida MD LAB - SEROLOGY ORDER DAVID [facility] ([facility]) [address] [place] [address] * MRI PELVIS WWO CONTRAST (02/24/2018 8:05 [...] Attending MD: Luli Merida MD ??Order #: [id number] _ Procedure: ? Colonoscopy Indications: ? Follow-up [...] Procedure Code(s): ? --- Professional --- ? 43240, Colonoscopy, flexible; with biopsy, single or multiple ? --- Technical --- ? 87725, Colonoscopy, flexible; with biopsy, single or multiple Diagnosis Code(s): ? --- Professional --- ? K63.89, Other specified diseases of intestine ? K50.10, Crohn's disease of large intestine without complications ? --- Technical --- ? K63.89, Other specified diseases of intestine ? K50.10, Crohn's disease of large intestine without complications CPT copyright 2015 [employer]. All rights reserved. The codes documented in this report are preliminary and upon securities lending trader review may be revised to meet current compliance requirements. Dr. Luli Merida MD ___ Luli Merida MD 01/07/2018 10:56:10 AM Number of Addenda: 0 Note Initiated On: 01/05/2018 9:57 AM Procedure Date: ? 01/07/2018 9:57:00 AM ? This report has been signed electronically. [facility] 01/07/2018 9:57 AM CDT Luli Merida MD GI PROCEDURE ORDERAB LES [facility] [address] [place] [address] * EGD (01/07/2018 9:57 AM CDT) Report Endoscopy POC _ Patient Name: Misha Valiente ? Date of : 2000 ?Admit Type: Outpatient Age: 17 ? Gender: Male Attending MD: Luli Merida MD ??Order #: [id number] _ Procedure: ? Upper GI endoscopy Indications: [...] Procedure Code(s): ? --- Professional --- ? 83666, Esophagogastroduo denoscopy, flexible, transoral; with biopsy, ? single or multiple ? --- Technical --- ? 46272, Esophagogastroduo denoscopy, flexible, transoral; with biopsy, ? [...] ? K20.0, Eosinophilic esophagitis CPT copyright 2015 [employer]. All rights reserved. The codes documented in this report are preliminary and upon securities lending trader review may be revised to meet current compliance requirements. Dr. Luli Merida MD ____ Luli Merida MD 01/07/2018 10:53:56 AM Number of Addenda: 0 Note Initiated On: 01/05/2018 9:57 AM Procedure Date: ? 01/07/2018 9:57:00 AM ? This report has been signed electronically. [facility] 01/07/2018 9:57 AM CDT Luli Merida MD GI PROCEDURE ORDERAB LES Performing Organization Address [facility] Co de Phone Number [facility] [address] [place] [address] * (ABNORMAL) OCCULT BLOOD FECES (11/10/2017 5:26 PM CDT) Occult Blood Positive(A ) Negative 11/10/2017 5:47 PM CDT [facility] Stool STOOL SPECIMEN / Unknown Collection / Unknown 11/10/2017 5:26 PM CDT 11/10/2017 5:43 PM CDT Demetrius Vasquez MD LAB - BODY FLUID ORD ERABLES Performing Organization Address [facility] Co de Phone Number [facility] [address] [place] [address] * XR ABD OBSTRUCTION SERIES 2VW (09/20/2017 3:05 PM CDT) Only the most recent of2 resultswithin the time period is included. Anatomical Region Laterality Modality Abdomen Radiographic Jermain ging 09/21/2017 7:33 AM CDT Impressions 09/21/2017 9:16 AM CDT Nonobstructive bowel gas pattern. Mild right lumbar scoliosis. Dictated by Nadia Wilson MD (interventional radiology technologist). I, Waldo West, have personally reviewed the [...] lumbar scoliosis. Dictated by Nadia Wilson MD (interventional radiology technologist). I, Waldo West, have personally reviewed the images and I agree with this report. Madai Cota PUTTY PATCHER-MANUFACTURING QUALITY INSPECTOR DIAGNOS TIC IMAGING ORDERABLES * TYPE + SCREEN PANEL (07/05/2017 10:38 PM [facility]) ABO O 07/06/2017 12:03 AM [facility] Rh Type Positive 07/06/2017 12:03 AM [facility] Comment:History check perfor med. Retype required. Antibody Screen Negative 07/06/2017 12:03 AM [facility] Blood Bank BLOOD SPECIMEN / Unknown Venipuncture / Unknown 07/05/2017 10:38 PM [facility] 07/05/2017 11:16 PM [facility] Milagros Geller DO LAB - BLOOD BANK ORD ERABLES [facility] [address] [place] [address] * PT PTT PANEL (07/05/2017 10:38 PM [facility]) Only the most recent of3 resultswithin the time period is included. PT 10.5 9.5 - 11.6 sec 07/05/2017 11:14 PM [facility] INR 1.0 0.9 - 1.1 07/05/2017 11:14 PM [facility] PTT 25.7 21.0 - 32.0 sec 07/05/2017 11:14 PM [facility] Blood BLOOD SPECIMEN / Unknown Venipuncture / Unknown 07/05/2017 10:38 PM [facility] 07/05/2017 10:54 PM [facility] LABORAT[facility] - 07/05/2017 11:14 PM [facility] Conventional Warfarin Anticoagulant Therapy: INR Reference Range: ??2.0-3.0 Intensive Warfarin Anticoagulant Therapy: INR Reference Range: ? 2.5-3.5 Heparin Therapeutic Range for PTT: 47.7 - 68.6 seconds. Milagros Geller DO LAB - COAGULATION OR DERABLES Performing Organization Address City/State/[facility] Co de Phone Number [facility] [address] [place], [place] [id number] * BASIC METABOLIC PANEL (CALCIUM TOTAL) (07/05/2017 10:38 PM [facility]) Only the most recent of2 resultswithin the time period is included. Pathologist [facility] Glucose 93 70 - 105 mg/dL 07/05/2017 11:14 PM [facility] Sodium 141 136 - 145 mmol/L 07/05/2017 11:14 PM [facility] Potassium 4.7 3.5 - 5.1 mmol/L 07/05/2017 11:14 PM [facility] Chloride 102 98 - 107 mmol/L 07/05/2017 11:14 PM [facility] CO2 29 22 - 29 mmol/L 07/05/2017 11:14 PM [facility] Calcium 9.64 9.08 - 10.48 mg/dL 07/05/2017 11:14 PM [facility] Anion Gap 10 5 - 20 mmol/L 07/05/2017 11:14 PM [facility] BUN 17.3 5.3 - 18.7 mg/dL 07/05/2017 11:14 PM [facility] Creatinine 1.01 0.61 - 1.07 mg/dL 07/05/2017 11:14 PM [facility] eGFR by MDRD >60 >60 mL/min/1.7 3m2 07/05/2017 11:14 PM [facility] eGFR by MDRD >60 >60 mL/min/1.7 3m2 07/05/2017 11:14 PM [facility] Blood BLOOD SPECIMEN / Unknown Venipuncture / Unknown 07/05/2017 10:38 PM [facility] 07/05/2017 10:49 PM [facility] Milagros Geller DO LAB - CHEMISTRY ORDMundo SHEPHERD Performing Organization Address [facility]/ZIP Co de Phone Number [facility] [address] [place] [address] * GGT (07/02/2017 2:00 PM [facility]ER) GGT 17 8 - 69 U/L 07/02/2017 3:01 PM [facility] Blood BLOOD SPECIMEN / Unknown Lab Venipuncture / Unknown 07/02/2017 2:00 PM [facility] 07/02/2017 2:27 PM [facility] Luli Merida MD LAB - CHEMISTRY MANFRED SHEPHERD Performing Organization Address [facility] Co de Phone Number [facility] [address] [place] [address] * HEPATIC FUNCTION PANEL (03/14/2017 11:24 AM CDT) Alkaline Phosphatase 120 39 - 139 U/L 03/14/2017 12:08 PM T [facility] ALT 19 6 - 46 U/L 03/14/2017 12:08 PM T [facility] AST 22 8 - 42 U/L 03/14/2017 12:08 PM T [facility] Protein Total 7.4 6.3 - 8.2 gm/dL 03/14/2017 12:08 PM T [facility] Albumin 4.1 3.3 - 4.9 gm/dL 03/14/2017 12:08 PM CDT [facility] Bilirubin Total 0.5 0.3 - 1.2 mg/dL 03/14/2017 12:08 PM CDT [facility] Bilirubin Direct 0.20 0.11 - 0.64 mg/dL 03/14/2017 12:08 PM CDT [facility] Blood BLOOD SPECIMEN / Unknown Lab Venipuncture / Unknown 03/14/2017 11:24 AM CDT 03/14/2017 11:32 AM CDT Luli Merida MD LAB - CHEMISTRY MANFRED SHEPHERD [facility] [address] [facility] [place] [address] * EGD (01/01/2017 9:33 AM CDT) Report Endoscopy POC _ Patient Name: Misha Valiente ? Date of : 2000 ?Admit Type: Outpatient Age: 16 ? Gender: Male Attending MD: Luli Merida MD ??Order #: [id number] _ Procedure: ? Upper GI endoscopy Indications: [...] Procedure Code(s): ? --- Professional --- ? 12345, Esophagogastroduo denoscopy, flexible, transoral; with biopsy, ? single or multiple ? --- Technical --- ? 99293, Esophagogastroduo denoscopy, flexible, transoral; with biopsy, ? single or multiple Diagnosis Code(s): ? --- Professional --- ? K50.90, Crohn's disease, unspecified, without complications ? --- Technical --- ? K50.90, Crohn's disease, unspecified, without complications CPT copyright 2015 [employer]. All rights reserved. The codes documented in this report are preliminary and upon securities lending trader review may be revised to meet current compliance requirements. Dr. Luli Merida MD ____ Luli Merida MD 01/01/2017 10:37:59 AM Number of Addenda: 0 Note Initiated On: 12/31/2016 9:33 AM Procedure Date: ? 01/01/2017 9:33:00 AM ? This report has been signed electronically. [facility] 01/01/2017 9:33 AM CDT Luli Merida MD GI PROCEDURE ORDERAB LES [facility] [address] [place] [address] * ENDOSCOPY, COLON, DIAGNOSTIC (01/01/2017 9:32 AM CDT) Report Endoscopy POC _ Patient Name: Misha Valiente ? Date of : 2000 ?Admit Type: Outpatient Age: 16 ? Gender: Male Attending MD: Luli Merida MD ??Order #: [id number] _ Procedure: ? Colonoscopy Indications: ? Follow-up [...] Procedure Code(s): ? --- Professional --- ? 06833, Colonoscopy, flexible; with biopsy, single or multiple ? --- Technical --- ? 00274, Colonoscopy, flexible; with biopsy, single or multiple Diagnosis Code(s): ? --- Professional --- ? K50.90, Crohn's disease, unspecified, without complications ? --- Technical --- ? K50.90, Crohn's disease, unspecified, without complications CPT copyright 2015 [employer]. All rights reserved. The codes documented in this report are preliminary and upon securities lending trader review may be revised to meet current compliance requirements. Dr. Luli Merida MD ____ Luli Merida MD 01/01/2017 10:43:12 AM Number of Addenda: 0 Note Initiated On: 12/31/2016 9:32 AM Procedure Date: ? 01/01/2017 9:32:00 AM ? This report has been signed electronically. [facility] 01/01/2017 9:32 AM CDT Luli Merida MD GI PROCEDURE ORDERAB LES Performing Organization Address City/State/[facility] Co de Phone Number [facility] [address] [place] [address] * XR LUMBAR SPINE 2 OR 3 VW (11/12/2016 9:09 PM CDT) Anatomical Region Laterality Modality Spine Radiographic Jermain ging 11/13/2016 7:32 AM CDT Impressions 11/13/2016 8:08 AM CDT Normal lumbar alignment without acute compression deformity. loss of lumbar lordosis may represent muscular spasm Dictated by Curly Jorge MD (interventional radiology technologist). I, Waldo West, have personally reviewed the [...] muscular spasm Dictated by Curly Jorge MD (interventional radiology technologist). I, Waldo West, have personally reviewed the images and I agree with this report. Chago Torres PUTTY PATCHER-MANUFACTURING QUALITY INSPECTOR DIAGNOSTIC JERMAIN GING ORDERABLES * ALLERGEN EGG IGE COMPONENT PROFILE (10/27/2016 11:53 AM CDT) Allergen Egg White <0.10 <=0.34 kU/L 10/31/2016 5:37 PM CDT [facility] ([facility]) Allergen Ovomucoid <0.10 <=0.34 kU/L 10/31/2016 5:37 PM CDT [facility] ([facility]) Allergen Ovalbumin <0.10 <=0.34 kU/L 10/31/2016 5:37 PM CDT [facility] ([facility]) Allergen Egg Whole <0.10 <=0.34 kU/L 10/31/2016 5:37 PM CDT [facility] ([facility]) Comment: Performed by [facility], [address] [place] [id number] [email or web address], Jose Turk MD, Lab. Director Blood BLOOD SPECIMEN / Unknown Lab Venipuncture / Unknown 10/27/2016 11:53 AM CDT 10/27/2016 12:17 PM CDT Elliott Valdez MD LAB - SEROLOGY ORDER DAVID Performing Organization Address [facility] de Phone Number [facility] ([facility]) [address] * (ABNORMAL) ALLERGEN MILK IGE COMPONENT PROFILE (REF) (10/27/2016 11:53 AM CDT) Allergen Alpha Lactalbumin 0.59(H) <=0.34 kU/L 10/31/2016 5:37 PM CDT [facility] ([facility]) Allergen Beta Lactoglobulin <0.10 <=0.34 kU/L 10/31/2016 5:37 PM CDT [facility] ([facility]) Allergen Casein 0.16 <=0.34 kU/L 10/31/2016 5:37 PM CDT [facility] ([facility]) Allergen Milk (Cow) 0.57(H) <=0.34 kU/L 10/31/2016 5:37 PM CDT [facility] ([facility]) Comment: Performed by [facility], [address] [place] [address] [email or web address], Jose Turk MD, Lab. Director Blood BLOOD SPECIMEN / Unknown Lab Venipuncture / Unknown 10/27/2016 11:53 AM CDT 10/27/2016 12:17 PM CDT Elliott Valdez MD LAB - SEROLOGY ORDER DAVID Performing Organization Address [facility] de Phone Number [facility] ([facility]) [address] * (ABNORMAL) ALLERGEN PEANUT COMPONENT PANEL (10/27/2016 11:53 AM CDT) Allergen Peanut 19.90(H) <=0.34 kU/L 10/31/2016 5:32 PM CDT [facility] ([facility]) Comment: Allergen results of 0.10-0.34 kU/L [...] 1 0.12(H) <=0.09 kU/L 10/31/2016 5:32 PM [facility] Allergen Severe Peanut [place] H 2 0.75(H) <=0.09 kU/L 10/31/2016 5:32 PM CDT [facility] ([facility]) Allergen Severe Peanut [place] H 3 <0.10 <=0.09 kU/L 10/31/2016 5:32 PM CDT [facility] ([facility]) Allergen Severe Peanut [place] H 9 3.90(H) <=0.09 kU/L 10/31/2016 5:32 PM CDT [facility] ([facility]) Allergen Mild Peanut [place] H 8 3.27(H) <=0.09 kU/L 10/31/2016 5:32 PM [facility] ([facility]) Interpretation Allergen Peanut Components See Note 10/31/2016 5:32 PM T [facility] ([facility]) Comment: Severe Risk: Mari[place] h 1, 2, 3, and 9 are the peanut proteins most linked to systemic allergic reactions. If any one of these four components is positive, the patient has a high risk of systemic allergic reaction when exposed to peanuts, regardless of the whole peanut allergen result. EER Allergen Peanut Components See Note 10/31/2016 5:32 PM T [facility] ([facility]) Comment: Access [facility] Enhanced Report using either link below: -Direct access: [email or web address] -Enter Username, Password: [email or web address] Username: [email or web address] Password: [email or web address] Performed by [facility] [employer], [address] [place] [id number] [email or web address], Jose Turk MD, Lab. Director Blood BLOOD SPECIMEN / Unknown Lab Venipuncture / Unknown 10/27/2016 11:53 AM CDT 10/27/2016 12:17 PM CDT Elliott Valdez MD LAB - CHEMISTRY ORDE JOAO Performing Organization Address [facility] de Phone Number [email or web address] ([facility]) [address] [place] [address] * (ABNORMAL) ALLERGEN WALNUT (F4) IGE (10/27/2016 11:53 AM CDT) Allergen Bland 5.73(H) <=0.34 kU/L 10/31/2016 5:32 PM CDT [facility] ([facility]) Comment: Performed by [employer], [address] [place] [address] [email or web address], Jose Turk MD, Lab. Director Blood BLOOD SPECIMEN / Unknown Lab Venipuncture / Unknown 10/27/2016 11:53 AM CDT 10/27/2016 12:17 PM CDT Elliott Valdez MD LAB - SEROLOGY ORDER DAVID Performing Organization Address [facility] de Phone Number [email or web address] [facility] ([facility]) [address] [place] [address] * (ABNORMAL) ALLERGEN ALMOND IGE (10/27/2016 11:53 AM CDT) Allergen Inglewood 3.17(H) <=0.34 kU/L 10/31/2016 5:32 PM CDT [facility] ([facility]) Comment: Performed by [employer], [address] [place] [address] [email or web address], Jose Turk MD, Lab. Director Blood BLOOD SPECIMEN / Unknown Lab Venipuncture / Unknown 10/27/2016 11:53 AM CDT 10/27/2016 12:16 PM CDT Elliott Valdez MD LAB - CHEMISTRY ORDE JOAO Performing Organization Address [facility] Co de Phone Number [email or web address] [facility] ([facility]) [address] * (ABNORMAL) ALLERGEN CASHEW IGE (10/27/2016 11:53 AM CDT) Allergen Cashew 1.77(H) <=0.34 kU/L 10/31/2016 5:32 PM CDT [facility] ([facility]) Comment: Performed by [employer], [address] [place] [address] [email or web address], Jose Turk MD, Lab. Director Blood BLOOD SPECIMEN / Unknown Lab Venipuncture / Unknown 10/27/2016 11:53 AM CDT 10/27/2016 12:17 PM CDT Elliott Valdez MD LAB - SEROLOGY ORDER DAVID Performing Organization Address City/[facility]/ZIP Co de Phone Number [email or web address] [facility] ([facility]) [address] [place] [address] * (ABNORMAL) ALLERGEN HAZELNUT IGE (10/27/2016 11:53 AM CDT) Allergen Hazelnut 8.91(H) <=0.34 kU/L 10/31/2016 5:38 PM CDT [facility] ([facility]) Comment: Performed by [employer], [address] [place] [address] [email or web address], Jose Turk MD, Lab. Director Blood BLOOD SPECIMEN / Unknown Lab Venipuncture / Unknown 10/27/2016 11:53 AM CDT 10/27/2016 12:17 PM CDT Elliott Valdez MD LAB - SEROLOGY ORDER DAVID [facility] ([facility]) [address] [place] [address] * (ABNORMAL) ALLERGEN BRAZIL NUT IGE (10/27/2016 11:53 AM CDT) Allergen [place] Nut 0.37(H) <=0.34 kU/L 10/31/2016 5:32 PM CDT [facility] ([facility]) Comment: Performed by [employer], [address] [place] [address] www.[email or web address], Jose Turk MD, Lab. Director Blood BLOOD SPECIMEN / Unknown Lab Venipuncture / Unknown 10/27/2016 11:53 AM CDT 10/27/2016 12:16 PM CDT Elliott Valdez MD LAB - SEROLOGY ORDER DAVID Performing Organization Address [facility] de Phone Number [facility] ([facility]) [address] [place] [address] * (ABNORMAL) ALLERGEN WHEAT IGE (10/27/2016 11:53 AM CDT) Allergen Wheat 6.11(H) <=0.34 kU/L 10/31/2016 5:32 PM CDT [facility] ([facility]) Comment: Performed by [employer], [address] [place] [address] [email or web address], Jose Turk MD, Lab. Director Blood BLOOD SPECIMEN / Unknown Lab Venipuncture / Unknown 10/27/2016 11:53 AM CDT 10/27/2016 12:17 PM CDT Elliott Valdez MD LAB - SEROLOGY ORDER DAVID Performing Organization Address [facility] Phone Number [facility] ([facility]) [address] [place] [address] * CULTURE STOOL+ E COLI SHIGA-LIKE TOXIN (08/09/2015 6:24 PM [facility]) Culture No growth Salmonella, Shigella, Campylobacter , E. coli 0157:h7 or Yersinia CIRA 08/12/2015 7:30 AM [facility] Culture Negative E. coli Shiga-like toxin (NM) CIRA 08/12/2015 7:30 AM [facility] Stool STOOL SPECIMEN / Unknown Collection / Unknown 08/09/2015 6:24 PM [facility] 08/09/2015 7:13 PM [facility] Pardeep Rodgers MD LAB - MICROBIOLOGY O RDERABLES Performing Organization Address City/[facility]/ZIP Co de Phone Number [facility] [address] [place] [address], [facility] [phone] * CLOSTRIDIUM DIFFICILE GDH AG + TOXIN A+B (08/09/2015 6:24 PM [facility]) Only the most recent of3 resultswithin the time period is included. GDH Antigen Negative Negative, Invalid 08/10/2015 5:49 AM [facility]CROBIOLOG[facility] C difficile Toxin A + B Negative Negative, Invalid 08/10/2015 5:49 AM [facility] Interpretation C difficile Negative for toxigenic C. difficile Negative for toxigenic C. difficile 08/10/2015 5:49 AM [facility] MICROBIOLOGY Stool STOOL SPECIMEN / Unknown Collection / Unknown 08/09/2015 6:24 PM [facility] 08/09/2015 7:14 PM [facility] Pardeep Rodgers MD LAB - MICROBIOLOGY O RDERABLES Performing Organization Address [facility] de Phone Number [facility] [address] [place] [address], [facility] [phone] * THIOPURINE METH TRANSFERASE (04/24/2015 3:32 PM CDT) Pathologist [facility] Thiopurine Methyltransferase 24.8 U/mL 04/28/2015 12:47 PM CDT [facility] ([facility]) Comment: INTERPRETIVE INFORMATION: Thiopurine Methyltransferase, RBC [...] handling. Test developed and characteristics determined by [employer]. See Compliance Statement B: [email or web address] Blood specimen (specimen) BLOOD SPECIMEN / Unknown Lab Venipuncture / Unknown 04/24/2015 3:32 PM CDT 04/24/2015 4:55 PM CDT Pardeep Rodgers MD LAB - CHEMISTRY MANFRED [facility] Organization Address City/State/ZIP Co de Phone Number [facility] ([facility]) [address] * (ABNORMAL) CBC NO DIFFERENTIAL (04/24/2015 3:32 PM CDT) [facility] WBC 7.1 4.5 - 14.5 x10^9/L 04/24/2015 5:02 PM CDT [facility] RBC 4.82 4.50 - 5.30 x10^12/L 04/24/2015 5:02 PM CDT [facility] Hemoglobin 14.5 13.0 - 16.0 gm/dL 04/24/2015 5:02 PM CDT [facility] Hematocrit 41.4 37.0 - 49.0 % 04/24/2015 5:02 PM CDT [facility] MCV 85.9 78.0 - 98.0 fl 04/24/2015 5:02 PM CDT [facility] MCH 30.1 25.0 - 35.0 pg 04/24/2015 5:02 PM CDT [facility] MCHC 35.0 31.0 - 37.0 gm/dL 04/24/2015 5:02 PM CDT [facility] Platelet Count 306 100 - 400 x10^9/L 04/24/2015 5:02 PM CDT [facility] RDW-CV 12.7 11.5 - 14.0 % 04/24/2015 5:02 PM CDT [facility] MPV 9.6(H) 6.0 - 9.5 fl 04/24/2015 5:02 PM CDT [facility] Blood BLOOD SPECIMEN / Unknown Lab Venipuncture / Unknown 04/24/2015 3:32 PM CDT 04/24/2015 4:45 PM CDT Pardeep Rodgers MD LAB - HEMATOLOGY ORD ERABLES [facility] [place] [address] * EGD (01/23/2015 5:35 AM CDT) Report Endoscopy POC _ Patient Name: Misha Valiente ?Gender: Male ?Date of : 2000 Age: 14 ? Admit Type: Outpatient Attending MD: Pardeep Rodgers MD ?Order #: [id number] _ Procedure: ? Upper GI endoscopy Indications: [...] Procedure Code(s): ? --- Professional --- ? 21966, Esophagogastrodu odenoscopy, flexible, transoral; with biopsy, ? single or multiple ? --- Technical --- ? 58389, Esophagogastrodu odenoscopy, flexible, transoral; with biopsy, ? single or multiple Diagnosis Code(s): ? --- Professional --- ? 530.19, Other esophagitis ? 578.1, Blood in stool ? --- Technical --- ? 530.19, Other esophagitis ? 578.1, Blood in stool CPT copyright 2013 [employer]. All rights reserved. The codes documented in this report are preliminary and upon securities lending trader review may be revised to meet current compliance requirements. Dr. Pardeep Rodgers Pardeep Rodgers MD 01/23/2015 11:18 AM This report has been signed electronically. Number of Addenda: 0 Note Initiated On: 01/23/2015 5:35 AM Procedure Date: ? 01/23/2015 5:35:00 AM ? This report has been signed electronically. [facility] 01/23/2015 5:35 AM CDT Pardeep Rodgers MD GI PROCEDURE ORDERAB LES [facility] [address] [place] [address] * ENDOSCOPY, COLON, DIAGNOSTIC (01/23/2015 5:33 AM CDT) Report Endoscopy POC _ Patient Name: Misha Valiente ?Gender: Male ?Date of : 2000 Age: 14 ? Admit Type: Outpatient Attending MD: Pardeep Rodgers MD ?Order #: [id number] _ Procedure: ? Colonoscopy Indications: ? Hematochezia [...] Procedure Code(s): ? --- Professional --- ? 65129, Colonoscopy, flexible, proximal to splenic flexure; with biopsy, ? single or multiple ? --- Technical --- ? 28944, Colonoscopy, flexible, proximal to splenic flexure; with biopsy, ? single or multiple Diagnosis Code(s): ? --- Professional --- ? 569.89, Other specified disorders of intestine ? 578.1, Blood in stool ? --- Technical --- ? 569.89, Other specified disorders of intestine ? 578.1, Blood in stool CPT copyright 2013 [employer]. All rights reserved. The codes documented in this report are preliminary and upon securities lending trader review may be revised to meet current compliance requirements. Dr. Pardeep Rodgers Pardeep Rodgers MD 01/23/2015 11:24 AM This report has been signed electronically. Number of Addenda: 0 Note Initiated On: 01/23/2015 5:33 AM Procedure Date: ? 01/23/2015 5:33:50 AM ? This report has been signed electronically. [facility] 01/23/2015 5:33 AM CDT Pardeep Rodgers MD GI PROCEDURE ORDERAB LES Performing Organization Address City/State/[facility] Co de Phone Number [facility] [address] [place] [address] * GROSS EXAM PATHOLOGY (STL) (12/05/2014 1:54 PM CDT) Case Report Surgical Pathology Report ? Case: [id number] ? Authorizing Provider: ??Estrella Corbin MD ? Collected: ? 12/05/2014 01:54 PM ? Ordering Location: ? [facility] ? Received: ?12/05/2014 02:15 PM ? Pathologist: ? Gely Moreira MD ? Specimen: ?Tonsil(s) ? 12/06/2014 7:32 AM T [facility] Final Diagnosis A. TONSILS, TONSILLECTOMY: ?? - PALATINE TONSILS (GROSS EXAMINATION ONLY) 12/06/2014 7:32 AM [facility] Clinical History Patient is a 16-1/2-year-old boy with adenotonsillar hypertrophy and obstructive sleep apnea who underwent tonsillectomy and adenoidectomy. 12/06/2014 7:32 AM T [facility] Gross Description Received fresh in [...] are taken. (SS/arm) 12/06/2014 7:32 AM CDT [facility] Disclaimer This case has been personally reviewed and interpreted by the attending (teaching) pathologist. 12/06/2014 7:32 AM CDT [facility] Pathology/Cytolo gy SPECIMEN FROM TONSIL / Unknown 12/05/2014 1:54 PM CDT 12/05/2014 2:15 PM CDT Estrella Corbin MD LAB - PATHOLOGY/CYTO LOGY ORDERABLES Performing Organization Address City/[facility] Phone Number [facility] [address] [place] [address] * US SCROTUM WITH DOPPLER (11/07/2014 4:39 [...] RFLX STREP A CULTURE (05/23/2014 11:26 AM [facility]) Strep A Rapid Negative Negative 05/23/2014 11:45 AM [facility] Microbiology ENTIRE THROAT (SURFACE REGION OF NECK) / Unknown 05/23/2014 11:26 AM [facility] 05/23/2014 11:35 AM [facility] Narrative [facility] - 05/23/2014 11:45 AM [facility] Test has reflexed to a Strep A culture. Abrahan Hyde MD LAB - MICROBIOLO GY ORDERABLES Performing Organization Address City/[facility]/ZIP Co de Phone Number [facility] [address] [place] [address] * CULTURE STREP GROUP A (05/23/2014 11:26 AM [facility]) Culture Negative for Beta Hemolytic Streptococcus Group A CIRA 05/25/2014 9:04 AM [facility] Microbiology ENTIRE THROAT (SURFACE REGION OF NECK) / Unknown 05/23/2014 11:26 AM [facility] 05/23/2014 11:35 AM [facility] Abrahan Hyde MD LAB - MICROBIOLO GY ORDERABLES [facility] [address] [place] [address], [facility] * FL UGI AND SMALL BOWEL SERIES [...] OXIDASE BURST ASSAY (02/13/2014 3:50 PM CDT) [facility] Signature Neutrophil Oxidative Burst See Note 02/16/2014 2:56 PM CDT [facility] ([facility]) Comment: ?DHR by Flow Cytometry ?Patient [...] (SI). Test developed and characteristics determined by [employer]. See Compliance Statement B: [employer]/ EER Neutrophil Oxidative Burst See Note 02/16/2014 2:56 PM CDT [facility] ([facility]) Comment: To download an enhanced report for this test go to: [email or web address] [email or web address] [email or web address] Blood specimen (specimen) BLOOD SPECIMEN / Unknown Lab Venipuncture / Unknown 02/13/2014 3:50 PM CDT 02/13/2014 4:42 PM CDT Thelma Portillo MD LAB - CHEMISTRY OR DERABLES [facility]) [address] * EGD (01/24/2014 9:39 AM CDT) Report Endoscopy POC _ Patient Name: Misha Valiente ?Gender: Male ?Date of : 2000 Age: 13 ? Admit Type: Inpatient Attending MD: Donovan Russell MD ?? Order #: [id number] _ Procedure: ? Upper GI endoscopy Indications: [...] Procedure Code(s): ? --- Professional --- ? 21663, Esophagogastroduo denoscopy, flexible, transoral; with biopsy, ? single or multiple ? --- Technical --- ? 03556, Esophagogastroduo denoscopy, flexible, transoral; with biopsy, ? [...] 786.59, Other chest pain CPT copyright 2013 [employer]. All rights reserved. The codes documented in this report are preliminary and upon securities lending trader review may be revised to meet current compliance requirements. Dr. Donovan Russell ____ Donovan Russell MD 01/24/2014 10:17 AM This report has been signed electronically. Number of Addenda: 0 Note Initiated On: 01/24/2014 9:39 AM Procedure Date: ? 01/24/2014 9:39:40 AM ? This report has been signed electronically. [facility] 01/24/2014 9:39 AM CDT Donovan Russell MD GI PROCEDURE ORDERA PORTILLO Performing Organization Address City/State/[facility] Co de Phone Number [facility] [address] [facility] [place] [address] * EKG 12-LEAD (01/20/2014 1:51 AM CDT) Narrative CG MUSE - 01/20/2014 1:51 AM CDT Grabiel Mooney MD ? 01/20/2014 ??1:51 AM Provider contact with the patient: 01/19/2014 ?21:45 Misha Valiente [id number] [facility] EMERGENCY [facility]PARTMENT History Chief Complaint Patient presents [...] triage about VS. I have read the resident/CASE WORKER history. ??Unless appended by me below, I [...] 100% Physical Exam I have reviewed the resident/CASE WORKER physical exam. Unless appended by me below, [...] (Bezet) 385 ms CG MUSE Calculated P [place] -9 degrees CG MUSE Calculated R [place] 24 degrees CG MUSE Calculated T [place] 41 degrees CG MUSE Interpretation EKG * Pediatric ECG Analysis * Sinus bradycardia Incomplete right bundle branch block No previous ECGs available Confirmed by LEOPOLDO PANG ([id number]) on 01/25/2014 10:02:02 AM CG MUSE 01/19/2014 [...] Attending MD: Pardeep Rodgers MD ?Order #: [id number] _ Procedure: ? Upper GI endoscopy Indications: [...] Procedure Code(s): ? --- Professional --- ? 67406, Esophagogastrodu odenoscopy, flexible, transoral; with biopsy, ? single or multiple ? --- Technical --- ? 90983, Esophagogastrodu odenoscopy, flexible, transoral; with biopsy, ? single or multiple Diagnosis Code(s): ? --- Professional --- ? 530.19, Other esophagitis ? 530.81, Esophageal reflux ? --- Technical --- ? 530.19, Other esophagitis ? 530.81, Esophageal reflux CPT copyright 2013 [employer]. All rights reserved. The codes documented in this report are preliminary and upon securities lending trader review may be revised to meet current compliance requirements. Dr. Pardeep Rodgers Pardeep Rodgers MD 01/02/2014 7:57 AM This report has been signed electronically. Number of Addenda: 0 Note Initiated On: 12/28/2013 2:38 PM Procedure Date: ? 01/02/2014 2:38:00 PM ? This report has been signed electronically. [facility] 01/02/2014 2:38 PM CDT Pardeep Rodgers MD GI PROCEDURE ORDERAB LES Performing Organization Address City/State/[facility] Co de Phone Number [facility] [address] [phone] * PATHOLOGY/CYTOLOGY REPORT ORDER (12/14/2012 7:44 AM [...] Urease Initial Negative 12/10/2012 10:39 AM CDT [facility] Comment:This is a corrected result. Previous result was Negative on 12/09/2012 at 1034 Helicobacter pylori Urease Final Negative Negative 12/10/2012 10:39 AM CDT [facility] Comment:This is an appended report. These results have been appended to a previously preliminary verified report. Miscellaneous samples (specimen) GASTRIC ANTRAL BIOPSY SPECIMEN / Unknown Collection / Unknown 12/09/2012 8:45 AM CDT 12/09/2012 9:16 AM CDT Pardeep Rodgers MD LAB - MICROBIOLOGY O RDERABLES [facility] [address] [place] [address] * EGD (12/08/2012 3:23 PM CDT) Report Endoscopy POC __ _ Patient Name: Misha Valiente ?Gender: Male ?Date of : 2000 Age: 12 ? Admit Type: Outpatient Attending MD: Pardeep Rodgers MD ?Order #: [id number] __ _ Procedure: ? Upper GI endoscopy [...] Procedure Code(s): ? --- Professional --- ? 53524, Upper gastrointestinal endoscopy including esophagus, stomach, ? and either the duodenum and/or jejunum as appropriate; with biopsy, ? single or multiple ? --- Technical --- ? 80816, Upper gastrointestinal endoscopy including esophagus, stomach, ? and either the duodenum and/or jejunum as appropriate; with biopsy, ? single or multiple Diagnosis Code(s): ? --- Professional --- ? 530.19, Other esophagitis ? 787.20, Dysphagia, unspecified ? --- Technical --- ? 530.19, Other esophagitis ? 787.20, Dysphagia, unspecified CPT (R) 2012 [employer]. All Rights Reserved. The codes documented in this report are preliminary and upon securities lending trader review may be revised to meet current compliance requirements. Dr. Pardeep Rodgers Pardeep Rodgers MD 12/09/2012 9:08 AM This report has been signed electronically. Number of Addenda: 0 Note Initiated On: 12/08/2012 3:23 PM Procedure Date: ? 12/08/2012 3:23:05 PM ? This report has been signed electronically. [facility] 12/08/2012 3:23 PM CDT Narrative [facility] - 12/09/2012 9:09 AM CDT Procedure Note Pardeep Rodgers MD - 12/09/2012 9:09 AM CDT Pardeep Rodgers MD GI PROCEDURE ORDERAB LES Performing Organization Address City/[facility]/ZIP Co de Phone Number [facility] [address] [place] [address] * XR ANKLE 3+ VW RIGHT (06/09/2012 9:07 AM [facility]) Only the most recent of2 resultswithin the time period is included. Anatomical Region Laterality Modality Lower Extremity Radiographic Jermain ging 06/09/2012 9:30 AM [facility] Impressions 06/09/2012 3:56 PM [facility] Casted ankle. Fibular avulsion is not visible. Dictated by David Hernández MD Narrative 06/09/2012 3:56 PM [facility] Exam: Right ankle, 3 views Comparison: May [...] Fibular avulsion is not visible. Dictated by aDvid Hernández MD Ron Morales MD DIAGNOSTIC IMAGING O RDERABLES * EGD (10/04/2011 8:45 AM CDT) Narrative Transcriptions Otto Campbell MD - 10/04/2011 8:44 AM CDT Otto Campbell MD GI PROCEDURE ORDERAB LES Performing Organization Address City/[facility]/ZIP Co de Phone Number [facility] [address] [place] [address] * GROSS + MICRO EXAM (10/04/2011 8:30 AM CDT) Only the most recent of3 resultswithin the time period is included. [facility] Clinical History [facility] Comment: The patient is a 11-year-old boy who underwent upper endoscopy with foreign body removal and biopsy. Gross Description [facility] Comment: The specimens are received fixed [...] in toto as E1. (CT/mal) Microscopic Examination [facility] Comment: A) 3 H+E, B) [...] with clusters of bacterial colonies. (SH/na) Diagnosis [facility] Comment: DIAGNOSIS: A. ? DUODENUM, [...] ? BACTERIAL COLONIES. COMMENT: The previous biopsy, [id number] was reviewed in conjunction with the current [...] and interpreted by the attending (teaching) pathologist. Physical Medicine Physician WILLIAM WYMAN, [facility] Pathologist Melly Elliott M.D.,Ph.D. [facility] Electronically Signed By MELLY ELLIOTT, [facility] PART OF DUODENUM / Unknown 10/04/2011 8:30 AM CDT 10/06/2011 6:38 AM CDT Pardeep Rodgers MD LAB - PATHOLOGY/CYTO LOGY ORDERABLES Performing Organization Address City/State/[facility] Co de Phone Number [facility] [address] [place] [address] * (ABNORMAL) CBC W MANUAL DIFFERENTIAL (10/03/2011 11:40 PM CDT) WBC 7.56 4.5 - 14.5 K/cumm [facility] RBC 4.59 4.50 - 5.30 mill/cumm [facility] Hemoglobin 13.4 13.0 - 16.0 gm/dl [facility] Hematocrit 38.5 37.0 - 49.0 % [facility] MCV 83.9 78.0 - 98.0 cu microns [facility] MCH 29.2 25.0 - 35.0 uug [facility] MCHC 34.8 31.0 - 37.0 % [facility] RDW 12.5 % [facility] MPV 9.6 fl [facility] Platelet Count 291 100 - 400 K/cumm [facility] Comment Manual Diff Done [facility] Neutrophils % Manual 29 24 - 66 % [facility] Lymphocytes % Manual 46 22 - 61 % [facility] Monocytes % Manual 14 3 - 15 % [facility] Eosinophils % Manual 11(H) 0 - 10 % [facility] RBC Morphology Slight Anisocytosis, Slight Poikylocytosis [facility] BLOOD SPECIMEN / Unknown 10/03/2011 11:40 PM CDT 10/03/2011 11:50 PM CDT Andrew Padilla MD LAB - HEMATOLOGY ORD ERABLES Performing Organization Address [facility] Co de Phone Number [facility] [address] [place] [address] * T4 TOTAL (04/09/2011 8:35 AM CDT) T4 Total 9.6 5.6 - 11.7 mcg/dl [facility] BLOOD SPECIMEN / Unknown 04/09/2011 8:35 AM CDT 04/09/2011 8:50 AM CDT Elliott Valdez MD LAB - CHEMISTRY ORDE JOAO Performing Organization Address [facility] de Phone Number [facility] [address] [place] [address] * CT HEAD NON CONTRAST (04/09/2011 8:31 [...] CDT) Allergen Alternaria alternata 2.28(H) <=0.34 KU/L [facility] Allergen Hormodendrum 1.97(H) <=0.34 [facility]U/L [facility] Allergen Aspergillus Fumigatus 2.59(H) <=0.34 KU/L [facility] Allergen P. Notatum 1.55(H) <=0.34 [facility]U/L [facility] Alelrgen Cat Dander 0.25 <=0.34 KU/L [facility] Allergen Dog Dander 2.53(H) <=0.34 [facility]/L [facility] Allergen Dermatophagoides pteronyssinus 0.63(H) <=0.34 KU/L [facility] Allergen Dermatophagoides farinae 0.65(H) <=0.34 [facility]/L [facility] Allergen Razia Grass 52.70(H) <=0.34 KU/L [facility] Allergen Chago Grass 47.30(H) <=0.34 KU/L [facility] Allergen Common Ragweed 44.00(H) <=0.34 KU/L [facility] Allergen D[place] 37.20(H) <=0.34 KU/L [facility] Allergen Elm 34.80(H) <=0.34 KU/L [facility] Allergen [place] Tree 15.30(H) <=0.34 KU/L [facility] Allergen Kent Tree 28.40(H) <=0.34 KU/L [facility] Allergen Hood Tree 29.40(H) <=0.34 KU/L [facility] Allergen Mountain Gardner 20.40(H) <=0.34 KU/L [facility] Allergen Cow Dander 0.72(H) <=0.34 KU/L [facility] Allergen Horse Dander 0.17 <=0.34 KU/L [facility] Allergen House Dust Matamoros 0.75(H) <=0.34 KU/L [facility] Allergen Cervantes's Quarters 32.60(H) <=0.34 KU/L [facility] Allergen Bermuda Grass 78.50(H) <=0.34 KU/L [facility] Allergen Monegasque Plantain 34.30(H) <=0.34 KU/L [facility] Allergen Riccardo Grass 23.80(H) <=0.34 KU/L [facility] Allergen Perennial [place] Grass 50.20(H) <=0.34 KU/L [facility] Allergen Nigerien Thistle 32.40(H) <=0.34 KU/L [facility] Allergen Mugwort 19.10(H) <=0.34 KU/L [facility] IgE Total 412(H) 0 - 120 IU/ml [facility] Immunocap Score KU/L [facility] Comment: REFERENCE INTERVAL: Allergen, Interpretation Less [...] allergy or even anaphylaxis. Comment Ref Lab [facility] Comment: TEST INFORMATION: Immunoglobulin E To convert to ng/mL, multiply IU/mL by 2.4. BLOOD SPECIMEN / Unknown 03/11/2011 5:50 PM CDT 03/11/2011 5:57 PM CDT Narrative [facility] - 03/15/2011 2:39 AM CDT 1 Resulting Agency Comment Performed By [employer] ? 500 [address] ? [place], [place] [address] Elliott Valdez MD LAB - SEROLOGY ORDER DAVID [facility] [address] [facility] [place] [address] * (ABNORMAL) ALLERGEN FOOD CEREAL PROFILE (03/11/2011 5:50 PM CDT) Allergen Barley 10.10(H) <=0.34 [facility] Allergen Gluten 7.98(H) <=0.34 [facility] Allergen Rice 10.80(H) <=0.34 [facility] Allergen [place] 11.30(H) <=0.34 [facility] Allergen Wheat 13.50(H) <=0.34 K[facility] Immunocap Score K[facility] Comment: REFERENCE INTERVAL: Allergen, [...] PM CDT 03/11/2011 5:57 PM CDT Narrative [facility] - 03/14/2011 4:26 PM CDT 1 Resulting Agency Comment Performed By [employer] ? [address] ? [place], [place] [address] Elliott Valdez MD LAB - SEROLOGY ORDER DAVID [facility] [address] [facility] [place] [address] * (ABNORMAL) ALLERGEN FOOD NUT MIX PROFILE (03/11/2011 5:50 PM CDT) Pathologist [facility] Allergen [place] 6.67(H) <=0.34 [facility] Allergen Coconut 9.60(H) <=0.34 [facility] Allergen Peanut 35.10(H) <=0.34 [facility] Allergen Pecan Nut 5.38(H) <=0.34 [facility] Allergen Sesame Seed 17.60(H) <=0.34 [facility] Immunocap Score [facility] Comment: REFERENCE INTERVAL: Allergen, [...] PM CDT 03/11/2011 5:57 PM CDT Narrative [facility] - 03/14/2011 4:25 PM CDT 1 Resulting Agency Comment Performed By [employer] ? [address] ? [place], [place] [address] Elliott Valdez MD LAB - CHEMISTRY MANFRED SHEPHERD [facility] [address] [facility] [place] [address] * ALLERGEN CHICKEN MEAT IGE (03/11/2011 5:50 PM CDT) Allergen Chicken Meat 0.20 <=0.34 [facility] Immunocap Score [facility] Comment: REFERENCE INTERVAL: Allergen, [...] PM CDT 03/11/2011 5:56 PM CDT Narrative [facility] - 03/14/2011 4:26 PM CDT 1 Resulting Agency Comment Performed By [employer] ? [address] ? [place], [place] [address] Elliott Valdez MD LAB - CHEMISTRY MANFRED SHEPHERD [facility] [address] [place] [address] * (ABNORMAL) ALLERGEN BANANA IGE (03/11/2011 5:50 PM CDT) Allergen Banana 18.30(H) <=0.34 K[facility] Immunocap Score KU/[facility] Comment: REFERENCE INTERVAL: Allergen, [...] PM CDT 03/11/2011 5:56 PM CDT Narrative [facility] - 03/14/2011 4:25 PM CDT 1 Resulting Agency Comment Performed By [employer] ? [address] ? [place], [place] [address] Elliott Valdez MD LAB - CHEMISTRY ORDMundo SHEPHERD [facility] [place] [address] * ALLERGEN TURKEY IGE (03/11/2011 5:50 PM CDT) Allergen [place] 0.17 <=0.34 K[facility] Immunocap Score [facility] Comment: REFERENCE INTERVAL: Allergen, [...] PM CDT 03/11/2011 5:56 PM CDT Narrative [facility] - 03/14/2011 4:24 PM CDT 1 Resulting Agency Comment Performed By [employer] ? [address] ? [place], [place] [address] Elliott Valdez MD LAB - SEROLOGY ORDER DAVID Performing Organization Address City/[facility]/ZIP Co de Phone Number [facility] [address] [place] [address] * (ABNORMAL) ALLERGEN APPLE IGE (03/11/2011 5:50 PM CDT) Allergen Apple 12.90(H) <=0.34 KU/[facility] Immunocap Score K[facility] Comment: REFERENCE INTERVAL: Allergen, [...] PM CDT 03/11/2011 5:56 PM CDT Narrative [facility] - 03/14/2011 4:24 PM CDT 1 Resulting Agency Comment Performed By [employer] ? [address] ? [place], [place] [address] Elliott Valdez MD LAB - SEROLOGY ORDER DAVID [facility] [address] [place] [address] * (ABNORMAL) ALLERGEN BEEF IGE (03/11/2011 5:50 PM CDT) Allergen Beef 0.85(H) <=0.34 KU/[facility] Immunocap Score [facility] Comment: REFERENCE INTERVAL: Allergen, [...] PM CDT 03/11/2011 5:56 PM CDT Narrative [facility] - 03/14/2011 4:24 PM CDT 1 Resulting Agency Comment Performed By [employer] ? [address] ? [place], [place] [address] Elliott Valdez MD LAB - CHEMISTRY MANFRED SHEPHERD [facility] [address] [facility] [place] [address] * (ABNORMAL) ALLERGEN FOOD SALAD PROFILE (03/11/2011 5:50 PM CDT) Allergen Celery 6.68(H) <=0.34 KU/[facility] Allergen Lettuce 3.65(H) <=0.34 KU/[facility] Allergen [place] 16.90(H) <=0.34 KU/[facility] Allergen Parsley 2.56(H) <=0.34 KU/[facility] Allergen Tomato 25.30(H) <=0.34 KU/[facility] Immunocap Score KU/[facility] Comment: REFERENCE INTERVAL: Allergen, [...] PM CDT 03/11/2011 5:57 PM CDT Narrative [facility] - 03/14/2011 4:25 PM CDT 1 Resulting Agency Comment Performed By [employer] ? [address] ? [place], [place] [address] Elliott aVldez MD LAB - CHEMISTRY MANFRED SHEPHERD [facility] [address] [facility] [place] [address] * (ABNORMAL) ALLERGEN PEDIATRIC FOOD I PROFILE (03/11/2011 5:50 PM CDT) Allergen Egg White 0.11 <=0.34 KU/[facility] Allergen Milk 1.46(H) <=0.34 KU/[facility] Allergen Wheat 13.40(H) <=0.34 KU/[facility] Allergen Oat 10.80(H) <=0.34 KU/[facility] Allergen Soybean 9.15(H) <=0.34 K[facility] Immunocap Score [facility] Comment: REFERENCE INTERVAL: Allergen, [...] PM CDT 03/11/2011 5:57 PM CDT Narrative [facility] - 03/14/2011 4:25 PM CDT 1 Resulting Agency Comment Performed By [employer] ? [address] ? [place], [place] [address] Elliott Valdez MD LAB - CHEMISTRY MANFRED SHEPHERD [facility] [address] [facility] [place] [address] * (ABNORMAL) ALLERGEN FOOD VEGETABLE PROFILE (03/11/2011 5:50 PM CDT) Allergen [place] 13.00(H) <=0.34 KU/[facility] Allergen Pea 10.80(H) <=0.34 KU/[facility] Allergen White Baum 28.80(H) <=0.34 KU/[facility] Allergen Carrot 20.40(H) <=0.34 KU/[facility] Allergen Potato 15.50(H) <=0.34 KU/[facility] Immunocap Score [facility] Comment: REFERENCE INTERVAL: Allergen, [...] PM CDT 03/11/2011 5:57 PM CDT Narrative [facility] - 03/14/2011 4:25 PM CDT 1 Resulting Agency Comment Performed By [employer] ? [address] ? [place], [place] [address] Elliott Valdez MD LAB - CHEMISTRY MANFRED Willard Organization Address City/State/ZIP Co de Phone Number [facility] [address] [facility] [place] [address] * CARDIAC EKG ORDER (03/06/2011 6:34 AM CDT) Narrative Transcriptions Document, Scanned - 03/06/2011 6:34 AM CDT Scanned Document CARDIAC SERVICES ORD ERABLES * HOLTER MONITOR (02/25/2011) Smiley Alberto MD CARDIAC SERVICES ORD ERABLES Care Teams Slot Floor Person Relationship Specialty Start Date End Date Carlos Gillette MD [address] [facility] [place] [id number] PCP - General Internal Medicine 09/16/23 Bienvenido Sargent MD [address] [place] [address] Internal Medicine 09/16/23
--- OUTSIDE RECORDS SUMMARY | 2024-08-08 06:01 | XMS_ITS | Referral Summary ---
Author Organization [facility] Address [address] [place] [address] Care Team Providers Care Front Desk Associate Name Role Phone Carlos Gillette MD Primary Care Provider [phone] Bienvenido Sargent MD Unavailable Source Comments [facility],non-owned Affiliates and Associated Physician Practices is amultiple site organization consisting of ambulatory clinics and hospital sitesin [place], [place], [place] and [place]. This disclosure is being madepursuant to the Care Everywhere program and may not contain all information available regarding this patient. Last updated 18.[facility] Encounters Date Type Department Care Team Description 08/04/2024 7:30 AM SOLUTION DEVELOPER - 08/04/2024 11:59 PM SOLUTION DEVELOPER Hospital Encounter [facility] PT [address] [place] [address] Isaias Torres MD Tado, Mike, PT Orthopedics Discharge Disposition: Home or Self Care 08/03/2024 Travel 07/28/2024 7:30 AM SOLUTION DEVELOPER - 07/28/2024 11:59 PM [facility] Hospital Encounter [facility] PT [address] [place] [phone] Isaias Torres MD Herman, Laura, PT Orthopedics Discharge Disposition: Home or Self Care 07/19/2024 Orders Only [facility] - GI [address] [place] [phone] Khadijah Busch MD Crohn's disease of both small and large intestine without complication ([facility]) 07/14/2024 7:30 AM SOLUTION DEVELOPER - 07/14/2024 11:59 PM SOLUTION DEVELOPER Hospital Encounter [facility] PT [address] [place] [address] Isaias Torres MD Herman, Laura, PT Orthopedics Discharge Disposition: Home or Self Care 07/13/2024 Travel 07/13/2024 1:20 PM SOLUTION DEVELOPER - 07/13/2024 11:59 PM SOLUTION DEVELOPER Hospital Encounter [facility] MRI [address] [place] [address] Khadijah Busch MD Discharge Disposition: Home or Self Care 07/01/2024 11:00 AM SOLUTION DEVELOPER - 07/01/2024 11:59 PM SOLUTION DEVELOPER Hospital Encounter [facility] PT [address] [place] [address] Isaias Torres MD Herman, Laura, PT Discharge Disposition: Home or Self Care 06/15/2024 Orders Only [facility] - Orthopedics [address] [place] [phone] Isaias Torres MD Chronic left shoulder pain 06/14/2024 Orders Only [facility] - GI [address] [place] [phone] Khadijah Busch MD 06/14/2024 10:20 AM SOLUTION DEVELOPER - 06/14/2024 11:59 PM SOLUTION DEVELOPER Hospital Encounter [facility] Health Imaging Services - MRI [address] [place] [address] Isaias Torres MD Discharge Disposition: Home or Self Care 06/14/2024 8:58 AM SOLUTION DEVELOPER - 06/14/2024 10:19 AM SOLUTION DEVELOPER Hospital Encounter [facility] Health Imaging Services - Radiology [address] [place] [address] Isaias Torres MD Discharge Disposition: Home or Self Care 06/07/2024 Travel 06/07/2024 4:42 PM SOLUTION DEVELOPER - 06/07/2024 11:59 PM SOLUTION DEVELOPER Hospital Encounter [facility] LAB OP DRAW STATION [address] [place] [phone] Discharge Disposition: Home or Self Care 06/06/2024 Travel 06/06/2024 2:30 PM SOLUTION DEVELOPER Office Visit [facility] - Dermatology [address] [place] [phone] Nerissa Rodriguez MD Dermatofibroma (Primary Dx); Rash and other nonspecific skin eruption; Nipple problem 06/03/2024 Orders Only [facility] Pediatrics - Orthopedics [address] [place], [place] [address]wy [address] [place] [address] Isaias Torres MD S/P shoulder surgery 05/27/2024 Travel 05/27/2024 8:20 AM SOLUTION DEVELOPER Office Visit [facility] - Urology [address] [place] [phone] Ron Kinney PA Itching of male genitalia (Primary Dx) 05/19/2024 Orders Only [facility] - GI [address] [place] [phone] Khadijah Busch MD 05/11/2024 Travel 05/11/2024 1:15 PM CDT - 05/11/2024 11:59 PM CDT Hospital Encounter [facility] LAB OP DRAW STATION [address] [place] [phone] Discharge Disposition: Home or Self Care 05/10/2024 Orders Only [facility] GI [address] [place] [phone] Khadijah Busch MD Crohn's disease of both [...] Active azelastine (Astelin) 0.1 % nasal spray [place] 1 (one) spray into each nostril 2 [...] Each 1 04/27/2024 Active Vitamin D, Ergocalciferol, 85753 units CAPSIndications:V itamin D Deficiency Take 1 (one) capsule by mouth every 7 days for 12 doses Reasons: Vitamin D Deficiency 12 capsule 05/19/2024 Active Active Problems Patient Care Coordination No te Formatting of this note migh t be different from the original. Mom's cell [phone] Misha gave permission at his appointment on [...] h 9 (LTP): 3.9 [place] h 8 AR-10): 3.27 Tree nuts: Total hazelnut (Filbert): 8.91 Total walnut: 5.73 Total cashew: 1.77 [place] nut: 0.37 [place]: 3.17 Total cow's milk: 0.57 (95% NPV) [...] shellfish. Immunizations Name Administration Dates Next Due Pops primary monoval ent 12+ yr 0.3mL Purple [...] Comments Blood Pressure 117/84 05/27/2024 8:19 AM SOLUTION DEVELOPER Pulse 84 05/27/2024 8:19 AM SOLUTION DEVELOPER Temperature 36.5 ??C (97.7 ??F) 05/27/2024 8:19 AM CS T Respiratory Rate 18 05/27/2024 8:19 AM SOLUTION DEVELOPER Oxygen Saturation 96% 05/27/2024 8:19 AM SOLUTION DEVELOPER Inhaled Oxygen Concentration 100% 02/2019 11:59 AM CDT Weight 66.6 kg (146 lb 12.8 oz) 05/27/2024 8:19 AM SOLUTION DEVELOPER Height 167.6 cm (5' 6 ) 05/27/2024 8:19 AM SOLUTION DEVELOPER Body Mass Index 23.69 05/27/2024 8:19 AM SOLUTION DEVELOPER Functional Status Functional Status Response Date of [...] st Contact Info) Description 08/08/2024 8:00 AM SOLUTION DEVELOPER Appointment [facility] PT [address] [place] [phone] Isaias Torres MD [address] [place] [address] DIV [place] [address] Moustapha Lopez, PT 08/22/2024 2:00 PM SOLUTION DEVELOPER Office Visit [facility] - Internal Med [address] [place] [phone] Carlos Gillette MD [address] [place] [address] [place] [address] 09/30/2024 7:55 AM CDT Hospital Encounter [facility] ENDOSCOPY [address] [place] [phone] Khadijah Busch MD [address] [place] [phone] Surgery General 09/30/2024 7:55 AM CDT - 09/30/2024 8:45 AM CDT Surgery [facility] ENDOSCOPY [address] [place] [phone] Khadijah Busch MD [address] [place] [phone] EGD + capsule w/ sean 10/24/2024 3:00 PM CDT Office Visit [facility] GI [address] [place] [address] [place] [address] Khadijah Busch MD [address] [place] [phone] 12/21/2024 3:30 PM CDT Office Visit [facility] - Allergy [address] [place] [phone] Yonatan Allen MD [address] [place] [address] DIV OF ALLERGY/[place] [address] Scheduled Procedures Name Priority Associated Diagnoses Date/Ti [...] Management General On track( 023 9:05 AM SOLUTION DEVELOPER) Monique Crawford RN Note: Expected end date: ongoing Interventions: Take all medications as prescribed Let your doctor know right away about any changes in your medications Make sure to request a refill of your medication at least one week prior to your last dose Medical Devices Implanted Type Area Yard Coupler Device Identifier Shelf Expiration Date Model / Serial / Lot Farmland Sut Gryphon Proknot Bcrl Rapide Implanted:Qty: 1 on 11/25/2022 by Isaias Torres MD at [facility] Right: Shoulder [employer] 08/12/2025 [id number] / / [id number] [employer] Sut Gryphon Proknot Bcrl Rapide Implanted:Qty: 1 on 11/25/2022 by Isaias Torres MD at [facility] Right: Shoulder [employer] 08/12/2025 [id number] / / [id number] [employer] Sut Gryphon Proknot Bcrl Rapide - S00 Implanted:Qty: 3 on 03/05/2023 by Isaias Torres MD at [facility] Left: Shoulder [employer] 10/10/2025 [id number] / 00 / [id number] [employer] Sut Gryphon Proknot Bcrl Rapide - S00 Implanted:Qty: 1 on 03/05/2023 by Isaias Torres MD at [facility] Left: Shoulder [employer] 10/10/2025 [id number] / 00 / [id number] Procedures Procedure Name Priority Date/Time Associated Diagnosis Comments MRI ENTEROGRAPHY Routine 07/13/2024 3:20 PM SOLUTION DEVELOPER Crohn's disease of both small and large intestine without complication (HCC) FL INJECTION MR ARTHROGRAM Routine 06/14/2024 12:04 PM SOLUTION DEVELOPER S/P shoulder surgery MRI SHOULDER LEFT W CONTRAST Routine 06/14/2024 11:04 AM SOLUTION DEVELOPER S/P shoulder surgery CALPROTECTIN FECAL Routine 06/07/2024 4: 43 PM SOLUTION DEVELOPER Crohn's disease of both small and large intestine without complication (HCC) URINALYSIS AUTO - POINT OF CARE (AMB) [facility] Routine 05/27/2024 8:26 AM SOLUTION DEVELOPER Itching of male genitalia DIFFERENTIAL MANUAL Routine [...] Results * MRI Enterography (07/13/2024 3:20 PM SOLUTION DEVELOPER) Anatomical Region Laterality Modality Abdomen Magnetic Resonan ce, Magnetic Resonance 07/14/2024 9:13 AM SOLUTION DEVELOPER Impressions 07/18/2024 7:38 AM SOLUTION DEVELOPER Impression: Focal enhancement of a short segment loop decompressed proximal ileum within the left lower quadrant, suggestive of active disease. No other active disease identified. Report dictated by Donta Li MD (president ceo & founder). I, Juan Kirkland MD have personally reviewed and interpreted this examination/study. > Interpreting Provider: Juan Kirkland MD on 07/18/2024 7:38 AM Narrative 07/18/2024 7:38 AM SOLUTION DEVELOPER PROCEDURE: ??MRI ENTEROGRAPHY, DATE/TIME OF EXAM: ??07/13/2024 3:21 PM, LOCATION ??[facility] INDICATION: K50.80: Crohn's disease of both small and large intestine without complication (HCC) ADDITIONAL CLINICAL INFORMATION: Ordering Provider Reason For Exam: ??History of Chron's disease, uncontolled COMPARISON: MRI enterography from an outside institution via [employer] dated 12/05/2016. TECHNIQUE: MRI of the abdomen [...] DATE/TIME OF EXAM: 07/13/2024 3:21 PM, LOCATION [facility] INDICATION: K50.80: Crohn's disease of both small and large intestine without complication (HCC) ADDITIONAL CLINICAL INFORMATION: Ordering Provider Reason For Exam: History of Chron's disease,uncontolled COMPARISON: MRI enterography from an outside institution via [employer] dated 12/05/2016. TECHNIQUE: MRI of the abdomen [...] identified. Report dictated by Donta Li MD (president ceo & founder). I, Juan Kirkland MD have personally reviewed and interpreted this examination/study. > Interpreting Provider: Juan Kirkland MD on 07/18/2024 7:38 AM Khadijah Busch MD MR ORDERABLES * FL Injection Mr Arthrogram (06/14/2024 12:04 PM SOLUTION DEVELOPER) Anatomical Region Laterality Modality Lower Extremity, Upper Extremity Radio Fluoroscopy 06/14/2024 1:11 PM SOLUTION DEVELOPER Impressions 06/14/2024 1:13 PM SOLUTION DEVELOPER IMPRESSION: Successful fluoroscopic guided right left arthrogram pre-MRI. See separate MRI report. > Interpreting Provider: Sumit Horton MD on 06/14/2024 1:13 PM Narrative 06/14/2024 1:13 PM SOLUTION DEVELOPER EXAM: FLUOROSCOPIC GUIDED LEFT SHOULDER ARTHROGRAM (PRE-MRI) [...] Shoulder Left W Contrast (06/14/2024 11:04 AM SOLUTION DEVELOPER) Anatomical Region Laterality Modality Upper Extremity Magnetic Resonan ce 06/14/2024 2:08 PM SOLUTION DEVELOPER Impressions 06/14/2024 2:52 PM SOLUTION DEVELOPER IMPRESSION: Postsurgical change consistent with a previous [...] 06/14/2024 2:52 PM Narrative 06/14/2024 2:52 PM SOLUTION DEVELOPER PROCEDURE: ??MRI SHOULDER LEFT W CONTRAST DATE/TIME [...] * (ABNORMAL) CALPROTECTIN FECAL (06/07/2024 4:43 PM SOLUTION DEVELOPER) Calprotectin Fecal 179(H) <=49 ug/g 06/10/2024 5:39 PM SOLUTION DEVELOPER [place] ([facility]) Comment: REFERENCE INTERVAL: Calprotectin, Fecal by Immunoassay ??Less than 50 ug/g.........Normal ??50-120 ug/g...............Borderline elevated, test should be ?re-evaluated in 4-6 weeks. ??121 ug/g or greater.......Elevated Performed By: [facility] [address] [place] [id number] Warp Knitting Machine Operator: Cullen Bower MD, PhD CLIA Number: [id number] Stool STOOL SPECIMEN / Unknown Collection / Unknown 06/07/2024 4:43 PM SOLUTION DEVELOPER 06/07/2024 4:50 PM SOLUTION DEVELOPER Khadijah Busch MD LAB - BODY FLUID ORD ERABLES [facility] ([facility]) [address] [place] [address], [facility] * URINALYSIS AUTO - POINT OF CARE (AMB) [facility] (05/27/2024 8:26 AM SOLUTION DEVELOPER) Glucose UA neg [facility] [address] Bilirubin UA POCT neg [facility] [address] Ketones UA POCT neg [facility] [address] Specific Bee UA 1.[address] [facility] [address] Blood [...] URINE / Unknown 05/27/2024 8 :26 AM SOLUTION DEVELOPER Ron Grace LAB - POINT OF CARE ORDERABLES [facility] [address] [facility] [address] [facility] [place] [address], [facility] [phone] * C-REACTIVE PROTEIN (05/11/2024 1:46 PM CDT) C-Reactive Protein <0.5 <=0.5 mg/dL 05/11/2024 2:42 PM CDT [facility] Blood BLOOD SPECIMEN / Unknown Lab Venipuncture / Unknown 05/11/2024 1:46 PM CDT 05/11/2024 2:10 PM CDT Khadijah Busch MD LAB - CHEMISTRY ORDE RABLES [facility] [address] [place] [address], [place] [phone] * (ABNORMAL) VITAMIN D 25-HYDROXY (05/11/2024 1:46 PM CDT) Pathologist [facility] Vitamin D, 25 Hydroxy 11.5(L) 30.0 - 80.0 ng/mL 05/11/2024 3:06 PM CDT [facility] Comment: The recommendations for 25-Hydroxy Vitamin [...] - CHEMISTRY MANFRED SHEPHERD Performing Organization Address [facility]/State/[facility] Co de Phone Number [facility] [address] [place] [phone], [facility] [phone] * (ABNORMAL) DIFFERENTIAL MANUAL (05/11/2024 1:46 PM CDT) [facility] Neutrophil % 38(L) 41 - 74 % 05/11/2024 2:42 PM CDT [facility] Lymphocyte % 28 17 - 47 % 05/11/2024 2:42 PM CDT [facility] Monocyte % 9 3 - 11 % 05/11/2024 2:42 PM CDT [facility] Eosinophil % 22(H) 0 - 7 % 05/11/2024 2:42 PM CDT [facility] Basophil % 3(H) 0 - 2 % 05/11/2024 2:42 PM CDT [facility] Neutrophil Absolute 2.74 1.60 - 7.50 x10E9/L 05/11/2024 2:42 PM CDT [facility] Lymphocyte Absolute 2.02 1.00 - 4.40 x10E9/L 05/11/2024 2:42 PM CDT [facility] Monocyte Absolute 0.65 0.15 - 1.00 x10E9/L 05/11/2024 2:42 PM CDT [facility] Eosinophil Absolute 1.58(H) 0.00 - 0.60 x10E9/L 05/11/2024 2:42 PM CDT [facility] Basophil Absolute 0.22(H) 0.00 - 0.13 x10E9/L 05/11/2024 2:42 PM CDT [facility] RBC Morphology NORMAL 05/11/2024 2:42 PM T [facility] Platelet Morphology NORMAL 05/11/2024 2:42 PM [facility] Blood BLOOD SPECIMEN / Unknown Lab Venipuncture / Unknown 05/11/2024 1:46 PM CDT 05/11/2024 2:10 PM CDT Khadijah Busch MD LAB - HEMATOLOGY ORD ERABLES Performing Organization Address City/[facility] Co de Phone Number [address] [address], [facility] [phone] * CBC W/ DIFFERENTIAL (05/11/2024 1:46 PM CDT) WBC 7.2 4.0 - 10.7 x10E9/L 05/11/2024 2:42 PM CDT [facility] RBC Count 4.83 4.30 - 5.80 x10E12/L 05/11/2024 2:42 PM CDT [facility] Hemoglobin 14.5 13.3 - 17.5 g/dL 05/11/2024 2:42 PM CDT [facility] Hematocrit 42.0 38.7 - 51.1 % 05/11/2024 2:42 PM T [facility] MCV 87.0 80.0 - 98.0 fL 05/11/2024 2:42 PM CDT [facility] MCH 30.0 26.7 - 33.6 pg 05/11/2024 2:42 PM T [facility] MCHC 34.5 31.7 - 36.3 g/dL 05/11/2024 2:42 PM T [facility] RDW-CV 12.0 11.3 - 14.8 % 05/11/2024 2:42 PM [facility] Platelet Count 260 150 - 420 x10E9/L 05/11/2024 2:42 PM [facility] MPV 9.9 7.8 - 11.4 fL 05/11/2024 2:42 PM [facility] Blood BLOOD SPECIMEN / Unknown Lab Venipuncture / Unknown 05/11/2024 1:46 PM CDT 05/11/2024 2:10 PM CDT Khadijah Busch MD LAB - HEMATOLOGY ORD ERABLES [facility] [address] [place] [phone], [facility] [phone] * (ABNORMAL) COMPREHENSIVE METABOLIC PANEL (05/11/2024 1:46 PM CDT) BUN 13 7 - 26 mg/dL 05/11/2024 2:40 PM [facility] Creatinine 1.01 0.71 - 1.16 mg/dL 05/11/2024 2:40 PM T [facility] Sodium 139 136 - 145 mmol/L 05/11/2024 2:40 PM [facility] Potassium 4.4 3.5 - 4.5 mmol/L 05/11/2024 2:40 PM [facility] Chloride 103 98 - 107 mmol/L 05/11/2024 2:40 PM [facility] CO2 30(H) 22 - 29 mmol/L 05/11/2024 2:40 PM [facility] Glucose 91 70 - 99 mg/dL 05/11/2024 2:40 PM [facility] Calcium 9.5 8.4 - 10.2 mg/dL 05/11/2024 2:40 PM [facility] Protein Total 7.4 6.0 - 8.3 g/dL 05/11/2024 2:40 PM [facility] Albumin 4.2 3.4 - 5.0 g/dL 05/11/2024 2:40 PM [facility] Bilirubin Total 0.4 0.2 - 1.2 mg/dL 05/11/2024 2:40 PM [facility] Alkaline Phosphatase 67 40 - 150 U/L 05/11/2024 2:40 PM [facility] ALT 8 5 - 55 U/L 05/11/2024 2:40 PM [facility] AST 13 5 - 34 U/L 05/11/2024 2:40 PM [facility] Anion Gap 6 6 - 16 05/11/2024 2:40 PM [facility] BUN/Creatinine Ratio 13 7 - 23 05/11/2024 2:40 PM [facility] Osmolality Calculated 288 275 - 295 mOsm/kg 05/11/2024 2:40 PM [facility] Albumin/Globulin Ratio 1.3 1.1 - 2.3 05/11/2024 2:40 PM [facility] eGFR by CKD-EPI >90 >=90 mL/min/1.7 3 m2 05/11/2024 2:40 PM [facility] Blood BLOOD SPECIMEN / Unknown Lab Venipuncture / Unknown 05/11/2024 1:46 PM CDT 05/11/2024 2:10 PM T Khadijah Busch MD LAB - CHEMISTRY MANFRED SHEPHERD [facility] [address] [place] [address], [facility] [phone] * VITAMIN B12 (05/11/2024 1:46 PM CDT) Vitamin B12 750 213 - 816 pg/mL 05/11/2024 3:06 PM CDT [facility] Blood BLOOD SPECIMEN / Unknown Lab Venipuncture / Unknown 05/11/2024 1:46 PM CDT 05/11/2024 2:10 PM CDT Khadijah Busch MD LAB - CHEMISTRY MANFRED SHEPHERD Performing Organization Address City/[facility]/ZIP Co de Phone Number [address] [address], [place] [phone] * IRON + TRANSFERRIN PANEL (05/11/2024 1:46 PM CDT) Iron 96 50 - 175 ug/dL 05/11/2024 2:33 PM CDT [facility] Transferrin 233 174 - 382 mg/dL 05/11/2024 2:33 PM CDT [facility] Transferrin Saturation % 33 16 - 50 % 05/11/2024 2:33 PM CDT [facility] TIBC Calculated 291 240 - 450 ug/dL 05/11/2024 2:33 PM CDT [facility] Blood BLOOD SPECIMEN / Unknown Lab Venipuncture / Unknown 05/11/2024 1:46 PM CDT 05/11/2024 2:05 PM CDT Khadijah Busch MD LAB - CHEMISTRY MANFRED SHEPHERD Performing Organization Address City/[facility]/ZIP Co de Phone Number [address] [address], [place] [phone] * (ABNORMAL) FERRITIN (05/11/2024 1:46 PM CDT) Ferritin 331(H) 22 - 275 ng/mL 05/11/2024 2:51 PM CDT [facility] Blood BLOOD SPECIMEN / Unknown Lab Venipuncture / Unknown 05/11/2024 1:46 PM CDT 05/11/2024 2:05 PM CDT Khadijah Busch MD LAB - CHEMISTRY MANFRED SHEPHERD [facility] [address] [place] [address], [facility] [phone] * HEPATITIS C AB SCREEN RFLX NAAT QUANT (01/26/2024 4:00 PM CDT) Hepatitis C Antibody Non-react cindy Non-reac tive 01/26/2024 5:14 PM CDT [facility] Comment:Hepatitis C Antibody screen indicates no [...] Flores MD LAB - CHEMISTRY MANFRED SHEPHERD [facility] [address] [place] [address], [facility] [phone] from Last 3 Months or Most Recently Relevant to Health Maintenance Care Teams Front Desk Associate Relationship Specialty Start Date End Date Carlos Gillette MD [address] [facility] [place] [phone] PCP - General Internal Medicine 09/16/23 Bienvenido Sargent MD [address] [place] [phone] Internal Medicine 09/16/23
[2024-08-08 06:05] VITALS: BP 118/83; PULSE 63; RESP 15; O2SAT 100
[2024-08-08 06:06] VITALS: BP 118/83; PULSE 63; RESP 15; O2SAT 100
--- NOTE | 2024-08-08 08:32 | ED_ITS ---
HPI - General Adult General Chief complaint: Unspecified Stated complaint: dark spots on my thighs , felt faint while eating Time Seen by Provider: 08/08/24 04:49 History of Present Illness HPI narrative: 24-year-old male with a history of eosinophilic esophagitis presenting to the emergency room with chief complaint of diffuse itchiness throughout his body associated with some skin discoloration and dark spots between his thighs. Patient is also concerned about his family history of diabetes and wants to evaluate for prediabetes or diabetes. He states that there has been new changes in his regimens including new fabric softeners or detergents at home but denies any new pets, chemical exposures, travel or medication exposures. He states that he has been found the itchy throughout his entire body for last few days. Has not tried any medications prior to arrival. He states his eosinophilic esophagitis is otherwise well controlled and has not been acting up on him recently. Related Data Allergies Allergy/AdvReac Type Severity Reaction Status Date / Time nut - unspecified Allergy Unknown HIVES Verified 08/08/24 00:11 peas Allergy Unknown HIVES Verified 08/08/24 00:11 Dairy Allergy Unknown EXAC OF Uncoded 08/08/24 00:11 CROHNS SEAFOOD Allergy Unknown HIVES Uncoded 08/08/24 00:11 Review of Systems 2 Review of Systems: As reviewed above in HPI [facility] Past Medical History Medical History Crohn's disease Eosinophilic esophagitis Asthma Surgical History Surgical History History of esophagogastroduodenoscopy (EGD) Social History Social History Smoking status: Never smoker Exam 2 Narrative: GENERAL: [Well-appearing, well-nourished, and in no acute distress.] HEAD: [Normocephalic, atraumatic.] EYES: [PERRLA and EOMI.] ENT: Nares clear, no rhinorrhea or epistaxis. Mucous membranes moist. NECK: Supple. CHEST: [Clear to auscultation. No respiratory distress.] HEART: [Regular rate and rhythm]. No murmur heard. [Normal peripheral pulses.] ABDOMEN: [Soft, nondistended], [nontender], [No rigidity or guarding] EXTREMITIES: Normal range of motion. [No edema.] SKIN: Warm, dry, no rash. No urticaria or hives noted NEURO: [No focal deficits]. Alert and oriented [x3.] PSYCH: [Normal mood and affect.] Course Vital Signs Vital signs: Vital Signs Temperature 36.2 C L 08/08/24 00:08 Pulse Rate 65 08/08/24 00:08 Respiratory Rate 20 08/08/24 00:08 Blood Pressure 115/87 08/08/24 00:08 Pulse Oximetry 99 08/08/24 00:08 Oxygen Delivery Room Air 08/08/24 00:08 Temperature 36.2 C L 08/08/24 00:08 Pulse Rate 63 08/08/24 06:06 Respiratory Rate 15 08/08/24 06:06 Blood Pressure 118/83 08/08/24 06:06 Pulse Oximetry 100 08/08/24 06:06 Oxygen Delivery Room Air 08/08/24 00:08 Medical Decision Making [facility] Narrative Medical decision making narrative: 24-year-old male with a history of eosinophilic esophagitis presenting to the emergency room with diffuse itchiness. He states symptoms are going on for several days. No urticaria or rash identified, he states he has had some spots between his thighs but they do not appear to be concerning on my evaluation, no raised lesions, no ulcerations, appears to just be some discolored macules that appear chronic and small. No other findings on his skin assessment. He otherwise is well appearing, not any acute distress, normal vital signs. Laboratory studies were obtained including CBC, CMP and an A1c level given his concern for diabetes. Laboratory studies showed no leukocytosis or anemia but he does have a profound eosinophilic elevation at 20.2 which is markedly more than his previous levels. He likely has some type of component of allergic reaction or histamine response causing the CSF elevations. A1c is 5.5 in reassuring and relayed to the patient. Electrolytes normal limits. We gave him a dose of 25 mg of Atarax for trial of therapy for his itchiness and recommendations for further evaluation on outpatient basis with prescriptions sent to his pharmacy. Patient was safe and stable for discharge home at this time. Medical Records Medical records reviewed: Yes I reviewed the external patient's medical records. Vital Signs Vital Signs: Vital Signs Temperature 36.2 C L 08/08/24 00:08 Pulse Rate 65 08/08/24 00:08 Respiratory Rate 20 08/08/24 00:08 Blood Pressure 115/87 08/08/24 00:08 Pulse Oximetry 99 08/08/24 00:08 Oxygen Delivery Room Air 08/08/24 00:08 Temperature 36.2 C L 08/08/24 00:08 Pulse Rate 63 08/08/24 06:06 Respiratory Rate 15 08/08/24 06:06 Blood Pressure 118/83 08/08/24 06:06 Pulse Oximetry 100 08/08/24 06:06 Oxygen Delivery Room Air 08/08/24 00:08 Lab Data Lab results reviewed: Yes I reviewed the patient's lab results. 08/08/24 03:30 08/08/24 03:31 Labs: Lab Results 08/08/24 08/08/24 Range/Units 03:30 03:31 WBC 7.9 (4.5-10.0) K/mm3 RBC 4.39 L (4.6-6.20) M/mm3 Hgb 13.6 L (14.0-18.0) g/dL Hct 39.1 L (42.0-52.0) % MCV 89.1 (80-100) fl MCH 31.0 (26-34) pg MCHC 34.8 (32-36) g/dl RDW 12.3 (11.5-14.5) % Plt Count 233 (150-375) k/mm3 MPV 9.8 (7.4-10.4) fl Immature Gran % (Auto) 0.1 (0-0.5) % Neut % (Auto) 28.6 L (45.5-73.1) % Lymph % (Auto) 40.8 (18.3-44.2) % [place] % (Auto) 9.0 H (2.6-8.5) % Eos % (Auto) 20.2 H (0-4.4) % Baso % (Auto) 1.3 H (0.2-1.2) % Lymph # (Auto) 3.23 H (0.9-3.2) K/mm3 [place] # (Auto) 0.7 H (0.1-0.6) K/mm3 Eos # (Auto) 1.6 H (0-0.3) K/mm3 Baso # (Auto) 0.1 (0.0-0.1) K/mm3 Abs Immat Gran (auto) 0.01 (0.00-0.031) K/mm3 Absolute Neuts (auto) 2.3 (1.3-6.7) K/mm3 Absolute Nucleated RBC 0.000 (0.0-0.012) K/mm3 Nucleated RBC % 0.0 (0.0-0.2) % Sodium 137 (137-145) mmol/L Potassium 4.2 (3.4-5.0) mmol/L Chloride 100 (98-107) mmol/L Carbon Dioxide 28 (22-30) mmol/L Anion Gap 9 (4-12) mmol/L BUN 24 H (9-20) mg/dL Creatinine 1.06 (0.7-1.3) mg/dL Estim Creat Clear Calc 84 ml/min Estimated GFR > 60 (59 - ) Glucose 102 (65-110) mg/dL Hemoglobin A1c 5.5 (<5.7) % Calcium 9.0 (8.4-10.2) mg/dL Discharge Plan Discharge Clinical Impression: Allergic eosinophilia, Itching Patient Disposition: Home, Self-Care Condition: Stable Instructions: Antibiotic Form, Acute Rash (ED), Allergies (ED) Additional Instructions: Your laboratory studies show elevated eosinophil levels which could be secondary to allergic reaction type symptoms which makes sense in the context your having diffuse itchiness. This could be secondary to histamine release from a contact allergy or even a stress response. Will trial a dose of antihistamine medications and send you with a prescription. Follow-up with your regular primary care provider, return at any point with any new or worsening concerns. In addition to the prescribed hydroxyzine you can also try taking diphenhydramine/Benadryl OTC. Patient Language: Thai Prescriptions: New hydroxyzine HCl 25 mg tablet 25 mg PO TID PRN (Reason: itching) Qty: 30 0RF No Action omeprazole 20 mg capsule,delayed release(DR/EC) 20 mg PO DAILY Qty: 30 0RF Follow-up/Referrals: PHYSICIAN,[facility] [Primary Care Provider] - Time of Disposition: 05:53
== END 2024-08-08 06:07 | disposition home or self-care (01) ==
LOC: ANHED 05:59
PROVIDERS: Emergency Provider Student in an Organized Health Care Education/Training Program
DX: D72.10 Eosinophilia, unspecified (principal); K20.0 Eosinophilic esophagitis; K50.90 Crohn's disease, unspecified, without complications; J45.909 Unspecified asthma, uncomplicated
CPT/HCPCS: 36415; 80048; 83036; 85025; 99283; A9270